=== PATIENT | female | born 1935 | race Caucasian/White ===

== ENCOUNTER → 2016-10-25 | Outpatient (CLI) | payer MEDICARE, BC ==
[2016-03-01 17:15] VITALS: BP 135/60
[~2016-10-25] MED LIST: AMLO1TAB76 PO; CHOL100013 PO; HYDR-971 PO; PANT20TA2 PO
--- NOTE | 2016-10-25 13:20 | CARD ---
APPROVED REPORT EXAM: Two-dimensional and M-mode echocardiogram with Doppler and color Doppler. Other Information Quality : Good INDICATION Ischemic Cardiomyopathy 2D DIMENSIONS RVDd2.4 (2.9-3.5cm)Left Atrium(2D)3.3 (1.6-4.0cm) IVSd1.1 (0.7-1.1cm)Aortic Root(2D)2.9 (2.0-3.7cm) LVDd4.5 (3.9-5.9cm)PWd1.0 (0.7-1.1cm) LVDs4.0 (2.5-4.0cm)FS (%) 15.0 % SV25.7 mlLVEF(%)30.0 (>50%) Aortic Valve AoV Peak Gabriel.115.8cm/sAoV VTI23.0cm AO Peak GR.5.4mmHgAO Mean GR.3mmHg ANIVAL (VTI)2.11cm2 Mitral Valve MV E Uqsxscak96.5cm/sMV DECEL [id number] MV A Amtheiza05.0cm/sE/A Ratio0.6 Tricuspid Valve TR P. Iuclpxqk867rf/sRAP IPZRWHVU6osBa TR Peak Gr.00pyBsDPZX55jdZc LEFT VENTRICLE The left ventricle is normal size. There is normal left ventricular wall thickness. There is mild to moderate LV dysfunction. EF 35-40%. The septum, anterior wall and apex are moderately hypokinetic. Tr ansmitral Doppler flow pattern is Grade I-abnormal relaxation pattern. RIGHT VENTRICLE The right ventricle is normal size. The right ventricular systolic function is normal. There is a pac emaker lead in the right ventricle. ATRIA The left atrium size is normal. The right atrium size is normal. A pacemaker is seen in the right atr ium consistent with history. The interatrial septum is intact with no evidence for an atrial septal d efect or patent foramen ovale as noted on 2-D or Doppler imaging. AORTIC VALVE The aortic valve is calcified but opens well. Doppler and Color Flow revealed no significant aortic r egurgitation. There is no significant aortic valvular stenosis. MITRAL VALVE The mitral valve is normal in structure and function. There is no evidence of mitral valve prolapse. There is no mitral valve stenosis. Doppler and Color-flow revealed mild mitral regurgitation. TRICUSPID VALVE The tricuspid valve is normal in structure and function. Doppler and Color Flow revealed mild tricusp id regurgitation. There is mild pulmonary hypertension. The PA pressure was estimated at 34 mmHg. The re is no tricuspid valve stenosis. PULMONIC VALVE Doppler and Color Flow revealed trace to mild pulmonic valvular regurgitation. There is no pulmonic v alvular stenosis. GREAT VESSELS The aortic root is normal in size. The ascending aorta is normal in size. The IVC is normal in size a nd collapses >50% with inspiration. PERICARDIAL EFFUSION There is no evidence of significant pericardial effusion. Critical Notification Critical Value: No <Conclusion> There is mild to moderate LV dysfunction. EF 35-40%. (mildly improved compared to prior) The septum, anterior wall and apex are moderately hypokinetic. There is a pacemaker lead in the right ventricle.
== END | disposition home or self-care (01) ==
LOC: ECHO 07:51
PROVIDERS: ATTEND Internal Medicine Cardiovascular Disease
DX: I25.5 Ischemic cardiomyopathy (principal); I08.1 Rheumatic disorders of both mitral and tricuspid valves; I27.2 Other secondary pulmonary hypertension; I31.3 Pericardial effusion (noninflammatory); Z95.0 Presence of cardiac pacemaker
CPT/HCPCS: 93306

== ENCOUNTER → 2016-12-14 | Outpatient (CLI) | payer MEDICARE, BC ==
[2016-03-01 17:15] VITALS: BP 135/60
[~2016-12-14] MED LIST changes: -AMLO1TAB76 PO; +AMLO1TAB91 PO; -PANT20TA2 PO; +PANT20TA58 PO
--- NOTE | 2016-12-14 09:49 | RAD ---
Abdominal ultrasound, 12/14/2016: History: Right upper quadrant pain The gallbladder is surgically absent. Mild prominence of the central intrahepatic bile ducts and mild enlargement of the common hepatic duct is probably secondary to the postcholecystectomy state. The common hepatic duct measures 9 mm. In the head of the pancreas the common bile duct measures 9 to 10 mm. No common duct calculus was identified. The visualized portions of the pancreas and spleen are unremarkable. Several simple cysts are present in both kidneys as also noted on the recent CT study. The kidneys show no evidence of obstruction. There is moderate aortic atherosclerosis without evidence of aneurysm. The visualized portions of the inferior vena cava are unremarkable. No free fluid is evident in the abdomen. IMPRESSION: 1. Mild biliary ductal prominence is probably secondary to the postcholecystectomy state. 2. Bilateral renal cysts. 3. Aortic atherosclerosis. 4. No acute abdominal abnormality is detected.
== END | disposition home or self-care (01) ==
LOC: US 07:43
PROVIDERS: ATTEND Family Medicine
DX: N28.1 Cyst of kidney, acquired (principal); I70.0 Atherosclerosis of aorta
CPT/HCPCS: 76700

== ENCOUNTER → 2017-03-07 | Outpatient (CLI) | payer MEDICARE, BC ==
[2016-03-01 17:15] VITALS: BP 135/60
--- NOTE | 2017-03-07 09:55 | CARD ---
APPROVED REPORT EXAM: Two-dimensional and M-mode echocardiogram with Doppler and color Doppler. Other Information Quality : Average Rhythm : Pacemaker INDICATION Cardiomyopathy 2D DIMENSIONS Left Atrium(2D)3.2 (1.6-4.0cm)IVSd1.1 (0.7-1.1cm) Aortic Root(2D)2.6 (2.0-3.7cm)LVDd5.6 (3.9-5.9cm) LVOT Diameter2.1 (1.8-2.4cm)PWd1.1 (0.7-1.1cm) LVDs4.8 (2.5-4.0cm)FS (%) 19.3 % SV49.3 mlLVEF(%)34.9 (>50%) Aortic Valve AoV Peak Gabriel.127.0cm/sAoV VTI24.4cm AO Peak GR.6.4mmHgLVOT Peak Gabriel.83.0cm/s LVOT VTI 20.18cmAO Mean GR.4mmHg ANIVAL (VMAX)2.87ex4RED (VTI)2.88cm2 Mitral Valve MV E Gevycoew60.1cm/sMV DECEL AZKU750zx MV A Kpjwtjgb87.7cm/sMV WHQ24mw E/A Ratio0.6MV A Ewzppnrs200ax MVA (PHT)3.36cm2 Tricuspid Valve TR P. Xqtnlssq826zb/sRAP IYRXUYPD9zyRs TR Peak Gr.53rbNyFMLV20pkSi Pulmonary Vein S1 Huqmlgox19.6cm/sD2 Yddsqufa55.5cm/s LEFT VENTRICLE The left ventricle is normal size. There is normal left ventricular wall thickness. Left ventricle sy stolic function is mildly to moderately impaired. The Ejection Fraction is 40-45%. Mild to moderate g lobal hypokinesis. Tissue Doppler imaging reveals mild left ventricular diastolic dysfunction. RIGHT VENTRICLE The right ventricle is normal size. The right ventricular systolic function is normal. There is a pac emaker lead seen in the RV/RA. ATRIA The left atrium size is normal. The right atrium size is normal. The interatrial septum is intact wit h no evidence for an atrial septal defect or patent foramen ovale as noted on 2-D or Doppler imaging. AORTIC VALVE The aortic valve is normal in structure and function. The aortic valve is trileaflet. Doppler and Col or Flow revealed no significant aortic regurgitation. There is no significant aortic valvular stenosi s. MITRAL VALVE The mitral valve is normal in structure and function. There is no mitral valve stenosis. Doppler and Color Flow revealed mild mitral regurgitation. TRICUSPID VALVE The tricuspid valve is normal in structure and function. Doppler and Color Flow revealed mild tricusp id regurgitation. The PA pressure was estimated at 32 mmHg. There is no tricuspid valve stenosis. PULMONIC VALVE The pulmonic valve is not well visualized. Doppler and Color Flow revealed no pulmonic valvular regur gitation. There is no pulmonic valvular stenosis. GREAT VESSELS The aortic root is normal in size. Pulmonary venous flow (Doppler) suggestive of mild diastolic dysfu nction. The IVC is normal in size and collapses >50% with inspiration. PERICARDIAL EFFUSION There is no evidence of significant pericardial effusion. Critical Notification Critical Value: No <Conclusion> Left ventricle systolic function is mildly to moderately impaired. The Ejection Fraction is 40-45%. There is a pacemaker lead seen in the RV/RA.
== END | disposition home or self-care (01) ==
LOC: ECHO 08:53
PROVIDERS: ATTEND Internal Medicine Cardiovascular Disease
DX: I25.5 Ischemic cardiomyopathy (principal)
CPT/HCPCS: 93306

== ENCOUNTER → 2017-04-20 | Outpatient (CLI) | payer MEDICARE, BC ==
[2016-03-01 17:15] VITALS: BP 135/60
--- NOTE | 2017-04-20 11:36 | RAD ---
DATE: 04/20/2017 EXAM: DIGITAL SCREEN BILAT W/CAD HISTORY: Routine screening COMPARISON: 11/13/2013 This study was interpreted with the benefit of Computerized Aided Detection (CAD). FINDINGS: Breast Density: HETERO The breast parenchyma Is heterogeneiously dense, which could reduce sensitivity of mammography. Breast parenchyma level C. There are no dominant suspicious masses, suspicious microcalcifications or evidence of architectural distortion. Benign-appearing calcification is identified in the bilateral breasts. IMPRESSION: Benign findings BI-RADS CATEGORY: 2 BENIGN FINDING RECOMMENDED FOLLOW-UP: 12M 12 MONTH FOLLOW-UP PQRS compliance statement: Patient information was entered into a reminder system with a target due date 04/20/2018 for the next mammogram. Mammography is a sensitive method for finding small breast cancers, but it does not detect them all and is not a substitute for careful clinical examination. A negative mammogram does not negate a clinically suspicious finding and should not result in delay in biopsying a clinically suspicious abnormality. "Our facility is accredited by the [employer] Mammography Program."
== END | disposition home or self-care (01) ==
LOC: MAMMO 09:59
PROVIDERS: ATTEND Nurse Practitioner Family
DX: Z12.31 Encounter for screening mammogram for malignant neoplasm of breast (principal)
CPT/HCPCS: G0202; 77067

== ENCOUNTER 2017-04-25 07:43 | Emergency (ER) | payer MEDICARE, BC ==
[~2017-04-25] VITALS: Ht 157.5 cm; Wt 61.2 kg
--- NOTE | 2017-04-25 08:20 | PHYS DOC ---
Past History Past Medical History: GERD, Hypertension Past Surgical History: No Surgical History Smoking: Non-smoker Alcohol Use: None Drug Use: None Adult General Chief Complaint Chief Complaint: ABDOMINAL PAIN HPI HPI 81-year-old female presenting to the emergency department today with general pain "everywhere". She primarily states her pain is in her epigastric region but is unable to localize her pain specifically and states it is all over. The pain is moderate intermittent nonradiating. She describes it as worse when she eats. It is been present for greater than 4 days. She reports chronically seeing her primary care physician for this over the past week. She has been prescribed medication that she does not remember the name of. She reports it mildly helps. Review of systems is negative for shortness of breath fevers. She does report sweats. She describes having intermittent nausea with a few episodes of nonbilious nonbloody vomiting. All other review of systems is negative unless otherwise noted in history of present illness. ED course: 81-year-old female presenting to the emergency department with pain all over. The patient is generally poor historian however after much clarification it appears the patient's pain is primarily in the epigastric region. Pertinent physical examination findings show a soft nontender abdomen without rebound tenderness or guarding. Negative McBurney's point. Negative Sewell sign. Chest x-ray obtained along with EKG urinalysis and blood work. EKG reviewed by myself shows a paced rhythm with mild tachycardia. Scarbossa Negative. Chest x-ray reviewed by myself shows mild increased patchy finding in the RLL. In the context of the patient's clinical presentation, the patient is not febrile is not have a cough. Well initiate abx dosing here to monitor clinical presentation in the hospital. Blood work shows elevated troponin and elevated proBNP. I discussed the case with [Colton] at [0900] who recommended [heparin, asa]. The patient was given an aspirin heparin and then subsequently admitted to [facility] per cardiology recs for further evaluation workup and care. Review of Systems Review of Systems SEE ABOVE Current Medications Current Medications Current Medications Medications (Trade) Dose Ordered Sig/Alexus Start Time Stop Time Status Last Admin Dose Admin Acetaminophen/ Hydrocodone Bitart (Lortab 5/325) 1 tab 1X ONCE 04/25/17 08:30 04/25/17 08:31 Famotidine (Pepcid) 20 mg 1X ONCE 04/25/17 08:30 04/25/17 08:31 Multi-Ingredient Mouthwash/Gargle (Gi Cocktail) 20 ml 1X ONCE 04/25/17 08:30 04/25/17 08:31 Allergies Allergies Allergies Coded Allergies Type Severity Reaction Last Updated Verified codeine Allergy Unknown 03/01/16 Yes Physical Exam Physical Exam see above. Constitutional: Well developed, well nourished, no acute distress, non-toxic appearance. [] HENT: Normocephalic, atraumatic, bilateral external ears normal, oropharynx moist, no oral exudates, nose normal. [] Eyes: PERRLA, EOMI, conjunctiva normal, no discharge. [] Neck: Normal range of motion, no tenderness, supple, no stridor. [] Cardiovascular:Heart rate regular rhythm, no murmur [] Lungs & Thorax: mild crackles in the right lower lung field. otherwise without wheezing. Left side clear. Abdomen: Bowel sounds normal, soft, no tenderness, no masses, no pulsatile masses. [] Skin: Warm, dry, no erythema, no rash. [] Back: No tenderness, no CVA tenderness. [] Extremities: No tenderness, no cyanosis, no clubbing, ROM intact, no edema. [] Neurologic: Alert and oriented X 3, normal motor function, normal sensory function, no focal deficits noted. [] Psychologic: Affect normal, judgement normal, mood normal. [] Current Patient Data Vital Signs Vital Signs Date Time Temp Pulse Resp B/P (MAP) Pulse Ox O2 Delivery O2 Flow Rate FiO2 04/25/17 07:50 98.8 100 22 95 Room Air EKG EKG [] Radiology/Procedures Radiology/Procedures [] Course & Med Decision Making Course & Med Decision Making Pertinent Labs and Imaging studies reviewed. (See chart for details) [] Dragon Disclaimer Dragon Disclaimer This chart was dictated in whole or in part using Voice Recognition software in a busy, high-work load, and often noisy Emergency Department environment. It may contain unintended and wholly unrecognized errors or omissions. Departure Departure: Impression: Primary Impression: Abdominal pain Additional Impressions: Elevated troponin CHF exacerbation NSTEMI (non-ST elevated myocardial infarction) PNA (pneumonia) Disposition: 02 XFER [facility] ([place] accepting) Condition: IMPROVED Referrals: MEJIA GONSALES MD (PCP) Problem Qualifiers ANDREW CAREY MD Apr 25, 2017 08:20
[2017-04-25] MEDS ORDERED: HYDROcodone/APAP 5/325MG 1 TAB TABLET PO ONE (08:30)
[2017-04-25] MEDS ORDERED: FAMOTIDINE 20 MG/2 ML VIAL IVP ONE (08:30)
[2017-04-25] MEDS ORDERED: LIDO:MAALOX 1:1 20 ML SINGLE DOSE PO ONE (08:30)
[2017-04-25 08:34] LABS: BASO % 1 % (0-3); EOS % 0 % (0-3); LYMPH % 11 % (24-48); MEAN CORPUSCULAR HEMOGLOBIN 32 pg (25-35); MEAN CORPUSCULAR HGB CONC 34 g/dL (31-37); MEAN CORPUSCULAR VOLUME 94 fL (79-100); MONO # 1.3 x10^3/uL (0.0-1.1); MONO % 14 % (0-9); NEUT % 75 % (31-73); PLATELET COUNT 132 x10^3/uL (140-400); RED BLOOD COUNT 4.39 x10^6/uL (3.50-5.40); RED CELL DISTRIBUTION WIDTH 15.2 % (11.5-14.5); WHITE BLOOD COUNT 9.3 x10^3/uL (4.0-11.0)
--- NOTE | 2017-04-25 08:41 | RAD ---
Chest x-ray Indication: Abdominal pain. Discomfort external. Technique: Portable AP upright chest x-ray Comparison: Previous chest x-ray from 05/06/2011 Findings: Left chest wall cardiac device is seen with its leads projecting over the heart. Heart is mildly enlarged in size with aortic knob calcifications. Diffuse bilateral interstitial opacities noted with Pedro B lines prominently on the right side. Patchy opacities is also seen in the medial aspect of the right lung base. No pneumothorax or pleural effusion. Visualized bony thorax is within normal limits. Impression: Mild cardiomegaly with findings of pulmonary interstitial edema. Patchy opacity in the medial aspect of the right lung base may represent superimposed pneumonia, aspiration or atelectasis.
[2017-04-25 08:53] LABS: ALBUMIN 3.6 g/dL (3.4-5.0); CALCIUM 9.7 mg/dL (8.5-10.1); CREATININE 1.1 mg/dL (0.6-1.0); DIRECT BILIRUBIN 0.2 mg/dL (0.0-0.2); GFR 47.4; POTASSIUM 4.6 mmol/L (3.5-5.1); TOTAL PROTEIN 7.4 g/dL (6.4-8.2)
[2017-04-25] MEDS ORDERED: ASPIRIN 81 MG TAB.CHEW ONE (09:15)
[2017-04-25 09:26] LABS: BACTERIA,URINE FEW /HPF (0-FEW); BILIRUBIN,URINE NEG (NEG); CLARITY,URINE HAZY; COLOR,URINE AMBER; GLUCOSE,URINE NEG (NEG); NITRITE,URINE NEG (NEG); RBC,URINE 20-40 /HPF (0-2); SQUAMOUS EPITHELIAL CELL,UR OCC /LPF; UROBILINOGEN,URINE 0.2 mg/dL (0.2 mg/dL); WBC,URINE RARE /HPF (0-4)
[2017-04-25] MEDS ORDERED: HEPARIN for IV BOLUS 10,000 UNIT/10 ML VIAL. IV PRN ×2 (09:30)
[2017-04-25] MEDS ORDERED: ASPIRIN 81 MG TAB.CHEW PO ONE (09:40)
[2017-04-25 09:41] VITALS: BP 130/79
[2017-04-25] MEDS ORDERED: HEPARIN for IV BOLUS 10,000 UNIT/10 ML VIAL. IV ONE (09:50)
[2017-04-25] MEDS ORDERED: HEPARIN 25,000UTS/500ML PREMIX 500 ML IV PRN (09:50)
[2017-04-25] MEDS ORDERED: NITROGLYCERIN SUBLINGUAL 0.4 MG BOTTLE OF 25. SL ONE (09:50)
[2017-04-25] MEDS ORDERED: IV NORMAL SALINE 250ML 250 ML ONE (10:15)
[2017-04-25] MEDS ORDERED: AZITHROMYCIN 500 MG VIAL. IV ONE (10:15)
[2017-04-25] MEDS ORDERED: AZITHROMYCIN 500 MG in IV NORMAL SALINE 250ML 250 ML IV ONE (10:30)
[2017-04-25] MEDS ORDERED: IV NORMAL SALINE 50ML 50 ML ONE (11:35)
[2017-04-25] MEDS ORDERED: cefTRIAXone SODIUM 1 GM VIAL IV ONE (11:35)
--- NOTE | 2017-04-25 19:14 | EKG ---
[address] [address] Test Date: 2017-04-25 Test Time: 08:07:43 Pat Name: ROHITH PINO Department: Room: Gender: F Network Control Supervisor: SHAYLEE : 1935 Requested By: ANDREW CAREY Order Number: [id number] Reading MD: Measurements Intervals [place] Rate: 98 P: -57 NH: 192 QRS: -55 QRSD: 184 T: 118 QT: 402 QTc: 515 Interpretive Statements SUPRAVENTRICULAR RHYTHM ABNORMAL LEFT AXIS DEVIATION NON SPECIFIC INTRAVENTRICULAR BLOCK QRS(T) CONTOUR ABNORMALITY CONSIDER ANTEROSEPTAL MYOCARDIAL DAMAGE ABNORMAL ECG RI6.01 No previous ECG available for comparison
--- NOTE | 2017-04-25 19:15 | EKG ---
[address] [address] Test Date: 2017-04-25 Test Time: 11:53:08 Pat Name: ROHITH PINO Department: Room: Gender: F Dispensing Audiologist: : 1935 Requested By: ANDREW CAREY Order Number: [id number] Reading MD: Measurements Intervals [place] Rate: 90 P: 3 AK: 208 QRS: -58 QRSD: 182 T: 128 QT: 422 QTc: 521 Interpretive Statements SINUS RHYTHM ABNORMAL LEFT AXIS DEVIATION NON SPECIFIC INTRAVENTRICULAR BLOCK ABNORMAL ECG RI6.01 No previous ECG available for comparison
--- NOTE | 2017-04-25 19:16 | EKG ---
[address] [address] Test Date: 2017-04-25 Test Time: 11:54:34 Pat Name: ROHITH PINO Department: Room: Gender: F Forensic Pathologist: : 1935 Requested By: ANDREW CAREY Order Number: [id number] Reading MD: Measurements Intervals [place] Rate: 87 P: 76 [place]: 208 QRS: -55 QRSD: 182 T: 124 QT: 432 QTc: 520 Interpretive Statements SINUS RHYTHM ABNORMAL LEFT AXIS DEVIATION NON SPECIFIC INTRAVENTRICULAR BLOCK QRS(T) CONTOUR ABNORMALITY CONSIDER ANTEROSEPTAL MYOCARDIAL DAMAGE ABNORMAL ECG RI6.01 No previous ECG available for comparison
== END 2017-04-26 12:52 | disposition short-term general hospital (02) ==
LOC: ER 07:43
DX: R10.13 Epigastric pain (principal); I50.9 Heart failure, unspecified; J18.9 Pneumonia, unspecified organism; I11.0 Hypertensive heart disease with heart failure; K21.9 Gastro-esophageal reflux disease without esophagitis; I21.4 Non-ST elevation (NSTEMI) myocardial infarction; R79.89 Other specified abnormal findings of blood chemistry; Z88.5 Allergy status to narcotic agent
CPT/HCPCS: 36415; 71010; 80048; 80076; 81001; 83690; 83880; 84484; 85025; 85610; 85730; 93005; 96365; 96366; 96368; 96375; 99285; J0456; J0696; J1644; J7050; S0028

== ENCOUNTER 2017-05-23 18:25 | Emergency (ER) | payer MEDICARE, BC ==
[~2017-05-23] VITALS: Ht 157.5 cm; Wt 61.2 kg
[2017-05-23] MEDS ORDERED: ONDANSETRON PF 4 MG/2 ML VIAL. IV ONE (19:00)
[2017-05-23] MEDS ORDERED: ONDANSETRON PF 4 MG/2 ML VIAL. ONE (19:06)
--- NOTE | 2017-05-23 19:23 | ED.ADGEN ---
Past History Past Medical History: GERD, Heart Disease, Hypertension Past Surgical History: No Surgical History, Other Smoking: Non-smoker Alcohol Use: None Drug Use: None Adult General HPI HPI Patient is an 81-year-old woman, history of heart disease, hypertension, status post stent placement about a month ago, on anticoagulation, who presents to the emergency department with a complaint of right-sided hip pain. Patient states that she lost her balance and fell in her basement around 3:00 in the afternoon. She has been able to weight-bear since that time, states that she did not lose consciousness, did land in her entire side, does not believe she struck her head is complaining of chronic neck pain, right pain, sitting down to the knee and into the groin. Denies similar symptoms previously. She denies a preceding symptoms, no chest pain, shortness breath, nausea, vomiting, weakness, numbness, tingling or other complaints. She did take Tylenol at home, without relief. Review of Systems Review of Systems Constitutional: Denies fever or chills [] Eyes: Denies change in visual acuity, redness, or eye pain [] HENT: Denies nasal congestion or sore throat [] Respiratory: Denies cough or shortness of breath [] Cardiovascular: No additional information not addressed in HPI [] GI: Denies abdominal pain, nausea, vomiting, bloody stools or diarrhea [] : Denies dysuria or hematuria [] Musculoskeletal: Denies back pain, complaining of pain in the right hip. Unable to weight-bear. Integument: Denies rash or skin lesions [] Neurologic: Denies headache, focal weakness or sensory changes [] Endocrine: Denies polyuria or polydipsia [] Current Medications Current Medications Current Medications Medications (Trade) Dose Ordered Sig/[facility] Start Time Stop Time Status Last Admin Dose Admin Fentanyl Citrate (Fentanyl 2ml Vial) 100 mcg STK-MED ONCE 05/23/17 19:06 05/23/17 19:07 DC Ondansetron HCl (Zofran) 4 mg STK-MED ONCE 05/23/17 19:06 05/23/17 19:07 DC Allergies Allergies Allergies Coded Allergies Type Severity Reaction Last Updated Verified codeine Allergy Unknown 03/01/16 Yes Physical Exam Physical Exam Constitutional: Well developed, well nourished, no acute distress, non-toxic appearance. [] HENT: Normocephalic, atraumatic, bilateral external ears normal, oropharynx moist, no oral exudates, nose normal. [] Eyes: PERRLA, EOMI, conjunctiva normal, no discharge. [] Neck: Normal range of motion, no tenderness, supple, no stridor. [] Cardiovascular:Heart rate regular rhythm, no murmur, S1, S2, rubs or gallops. [] Lungs & Thorax: Bilateral breath sounds clear to auscultation, no wheezing, rhonchi, rales. No chest wall crepitus or tenderness. [] Abdomen: Bowel sounds normal, soft, no tenderness, no rebound, rigidity, no guarding, no masses, no pulsatile masses. [] Skin: Warm, dry, no erythema, no rash. [] Back: No tenderness, no CVA tenderness. [] Extremities: Tenderness palpation over the right hip, groin region, patient is slightly rotated, patient noted an abrasion over the lateral aspect of the right knee, with mild soft tissue swelling noted, no bony point tenderness or deformity, pulses are equal and intact bilaterally, no cyanosis, no clubbing, ROM intact, no edema. [] Neurologic: Alert and oriented X 3, normal motor function, normal sensory function, no focal deficits noted. [] Psychologic: Affect normal, judgement normal, mood normal. [] Current Patient Data Vital Signs Vital Signs Date Time Temp Pulse Resp B/P (MAP) Pulse Ox O2 Delivery O2 Flow Rate FiO2 05/23/17 18:40 97.0 122 12 99 Room Air Lab Results Laboratory Tests Test 05/23/17 19:20 White Blood Count 9.0 x10^3/uL (4.0-11.0) Red Blood Count 4.04 x10^6/uL (3.50-5.40) Hemoglobin 12.7 g/dL (12.0-15.5) Hematocrit 37.4 % (36.0-47.0) Mean Corpuscular Volume 93 fL (79-100) Mean Corpuscular Hemoglobin 32 pg (25-35) Mean Corpuscular Hemoglobin Concent 34 g/dL (31-37) Red Cell Distribution Width 15.2 % (11.5-14.5) H Platelet Count 151 x10^3/uL (140-400) Neutrophils (%) (Auto) 62 % (31-73) Lymphocytes (%) (Auto) 15 % (24-48) L Monocytes (%) (Auto) 22 % (0-9) H Eosinophils (%) (Auto) 1 % (0-3) Basophils (%) (Auto) 0 % (0-3) Neutrophils # (Auto) 5.6 x10^3uL (1.8-7.7) Lymphocytes # (Auto) 1.3 x10^3/uL (1.0-4.8) Monocytes # (Auto) 2.0 x10^3/uL (0.0-1.1) H Eosinophils # (Auto) 0.1 x10^3/uL (0.0-0.7) Basophils # (Auto) 0.0 x10^3/uL (0.0-0.2) Prothrombin Time 11.5 SEC (9.4-11.4) H Prothrombin Time INR 1.1 (0.9-1.1) PTT 25 SEC (23-33) Sodium Level 137 mmol/L (136-145) Potassium Level 3.5 mmol/L (3.5-5.1) Chloride Level 102 mmol/L (98-107) Carbon Dioxide Level 26 mmol/L (21-32) Anion Gap 9 (6-14) Blood Urea Nitrogen 19 mg/dL (7-20) Creatinine 1.2 mg/dL (0.6-1.0) H Estimated GFR (Cockcroft-Gault) 42.9 BUN/Creatinine Ratio 16 (6-20) Glucose Level 100 mg/dL (70-99) H Calcium Level 9.1 mg/dL (8.5-10.1) Total Bilirubin 0.7 mg/dL (0.2-1.0) Aspartate Amino Transferase (AST) 21 U/L (15-37) Alanine Aminotransferase (ALT) 22 U/L (14-59) Alkaline Phosphatase 112 U/L (46-116) Total Protein 7.3 g/dL (6.4-8.2) Albumin 3.6 g/dL (3.4-5.0) Albumin/Globulin Ratio 1.0 (1.0-1.7) EKG EKG ECG: , Limiting interpretation, heart rate 86 beats/minute, QTC of 516, QRS of 22, no ST elevations or depressions. As interpreted by me. Radiology/Procedures Radiology/Procedures [][address] [address] IMAGING REPORT Signed PATIENT: ROHITH PINO ACCOUNT: [id number] : 1935 LOCATION: ER AGE: 81 SEX: F EXAM STATUS: PRE ER ORD. PHYSICIAN: MARCIA CORREA DO REASON: fall/neck/hip pain PROCEDURE: CT HEAD AND CERVICAL SPINE WO CT HEAD AND CERVICAL SPINE without contrast Clinical indications: FALL, HEAD AND NECK PAIN COMPARISON: None available. NONCONTRAST HEAD CT Technique: Noncontrast axial cross sectional scanning of the head was performed. PQRS compliance Statement One or more of the following individualized dose reduction techniques were utilized for these studies: 1. Automated exposure control 2. Adjustment of the mA and/or kV according to patient size 3. Use of iterative reconstruction technique Findings: No acute intracranial hemorrhage or midline shift or mass-effect or hydrocephalus or extra-axial fluid collection is seen. Mild bilateral periventricular white matter hypodensity is seen consistent with chronic small vessel ischemic disease in this age group. No skull fracture or pneumocephalus is seen. No opacification of the mastoid sinuses or the paranasal sinuses is seen. The maxillary sinuses are not completely seen in this study. Impression: No acute intracranial hemorrhage is seen. Mild chronic small vessel ischemic disease of the white matter. NONCONTRAST CERVICAL SPINE CT TECHNIQUE: Noncontrast helical CT scanning of the cervical spine was performed. Multiplanar 2-D reconstructions were generated. FINDINGS: No acute fracture or discitis or osteolytic process is seen. Degenerative endplate spurring and disc space narrowing is seen at C4-5 and C5-6 and C6-7 and C7-T1. Degenerative facet arthropathy is seen. No perching of the facet joints is seen. IMPRESSION: No acute fracture. Degenerative cervical spondylosis. There is a 22 mm nodule of the right lobe of the thyroid gland. Recommend outpatient thyroid sonography for further evaluation. Electronically signed by: Iliana Rowan MD (05/23/2017 8:09 PM) [facility] DICTATED AND SIGNED BY: ILIANA ROWAN MD DATE: 05/23/171999 CC: MEJIA GONSALES MD; MARCIA CORREA DO ~ Pelvis and right hip 2 view: Patient with impacted right femoral neck fracture , no other pelvic abnormalities identified. No soft tissue abnormalities identified. As interpreted by me. Knee three-view: Right: No fracture subluxation, no soft tissue or bony abnormalities identified. As interpreted by me. Tib-fib: 2 view: Right: No fracture subluxation, no soft tissue or bony abnormalities identified. As interpreted by me. Chest x-ray: One view: Patient with moderate cardiomegaly, AICD dual-chamber pacemaker in place, suboptimal inspiratory effort, but no pneumothorax, effusions, infiltrates, soft tissue or bony abnormalities identified. No significant changes noted from previous chest x-ray 04/25/2017. As interpreted by me. Course & Med Decision Making Course & Med Decision Making Pertinent Labs and Imaging studies reviewed. (See chart for details) Examination is concerning for possible fracture, as hip is rotated internally and shortened. Superficial abrasions noted on the patient's knee, tetanus is up- to-date. Due to patient's age, mechanism of action, usage of anticoagulants, distracting injury, c-collar was placed per Nexus criteria, patient is agreeable to receiving imaging of the head and neck, along with x-rays of her pelvis and lower extremity. Patient log rolled, no other injuries or concerning findings identified. CT of head and neck obtained without issue. CT of head and neck did not reveal evidence of acute injury, noted to have an isolated thyroid nodule which will require outpatient evaluation. Patient's pelvis x-ray revealed an impacted right femoral neck fracture, no other fractures identified. C-collar was cleared without issue. Findings as above discussed with patient and family at bedside, patient is agreeable for transfer to [facility] for orthopedic evaluation and surgical intervention of right hip fracture. Symptoms controlled with fentanyl IV. Koenig catheter placed. Creatinine 1.2, electrolytes and other laboratory studies not reveal any acutely concerning findings. Findings as above discussed with Dr. Gusman of internal medicine, patient accepted to her service as a full admission to the medical telemetry floor. I did speak with Dr. Romero of orthopedics, who did review patient's images, and will see the patient in consultation at [facility]. Consent paperwork completed with patient, patient resting comfortably, vital signs remained stable, awaiting transfer to [facility]. Final Impression Final Impression [] Problems: Dragon Disclaimer Dragon Disclaimer This electronic medical record was generated, in whole or in part, using a voice recognition dictation system. Departure: Impression: Primary Impression: Fracture of femoral neck, right Disposition: 05 XFER OTHER Condition: IMPROVED MARCIA CORREA DO May 23, 2017 19:23
--- NOTE | 2017-05-23 19:39 | EKG ---
[address] [address] Test Date: 2017-05-23 Test Time: 18:59:59 Pat Name: ROHITH PINO Department: Room: Gender: F Head Bucker: MOR : 1935 Requested By: MARCIA CORREA Order Number: [id number] Reading MD: Grover Hutchison MD Measurements Intervals [place] Rate: 86 P: [place]: QRS: -58 QRSD: 182 T: 118 QT: 428 QTc: 516 Interpretive Statements SR 1ST DEG AVB V-PACED Electronically Signed On 05-27-2017 13:32:23 CDT by Grover Hutchison MD
[2017-05-23 20:06] LABS: BASO % 0 % (0-3); EOS # 0.1 x10^3/uL (0.0-0.7); EOS % 1 % (0-3); HEMATOCRIT 37.4 % (36.0-47.0); HEMOGLOBIN 12.7 g/dL (12.0-15.5); LYMPH # 1.3 x10^3/uL (1.0-4.8); LYMPH % 15 % (24-48); MEAN CORPUSCULAR HEMOGLOBIN 32 pg (25-35); MEAN CORPUSCULAR HGB CONC 34 g/dL (31-37); MEAN CORPUSCULAR VOLUME 93 fL (79-100); MONO % 22 % (0-9); NEUT # 5.6 x10^3uL (1.8-7.7); NEUT % 62 % (31-73); PLATELET COUNT 151 x10^3/uL (140-400); RED BLOOD COUNT 4.04 x10^6/uL (3.50-5.40); RED CELL DISTRIBUTION WIDTH 15.2 % (11.5-14.5)
--- NOTE | 2017-05-23 20:13 | RAD ---
CT HEAD AND CERVICAL SPINE without contrast Clinical indications: FALL, HEAD AND NECK PAIN COMPARISON: None available. NONCONTRAST HEAD CT Technique: Noncontrast axial cross sectional scanning of the head was performed. PQRS compliance Statement One or more of the following individualized dose reduction techniques were utilized for these studies: 1. Automated exposure control 2. Adjustment of the mA and/or kV according to patient size 3. Use of iterative reconstruction technique Findings: No acute intracranial hemorrhage or midline shift or mass-effect or hydrocephalus or extra-axial fluid collection is seen. Mild bilateral periventricular white matter hypodensity is seen consistent with chronic small vessel ischemic disease in this age group. No skull fracture or pneumocephalus is seen. No opacification of the mastoid sinuses or the paranasal sinuses is seen. The maxillary sinuses are not completely seen in this study. Impression: No acute intracranial hemorrhage is seen. Mild chronic small vessel ischemic disease of the white matter. NONCONTRAST CERVICAL SPINE CT TECHNIQUE: Noncontrast helical CT scanning of the cervical spine was performed. Multiplanar 2-D reconstructions were generated. FINDINGS: No acute fracture or discitis or osteolytic process is seen. Degenerative endplate spurring and disc space narrowing is seen at C4-5 and C5-6 and C6-7 and C7-T1. Degenerative facet arthropathy is seen. No perching of the facet joints is seen. IMPRESSION: No acute fracture. Degenerative cervical spondylosis. There is a 22 mm nodule of the right lobe of the thyroid gland. Recommend outpatient thyroid sonography for further evaluation. Electronically signed by: Sourav Rowan MD (05/23/2017 8:09 PM) [facility]
[2017-05-23 20:24] LABS: ALBUMIN 3.6 g/dL (3.4-5.0); CALCIUM 9.1 mg/dL (8.5-10.1); CREATININE 1.2 mg/dL (0.6-1.0); GFR 42.9; POTASSIUM 3.5 mmol/L (3.5-5.1); TOTAL BILIRUBIN 0.7 mg/dL (0.2-1.0); TOTAL PROTEIN 7.3 g/dL (6.4-8.2)
[2017-05-23] MEDS ORDERED: TICA90TA PO (22:52)
[2017-05-23 23:16] VITALS: BP 139/87
[2017-05-23 23:17] LABS: BILIRUBIN,URINE NEG (NEG); CLARITY,URINE CLEAR; COLOR,URINE YELLOW; GLUCOSE,URINE NEG (NEG)
[2017-05-23 23:18] LABS: BACTERIA,URINE 0 /HPF (0-FEW); NITRITE,URINE NEG (NEG); SQUAMOUS EPITHELIAL CELL,UR OCC /LPF; UROBILINOGEN,URINE 1 mg/dL (0.2 mg/dL); WBC,URINE OCC /HPF (0-4)
--- NOTE | 2017-05-24 08:34 | RAD ---
Pelvis with right hip, 3 views, 05/23/2017: History: Fall, pain There is a discontinuity along the lateral margin of the right femoral neck in a subcapital location. There is underlying trabecular discontinuity compatible with an impacted subcapital fracture. No other fracture or dislocation is identified. The hip joint spaces are well preserved with mild marginal spurring. There are moderate degenerative changes in the lower lumbar spine. Scattered vascular calcifications are present. IMPRESSION: Impacted subcapital fracture of the right femoral neck.
--- NOTE | 2017-05-24 08:36 | RAD ---
Right knee, 2 views, 05/23/2017: History: Fall, pain No fracture or dislocation is identified. There is minimal marginal spurring. IMPRESSION: No acute right knee abnormality is detected. Right tibia and fibula, 2 views, 05/23/2017: No acute fracture is identified. Minimal arterial calcifications are present. IMPRESSION: No acute bony abnormality is detected.
--- NOTE | 2017-05-24 08:37 | RAD ---
Portable chest, 05/23/2017: History: Fall, hip fracture Comparison is made to a study from 04/25/2017. A left-sided transvenous pacemaker remains in place with 2 leads extending into the right heart. The heart is mildly enlarged. There is calcific plaquing of aorta. The pulmonary vascularity is normal. Mild interstitial edema evident on the previous study has resolved. No acute infiltrates are seen. There is no evidence of pleural fluid or pneumothorax. IMPRESSION: 1. Mild cardiomegaly and aortic atherosclerosis. 2. No acute abnormality is detected.
== END 2017-05-23 23:45 | disposition short-term general hospital (02) ==
LOC: ER 18:25
DX: S72.001A Fracture of unspecified part of neck of right femur, initial encounter for closed fracture (principal); S80.211A Abrasion, right knee, initial encounter; M54.2 Cervicalgia; I11.9 Hypertensive heart disease without heart failure; K21.9 Gastro-esophageal reflux disease without esophagitis; Z95.0 Presence of cardiac pacemaker; Z88.5 Allergy status to narcotic agent; W01.0XXA Fall on same level from slipping, tripping and stumbling without subsequent striking against object, initial encounter; Y93.89 Activity, other specified; Y99.8 Other external cause status; Y92.89 Other specified places as the place of occurrence of the external cause
CPT/HCPCS: 36415; 51702; 70450; 71010; 72125; 73502; 73562; 73590; 80053; 81001; 85025; 85610; 85730; 93005; 96374; 96375; 96376; 99285; J2405; J3010

== ENCOUNTER → 2017-08-07 | Outpatient (CLI) | payer MEDICARE, BC ==
[~2017-08-07] MED LIST changes: +TICA90TA PO
--- NOTE | 2017-08-07 16:00 | CARD ---
MR#: [id number] Date of Study: 08/07/2017 Ordering Physician: GROVER HUTCHISON, Referring Physician: GROVER HUTCHISON, Tech: Herb Morillo APPROVED REPORT EXAM: Two-dimensional and M-mode echocardiogram with Doppler and color Doppler. Other Information Quality : GoodHR: 72bpm INDICATION Cardiomyopathy 2D DIMENSIONS Left Atrium(2D)3.3 (1.6-4.0cm)IVSd1.1 (0.7-1.1cm) Aortic Root(2D)2.9 (2.0-3.7cm)LVDd5.1 (3.9-5.9cm) LVOT Diameter2.4 (1.8-2.4cm)PWd1.0 (0.7-1.1cm) LVDs4.2 (2.5-4.0cm)FS (%) 19.0 % SV49.2 mlLVEF(%)39.0 (>50%) Aortic Valve AoV Peak Gabriel.116.4cm/sAoV VTI25.8cm AO Peak GR.5.4mmHgLVOT Peak Gabriel.73.2cm/s AO Mean GR.3mmHgAVA (VMAX)2.88cm2 Mitral Valve MV E Kgttrbbk01.1cm/sMV E Peak Gr.73mmHg MV DECEL [id number] A Djedyson15.1cm/s E/A Ratio0.7 Pulmonary Valve PV Peak Ruhxdfix29.5cm/sPV Peak Grad.3mmHg Tricuspid Valve TR P. [id number]/sRAP ACPHZJGK0foKd TR Peak Gr.75kkBcSCRY05mwAy Pulmonary Vein S1 Jhtgvqpe95.9cm/sD2 Laytstqk45.0cm/s LEFT VENTRICLE The left ventricle is normal size. There is borderline concentric left ventricular hypertrophy. The s ystolic function is moderately impaired. The Ejection Fraction is 35-40%. Apical motion consistent wi th pacemaker activation. Mild to moderate global hypokinesis. Transmitral Doppler flow pattern is Gra de I-abnormal relaxation pattern. No left ventricle thrombus noted on this study. RIGHT VENTRICLE The right ventricle is normal size. The right ventricular systolic function is normal. There is a pac emaker lead noted in RA/RV ATRIA The left atrium size is normal. The right atrium size is normal. The interatrial septum is intact wit h no evidence for an atrial septal defect or patent foramen ovale as noted on 2-D or Doppler imaging. AORTIC VALVE The aortic valve is thickened but opens well. Doppler and Color Flow revealed trace aortic regurgitat ion. There is no significant aortic valvular stenosis. There is no aortic valvular vegetation. MITRAL VALVE The mitral valve is normal in structure and function. There is no evidence of mitral valve prolapse. There is no mitral valve stenosis. Doppler and Color-flow revealed mild mitral regurgitation. TRICUSPID VALVE The tricuspid valve is normal in structure and function. Doppler and Color Flow revealed mild tricusp id regurgitation. RVSP 28 mm Hg. There is no tricuspid valve prolapse or vegetation. There is no tric uspid valve stenosis. PULMONIC VALVE Doppler and Color Flow suggested possible trace to mild pulmonic valvular regurgitation. There is no pulmonic valvular stenosis. GREAT VESSELS The aortic root is normal in size. The IVC is normal in size and collapses >50% with inspiration. PERICARDIAL EFFUSION There is no pleural effusion. There is no evidence of significant pericardial effusion. Critical Notification Critical Value: No <Conclusion> The systolic function is moderately impaired. The Ejection Fraction is 35%. Apical motion consistent with pacemaker activation. Mild to moderate global hypokinesis. Doppler and Color-flow revealed mild mitral regurgitation. Doppler and Color Flow revealed mild tricuspid regurgitation. RVSP 28 mm Hg. Signed by : Grover Hutchison, Electronically Approved : 08/07/2017 15:59:59
== END | disposition home or self-care (01) ==
LOC: ECHO 13:50
PROVIDERS: ATTEND Internal Medicine Cardiovascular Disease
DX: I25.5 Ischemic cardiomyopathy (principal); I08.2 Rheumatic disorders of both aortic and tricuspid valves; I11.9 Hypertensive heart disease without heart failure; I50.9 Heart failure, unspecified; Z95.0 Presence of cardiac pacemaker
CPT/HCPCS: 93306

== ENCOUNTER 2017-08-25 13:49 | Inpatient (IN) | payer MEDICARE, BC ==
[~2017-08-25] VITALS: Ht 157.5 cm; Wt 0.2 kg
[2017-08-25] MEDS ORDERED: DICY10CA53 PO (16:09)
[2017-08-25] MEDS ORDERED: METO-239 PO (16:09)
[2017-08-25] MEDS ORDERED: ASPI-630 PO (16:09)
[2017-08-25] MEDS ORDERED: ATOR40TA PO (16:09)
[2017-08-25] MEDS ORDERED: POTA20TA4 PO (16:09)
[2017-08-25] MEDS ORDERED: CITA20TA9 PO (16:09)
[2017-08-25] MEDS ORDERED: HYDR-2758 PO (16:09)
[2017-08-25] MEDS ORDERED: CHOL10003 PO (16:09)
[2017-08-25] MEDS ORDERED: TICA90TA PO (16:09)
[2017-08-25] MEDS ORDERED: POTA10CA PO (16:09)
[2017-08-25] MEDS ORDERED: PANT40TA3 PO (16:09)
[2017-08-25 16:24] VITALS: BP 118/57
[2017-08-25] MEDS: HYDROcodone/APAP 5/325MG 1 TAB TABLET PO PRN ×2 (17:11→21:06)
[2017-08-25 19:27] VITALS: BP 111/55
[2017-08-25] MEDS: ATORVASTATIN CALCIUM 20 MG TABLET PO SCH (20:15)
[2017-08-25] MEDS: TICAGRELOR 90 MG TABLET. PO SCH (20:16)
[2017-08-25] MEDS: DICYCLOMINE HCL 10 MG CAPSULE PO SCH (20:16)
[2017-08-26] MEDS: MELATONIN 3 MG TABLET PO PRN (00:15)
[2017-08-26] MEDS: HYDROcodone/APAP 5/325MG 1 TAB TABLET PO PRN ×3 (03:27→14:51)
[2017-08-26 06:47] LABS: BASO % 0 % (0-3); EOS # 0.1 x10^3/uL (0.0-0.7); EOS % 2 % (0-3); HEMOGLOBIN 7.6 g/dL (12.0-15.5); LYMPH # 0.9 x10^3/uL (1.0-4.8); LYMPH % 19 % (24-48); MEAN CORPUSCULAR HEMOGLOBIN 31 pg (25-35); MEAN CORPUSCULAR HGB CONC 35 g/dL (31-37); MEAN CORPUSCULAR VOLUME 90 fL (79-100); MONO % 20 % (0-9); NEUT # 2.9 x10^3uL (1.8-7.7); NEUT % 58 % (31-73); PLATELET COUNT 86 x10^3/uL (140-400); RED BLOOD COUNT 2.45 x10^6/uL (3.50-5.40); RED CELL DISTRIBUTION WIDTH 15.4 % (11.5-14.5); WHITE BLOOD COUNT 4.9 x10^3/uL (4.0-11.0)
[2017-08-26 06:55] VITALS: BP 148/56
[2017-08-26 07:00] LABS: ALBUMIN 2.3 g/dL (3.4-5.0); ALBUMIN/GLOBULIN RATIO 0.8 (1.0-1.7); CALCIUM 8.6 mg/dL (8.5-10.1); CREATININE 0.9 mg/dL (0.6-1.0); GFR 59.8; POTASSIUM 4.7 mmol/L (3.5-5.1); TOTAL BILIRUBIN 1.2 mg/dL (0.2-1.0); TOTAL PROTEIN 5.2 g/dL (6.4-8.2)
[2017-08-26 08:36] LABS: PLT ESTIMATE DECREASED (ADEQUATE)
[2017-08-26 08:37] LABS: OVALOCYTES OCC; POLYCHROMASIA SLIGHT
[2017-08-26 08:38] LABS: ANISOCYTOSIS SLIGHT
[2017-08-26 08:39] LABS: TEAR DROP CELLS OCC
[2017-08-26] MEDS: CITALOPRAM 20 MG TABLET. PO SCH (09:06)
[2017-08-26] MEDS: METOPROLOL SUCC 24HR ER 25 MG TAB.ER.24H. PO SCH (09:06)
[2017-08-26] MEDS: DICYCLOMINE HCL 10 MG CAPSULE PO SCH ×2 (09:06→21:11)
[2017-08-26] MEDS: CHOLECALCIFEROL (VITAMIN D3) 1,000 UNIT TABLET PO SCH (09:06)
[2017-08-26] MEDS: POTASSIUM CHLORIDE 20 MEQ TABLET.ER. PO SCH (09:06)
[2017-08-26] MEDS: PANTOPRAZOLE 40 MG TABLET. PO SCH (09:06)
[2017-08-26] MEDS: ASPIRIN 81 MG TAB.CHEW PO SCH (09:07)
[2017-08-26] MEDS: TICAGRELOR 90 MG TABLET. PO SCH ×2 (09:07→21:11)
[2017-08-26 19:33] VITALS: BP 128/65
[2017-08-26] MEDS: ATORVASTATIN CALCIUM 20 MG TABLET PO SCH (21:11)
[2017-08-27] MEDS: HYDROcodone/APAP 5/325MG 1 TAB TABLET PO PRN ×3 (03:25→20:44)
[2017-08-27 07:42] VITALS: BP 137/66
[2017-08-27 07:56] LABS: HEMATOCRIT 23.5 % (36.0-47.0); HEMOGLOBIN 8.1 g/dL (12.0-15.5); RED BLOOD COUNT 2.6 x10^6/uL (3.50-5.40); RED CELL DISTRIBUTION WIDTH 15.5 % (11.5-14.5); WHITE BLOOD COUNT 6.4 x10^3/uL (4.0-11.0)
[2017-08-27] MEDS: DICYCLOMINE HCL 10 MG CAPSULE PO SCH ×2 (08:47→20:38)
[2017-08-27] MEDS: CITALOPRAM 20 MG TABLET. PO SCH (08:47)
[2017-08-27] MEDS: CHOLECALCIFEROL (VITAMIN D3) 1,000 UNIT TABLET PO SCH (08:47)
[2017-08-27] MEDS: POTASSIUM CHLORIDE 20 MEQ TABLET.ER. PO SCH (08:47)
[2017-08-27] MEDS: ASPIRIN 81 MG TAB.CHEW PO SCH (08:48)
[2017-08-27] MEDS: TICAGRELOR 90 MG TABLET. PO SCH ×2 (08:48→20:38)
[2017-08-27] MEDS: METOPROLOL SUCC 24HR ER 25 MG TAB.ER.24H. PO SCH (08:48)
[2017-08-27] MEDS: PANTOPRAZOLE 40 MG TABLET. PO SCH (08:48)
--- NOTE | 2017-08-27 09:16 | HP ---
ADMIT DATE: 08/25/2017 HISTORY OF PRESENT ILLNESS: The patient is an 81-year-old female patient who was admitted to swing bed as a transfer from [facility]. She apparently was admitted there on 08/22/2017 and underwent right hip hemiarthroplasty. She apparently underwent closed reduction and percutaneous pinning of an impacted femoral neck fracture 05/2017. She apparently did very well initially and had relief and was able to ambulate full weightbearing, but seemed to progressively develop increased pain in her groin and lateral aspect of her hip. X-ray showed cannulating screw fixation to settle somewhat resulting in a shorter femoral neck, but did not show cut out of the screws, rare collapse. Nevertheless she continued to have significant pain, weakness, really was not progressing well with physical therapy and seems to have more back pain, radicular right leg pain as a result of decompensation for her gait. Both patient and her family were very concerned with the fact that she does not seem to be coming around very well in her recovery and given the significant settling of the screws. A decision was made regarding either additional nonoperative management and possibly hemiarthroplasty and apparently the patient agreed to this and underwent a right hip hemiarthroplasty successfully on 08/22/2017. Postoperatively, she developed acute blood loss anemia for which she received 1 unit of packed RBCs and was transferred to this facility to continue with pain management, DVT prophylaxis as well as rehabilitation. When I saw her today, she was resting slightly propped up in bed, no apparent distress. On questioning her, she denied any pain while at rest, but did complain of some discomfort while walking. PAST MEDICAL HISTORY: Significant for hypertension, congestive heart failure, diverticulosis, inflammatory bowel syndrome. She also has sick sinus syndrome for which she has had permanent pacemaker. She is known to have atrial fibrillation, hypertension, hyperlipidemia, gastroesophageal reflux disease, irritable bowel syndrome, osteoarthritis. PAST SURGICAL HISTORY: Significant for bilateral cataract extraction, x 2, cholecystectomy, right hip pinning and right hip hemiarthroplasty recently. She also has a history of coronary artery disease status post PCI with a drug-eluting stent to the left anterior descending artery. She is apparently known to have ischemic cardiomyopathy with an ejection fraction of only 35%, up from 25%. She has also chronic systolic congestive heart failure. FAMILY HISTORY: Positive for coronary artery disease and diabetes. SOCIAL HISTORY: She lives with her . She apparently has 9 children. She does not smoke, drink alcohol or use recreational drugs. She has been fairly independent before her hip fracture. ALLERGIES: She is allergic to IRON as well as to CODEINE. MEDICATIONS: She is currently on following medications: She is on aspirin 81 mg once a day, atorvastatin calcium 40 mg at bedtime, cholecalciferol 1000 international units once a day, citalopram hydrobromide 20 mg once a day, dicyclomine 10 mg twice a day, hydrocodone/APAP 5/325 one tablet every 4 hours as needed, metoprolol succinate 25 mg once a day, Protonix 40 mg once a day, potassium chloride 20 mEq once a day and Brilinta 90 mg p.o. b.i.d. REVIEW OF SYSTEMS: As per history of present illness. PHYSICAL EXAMINATION: GENERAL: When I examined her this afternoon, she was resting slightly propped up in bed, in no apparent distress. She was pale, no jaundice, cyanosis, lymphadenopathy, no thyromegaly. No jugular venous distention. No limb edema. VITAL SIGNS: Her heart rate was 85, blood pressure 148/56, temperature was 97.6, respiratory rate was 18 and oxygen saturation was 96% on room air. HEENT: Showed normocephalic, atraumatic. NECK: Supple. HEART: Showed normal first and second sounds. No gallop, rub or murmur. CHEST: Clear to auscultation. No crepitation or rhonchi. ABDOMEN: Slightly distended, soft, nontender. No guarding or rigidity. No organomegaly. Hernial orifice intact. Bowel sounds normal. NEUROLOGIC: She is awake, alert, responding appropriately. Cranial nerves intact. EXTREMITIES: She moves extremities without difficulty. She ambulates with a walker. She does seem to have some mild cognitive impairment. LABORATORY DATA: Her lab work this morning showed a white cell count 4900, hemoglobin 7.6, hematocrit 22, MCV 90 and platelet count of 86,000. Her serum sodium was 135, potassium 4.7, chloride 105, bicarbonate 26, anion gap of 4, BUN 21, creatinine was 0.9, estimated GFR was 59 mL per minute. Her glucose was 86, calcium was 8.6. Total bilirubin was 1.2. AST, ALT, alkaline phosphatase were normal. Total protein was 5.2, albumin 2.3. ASSESSMENT AND PLAN: In summary, this is an 81-year-old female patient who apparently had sustained right femoral neck fracture in 05/2017 for which she underwent closed reduction and percutaneous pinning. Unfortunately, she continued to have pain and was not doing well and eventually she was admitted to [facility] on 08/22/2017, underwent right hip hemiarthroplasty successfully. Postoperatively, she developed acute blood loss anemia for which she received 1 unit of packed RBCs. Her hemoglobin was 8.7 on 08/24/2017 and today her hemoglobin dropped down to 7.6 and hematocrit was 22. The patient is unfortunately intolerant to IRON and she is on aspirin and Brilinta, which might cause GI bleed. She has a multitude of medical problems including chronic systolic heart failure due to ischemic cardiomyopathy with an ejection fraction of 35%. She has also coronary artery disease status post PCI with drug-eluting stent deployment to left anterior descending. She has sick sinus syndrome, status post permanent pacemaker. Other medical problems including hypertension, hyperlipidemia, gastroesophageal reflux disease, irritable bowel syndrome, osteoarthritis. My plan is to repeat her labs tomorrow. I would check also stool for occult blood and serum iron, TIBC, and serum ferritin together with vitamin B12 and folic acid and decide on further management accordingly. KOREY RAY MD DR: ED/shannen JOB#: [id number] / [id number]
[2017-08-27 18:59] VITALS: BP 119/73
[2017-08-27] MEDS: ATORVASTATIN CALCIUM 20 MG TABLET PO SCH (20:38)
[2017-08-28 08:00] VITALS: BP 118/79
[2017-08-28] MEDS: POTASSIUM CHLORIDE 20 MEQ TABLET.ER. PO SCH (08:52)
[2017-08-28] MEDS: DICYCLOMINE HCL 10 MG CAPSULE PO SCH ×2 (08:57→20:42)
[2017-08-28] MEDS: CITALOPRAM 20 MG TABLET. PO SCH (08:57)
[2017-08-28] MEDS: ASPIRIN 81 MG TAB.CHEW PO SCH (08:57)
[2017-08-28] MEDS: TICAGRELOR 90 MG TABLET. PO SCH ×2 (08:57→21:00)
[2017-08-28] MEDS: PANTOPRAZOLE 40 MG TABLET. PO SCH (08:57)
[2017-08-28] MEDS: METOPROLOL SUCC 24HR ER 25 MG TAB.ER.24H. PO SCH (08:57)
[2017-08-28] MEDS: CHOLECALCIFEROL (VITAMIN D3) 1,000 UNIT TABLET PO SCH (08:57)
--- NOTE | 2017-08-28 10:54 | PN ---
DATE: 08/27/2017 SUBJECTIVE: The patient was seen yesterday as her hemoglobin was noted to be low after she received 1 unit of packed RBCs, so I repeated her lab work including CBC together with serum iron, TIBC, and serum ferritin as well as vitamin B12 and folic acid. When I saw her today, she was resting, slightly propped up, eating her dinner comfortably, in no apparent distress; denied any complaint. The nursing staff did not voice any concern and seemed that she is doing much better today. Her daughter wanted her pain medication to be given as needed, not scheduled as she became very lethargic and sleepy. PHYSICAL EXAMINATION: GENERAL: When I examined her, she was pale. No jaundice, cyanosis, or thyromegaly. No jugular venous distension. No limb edema. VITAL SIGNS: Her heart rate was 77, blood pressure 137/66, temperature was 98, respiratory rate was 18, and oxygen saturation was 95%. The rest of clinical examination is unremarkable and stable. LABORATORY DATA: Her lab work this morning showed a white cell count of 6400, hemoglobin was 8.1, hematocrit 23.5, MCV 91, and platelet count of 141,000. Her chemistry showed a serum sodium of 135, potassium 4.7, chloride 104.5, bicarbonate 26, anion gap of 4, BUN 21, creatinine 0.9, estimated GFR was 60 mL per minute. Her glucose was 86, calcium was 8.5. Serum iron was 25, TIBC was 170, percent saturation was 15 and serum ferritin was 135. PLAN: My plan is to hold off on iron supplementation given the history of an allergy to iron, given that she has what seemed to have anemia of chronic disease, I would wait for the result of the vitamin B12 and folic acid and decide on further management accordingly. KOREY RAY MD DR: ED/shannen JOB#: [id number] / [id number]
[2017-08-28] MEDS: ACETAMINOPHEN 325 MG TABLET PO PRN ×2 (15:31→20:48)
[2017-08-28] MEDS: MAGNESIUM HYDROXIDE 2,400 MG/30 ML ORAL.SUSP. PO PRN (15:36)
[2017-08-28] MEDS: PRENATAL MULTIVITAMIN TABLET. PO SCH (17:30)
[2017-08-28] MEDS: HYDROcodone/APAP 5/325MG 1 TAB TABLET PO PRN (18:35)
[2017-08-28 20:23] VITALS: BP 135/66
[2017-08-28] MEDS: MELATONIN 3 MG TABLET PO PRN (20:43)
[2017-08-28] MEDS: ATORVASTATIN CALCIUM 20 MG TABLET PO SCH (20:43)
[2017-08-29 08:00] VITALS: BP 92/54
[2017-08-29 08:53] LABS: FECAL OB PT NEGATIVE (NEG)
[2017-08-29] MEDS: METOPROLOL SUCC 24HR ER 25 MG TAB.ER.24H. PO SCH ×2 (09:00→09:31)
[2017-08-29] MEDS: CITALOPRAM 20 MG TABLET. PO SCH (09:26)
[2017-08-29] MEDS: DICYCLOMINE HCL 10 MG CAPSULE PO SCH ×2 (09:26→19:55)
[2017-08-29] MEDS: ASPIRIN 81 MG TAB.CHEW PO SCH (09:26)
[2017-08-29] MEDS: CHOLECALCIFEROL (VITAMIN D3) 1,000 UNIT TABLET PO SCH (09:26)
[2017-08-29] MEDS: PANTOPRAZOLE 40 MG TABLET. PO SCH (09:26)
[2017-08-29] MEDS: TICAGRELOR 90 MG TABLET. PO SCH ×2 (09:36→19:55)
[2017-08-29] MEDS ORDERED: METOPROLOL SUCC 24HR ER 25 MG TAB.ER.24H. PO ONE (12:00)
[2017-08-29] MEDS: ACETAMINOPHEN 325 MG TABLET PO PRN (14:15)
[2017-08-29] MEDS: PRENATAL MULTIVITAMIN TABLET. PO SCH (16:58)
[2017-08-29] MEDS: ATORVASTATIN CALCIUM 20 MG TABLET PO SCH (19:55)
[2017-08-29] MEDS: MELATONIN 3 MG TABLET PO PRN (19:55)
[2017-08-29] MEDS: HYDROcodone/APAP 5/325MG 1 TAB TABLET PO PRN (19:56)
[2017-08-29 20:00] VITALS: BP 120/70
[2017-08-30 06:52] VITALS: BP 147/64
[2017-08-30] MEDS: TICAGRELOR 90 MG TABLET. PO SCH ×2 (08:56→20:47)
[2017-08-30] MEDS: ASPIRIN 81 MG TAB.CHEW PO SCH (08:57)
[2017-08-30] MEDS: PANTOPRAZOLE 40 MG TABLET. PO SCH (08:57)
[2017-08-30] MEDS: CITALOPRAM 20 MG TABLET. PO SCH (08:57)
[2017-08-30] MEDS: DICYCLOMINE HCL 10 MG CAPSULE PO SCH ×2 (08:57→20:47)
[2017-08-30] MEDS: METOPROLOL SUCC 24HR ER 25 MG TAB.ER.24H. PO SCH (08:57)
[2017-08-30] MEDS: CHOLECALCIFEROL (VITAMIN D3) 1,000 UNIT TABLET PO SCH (08:57)
[2017-08-30 14:00] LABS: FECAL OB PT NEGATIVE (NEG)
[2017-08-30] MEDS: PRENATAL MULTIVITAMIN TABLET. PO SCH (17:14)
[2017-08-30] MEDS: ACETAMINOPHEN 325 MG TABLET PO PRN (18:04)
[2017-08-30] MEDS: HYDROcodone/APAP 5/325MG 1 TAB TABLET PO PRN (18:05)
[2017-08-30 18:40] VITALS: BP 107/53
[2017-08-30] MEDS: ATORVASTATIN CALCIUM 20 MG TABLET PO SCH (20:47)
[2017-08-30] MEDS: MELATONIN 3 MG TABLET PO PRN (20:48)
--- NOTE | 2017-08-30 23:31 | PN ---
DATE: 08/29/2017 SUBJECTIVE: This is a very pleasant 81-year-old female who was admitted to the swing bed status on 08/25/2017 after hospitalization at [facility]. She was admitted for further rehabilitation and strengthening, PT and OT. CURRENT WORKING MEDICAL PROBLEMS: 1. Right hip surgery. 2. Coronary artery disease. 3. Cardiomyopathy. 4. Hypertension. 5. History of acute kidney injury. 6. Postoperative anemia. 7. Hyperlipidemia. 8. Sick sinus syndrome with pacemaker. 9. Paroxysmal atrial fibrillation. 10. Gastroesophageal reflux disease. 11. Irritable bowel disease. 12. Osteoarthritis. FAMILY HISTORY: Coronary artery disease and diabetes. SOCIAL HISTORY: Nonsmoker, nonalcohol, drugs: None. MEDICATIONS: Reviewed and are available on the MAR. ALLERGIES: IRON, CODEINE MAKES HER WILD. REVIEW OF SYSTEMS: The patient feels reasonably well, a little bit tired, but is enjoying her and is doing fine with her rehabilitation getting adequate rest. OBJECTIVE: VITAL SIGNS: Blood pressure 147/64, pulse 92, respirations 18, pulse ox 95% on room air. Pleasant elderly female in no acute distress. Hearing is normal. HEENT: Clear. Nose patent. Throat clear. NECK: Supple. LUNGS: Clear to auscultation. CARDIOVASCULAR: Regular rhythm and rate with a 2/6 systolic murmur. ABDOMEN: Soft, nontender. EXTREMITIES: Really without edema. She has a wound in place in the right hip wound, covering in place on the right hip. LABORATORY DATA: Hemoglobin is 8.1, hematocrit 23.5. This is increased from 7.6. Iron is low and albumin is 2.3. ASSESSMENT: Additional problems: 1. Severe protein calorie malnutrition. 2. Iron deficiency. PLAN: vitamin and nutritional supplements. CHERIE ROBERTS MD DR: HANNAH/shannen JOB#: [id number] / [id number]
[2017-08-31] MEDS: ACETAMINOPHEN 325 MG TABLET PO PRN ×2 (04:41→20:12)
[2017-08-31] MEDS: HYDROcodone/APAP 5/325MG 1 TAB TABLET PO PRN ×2 (04:41→20:13)
[2017-08-31 06:06] VITALS: BP 118/72
[2017-08-31] MEDS: DICYCLOMINE HCL 10 MG CAPSULE PO SCH ×2 (08:45→20:12)
[2017-08-31] MEDS: CHOLECALCIFEROL (VITAMIN D3) 1,000 UNIT TABLET PO SCH (08:45)
[2017-08-31] MEDS: PANTOPRAZOLE 40 MG TABLET. PO SCH (08:46)
[2017-08-31] MEDS: CITALOPRAM 20 MG TABLET. PO SCH (08:46)
[2017-08-31] MEDS: METOPROLOL SUCC 24HR ER 25 MG TAB.ER.24H. PO SCH (08:46)
[2017-08-31] MEDS: ASPIRIN 81 MG TAB.CHEW PO SCH (08:47)
[2017-08-31] MEDS: TICAGRELOR 90 MG TABLET. PO SCH ×2 (08:47→20:12)
[2017-08-31 12:40] VITALS: BP 101/48
[2017-08-31 16:25] VITALS: BP 102/56
[2017-08-31 16:27] VITALS: BP 96/52
[2017-08-31] MEDS: PRENATAL MULTIVITAMIN TABLET. PO SCH (17:24)
[2017-08-31] MEDS: ATORVASTATIN CALCIUM 20 MG TABLET PO SCH (20:11)
[2017-08-31] MEDS: MELATONIN 3 MG TABLET PO PRN (20:12)
[2017-08-31] MEDS: MAGNESIUM HYDROXIDE 2,400 MG/30 ML ORAL.SUSP. PO PRN (22:28)
[2017-09-01 03:52] LABS: FECAL OB PT NEGATIVE (NEG)
[2017-09-01 05:48] VITALS: BP 133/85
[2017-09-01] MEDS: CHOLECALCIFEROL (VITAMIN D3) 1,000 UNIT TABLET PO SCH (09:46)
[2017-09-01] MEDS: PANTOPRAZOLE 40 MG TABLET. PO SCH (09:46)
[2017-09-01] MEDS: DICYCLOMINE HCL 10 MG CAPSULE PO SCH ×2 (09:46→20:09)
[2017-09-01] MEDS: TICAGRELOR 90 MG TABLET. PO SCH ×2 (09:47→20:09)
[2017-09-01] MEDS: CITALOPRAM 20 MG TABLET. PO SCH (09:47)
[2017-09-01] MEDS: ASPIRIN 81 MG TAB.CHEW PO SCH (09:47)
[2017-09-01] MEDS: METOPROLOL SUCC 24HR ER 25 MG TAB.ER.24H. PO SCH (09:47)
[2017-09-01] MEDS: ACETAMINOPHEN 325 MG TABLET PO PRN ×2 (11:06→20:09)
[2017-09-01] MEDS: PRENATAL MULTIVITAMIN TABLET. PO SCH (16:43)
[2017-09-01 18:13] VITALS: BP 114/53
[2017-09-01] MEDS: ATORVASTATIN CALCIUM 20 MG TABLET PO SCH (20:09)
[2017-09-01] MEDS: MELATONIN 3 MG TABLET PO PRN (20:09)
[2017-09-01] MEDS: HYDROcodone/APAP 5/325MG 1 TAB TABLET PO PRN (20:10)
[2017-09-01] MEDS: MAGNESIUM HYDROXIDE 2,400 MG/30 ML ORAL.SUSP. PO PRN (20:12)
[2017-09-02 05:07] VITALS: BP 137/61
[2017-09-02] MEDS: CHOLECALCIFEROL (VITAMIN D3) 1,000 UNIT TABLET PO SCH (08:56)
[2017-09-02] MEDS: METOPROLOL SUCC 24HR ER 25 MG TAB.ER.24H. PO SCH (08:56)
[2017-09-02] MEDS: TICAGRELOR 90 MG TABLET. PO SCH ×2 (08:57→19:16)
[2017-09-02] MEDS: CITALOPRAM 20 MG TABLET. PO SCH (08:57)
[2017-09-02] MEDS: ASPIRIN 81 MG TAB.CHEW PO SCH (08:57)
[2017-09-02] MEDS: PANTOPRAZOLE 40 MG TABLET. PO SCH (08:57)
[2017-09-02] MEDS: DICYCLOMINE HCL 10 MG CAPSULE PO SCH ×2 (08:57→19:16)
[2017-09-02] MEDS: PRENATAL MULTIVITAMIN TABLET. PO SCH (19:15)
[2017-09-02] MEDS: ACETAMINOPHEN 325 MG TABLET PO PRN (19:16)
[2017-09-02] MEDS: ATORVASTATIN CALCIUM 20 MG TABLET PO SCH (19:16)
[2017-09-02] MEDS: MELATONIN 3 MG TABLET PO PRN (19:16)
[2017-09-02] MEDS: HYDROcodone/APAP 5/325MG 1 TAB TABLET PO PRN (19:16)
[2017-09-03] MEDS: PANTOPRAZOLE 40 MG TABLET. PO SCH (06:05)
[2017-09-03] MEDS: ACETAMINOPHEN 325 MG TABLET PO PRN (06:05)
[2017-09-03 06:18] VITALS: BP 132/69
[2017-09-03] MEDS: METOPROLOL SUCC 24HR ER 25 MG TAB.ER.24H. PO SCH (09:11)
[2017-09-03] MEDS: CHOLECALCIFEROL (VITAMIN D3) 1,000 UNIT TABLET PO SCH (09:11)
[2017-09-03] MEDS: CITALOPRAM 20 MG TABLET. PO SCH (09:11)
[2017-09-03] MEDS: DICYCLOMINE HCL 10 MG CAPSULE PO SCH ×3 (09:11→20:58)
[2017-09-03] MEDS: ASPIRIN 81 MG TAB.CHEW PO SCH (09:11)
[2017-09-03 10:28] LABS: BASO % 0 % (0-3); EOS # 0.3 x10^3/uL (0.0-0.7); EOS % 5 % (0-3); HEMATOCRIT 25.2 % (36.0-47.0); HEMOGLOBIN 8.4 g/dL (12.0-15.5); LYMPH % 17 % (24-48); MEAN CORPUSCULAR HEMOGLOBIN 31 pg (25-35); MEAN CORPUSCULAR HGB CONC 34 g/dL (31-37); MEAN CORPUSCULAR VOLUME 93 fL (79-100); MONO # 0.9 x10^3/uL (0.0-1.1); MONO % 16 % (0-9); NEUT # 3.6 x10^3uL (1.8-7.7); NEUT % 62 % (31-73); PLATELET COUNT 251 x10^3/uL (140-400); RED BLOOD COUNT 2.71 x10^6/uL (3.50-5.40); RED CELL DISTRIBUTION WIDTH 16.2 % (11.5-14.5); WHITE BLOOD COUNT 5.8 x10^3/uL (4.0-11.0)
[2017-09-03 10:33] LABS: ALBUMIN 2.6 g/dL (3.4-5.0); ALBUMIN/GLOBULIN RATIO 0.7 (1.0-1.7); CALCIUM 8.8 mg/dL (8.5-10.1); MAGNESIUM 2.1 mg/dL (1.8-2.4); POTASSIUM 3.6 mmol/L (3.5-5.1); TOTAL BILIRUBIN 0.6 mg/dL (0.2-1.0); TOTAL PROTEIN 6.3 g/dL (6.4-8.2)
[2017-09-03 13:09] LABS: % EOS 6 % (0-5); % LYMPHS 17 % (24-48); % MONOS 11 % (0-10); % SEGS 66 % (35-66); PLATELET CLUMP PRESENT; PLT ESTIMATE ADEQUATE (ADEQUATE)
[2017-09-03 13:10] LABS: ANISOCYTOSIS SLIGHT; MICROCYTOSIS SLIGHT
[2017-09-03] MEDS: TICAGRELOR 90 MG TABLET. PO SCH ×2 (13:40→19:57)
[2017-09-03 18:26] VITALS: BP 120/56
[2017-09-03 19:39] VITALS: BP 110/56
[2017-09-03] MEDS: PRENATAL MULTIVITAMIN TABLET. PO SCH (19:55)
[2017-09-03] MEDS: HYDROcodone/APAP 5/325MG 1 TAB TABLET PO PRN (19:56)
[2017-09-03] MEDS: ATORVASTATIN CALCIUM 20 MG TABLET PO SCH (19:56)
[2017-09-04] MEDS: ACETAMINOPHEN 325 MG TABLET PO PRN (03:02)
[2017-09-04 05:55] VITALS: BP 146/70
[2017-09-04] MEDS: PANTOPRAZOLE 40 MG TABLET. PO SCH (05:57)
[2017-09-04 08:00] VITALS: BP 134/79
[2017-09-04] MEDS: CITALOPRAM 20 MG TABLET. PO SCH (08:58)
[2017-09-04] MEDS: ASPIRIN 81 MG TAB.CHEW PO SCH (08:58)
[2017-09-04] MEDS: TICAGRELOR 90 MG TABLET. PO SCH ×2 (08:58→20:34)
[2017-09-04] MEDS: METOPROLOL SUCC 24HR ER 25 MG TAB.ER.24H. PO SCH (08:59)
[2017-09-04] MEDS: CHOLECALCIFEROL (VITAMIN D3) 1,000 UNIT TABLET PO SCH (08:59)
[2017-09-04] MEDS: DICYCLOMINE HCL 10 MG CAPSULE PO SCH ×2 (09:00→20:59)
[2017-09-04] MEDS: PRENATAL MULTIVITAMIN TABLET. PO SCH (17:16)
[2017-09-04] MEDS: ATORVASTATIN CALCIUM 20 MG TABLET PO SCH (20:34)
[2017-09-04] MEDS: HYDROcodone/APAP 5/325MG 1 TAB TABLET PO PRN (20:35)
[2017-09-04 22:32] VITALS: BP 132/85
[2017-09-05] MEDS: PANTOPRAZOLE 40 MG TABLET. PO SCH ×2 (07:00→07:20)
[2017-09-05 08:00] VITALS: BP 130/79
[2017-09-05] MEDS: TICAGRELOR 90 MG TABLET. PO SCH ×2 (09:01→19:37)
[2017-09-05] MEDS: DICYCLOMINE HCL 10 MG CAPSULE PO SCH ×2 (09:01→19:37)
[2017-09-05] MEDS: CITALOPRAM 20 MG TABLET. PO SCH (09:01)
[2017-09-05] MEDS: METOPROLOL SUCC 24HR ER 25 MG TAB.ER.24H. PO SCH (09:02)
[2017-09-05] MEDS: ASPIRIN 81 MG TAB.CHEW PO SCH (09:02)
[2017-09-05] MEDS: CHOLECALCIFEROL (VITAMIN D3) 1,000 UNIT TABLET PO SCH (09:02)
[2017-09-05] MEDS: PRENATAL MULTIVITAMIN TABLET. PO SCH (16:53)
[2017-09-05 18:48] VITALS: BP 113/66
[2017-09-05] MEDS: ACETAMINOPHEN 325 MG TABLET PO PRN (19:36)
[2017-09-05] MEDS: ATORVASTATIN CALCIUM 20 MG TABLET PO SCH (19:37)
[2017-09-05] MEDS ORDERED: CALCIUM CARBONATE 500 MG TAB.CHEW PO PRN (19:45)
[2017-09-06] MEDS: HYDROcodone/APAP 5/325MG 1 TAB TABLET PO PRN ×2 (02:28→11:27)
[2017-09-06] MEDS: PANTOPRAZOLE 40 MG TABLET. PO SCH (05:58)
[2017-09-06 06:37] VITALS: BP 132/55
[2017-09-06] MEDS: ASPIRIN 81 MG TAB.CHEW PO SCH (11:26)
[2017-09-06] MEDS: CITALOPRAM 20 MG TABLET. PO SCH (11:26)
[2017-09-06] MEDS: DICYCLOMINE HCL 10 MG CAPSULE PO SCH (11:26)
[2017-09-06] MEDS: CHOLECALCIFEROL (VITAMIN D3) 1,000 UNIT TABLET PO SCH (11:26)
[2017-09-06] MEDS: TICAGRELOR 90 MG TABLET. PO SCH (11:26)
[2017-09-06 11:27] VITALS: BP 132/55
[2017-09-06] MEDS: METOPROLOL SUCC 24HR ER 25 MG TAB.ER.24H. PO SCH (11:27)
[2017-09-06] MEDS: PRENATAL MULTIVITAMIN TABLET. PO SCH (17:15)
--- NOTE | 2017-09-07 09:06 | DS ---
DATE OF DISCHARGE: 09/06/2017 HOSPITAL COURSE: The patient is an 81-year-old female patient, who was transferred from [facility] to be admitted to [facility] bed on 08/25/2017. She was admitted on 07/26/2017, underwent right hip hemiarthroplasty successfully. She apparently underwent closed reduction and percutaneous pinning of an impacted femoral neck fracture on 05/25/2017. She apparently did very well initially, had relief, and was able to ambulate, full weightbearing, but seemed to progressively develop increased pain in her groin and lateral aspect of her hip. X-ray showed cannulating screw fixation to settle somewhat resulting in this shorter femoral neck and a decision was made to regarding either additional nonoperative management or possibly hemiarthroplasty and apparently the patient agreed to that and underwent right hemiarthroplasty successfully on 07/26/2017. Postoperatively, she developed acute blood loss anemia for which she received 1 unit of packed RBC and was transferred to our facility to continue with pain management, DVT prophylaxis as well as rehabilitation and she did actually very well. She is ambulating without assistance or assistive devices and basically a decision was made to discharge her home with home health. PHYSICAL EXAMINATION: GENERAL: When I saw her today, she was resting slightly propped up in bed, in no apparent respiratory distress, pale. No jaundice, cyanosis, or thyromegaly. No jugular venous distention. No limb edema. VITAL SIGNS: Her heart rate was 94, blood pressure was 152/55, temperature was 98.1, respiratory rate 16, and oxygen saturation was 98%. HEAD, EYES, EARS, NOSE AND THROAT: Normocephalic, atraumatic. NECK: Supple. HEART: Showed normal first and second heart sounds with no gallop, rub, or murmur. CHEST: Clear to auscultation. No crepitation or rhonchi. ABDOMEN: Distended, soft, nontender. NEUROLOGIC: She was awake, alert, responding appropriately. All cranial nerves are intact. EXTREMITIES: She moves extremities without difficulty. She ambulates with a walker. LABORATORY DATA: Her white cell count was 5800, hemoglobin 8.4, hematocrit 25, MCV 93, and platelet count of 251,000. Her chemistry showed serum sodium 135, potassium 3.6, chloride 102, bicarbonate 28. She has a script. Her BUN 15, creatinine 1, estimated GFR was 53 mL per minute. Her glucose 139, calcium was 8.8 with magnesium 2.1. Total bilirubin, AST, ALT, alkaline phosphatase were normal. Total protein was 6.3, albumin 2.6. Her vitamin B12 was 802 picogram/mL, and serum folate was 8.3, and her serum iron 25, TIBC was 170, percent saturation was 15, and serum ferritin was 135. DISCHARGE MEDICATIONS: She was discharged home to continue on calcium carbonate for 500 mg 3 times a day with meals, Protonix 40 mg daily, multivitamin 1 tablet once a day, magnesium hydroxide for Milk of Magnesia 30 mL p.o. daily p.r.n. for constipation, Tylenol 650 mg every 6 hours, metoprolol succinate 25 mg once a day, Celexa 20 mg once a day, vitamin D 1000 international units once a day, aspirin 81 mg once a day, melatonin 3 mg at bedtime, atorvastatin 40 mg at bedtime, Brilinta 90 mg twice a day, dicyclomine 10 mg twice a day, hydrocodone/APAP 5/325 one tablet every 4 hours. FINAL DISCHARGE DIAGNOSES: 1. Right femoral neck fractures on 05/25/2017, initially treated with underwent closed reduction and percutaneous pinning. 2. She continued to have pain and was not doing well and eventually she was admitted to [facility] on 07/26/2017, underwent right hip hemiarthroplasty successfully. 3. She developed acute blood loss anemia for which she received at least 2 units of packed RBCs. 4. Other medical problems include hypertension, hyperlipidemia, gastroesophageal reflux disease, irritable bowel syndrome, and osteoarthritis. KOREY RAY MD DR: ED/shannen JOB#: [id number] / [id number]
--- NOTE | 2017-09-07 09:08 | PN ---
DATE: 08/29/2017 SUBJECTIVE: This is a very pleasant 81-year-old female who was admitted to the swing bed status on 08/25/2017 after hospitalization at [facility]. She was admitted for further rehabilitation and strengthening, PT and OT. CURRENT WORKING MEDICAL PROBLEMS: 1. Right hip surgery. 2. Coronary artery disease. 3. Cardiomyopathy. 4. Hypertension. 5. History of acute kidney injury. 6. Postoperative anemia. 7. Hyperlipidemia. 8. Sick sinus syndrome with pacemaker. 9. Paroxysmal atrial fibrillation. 10. Gastroesophageal reflux disease. 11. Irritable bowel disease. 12. Osteoarthritis. FAMILY HISTORY: Coronary artery disease and diabetes. SOCIAL HISTORY: Nonsmoker, nonalcohol, drugs: None. MEDICATIONS: Reviewed and are available on the MAR. ALLERGIES: IRON, CODEINE MAKES HER WILD. REVIEW OF SYSTEMS: The patient feels reasonably well, a little bit tired, but is enjoying her and is doing fine with her rehabilitation getting adequate rest. OBJECTIVE: VITAL SIGNS: Blood pressure 147/64, pulse 92, respirations 18, pulse ox 95% on room air. Pleasant elderly female in no acute distress. Hearing is normal. HEENT: Clear. Nose patent. Throat clear. NECK: Supple. LUNGS: Clear to auscultation. CARDIOVASCULAR: Regular rhythm and rate with a 2/6 systolic murmur. ABDOMEN: Soft, nontender. EXTREMITIES: Really without edema. She has a wound in place in the right hip wound, covering in place on the right hip. LABORATORY DATA: Hemoglobin is 8.1, hematocrit 23.5. This is increased from 7.6. Iron is low and albumin is 2.3. ASSESSMENT: Additional problems: 1. Severe protein calorie malnutrition. 2. Iron deficiency. PLAN: vitamin and nutritional supplements. ADOLPH SALEEM DO DR: RICHARD/shannen JOB#: [id number] / [id number]
== END 2017-09-06 17:26 | disposition home health service (06) | DRG 555 ==
LOC: LND 15:02
PROVIDERS: ADMIT Internal Medicine; ATTEND Internal Medicine
DX: M25.551 Pain in right hip (principal); E43 Unspecified severe protein-calorie malnutrition; I11.0 Hypertensive heart disease with heart failure; I48.0 Paroxysmal atrial fibrillation; I50.22 Chronic systolic (congestive) heart failure; D63.8 Anemia in other chronic diseases classified elsewhere; E61.1 Iron deficiency; E78.5 Hyperlipidemia, unspecified; I25.10 Atherosclerotic heart disease of native coronary artery without angina pectoris; I25.5 Ischemic cardiomyopathy; K21.9 Gastro-esophageal reflux disease without esophagitis; K58.9 Irritable bowel syndrome, unspecified; K57.90 Diverticulosis of intestine, part unspecified, without perforation or abscess without bleeding; Z96.641 Presence of right artificial hip joint; K59.00 Constipation, unspecified; M54.9 Dorsalgia, unspecified; M19.90 Unspecified osteoarthritis, unspecified site; Z88.8 Allergy status to other drugs, medicaments and biological substances; Z79.82 Long term (current) use of aspirin; Z82.49 Family history of ischemic heart disease and other diseases of the circulatory system; Z87.81 Personal history of (healed) traumatic fracture; Z83.3 Family history of diabetes mellitus; Z95.0 Presence of cardiac pacemaker; Z95.5 Presence of coronary angioplasty implant and graft; Z98.41 Cataract extraction status, right eye; Z98.42 Cataract extraction status, left eye; Z90.49 Acquired absence of other specified parts of digestive tract
CPT/HCPCS: 36415; 80053; 82274; 82607; 82728; 82746; 83540; 83550; 83735; 85007; 85025; 85027; 97110; 97112; 97116; 97530; 97535

== ENCOUNTER 2017-12-27 13:46 | Inpatient (IN) | payer MEDICARE, BC ==
[~2017-12-27] VITALS: Ht 152.4 cm; Wt 55.9 kg
[~2017-12-27 13:46] MED LIST changes: +ASPI-630 PO; +ATOR40TA PO; +CHOL10003 PO; +CITA20TA9 PO; +DICY10CA53 PO; +HYDR-2758 PO; +METO-239 PO; +PANT40TA3 PO; +POTA10CA PO; +POTA20TA4 PO
[2017-12-27 15:12] VITALS: BP 109/67
[2017-12-27 15:13] VITALS: BP 109/67
[2017-12-27] MEDS ORDERED: CLOP75TA PO (16:13)
[2017-12-27] MEDS ORDERED: CYCL5TAB PO (16:13)
[2017-12-27] MEDS ORDERED: FURO20TA3 PO (16:13)
[2017-12-27] MEDS ORDERED: LIDO700A39 TP (16:13)
[2017-12-27] MEDS ORDERED: LISI-338 PO (16:13)
--- NOTE | 2017-12-27 16:25 | HP ---
ADMIT DATE: 12/27/2017 HISTORY OF PRESENT ILLNESS: The patient is an 82-year-old female patient, who was admitted to [facility] with a complaint of generalized aches and pains involves her shoulder, neck and her back and also lower back that started about a week ago. The patient was concerned about the possibility that this could be cardiac. She was seen in consultation by the Cardiology team and has had extensive investigation there including lab work and imaging studies including CT scan of the cervical spine, thoracic and lumbar spine, has also abdominal ultrasound. Although, the patient has extensive degenerative disk disease she continued to have pain. She did respond to Lidoderm patch and some pain medication and she was brought to [facility] swing bed to continue the process of rehabilitation. PAST MEDICAL HISTORY: Significant for hypertension, congestive heart failure, diverticulosis, inflammatory bowel syndrome. She also has sick sinus syndrome for which she has had permanent pacemaker. She is known to have atrial fibrillation, hyperlipidemia, gastroesophageal reflux disease and irritable bowel syndrome and generalized osteoarthritis. PAST SURGICAL HISTORY: Significant for bilateral cataract extraction, x 2, cholecystectomy, right hip pinning and right hip hemiarthroplasty. She has history of coronary artery disease, status post PCI with drug-eluting stent to the left anterior descending artery. She is apparently known to have ischemic cardiomyopathy with an ejection fraction of only 35%, up from 25%. She has also chronic systolic congestive heart failure. FAMILY HISTORY: Positive for coronary artery disease and diabetes. SOCIAL HISTORY: She lives at home with her son. She apparently has 9 children. She does not smoke, drink alcohol or recreational drugs. She has been fairly independent before she came this time. ALLERGIES: She is allergic to IRON as well as CODEINE. MEDICATIONS: She was transferred from [facility] on following medications: Enteric coated aspirin 81 mg once a day, cholecalciferol for vitamin D3 1000 international unit once a day, citalopram 20 mg daily, Plavix 75 mg once a day, cyclobenzaprine, Flexeril 5 mg q.6 hourly, dicyclomine 10 mg twice a day, furosemide 20 mg Monday, Monday and Monday. She was on Lidoderm patch 1 patch topically on for 12 hours and off for 12 hours, lisinopril 5 mg at bedtime, metoprolol 25 mg for Toprol-XL from 25 mg once a day, nitroglycerin sublingually as needed. REVIEW OF SYSTEMS: The patient has denied any blurring of vision. She has bilateral cataract extraction, but denied any glaucoma or macular degeneration. Denied any earache, tinnitus or sensorineural deafness. Denied any nosebleeds, stuffy nose or postnasal drip. Denied any sore throat, sore tongue, toothache, hoarseness of voice or difficulty swallowing. Denied any nausea, vomiting, diarrhea or constipation. Denied any hematemesis, melena or hematochezia. Denied any dysuria, frequency or hematuria. She did complain of aches and pains all over her neck, both shoulders, her back. 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 When I examined her today on arrival to the [facility] she looked well and was clearly in no apparent respiratory distress, somewhat pale, but no jaundice, cyanosis, or thyromegaly. No jugular venous distension. No limb edema. PHYSICAL EXAMINATION: HEAD, EYES, EARS, NOSE AND THROAT: Normocephalic, atraumatic. NECK: Supple. HEART: Showed normal first and second heart sounds with no gallop, rub or murmur. CHEST: Clear to auscultation. No crepitation or rhonchi. ABDOMEN: Distended, soft, nontender. NEUROLOGIC: She is awake, alert, responding appropriately. All cranial nerves intact. She moves extremities without difficulty. She said she normally ambulates without assistance or assisting devices, although she has a walker and a cane at home. LABORATORY DATA: While at [facility] she apparently has had extensive lab work. Her white cell count was 6500, hemoglobin 14, hematocrit 42, MCV 90 and platelet count of 159,000 with normal manual differential. Her chemistry showed a serum sodium 137, potassium 3.9, chloride 101, bicarbonate 29, anion gap of 7, BUN 19, creatinine 1, estimated GFR was mL per minute. Her glucose was 110, calcium was 8.9, magnesium was 1.9. Total bilirubin, AST, ALT, alkaline phosphatase were normal. She had 3 sets of cardiac enzymes, which were negative. Her beta natriuretic peptide was 12,918. Total protein was 7.6, albumin was 3.5 and lipase was 145. Her prothrombin time was 14.1, INR of 1.1. She has CT scan of the cervical spine without contrast, which showed that she has moderate multilevel degenerative changes with moderate central spinal stenosis and foraminal narrowing at several levels as described with no acute bony abnormality detected. CT scan of the lumbar spine without contrast showed that she has extensive multilevel degenerative change of spinal stenosis and foraminal narrowing at multiple levels as described most severe at L4-L5, L3-L4. The CT scan of the thoracic spine without contrast showed moderate multilevel degenerative changes as described above with no acute bony abnormality. 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 She has small bilateral renal cysts and moderate aortic atherosclerosis. She has bilateral rib views showed no evidence of any rib fracture and her chest x-ray showed cardiomegaly with no acute lung infiltrate. PLAN: My plan is to repeat her lab work, particularly checking his sed rate and C-reactive protein as she might be presenting with polymyalgia rheumatica, given that most of her complaint is around the shoulder variable and neck and back. We will continue obviously with pain management and physical and occupational therapy if her sedimentation rate and C-reactive protein are extremely high. We will give her trial of steroids and the responses dramatic when she probably has polymyalgia rheumatica. KOREY RAY MD DR: ED/shannen JOB#: [id number] / [id number]
[2017-12-27] MEDS: FUROSEMIDE 20 MG TABLET PO SCH (16:41)
[2017-12-27 17:32] LABS: ALBUMIN 2.7 g/dL (3.4-5.0); ALBUMIN/GLOBULIN RATIO 0.7 (1.0-1.7); CALCIUM 8.8 mg/dL (8.5-10.1); CREATININE 0.9 mg/dL (0.6-1.0); GFR 59.7; POTASSIUM 4.3 mmol/L (3.5-5.1); TOTAL BILIRUBIN 0.6 mg/dL (0.2-1.0); TOTAL PROTEIN 6.6 g/dL (6.4-8.2)
--- NOTE | 2017-12-27 19:18 | NUR ---
Swing Bed Admission Patient Handbook for [facility] given to patient. Nursing Problem: Pt admitted to [facility] for generalized weakness following admission to [facility] r/t chest pain. Pt will be working with PT/OT in preparation to go home with son. Cognitive/Behavioral: Pt is alert and oriented x4. Pt is pleasant and cooperative with cares. Pain: Pt reports generalized pain to her back. Pt received PRN Hydrocodone-APAP at 1400 per [facility] RN. Respiratory Status: Pt is breathing easily on room air. Lungs CTA. Skin: Skin is clean, dry, and intact. Bowel/Bladder Continence: Pt is continent of bowel and bladder and uses toilet to void. LBM: 6/3 ADL Functional Status: Pt is independent with bed mobility and x1 assist with transfers. Pt uses walker to ambulate and is unsteady. Pt eats independently. Fall(s) prior to admission? None reported. Admitted from? [facility]
[2017-12-27] MEDS: DICYCLOMINE HCL 10 MG CAPSULE PO SCH (21:17)
[2017-12-27] MEDS: LISINOPRIL 5 MG TABLET. PO SCH (21:17)
[2017-12-27] MEDS: HYDROcodone/APAP 5/325MG 1 TAB TABLET PO PRN (21:18)
--- NOTE | 2017-12-28 03:31 | NUR ---
Swing Bed Nursing Note Nursing Problem: PT/OT for strengthening. Pt was recently in [facility] for chest, neck, shoulder pain. Cognitive/Behavioral: Alert and oriented to person, place and situation with some confusion noted during this shift. Pain: Patient complains of occasional pain in neck, shoulder and upper chest area. Pain is releived with ordered PRNs. Respiratory Status: Patient is on room air, lungs CTA. Skin: Patients skin is wnl (dry and intact) Bowel/Bladder Continence: Patient continent of bladder and bowel. Pt has walker, requires minimal assistance to bathroom. ADL Functional Status: Requires 1 person minimal assistance using walker to ambulate Pt is 1 person standby assist with dressing. Pt is independent.
[2017-12-28 06:00] VITALS: BP 144/78
[2017-12-28 06:47] LABS: BASO % 0 % (0-3); EOS # 0.1 x10^3/uL (0.0-0.7); EOS % 1 % (0-3); HEMATOCRIT 37.8 % (36.0-47.0); HEMOGLOBIN 12.7 g/dL (12.0-15.5); LYMPH # 1.4 x10^3/uL (1.0-4.8); LYMPH % 27 % (24-48); MEAN CORPUSCULAR HEMOGLOBIN 30 pg (25-35); MEAN CORPUSCULAR HGB CONC 34 g/dL (31-37); MEAN CORPUSCULAR VOLUME 88 fL (79-100); MONO # 1.4 x10^3/uL (0.0-1.1); MONO % 27 % (0-9); NEUT # 2.3 x10^3uL (1.8-7.7); NEUT % 45 % (31-73); PLATELET COUNT 162 x10^3/uL (140-400); RED CELL DISTRIBUTION WIDTH 15.3 % (11.5-14.5); WHITE BLOOD COUNT 5.3 x10^3/uL (4.0-11.0)
[2017-12-28] MEDS: PANTOPRAZOLE 40 MG TABLET. PO SCH (07:56)
[2017-12-28] MEDS: CLOPIDOGREL BISULFATE 75 MG TABLET PO SCH (07:56)
[2017-12-28] MEDS: CITALOPRAM 20 MG TABLET. PO SCH (07:56)
[2017-12-28] MEDS: DICYCLOMINE HCL 10 MG CAPSULE PO SCH ×2 (07:56→20:57)
[2017-12-28] MEDS: ASPIRIN ENTERIC COATED 81 MG TABLET.DR. PO SCH (07:56)
[2017-12-28] MEDS: POTASSIUM CHLORIDE 20 MEQ TABLET.ER. PO SCH (07:56)
[2017-12-28 07:57] LABS: SEDIMENTATION RATE 20 (0-25)
[2017-12-28] MEDS: METOPROLOL SUCC 24HR ER 25 MG TAB.ER.24H. PO SCH (07:57)
[2017-12-28] MEDS: CHOLECALCIFEROL (VITAMIN D3) 1,000 UNIT TABLET PO SCH (07:57)
[2017-12-28] MEDS: HYDROcodone/APAP 5/325MG 1 TAB TABLET PO PRN (07:57)
[2017-12-28] MEDS: LIDOCAINE (700MG/PATCH) PATCH. TD SCH (07:59)
[2017-12-28] MEDS: MAGNESIUM HYDROXIDE 2,400 MG/30 ML ORAL.SUSP. PO PRN (09:12)
[2017-12-28 13:45] VITALS: BP 91/48
[2017-12-28 13:46] VITALS: BP 94/50
[2017-12-28 13:48] VITALS: BP 95/51
--- NOTE | 2017-12-28 17:20 | NUR ---
Swing Bed Nursing Note Patient Handbook for [facility] given to patient. Nursing Problem:Patient admitted to [facility] for PT/OT for generalized strengthening following a stay in [facility] r/t chest pain. Cognitive/Behavioral:Patient A/O x 4, but can get confused and forgetful especially at night. Pain:Patient has denied having pain this shift. Respiratory Status: Patient is on room air with no sign of distress. Skin: Patient's skin and coccyx are intact. Bowel/Bladder Continence:Patient is continent of bowel and bladder with occasional stress incontinence. ADL Functional Status: Patient requires minimal supervision and assistance with ADLs.
[2017-12-28 18:35] VITALS: BP 125/69
[2017-12-28] MEDS: LISINOPRIL 5 MG TABLET. PO SCH (20:58)
[2017-12-28] MEDS: CYCLOBENZAPRINE 10 MG TABLET. PO PRN (20:58)
[2017-12-29 06:00] VITALS: BP 138/72
[2017-12-29] MEDS: MAGNESIUM HYDROXIDE 2,400 MG/30 ML ORAL.SUSP. PO PRN (09:21)
[2017-12-29] MEDS: PANTOPRAZOLE 40 MG TABLET. PO SCH (09:24)
[2017-12-29] MEDS: ASPIRIN ENTERIC COATED 81 MG TABLET.DR. PO SCH (09:25)
[2017-12-29] MEDS: DICYCLOMINE HCL 10 MG CAPSULE PO SCH ×2 (09:25→20:14)
[2017-12-29] MEDS: CITALOPRAM 20 MG TABLET. PO SCH (09:26)
[2017-12-29] MEDS: CLOPIDOGREL BISULFATE 75 MG TABLET PO SCH (09:27)
[2017-12-29] MEDS: POTASSIUM CHLORIDE 20 MEQ TABLET.ER. PO SCH (09:27)
[2017-12-29] MEDS: CHOLECALCIFEROL (VITAMIN D3) 1,000 UNIT TABLET PO SCH (09:28)
[2017-12-29] MEDS: METOPROLOL SUCC 24HR ER 25 MG TAB.ER.24H. PO SCH (09:28)
[2017-12-29] MEDS: CYCLOBENZAPRINE 10 MG TABLET. PO PRN (09:29)
[2017-12-29] MEDS: LIDOCAINE (700MG/PATCH) PATCH. TD SCH (09:31)
[2017-12-29] MEDS: FUROSEMIDE 20 MG TABLET PO SCH (16:52)
[2017-12-29 18:55] VITALS: BP 129/75
[2017-12-29] MEDS: HYDROcodone/APAP 5/325MG 1 TAB TABLET PO PRN (20:14)
[2017-12-29] MEDS: LISINOPRIL 5 MG TABLET. PO SCH (20:15)
[2017-12-29] MEDS: PATCH REMOVAL. MC SCH (20:15)
--- NOTE | 2017-12-29 23:50 | NUR ---
Swing Bed Nursing Note Patient Handbook for [facility] given to patient. Nursing Problem: Pt admitted to [facility] for generalized weakness following admission to [facility] r/t chest pain. Pt will be working with PT/OT in preparation to go back home with son. Cognitive/Behavioral: Pt is A&Ox2, with some confusion noted. Staff talked with family, which stated "that she gets confused with pain medications, she normally is A&Ox4." Pt is pleasantly confused and cooperative with assessment & cares. Pt thought that I was her daughter. Pain: Pt reports generalized pain to her neck and back. Pt received PRN Hydrocodone and Lidoderm patch removed from back of neck. . Respiratory Status: Pt denies SOA and is on room air. Lungs CTA. Denies cough. Skin: Skin is clean, dry, and intact. Bowel/Bladder Continence: Pt is continent of bowel and bladder and uses toilet to void. LBM: 6/8 ADL Functional Status: Pt is independent with bed mobility and x1 assist with transfers. Pt uses walker to ambulate and is unsteady. Pt eats independently. Pt takes medications whole. Pt placed on bed alarm r/t increased confusion.
[2017-12-30 06:07] VITALS: BP 146/80
[2017-12-30] MEDS: PANTOPRAZOLE 40 MG TABLET. PO SCH (08:45)
[2017-12-30] MEDS: ASPIRIN ENTERIC COATED 81 MG TABLET.DR. PO SCH (08:45)
[2017-12-30] MEDS: DICYCLOMINE HCL 10 MG CAPSULE PO SCH ×2 (08:46→20:54)
[2017-12-30] MEDS: CLOPIDOGREL BISULFATE 75 MG TABLET PO SCH (08:46)
[2017-12-30] MEDS: CITALOPRAM 20 MG TABLET. PO SCH (08:46)
[2017-12-30] MEDS: POTASSIUM CHLORIDE 20 MEQ TABLET.ER. PO SCH (08:46)
[2017-12-30] MEDS: METOPROLOL SUCC 24HR ER 25 MG TAB.ER.24H. PO SCH (08:47)
[2017-12-30] MEDS: CHOLECALCIFEROL (VITAMIN D3) 1,000 UNIT TABLET PO SCH (08:48)
[2017-12-30] MEDS ORDERED: LIDOCAINE (700MG/PATCH) PATCH. TD SCH (09:00)
[2017-12-30] MEDS: LIDOCAINE (700MG/PATCH) PATCH. TD SCH (09:00)
--- NOTE | 2017-12-30 18:56 | NUR ---
Swing Bed Nursing Note Patient Handbook for [facility] given to patient. Nursing Problem: Patient admitted to [facility] for PT/OT for generalized strengthening. Cognitive/Behavioral:Patient is A/O, but can get a little confused at night. Patient is pleasant and cooperative with all cares. Pain: Patient has denied having any pain this shift. Respiratory Status:Patient is on room air with no sign of distress. Skin:Patient's coccyx and all skin is intact. Bowel/Bladder Continence:Patient is continent of bowel and bladder. ADL Functional Status:Patient requires supervision when ambulating and showering. For all other ADLs, patient is independent.
[2017-12-30 19:19] VITALS: BP 123/78
[2017-12-30] MEDS: PATCH REMOVAL. MC SCH (20:41)
[2017-12-30] MEDS: LISINOPRIL 5 MG TABLET. PO SCH (20:55)
--- NOTE | 2017-12-30 23:30 | NUR ---
Swing Bed Nursing Note Patient Handbook for [facility] given to patient. Nursing Problem: Pt admitted to [facility] for generalized weakness following admission to [facility] r/t chest pain. Pt will be working with PT/OT in preparation to go back home with son. Cognitive/Behavioral: Pt is A&Ox4. Pt is pleasant and cooperative with assessment & cares. Pt stated that she enjoyed visiting with all her family today. Pain: Pt reports generalized pain to her lower back hip area. Pt received PRN Tylenol. No Lidoderm patches were placed today per family request. Respiratory Status: Pt denies SOA and is on room air. Lungs CTA. Denies cough. Skin: Skin is clean, dry, and intact. Bowel/Bladder Continence: Pt is continent of bowel and bladder and uses toilet to void. LBM: 6/9 ADL Functional Status: Pt is independent with bed mobility and x1 assist with transfers. Pt uses walker to ambulate and is unsteady. Pt ate snack independently. Pt takes medications whole. Pt placed on bed at .
[2017-12-31 05:57] VITALS: BP 151/81
[2017-12-31] MEDS: PANTOPRAZOLE 40 MG TABLET. PO SCH (08:51)
[2017-12-31] MEDS: DICYCLOMINE HCL 10 MG CAPSULE PO SCH ×2 (08:51→19:56)
[2017-12-31] MEDS: ASPIRIN ENTERIC COATED 81 MG TABLET.DR. PO SCH (08:51)
[2017-12-31] MEDS: CITALOPRAM 20 MG TABLET. PO SCH (08:51)
[2017-12-31] MEDS: POTASSIUM CHLORIDE 20 MEQ TABLET.ER. PO SCH (08:51)
[2017-12-31] MEDS: METOPROLOL SUCC 24HR ER 25 MG TAB.ER.24H. PO SCH (08:52)
[2017-12-31] MEDS: CLOPIDOGREL BISULFATE 75 MG TABLET PO SCH (08:52)
[2017-12-31] MEDS: CHOLECALCIFEROL (VITAMIN D3) 1,000 UNIT TABLET PO SCH (08:52)
[2017-12-31] MEDS: LIDOCAINE (700MG/PATCH) PATCH. TD SCH (09:00)
[2017-12-31 18:33] VITALS: BP 122/70
[2017-12-31] MEDS: PATCH REMOVAL. MC SCH (19:46)
[2017-12-31] MEDS: LISINOPRIL 5 MG TABLET. PO SCH (19:57)
--- NOTE | 2018-01-01 05:00 | NUR ---
Swing Bed Nursing Note Patient Handbook for [facility] given to patient. Nursing Problem: Pt admitted to [facility] for generalized weakness following admission to [facility] r/t chest pain. Pt will be working with PT/OT in preparation to go back home with son. Cognitive/Behavioral: Pt is A&Ox4. Pt is pleasant and cooperative with assessment & cares. Pt stated that she enjoyed visiting with all her family today. Pain: No c/o pain this am. No Lidoderm patches were placed today per family request. Respiratory Status: Pt denies SOA and is on room air. Lungs CTA. Denies cough. Skin: Skin is clean, dry, and intact. Bowel/Bladder Continence: Pt is continent of bowel and bladder and uses toilet to void. LBM: 6 ADL Functional Status: Pt is independent with bed mobility and x1 assist with transfers. Pt uses walker to ambulate and is unsteady. Pt eats all meals independently. Pt takes medications whole. Pt up in chair visiting with family most of day.
[2018-01-01 05:40] VITALS: BP 131/86
[2018-01-01] MEDS: CITALOPRAM 20 MG TABLET. PO SCH (08:37)
[2018-01-01] MEDS: PANTOPRAZOLE 40 MG TABLET. PO SCH (08:37)
[2018-01-01] MEDS: DICYCLOMINE HCL 10 MG CAPSULE PO SCH ×2 (08:37→19:42)
[2018-01-01] MEDS: POTASSIUM CHLORIDE 20 MEQ TABLET.ER. PO SCH (08:37)
[2018-01-01] MEDS: ASPIRIN ENTERIC COATED 81 MG TABLET.DR. PO SCH (08:37)
[2018-01-01] MEDS: CLOPIDOGREL BISULFATE 75 MG TABLET PO SCH (08:37)
[2018-01-01] MEDS: FUROSEMIDE 20 MG TABLET PO SCH (08:38)
[2018-01-01] MEDS: LIDOCAINE (700MG/PATCH) PATCH. TD SCH (08:38)
[2018-01-01] MEDS: CHOLECALCIFEROL (VITAMIN D3) 1,000 UNIT TABLET PO SCH (08:38)
[2018-01-01] MEDS: METOPROLOL SUCC 24HR ER 25 MG TAB.ER.24H. PO SCH (08:38)
--- NOTE | 2018-01-01 15:09 | NUR ---
Swing Bed Nursing Note Patient Handbook for [facility] given to patient. Nursing Problem:Patient admitted to [facility] for PT/OT for generalized strengthening in preparation to return home with her son following a stay at [facility]. Cognitive/Behavioral:Patient is A/O x4. Patient is pleasant and cooperative with all cares. Pain:Patient has denied having pain this shift. Respiratory Status:Patient is on room air with no sign of distress. Skin:Patient's coccyx and skin are intact. Bowel/Bladder Continence:Patient is continent of bowel and bladder. ADL Functional Status:Patient is independent with all ADLs.
[2018-01-01 18:30] VITALS: BP 115/69
[2018-01-01] MEDS: LISINOPRIL 5 MG TABLET. PO SCH (19:42)
[2018-01-01] MEDS: PATCH REMOVAL. MC SCH (19:42)
--- NOTE | 2018-01-01 21:00 | NUR ---
Swing Bed Nursing Note Patient Handbook for [facility] given to patient. Nursing Problem: Pt admitted to [facility] for generalized weakness following admission to [facility] r/t chest pain. Pt will be working with PT/OT in preparation to go back home with son. Cognitive/Behavioral: Pt is A&Ox4. Pt is pleasant and cooperative with assessment & cares. Pt stated that she enjoyed visiting with all her family today. Pain: Pt reports generalized pain to her lower back hip area. Refused pain medication. Respiratory Status: Pt denies SOA and is on room air. Lungs CTA. Denies cough. Skin: Skin is clean, dry, and intact. Bowel/Bladder Continence: Pt is continent of bowel and bladder and uses toilet to void. LBM: 01/01 X2 ADL Functional Status: Pt is independent with bed mobility and x1 assist with transfers. Pt uses walker to ambulate and is unsteady. Pt ate HS snack independently. Pt takes medications whole.
[2018-01-02 05:02] VITALS: BP 131/68
[2018-01-02] MEDS: DICYCLOMINE HCL 10 MG CAPSULE PO SCH (08:51)
[2018-01-02] MEDS: CITALOPRAM 20 MG TABLET. PO SCH (08:51)
[2018-01-02] MEDS: ASPIRIN ENTERIC COATED 81 MG TABLET.DR. PO SCH (08:51)
[2018-01-02] MEDS: PANTOPRAZOLE 40 MG TABLET. PO SCH (08:51)
[2018-01-02 08:52] VITALS: BP 131/68
[2018-01-02] MEDS: CLOPIDOGREL BISULFATE 75 MG TABLET PO SCH (08:52)
[2018-01-02] MEDS: CHOLECALCIFEROL (VITAMIN D3) 1,000 UNIT TABLET PO SCH (08:52)
[2018-01-02] MEDS: METOPROLOL SUCC 24HR ER 25 MG TAB.ER.24H. PO SCH (08:52)
[2018-01-02] MEDS: LIDOCAINE (700MG/PATCH) PATCH. TD SCH (08:52)
[2018-01-02] MEDS: POTASSIUM CHLORIDE 20 MEQ TABLET.ER. PO SCH (08:53)
--- NOTE | 2018-01-02 16:28 | NUR ---
NURSING DISCHARGE NOTE: Patient discharged to home via wheelchair and accompanied by family. Verbal and written medication instructions were given.
--- NOTE | 2018-01-02 21:11 | DS ---
DATE OF DISCHARGE: 01/02/2018 HOSPITAL COURSE: The patient is an 82-year-old female patient who was admitted to swing bed as a transfer from [facility] on 12/27/2017. She has been complaining of generalized aches and pains involving her shoulders, neck, and back, and she has also lower back started about a week ago. She was concerned that this could be cardiac. She was investigated by the Cardiology team and had an extensive investigation including lab work, imaging studies including CT scan of the cervical spine and thoracic spine, lumbar spine, and abdominal ultrasound. She did respond to Lidoderm patch and some pain medication and she was with [facility] to continue the process of rehabilitation. Her pain has been reasonably controlled. She has been up and about, fairly independent and a decision was made to discharge her home with home health. PHYSICAL EXAMINATION: GENERAL: When I saw her today, she looked well and was clearly in no apparent respiratory distress, pale, but no jaundice, cyanosis, or thyromegaly. No jugular venous distention. No limb edema. VITAL SIGNS: Her heart rate was 73, blood pressure 131/68, temperature was 98.1, respiratory rate was 18 and oxygen saturation was 97%. HEAD, EYES, EARS, NOSE AND THROAT: Showed normocephalic, atraumatic. NECK: Supple. HEART: Showed normal first and second sounds. No gallop, rub or murmur. CHEST: Clear to auscultation. No crepitation or rhonchi. ABDOMEN: Distended, soft, nontender. No guarding or rigidity. No organomegaly. Hernial orifice intact. Bowel sounds normal. NEUROLOGIC: She was awake, alert, responding appropriately. Cranial nerves intact. EXTREMITIES: She moves extremities without difficulty. She ambulates without assistance or assistive devices. LABORATORY DATA: Showed a white cell count 5300, hemoglobin 12.7, hematocrit 37, MCV 88 and platelet count of 162,000 with normal manual differential. Her sed rate was 20 mL per hour. Her chemistry showed a serum sodium 131, potassium 4.3, chloride 99, bicarbonate 27, anion gap of 5, BUN 21, creatinine 0.9, estimated GFR was 59 mL per minute. Her glucose was 103, calcium was 8.8. Total bilirubin, AST, ALT, alkaline phosphatase were normal. Total protein 6.6, albumin 2.7. Her C-reactive protein was high at 129.9 mg/dL. DISCHARGE MEDICATIONS: She was discharged home to continue on Lidoderm patch topically on for 12 hours and off for 12 hours, potassium chloride 20 mEq once a day, metoprolol succinate 25 mg once a day, Plavix 75 mg once a day, citalopram hydrobromide 20 mg once a day, vitamin D 1000 international units once a day, magnesium hydroxide for milk of magnesia 30 mL p.o. daily p.r.n. for constipation, aspirin 81 mg once a day, Protonix 40 mg once a day, lisinopril 5 mg at bedtime, dicyclomine 10 mg twice a day, hydrocodone/APAP 5/325 mg one tablet every 4 hours, Flexeril 5 mg every 6 hours and furosemide 20 mg on Monday, Monday, and Monday. FINAL DISCHARGE DIAGNOSES: 1. Generalized aches and pains that have resolved. 2. Hypertension. 3. Congestive heart failure. 4. Inflammatory bowel disease. 5. Diverticulosis. 6. Sick sinus syndrome. 7. Status post permanent pacemaker. 8. Atrial fibrillation, rate controlled. 9. Hyperlipidemia. 10. Gastroesophageal reflux disease. KOREY RAY MD DR: ED/shannen JOB#: [id number] / [id number]
== END 2018-01-02 16:25 | disposition home health service (06) | DRG 948 ==
LOC: LND 14:29
PROVIDERS: ADMIT Internal Medicine; ATTEND Internal Medicine
DX: R52 Pain, unspecified (principal); I50.22 Chronic systolic (congestive) heart failure; E78.5 Hyperlipidemia, unspecified; I11.0 Hypertensive heart disease with heart failure; I25.10 Atherosclerotic heart disease of native coronary artery without angina pectoris; I25.5 Ischemic cardiomyopathy; I48.91 Unspecified atrial fibrillation; K21.9 Gastro-esophageal reflux disease without esophagitis; K57.90 Diverticulosis of intestine, part unspecified, without perforation or abscess without bleeding; K58.9 Irritable bowel syndrome, unspecified; M15.9 Polyosteoarthritis, unspecified; Z82.49 Family history of ischemic heart disease and other diseases of the circulatory system; Z83.3 Family history of diabetes mellitus; Z95.0 Presence of cardiac pacemaker; Z95.5 Presence of coronary angioplasty implant and graft; Z98.41 Cataract extraction status, right eye; Z98.42 Cataract extraction status, left eye; Z90.49 Acquired absence of other specified parts of digestive tract; Z88.8 Allergy status to other drugs, medicaments and biological substances
CPT/HCPCS: 36415; 80053; 85025; 85651; 86140; 97110; 97112; 97116; 97140; 97530; 97535

== ENCOUNTER → 2018-06-21 | Outpatient (CLI) | payer MEDICARE, BC ==
[~2018-06-21] MED LIST changes: +CLOP75TA PO; +CYCL5TAB PO; +FURO20TA3 PO; +HYDR-2155 PO; -HYDR-2758 PO; +HYDR-3165 PO; -HYDR-971 PO; +LIDO700A39 TP; +LISI-338 PO
--- NOTE | 2018-06-21 13:48 | RAD ---
Complete abdominal ultrasound History: Left-sided pain. Comparison: Ultrasound abdomen December 25, 2017. Procedure: Transabdominal ultrasound images are obtained. Findings: Visualized pancreas is unremarkable. Liver is normal in echogenicity. No focal hepatic masses are identified. Right lobe of the liver measures 11.8 cm. Gallbladder is absent. Common bile duct is not well visualized; no overt intrahepatic biliary dilatation is identified, however. Spleen is homogeneous and measures 8.3 cm in length. Right kidney is normal in size and configuration without hydronephrosis. Right kidney demonstrates small cyst measuring 1.0 cm. Left kidney is normal in size and configuration without hydronephrosis. Inferior pole of left kidney demonstrates simple cyst measuring 2.7 cm. Additional smaller cysts measure 0.8 and 0.6 cm. Visualized portions of the aorta and IVC have normal caliber. Aortic atherosclerosis is seen. Impression: 1. Bilateral renal cysts. 2. Status post cholecystectomy. 3. No acute abnormality identified. Electronically signed by: Daron Zambrano MD (06/21/2018 1:44 PM) [facility]
== END | disposition home or self-care (01) ==
LOC: US 10:11
PROVIDERS: ATTEND Internal Medicine Hematology & Oncology
DX: E61.1 Iron deficiency (principal); R53.83 Other fatigue; N28.1 Cyst of kidney, acquired; Z90.49 Acquired absence of other specified parts of digestive tract; I70.0 Atherosclerosis of aorta
CPT/HCPCS: 76700

== ENCOUNTER → 2018-10-30 | Outpatient (CLI) | payer MEDICARE, BC ==
[~2018-10-30] MED LIST changes: +REGADENOSON 0.4 MG/5 ML DISP.SYRIN. IV ONE
--- NOTE | 2018-10-30 10:22 | CARD ---
MR#: [id number] Date of Study: 10/30/2018 Ordering Physician: RAZA JO, Referring Physician: RAZA JO, Tech: Yuliya Bailey TACO APPROVED REPORT EXAM: Two-dimensional and M-mode echocardiogram with Doppler and color Doppler. Other Information Quality : GoodHR: 110bpm Rhythm : Tachycardia INDICATION Cardiomyopathy 2D DIMENSIONS RVDd2.9 (2.9-3.5cm)Left Atrium(2D)4.5 (1.6-4.0cm) IVSd0.9 (0.7-1.1cm)Aortic Root(2D)2.8 (2.0-3.7cm) LVDd5.7 (3.9-5.9cm)LVOT Diameter2.0 (1.8-2.4cm) PWd0.8 (0.7-1.1cm)LVDs5.4 (2.5-4.0cm) FS (%) 4.7 %SV16.4 ml LVEF(%)10.4 (>50%) M-Mode DIMENSIONS Left Atrium(MM)4.60 (2.5-4.0cm)Aortic Root3.34 (2.2-3.7cm) Aortic Valve AoV Peak Gabriel.123.2cm/sAoV VTI19.7cm AO Peak GR.6.1mmHgLVOT Peak Gabriel.60.1cm/s LVOT VTI 9.34cmAO Mean GR.3mmHg ANIVAL (VMAX)1.36cf3DFG (VTI)1.52cm2 Mitral Valve MV E Peak Gr.6mmHgMV E Mean Gr.3mmHg Pulmonary Valve PV Peak Wpibiaim50.0cm/sPV Peak Grad.1mmHg Tricuspid Valve TR P. Yhzybkml768dz/sRAP NGTLBPQF0ljLb TR Peak Gr.81esDbNQJQ79umPv Pulmonary Vein S1 Ghivvrro73.5cm/sD2 Kcvykooo13.8cm/s LEFT VENTRICLE The Left Ventricle is borderline dilated. There is normal left ventricular wall thickness. The ejecti on fraction is severely impaired. The Ejection Fraction is 15%. There is severe global hypokinesis of the left ventricle. Septal motion suggestive of pacing Transmitral Doppler flow pattern is abnormal. RIGHT VENTRICLE The right ventricle is normal size. There is normal right ventricular wall thickness. The right ventr icular systolic function is normal. There is a pacemaker in the RV/RA ATRIA The left atrium is mildly dilated. The right atrium size is normal. The interatrial septum is intact with no evidence for an atrial septal defect or patent foramen ovale as noted on 2-D or Doppler imagi ng. AORTIC VALVE The aortic valve is thickened but opens well. The aortic valve is trileaflet. Doppler and Color Flow revealed trace aortic regurgitation. There is no significant aortic valvular stenosis. There is no ao rtic valvular vegetation. MITRAL VALVE The mitral valve is normal in structure and function. There is no evidence of mitral valve prolapse. There is no mitral valve stenosis. Doppler and Color-flow revealed mild to moderate mitral regurgitat ion. TRICUSPID VALVE The tricuspid valve is normal in structure and function. Doppler and Color Flow revealed mild to mode rate tricuspid regurgitation. There is moderate pulmonary hypertension. The PA pressure was estimated at 54 mmHg. There is no tricuspid valve prolapse or vegetation. There is no tricuspid valve stenosis . PULMONIC VALVE Doppler and Color Flow revealed no pulmonic valvular regurgitation. There is no pulmonic valvular betsy nosis. GREAT VESSELS The aortic root is normal in size. The ascending aorta is normal in size. The IVC is dilated. PERICARDIAL EFFUSION There is no evidence of significant pericardial effusion. Critical Notification Critical Value: No <Conclusion> The ejection fraction is severely impaired. The Ejection Fraction is 15%. There is severe global hypokinesis of the left ventricle. Septal motion suggestive of pacing There is a pacemaker in the RV/RA Doppler and Color-flow revealed mild to moderate mitral regurgitation. Doppler and Color Flow revealed mild to moderate tricuspid regurgitation. There is moderate pulmonary hypertension. The PA pressure was estimated at 54 mmHg. Signed by : Raza Jo, Electronically Approved : 10/30/2018 10:22:02
--- NOTE | 2018-10-30 14:05 | RAD ---
MR#: [id number] Date of Study: 10/30/2018 Ordering Physician: RAZA JO, Referring Physician: PANKAJ KWON Tech: RT Jose (R) (N) APPROVED REPORT Test Type: Pharmacological Stress Nurse/Tech: Patrick Test Indications: Dyspnea, fatigue, Ischemic cardiomyopathy Cardiac History: ID, Stents Resting Heart Rate: 106 bpm Resting Blood Pressure: 152/82mmHg Pretest Chest Pain: None Pharm. Details Pharmacologic stress testing was performed using 0.4mg per 5ml of regadenoson given intravenously ove r 7-10 seconds. POST EXERCISE Reason for Termination: Infusion complete Blood Pressure response to exercise: Normal blood pressure response during stress. Heart Rate response to exercise: Increased Chest Pain: No. Arrhythmia: No. ST Change: No. INTERPRETATION Stress EKG Conclusion: V-paced non-diagnostic Imaging Protocol IMAGE PROTOCOL: Rest Tc-99m/stress Tc-99m 1 day Rest: Stress: Viability: Radiopharm.Tc99m AmziexngqJm02t Sestamibi Zsqz61qPb 33mCi Duration 15min. 20min. Img Date 10/30/2018 10/30/2018 Inj-Img Dwks70yuv. 60min. Rest Admin Site:IV - Right AntecubitalAdministrator: RT Jose (R)(N) Stress Admin Site: IV - Right AntecubitalAdministrator: RT Jose (R)(N) STRESS DATA End Diast. Vol.236.0mlAv. Heart Rate97.0bpm LVEDV index BSA5.0mlCardiac Output0.1L/min End Syst. Vol.172.0mlCO Index BSA6.2L/min LVESV index BSA4.0mlMyocardial Iyzm427.0g Eject. Jwibiazm49.0% Stress Rates Pk. Fill Rate1.78EDV/secLVtime Pk. Fill 94.99msec Pk. Empty Rate1.67ESV/secLVtime Pk. Gdfgx621.42msec 07/26 Pk. Fill0.99EDV/sec Stress Scores Regional WT3.00Summed WT40.00 Regional WM2.00Summed WM52.00 LV Perfusion There is a moderate sized, distal septal and apical infarct without significant ischemia. Probable basal to mid inferolateral fixed defect suggestive of prior infarct. No ischemia noted. Wall Motion Severe LV dysfunction. EF 27% LV Perf. Quant 17 Seg. SSS13.00 17 Seg. SRS31.00 17 Seg. SDS0.00 Stress Defect Extent (% LAD)25.60Rest Defect Extent (% LAD)66.90Rev. Defect Extent (% LAD)4.40 Stress Defect Extent (% LCX) 30.00Rest Defect Extent (% LCX)85.00Rev. Defect Extent (% LCX)7.50 Stress Defect Extent (% RCA)22.20Rest Defect Extent (% RCA)84.40Rev. Defect Extent (% RCA)11.10 Stress Defect Extent (% KAUSHIK)22.60Rest Defect Extent (% KAUSHIK)67.20Rev. Defect Extent (% KAUSHIK)7.60 Other Information Quality:Fair Risk Assessment: Moderate-High Risk Conclusion 1. Non-diagnostic EKG due to pacing. 2. No significant ischemia. 3. Severe LV dysfunction. EF 27% 4. Moderate to high risk for future CV events. Signed by : Raza Jo, Electronically Approved : 10/30/2018 14:05:37
== END | disposition home or self-care (01) ==
LOC: ECHO 08:44
PROVIDERS: ATTEND Internal Medicine Cardiovascular Disease
DX: I08.1 Rheumatic disorders of both mitral and tricuspid valves (principal); I27.20 Pulmonary hypertension, unspecified; I25.5 Ischemic cardiomyopathy
CPT/HCPCS: 78452; 93017; 93306; 96374; 96375; 96376; A9500; J2785

== ENCOUNTER → 2019-03-04 | Outpatient (CLI) | payer MEDICARE, BC ==
[~2019-03-04] MED LIST changes: +LIDO700A21 TP; -LIDO700A39 TP; -REGADENOSON 0.4 MG/5 ML DISP.SYRIN. IV ONE
--- NOTE | 2019-03-04 14:09 | RAD ---
EXAM: CT Head without IV contrast CLINICAL HISTORY: DIZZY, FALL. RT HIP PAIN COMPARISON: None. TECHNIQUE: Routine CT of the head without contrast. Soft tissues and bone windows were reviewed. PQRS compliance statement - One or more of the following individualized dose reduction techniques were utilized for this study: 1. Automated exposure control 2. Adjustment of the mA and/or kV according to patient size 3. Use of iterative reconstruction technique FINDINGS: There is no evidence of hemorrhage, mass or extra-axial fluid collection. Krause-white differentiation is maintained with no evidence of edema. Subcortical, periventricular deep white matter hypoattenuation likely changes of chronic small vessel disease. There is no mass effect or shift of the intracranial structures. There is prominence of the ventricles and sulci bilaterally consistent with generalized atrophy. The cerebellum and brainstem are unremarkable. The calvarium demonstrates no evidence of fracture or focal lesion. There is normal aeration of the visualized paranasal sinuses and mastoid air cells. The visualized portions of the orbits are normal. Soft tissue calcifications within the subcutaneous tissues of the left high parietal region, possibly posttraumatic or calcified cysts or soft tissue lesion. IMPRESSION: 1. No evidence for acute intracranial abnormality. 2. White matter changes may be seen with chronic small vessel disease. EXAM: CT facial bones without contrast CLINICAL HISTORY: Dizziness, fall, head injurys COMPARISON: None available. TECHNIQUE: Helical CT of the face/paranasal sinuses was acquired and axial, coronal and sagittal reformatted images were generated. ---PQRS compliance statement - One or more of the following individualized dose reduction techniques were utilized for this study: 1. Automated exposure control 2. Adjustment of the mA and/or kV according to patient size 3. Use of iterative reconstruction technique--- FINDINGS: No definite fracture is noted of the facial bones. The visualized paranasal sinuses are well-aerated. No evidence of air-fluid levels. Bilateral franny bullosa are seen. The mastoids are unremarkable. The globes, extraocular muscles, optic nerves and retrobulbar fat are normal. Visualized upper aerodigestive tract is normal. Mandible and bilateral temporomandibular joints are normal. IMPRESSION: 1. No evidence for acute fracture or dislocation of the facial bones. 2. The bilateral paranasal sinuses are clear. Electronically signed by: Ron Millard MD (03/04/2019 2:06 PM) [facility]
--- NOTE | 2019-03-04 15:55 | RAD ---
EXAM: AP pelvis, AP and lateral views right hip DATE: 03/04/2019 12:00 AM INDICATION: Right hip pain, fall, dizziness COMPARISON: No Prior FINDINGS: Changes of right hip arthroplasty Good alignment without definite hardware complication or fracture. Components are well seated without significant periprosthetic lucency. Left hip joint space is grossly preserved. No significant proliferative changes are noted. Lower lumbar spine degenerative changes are seen. SI joints degenerative changes are also seen. IMPRESSION: Right hip arthroplasty in good alignment without evidence for acute fracture or hardware complication. Electronically signed by: Ron Millard MD (03/04/2019 3:52 PM) [facility]
== END | disposition home or self-care (01) ==
LOC: RAD 12:49
PROVIDERS: ATTEND Family Medicine
DX: M47.817 Spondylosis without myelopathy or radiculopathy, lumbosacral region (principal); G93.89 Other specified disorders of brain; J32.8 Other chronic sinusitis; Z96.641 Presence of right artificial hip joint
CPT/HCPCS: 70450; 70486; 73502

== ENCOUNTER 2019-03-12 02:08 | Emergency (ER) | payer MEDICARE, BC ==
[~2019-03-12] VITALS: Ht 154.9 cm; Wt 60.3 kg
[2019-03-12] MEDS ORDERED: IV NORMAL SALINE 1,000ML 1,000 ML IV ONE (02:30)
[2019-03-12] MEDS ORDERED: ASPIRIN 325 MG TABLET PO ONE (02:30)
--- NOTE | 2019-03-12 02:31 | EKG ---
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
[2019-03-12 02:44] LABS: BASO % 1 % (0-3); EOS # 0.1 x10^3/uL (0.0-0.7); EOS % 1 % (0-3); HEMATOCRIT 44.9 % (36.0-47.0); HEMOGLOBIN 14.8 g/dL (12.0-15.5); LYMPH # 2.5 x10^3/uL (1.0-4.8); LYMPH % 42 % (24-48); MEAN CORPUSCULAR HEMOGLOBIN 31 pg (25-35); MEAN CORPUSCULAR HGB CONC 33 g/dL (31-37); MEAN CORPUSCULAR VOLUME 93 fL (79-100); MONO # 1.2 x10^3/uL (0.0-1.1); MONO % 20 % (0-9); NEUT # 2.2 x10^3uL (1.8-7.7); NEUT % 37 % (31-73); PLATELET COUNT 176 x10^3/uL (140-400); RED CELL DISTRIBUTION WIDTH 15.7 % (11.5-14.5)
[2019-03-12] MEDS ORDERED: CONTRAST GIVEN MC PRN (02:45)
--- NOTE | 2019-03-12 02:54 | PHYS DOC ---
Past History Past Medical History: GERD, Heart Disease, Hypertension Past Surgical History: Hip Replacement (right), Pacemaker, Other Smoking: Non-smoker Alcohol Use: None Drug Use: None Adult General Chief Complaint Chief Complaint: ABDOMINAL PAIN HPI HPI Mrs. Mueller is an 83yo F w/ PMH significant for pacemaker, HTN, heart disease, and GERD who presents w/ palpitations with associated left pulsatile abdominal wall w/o pain or tenderness. She was awaken from sleep due to abdominal wall pulsatile rhythmic movements that elicit no pain. Patient reports she awoke around 2 AM. Reports history of an implantable pacemaker which was replaced 3 months ago at . Denies chest pain, shortness of breath, or recent trauma. She took 81 MG aspirin prior to arrival and was brought by personal vehicle. Denies diaphoresis, nausea/vomiting, or fever/chills. Patient also reports pain to right hip s/p fall recently. Patient is to follow with Dr. Romero (orthopedics) in the next few days regarding her hip pain. Review of Systems Review of Systems Constitutional: Denies fever or chills Eyes: Denies redness or eye pain HENT: Reports mild sore throat. Denies nasal congestion. Respiratory: Denies cough or shortness of breath Cardiovascular: Denies chest pain; reports palpitations GI: Denies abdominal pain, nausea, or vomiting; reports abdominal wall pulsation : Denies dysuria or hematuria Musculoskeletal: Denies back pain; reports right hip pain with history of recent fall Integument: Denies rash or skin lesions Neurologic: Denies headache, focal weakness or sensory changes Complete systems were reviewed and found to be within normal limits, except as documented in this note. Current Medications Current Medications Current Medications Medications (Trade) Dose Ordered Sig/Alexus Start Time Stop Time Status Last Admin Dose Admin Aspirin (Santos Aspirin) 325 mg 1X ONCE 03/12/19 02:30 03/12/19 02:31 DC 03/12/19 02:33 325 MG Info (Do NOT chart on this entry -- for MONITORING) 1 each PRN DAILY PRN 03/12/19 02:45 03/14/19 02:44 Iohexol (Omnipaque 300 Mg/ml) 75 ml 1X ONCE 03/12/19 03:00 03/12/19 03:01 Lorazepam (Ativan Inj) 0.5 mg 1X ONCE 03/12/19 02:30 03/12/19 02:31 DC 03/12/19 02:33 0.5 MG Sodium Chloride 1,000 ml @ 1,000 mls/hr 1X ONCE 03/12/19 02:30 03/12/19 03:29 03/12/19 02:33 1,000 MLS/HR Allergies Allergies Allergies Coded Allergies Type Severity Reaction Last Updated Verified codeine Allergy Intermediate 05/23/17 Yes iron Allergy Intermediate 05/23/17 Yes Physical Exam Physical Exam Constitutional: Well developed, well nourished, mild acute distress, non-toxic appearance HENT: Normocephalic, atraumatic, 1cm chronic swelling mass on left crown of head (10 year), oropharynx moist Eyes: PERRL, EOMI, conjunctiva normal, no discharge Neck: Normal range of motion, no tenderness, supple, no cervical or supraclavicular LAD Cardiovascular: Heart rate normal, regular rhythm w/o rubs or murmurs. UE radial pulse and LE posterior tibial pulses intact 2/4 b/l. Lungs & Thorax: Bilateral breath sounds clear to auscultation throughout, no w heezing Abdomen: Soft, no tenderness, rhythmic pulsatile wall motion to LUQ, non- distended, Pelvis stable and nontender Skin: Warm, dry, no erythema, no rash Back: No tenderness, no CVA tenderness Extremities: Right hip pain on ROM, no shortening, No deformity appreciated. Neurologic: Alert and oriented X 3, normal motor function, normal sensory function, no focal deficits noted Psychologic: Affect normal, judgement normal EKG EKG EKG obtained @ 0217 and read @ 0218. Paced at 91 BPM Radiology/Procedures Radiology/Procedures PROCEDURE: CT ANGIO CHEST ABD PELVIS EXAM: CT ANGIOGRAPHY OF THE CHEST, ABDOMEN AND PELVIS WITH AND WITHOUT CONTRAST. HISTORY: Pulsatile abdominal mass and pain. TECHNIQUE: Computed tomographic angiography of the chest, abdomen and pelvis was performed before and after the intravenous administration of iodinated contrast. 3-D maximum intensity projections were also performed. COMPARISON: 10/08/2015. FINDINGS: Images of the upper abdomen reveal no acute abnormality. Bone windows reveal no suspicious lesions. A right hemiarthroplasty is noted. There is grade 1 anterolisthesis and a rightward lateral listhesis at L4-5. Central canal stenosis appears moderate to severe at this level. A low-density right thyroid nodule measures 3.1 x 2.8 cm transaxially and extends in to the superior mediastinum. A small left thyroid nodule is also noted. This examination is not tailored to assess for pulmonary emboli and sensitivity is limited. There are no pulmonary emboli are seen. There is no aortic dissection or aneurysm. There are moderate atherosclerotic calcifications throughout the descending abdominal aorta without stenosis. There is no clear stenosis throughout the iliac systems. There is at least moderate stenosis of the origin of the celiac axis. The superior mesenteric artery and inferior mesenteric artery are at least mildly stenotic. The renal arteries are moderately stenotic at their origins. There are no pathologically enlarged mediastinal or axillary lymph nodes. There is no pleural or pericardial effusion. The heart is moderately enlarged. There are atherosclerotic calcifications of the coronary arteries. A left-sided pacemaker has its leads in the right atrium, right ventricle and a left cardiac vein. Interstitial line thickening and groundglass opacity indicate mild pulmonary edema. There is a calcified granuloma in the right lower lobe. The gallbladder is surgically absent. The common duct measures up to 16 mm but tapers distally without a clear obstructing lesion. 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 The main pancreatic duct is at the upper limits of normal caliber. No suspicious pancreatic lesions are identified There are calcified granulomas in the spleen. A cyst at the left renal lower pole measures 3.0 cm. The right kidney, adrenal glands and liver are unremarkable. There are no pathologically enlarged lymph nodes. Sigmoid and left colonic diverticulosis are moderate to severe. Stool throughout the colon is consistent with constipation. There is no evidence of appendicitis. There is no small bowel obstruction. The stomach is decompressed but there is suggestion of wall thickening. IMPRESSION: 1. No aortic aneurysm or mass is identified. 2. Gastric wall thickening may be from luminal decompression or esophagitis. Endoscopy could further evaluate if there is persistent concern. 3. Moderate extrahepatic biliary dilatation status post cholecystectomy. Correlate for cholestasis to assess significance. 4. Moderate cardiomegaly. Mild pulmonary edema. 5. At least moderate stenosis at the origin of the celiac axis. There is mild stenosis of the superior and inferior mesenteric arteries. 6. At least moderate stenosis at the origins of both renal arteries. 7. A 3 cm right thyroid nodule could be further assessed sonographically if there is persistent concern. 1. Moderate to severe central canal stenosis at L4-5 as above. *One or more of the following individualized dose reduction techniques were utilized for this examination: 1. Automated exposure control. 2. Adjustment of the mA and/or kV according to patient size. 3. Use of iterative reconstruction technique. Electronically signed by: Darren Armstrong MD (03/12/2019 4:09 AM) [facility] Course & Med Decision Making Course & Med Decision Making Pertinent Labs and Imaging studies reviewed. (See chart for details) Patient presented w/ reports of palpitations with physical exam findings of pulsatile LUQ abdomen. EKG revealed paced rhythm at 91 BPM. CTA chest/abd/pelvis without acute aneurysm/dissection. Noted some constipation. Pacer wires appear in good position. NO hip fracture noted. Patient subsequently noted to have bigeminal rhythm periodically. Ativan/Valium provided with some improvement of patient's symptoms. Pacemaker attempted to be interrogated. Given age and risk factors without definitive diagnosis, patient requiring admission for further evaluation and treatment. Family and patient requesting to be admitted at [facility]. Discussed with Dr. Ron (hospitalist) who is in agreement with transfer for admission to [place] with plan for cardiology consultation. Patient also follows with Dr. Romero (orthopedics) and is supposed to see him regarding hip pain. Discussed findings and plan with patient and family, who acknowledge understanding and agreement. Dragon Disclaimer Dragon Disclaimer This electronic medical record was generated, in whole or in part, using a voice recognition dictation system. Departure Departure: Impression: Primary Impression: Palpitations Additional Impressions: Arrhythmia Acute renal insufficiency Hip pain Disposition: 05 TRANSFER OTHER ([facility]) Admitting Physician: Tiffanie Ron Condition: STABLE Referrals: MEJIA GONSALES MD (PCP) Problem Qualifiers Additional Impressions: Arrhythmia Arrhythmia type: unspecified cardiac arrhythmia Qualified Codes: I49.9 - Cardiac arrhythmia, unspecified Hip pain Laterality: right Qualified Codes: M25.551 - Pain in right hip BERNARDO CATSILLO DO Mar 12, 2019 02:54
[2019-03-12] MEDS ORDERED: ASPIRIN 81 MG TAB.CHEW PO ONE (03:00)
[2019-03-12] MEDS ORDERED: IOHEXOL 350 MG/ML 100 ML VIAL. IV ONE (03:00)
[2019-03-12] MEDS ORDERED: IOHEXOL 300 MG/ML 75 ML VIAL. IV ONE (03:00)
[2019-03-12 03:08] LABS: ALBUMIN 3.8 g/dL (3.4-5.0); CALCIUM 9.8 mg/dL (8.5-10.1); CREATININE 1.5 mg/dL (0.6-1.0); MAGNESIUM 2.2 mg/dL (1.8-2.4); POTASSIUM 4.4 mmol/L (3.5-5.1); TOTAL BILIRUBIN 0.4 mg/dL (0.2-1.0); TOTAL PROTEIN 7.7 g/dL (6.4-8.2)
--- NOTE | 2019-03-12 04:13 | RAD ---
EXAM: CT ANGIOGRAPHY OF THE CHEST, ABDOMEN AND PELVIS WITH AND WITHOUT CONTRAST. HISTORY: Pulsatile abdominal mass and pain. TECHNIQUE: Computed tomographic angiography of the chest, abdomen and pelvis was performed before and after the intravenous administration of iodinated contrast. 3-D maximum intensity projections were also performed. COMPARISON: 10/08/2015. FINDINGS: Images of the upper abdomen reveal no acute abnormality. Bone windows reveal no suspicious lesions. A right hemiarthroplasty is noted. There is grade 1 anterolisthesis and a rightward lateral listhesis at L4-5. Central canal stenosis appears moderate to severe at this level. A low-density right thyroid nodule measures 3.1 x 2.8 cm transaxially and extends in to the superior mediastinum. A small left thyroid nodule is also noted. This examination is not tailored to assess for pulmonary emboli and sensitivity is limited. There are no pulmonary emboli are seen. There is no aortic dissection or aneurysm. There are moderate atherosclerotic calcifications throughout the descending abdominal aorta without stenosis. There is no clear stenosis throughout the iliac systems. There is at least moderate stenosis of the origin of the celiac axis. The superior mesenteric artery and inferior mesenteric artery are at least mildly stenotic. The renal arteries are moderately stenotic at their origins. There are no pathologically enlarged mediastinal or axillary lymph nodes. There is no pleural or pericardial effusion. The heart is moderately enlarged. There are atherosclerotic calcifications of the coronary arteries. A left-sided pacemaker has its leads in the right atrium, right ventricle and a left cardiac vein. Interstitial line thickening and groundglass opacity indicate mild pulmonary edema. There is a calcified granuloma in the right lower lobe. The gallbladder is surgically absent. The common duct measures up to 16 mm but tapers distally without a clear obstructing lesion. 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 The main pancreatic duct is at the upper limits of normal caliber. No suspicious pancreatic lesions are identified There are calcified granulomas in the spleen. A cyst at the left renal lower pole measures 3.0 cm. The right kidney, adrenal glands and liver are unremarkable. There are no pathologically enlarged lymph nodes. Sigmoid and left colonic diverticulosis are moderate to severe. Stool throughout the colon is consistent with constipation. There is no evidence of appendicitis. There is no small bowel obstruction. The stomach is decompressed but there is suggestion of wall thickening. IMPRESSION: 1. No aortic aneurysm or mass is identified. 2. Gastric wall thickening may be from luminal decompression or esophagitis. Endoscopy could further evaluate if there is persistent concern. 3. Moderate extrahepatic biliary dilatation status post cholecystectomy. Correlate for cholestasis to assess significance. 4. Moderate cardiomegaly. Mild pulmonary edema. 5. At least moderate stenosis at the origin of the celiac axis. There is mild stenosis of the superior and inferior mesenteric arteries. 6. At least moderate stenosis at the origins of both renal arteries. 7. A 3 cm right thyroid nodule could be further assessed sonographically if there is persistent concern. 1. Moderate to severe central canal stenosis at L4-5 as above. *One or more of the following individualized dose reduction techniques were utilized for this examination: 1. Automated exposure control. 2. Adjustment of the mA and/or kV according to patient size. 3. Use of iterative reconstruction technique. Electronically signed by: Darren Armstrong MD (03/12/2019 4:09 AM) [facility]
[2019-03-12 04:48] VITALS: BP 152/96
[2019-03-12] MEDS ORDERED: diazePAM 2 MG TABLET PO ONE (05:30)
== END 2019-03-12 05:52 | disposition short-term general hospital (02) ==
LOC: ER 02:08
DX: I49.9 Cardiac arrhythmia, unspecified (principal); N28.9 Disorder of kidney and ureter, unspecified; M25.551 Pain in right hip; K59.00 Constipation, unspecified; R09.89 Other specified symptoms and signs involving the circulatory and respiratory systems; E04.1 Nontoxic single thyroid nodule; J81.1 Chronic pulmonary edema; I11.9 Hypertensive heart disease without heart failure; K21.9 Gastro-esophageal reflux disease without esophagitis; Z90.49 Acquired absence of other specified parts of digestive tract; Z96.641 Presence of right artificial hip joint; Z95.0 Presence of cardiac pacemaker; Z88.5 Allergy status to narcotic agent; Z88.8 Allergy status to other drugs, medicaments and biological substances
CPT/HCPCS: 99285; J2060; 36415; 71275; 74174; 80053; 82553; 83690; 83735; 83880; 84484; 85025; 85610; 85730; 93005; Q9967; J7030

== ENCOUNTER 2019-03-15 06:05 | Observation (INO) | payer MEDICARE, BC ==
[~2019-03-15] VITALS: Ht 154.9 cm; Wt 60.3 kg
--- NOTE | 2019-03-15 06:30 | PHYS DOC ---
Past History Past Medical History: GERD, Heart Disease, Hypertension, IBS Past Surgical History: Hip Replacement, Pacemaker, Other Smoking: Non-smoker Alcohol Use: None Drug Use: None Adult General Chief Complaint Chief Complaint: Palpitations HPI HPI Patient is a 3-year-old female who presents with abdominal pulsing. This started approximately an hour to an hour and a half prior to arrival. No significant pain. She has a pacemaker which was replaced approximately 3 months ago at . She was seen 3 days ago for similar symptoms and had arranged to be transferred to [place] however her symptoms improved with medication in the emergency department. She was directed to return to the emergency department if symptoms reoccurred. Patient denies any chest pain, difficulty breathing, nausea or vomiting.[] Review of Systems Review of Systems Constitutional: Denies fever or chills [] Eyes: Denies change in visual acuity, redness, or eye pain [] HENT: Denies nasal congestion or sore throat [] Respiratory: Denies cough or shortness of breath [] Cardiovascular: No chest pain, some palpitations[] GI: Denies abdominal pain, nausea, vomiting, bloody stools or diarrhea, see history of present illness [] : Denies dysuria or hematuria [] Musculoskeletal: Denies back pain, some right hip pain with fall several days prior. She is already scheduled to follow-up with orthopedic surgery regarding this.[] Integument: Denies rash or skin lesions [] Neurologic: Denies headache, focal weakness or sensory changes [] Endocrine: Denies polyuria or polydipsia [] All other systems were reviewed and found to be within normal limits, except as documented in this note. Allergies Allergies Allergies Coded Allergies Type Severity Reaction Last Updated Verified codeine Allergy Intermediate 05/23/17 Yes iron Allergy Intermediate 05/23/17 Yes Physical Exam Physical Exam Constitutional: Well developed, well nourished, no acute distress, non-toxic appearance. [] HENT: Normocephalic, atraumatic, bilateral external ears normal, oropharynx moist, no oral exudates, nose normal. [] Eyes: PERRLA, EOMI, conjunctiva normal, no discharge. [] Neck: Normal range of motion, no tenderness, supple, no stridor. [] Cardiovascular:Heart rate regular rhythm, no murmur [] Lungs & Thorax: Bilateral breath sounds clear to auscultation [] Abdomen: Bowel sounds normal, soft, no tenderness, no masses, pulsing of the abdominal wall without any pulsatile mass appreciated. No rebound, no guarding, no rigidity. [] Skin: Warm, dry, no erythema, no rash. [] Back: No tenderness, no CVA tenderness. [] Extremities: No tenderness, no cyanosis, no clubbing, ROM intact, no edema. [] Neurologic: Alert and oriented X 3, normal motor function, normal sensory function, no focal deficits noted. [] Psychologic: Affect normal, judgement normal, mood normal. [] EKG EKG EKG shows a paced rhythm at 76 bpm, interpreted by me at 0627. No ST elevations.[] Radiology/Procedures Radiology/Procedures PROCEDURE: PORTABLE CHEST 1V EXAM: CHEST ONE VIEW. HISTORY: Chest pain, pacemaker placement. COMPARISON: 05/23/2017. FINDINGS: A frontal view of the chest is obtained. A left-sided pacemaker has its leads in the right atrium, right ventricle and a left cardiac vein. There are no confluent infiltrates. There is no pneumothorax or pleural effusion. The heart is moderately enlarged. There are atherosclerotic calcifications of the aorta. IMPRESSION: 1. Moderate cardiomegaly.[] Course & Med Decision Making Course & Med Decision Making Pertinent Labs and Imaging studies reviewed. (See chart for details) ED course: Patient arrived, was placed in bed, and tolerated exam well. She had some improvement of her symptoms with Ativan administration. Consultation was made with cardiology's service neonatal specialist, Dr. Babin, who recommends patient be admitted to [place] if there are issues with her pacemaker. Discussion with patient and family, her primary telegraph repeater mechanic is Dr. Tuttle who by their report once the patient kept here at [facility] and the pacemaker credit resolution representative can turn off the LV lead. Consultation was made with the hospitalist service for admission and he graciously accepted. Further consultation was made with Dr. Tuttle who concurred with the above plan. Patient was admitted in improved condition with all questions answered. Medical decision making: This appears to be an issue with one of her pacemaker leads. Patient is being admitted for further evaluation and treatment.[] Dragon Disclaimer Dragon Disclaimer This electronic medical record was generated, in whole or in part, using a voice recognition dictation system. Departure Departure: Impression: Primary Impression: Pacemaker complications Additional Impressions: Coronary artery disease CHF (congestive heart failure) Disposition: 09 ADMITTED INPATIENT Admitting Physician: Tiffanie Ron Condition: IMPROVED Referrals: MEJIA GONSALES MD (PCP) Problem Qualifiers Primary Impression: Pacemaker complications Encounter type: subsequent encounter Qualified Codes: T82.9XXD - Unspecified complication of cardiac and vascular prosthetic device, implant and graft, subsequent encounter Additional Impressions: Coronary artery disease Coronary Disease-Associated Artery/Lesion type: unspecified vessel or lesion type [place] vs. transplanted heart: [place] heart Associated angina: without angina Qualified Codes: I25.10 - Atherosclerotic heart disease of [place] coronary artery without angina pectoris CHF (congestive heart failure) Heart failure type: unspecified Heart failure chronicity: unspecified Qualified Codes: I50.9 - Heart failure, unspecified LOC MUNIZ DO Mar 15, 2019 06:30
[2019-03-15 06:36] LABS: BASO # 0.1 x10^3/uL (0.0-0.2); BASO % 1 % (0-3); EOS # 0.1 x10^3/uL (0.0-0.7); EOS % 1 % (0-3); HEMATOCRIT 42.7 % (36.0-47.0); HEMOGLOBIN 14.4 g/dL (12.0-15.5); LYMPH # 1.7 x10^3/uL (1.0-4.8); LYMPH % 36 % (24-48); MEAN CORPUSCULAR HEMOGLOBIN 31 pg (25-35); MEAN CORPUSCULAR HGB CONC 34 g/dL (31-37); MEAN CORPUSCULAR VOLUME 92 fL (79-100); MONO # 1.2 x10^3/uL (0.0-1.1); MONO % 25 % (0-9); NEUT # 1.7 x10^3uL (1.8-7.7); NEUT % 36 % (31-73); PLATELET COUNT 160 x10^3/uL (140-400); RED BLOOD COUNT 4.65 x10^6/uL (3.50-5.40); RED CELL DISTRIBUTION WIDTH 15.6 % (11.5-14.5); WHITE BLOOD COUNT 4.8 x10^3/uL (4.0-11.0)
--- NOTE | 2019-03-15 06:42 | RAD ---
EXAM: CHEST ONE VIEW. HISTORY: Chest pain, pacemaker placement. COMPARISON: 05/23/2017. FINDINGS: A frontal view of the chest is obtained. A left-sided pacemaker has its leads in the right atrium, right ventricle and a left cardiac vein. There are no confluent infiltrates. There is no pneumothorax or pleural effusion. The heart is moderately enlarged. There are atherosclerotic calcifications of the aorta. IMPRESSION: 1. Moderate cardiomegaly. Electronically signed by: Darren Armstrong MD (03/15/2019 6:39 AM) [facility]
[2019-03-15 06:58] LABS: ALBUMIN 3.4 g/dL (3.4-5.0); ALBUMIN/GLOBULIN RATIO 0.9 (1.0-1.7); CALCIUM 9.3 mg/dL (8.5-10.1); CREATININE 1.3 mg/dL (0.6-1.0); GFR 38.9; POTASSIUM 4.3 mmol/L (3.5-5.1); TOTAL BILIRUBIN 0.4 mg/dL (0.2-1.0); TOTAL PROTEIN 7.2 g/dL (6.4-8.2)
[2019-03-15] MEDS ORDERED: ACETAMINOPHEN 325 MG TABLET PO PRN (07:00)
[2019-03-15] MEDS ORDERED: ONDANSETRON PF 4 MG/2 ML VIAL. IV PRN (07:00)
[2019-03-15 10:02] VITALS: BP 162/75
[2019-03-15 11:15] VITALS: BP 162/75
--- NOTE | 2019-03-15 11:24 | EKG ---
[address] [address] Test Date: 2019-03-15 Test Time: 06:28:03 Pat Name: ROHITH PINO Department: Room: [facility] Gender: F Layout Former: LJ : 1935 Requested By: LOC MUNIZ Order Number: [id number] Reading MD: Grover Hutchison MD Measurements Intervals [place] Rate: 76 P: 49 CO: 120 QRS: -117 QRSD: 134 T: 98 QT: 406 QTc: 461 Interpretive Statements A-V PACED Electronically Signed On 03-15-2019 16:06:53 CDT by Grover Hutchison MD
[2019-03-15] MEDS ORDERED: METOPROLOL SUCC 24HR ER 25 MG TAB.ER.24H. PO SCH (11:30)
[2019-03-15] MEDS ORDERED: DICYCLOMINE HCL 10 MG CAPSULE PO PRN (13:00)
[2019-03-15] MEDS ORDERED: PANTOPRAZOLE 40 MG TABLET. PO PRN (13:00)
[2019-03-15] MEDS ORDERED: FUROSEMIDE 20 MG TABLET PO PRN (13:00)
--- NOTE | 2019-03-15 15:20 | HP ---
ADMIT DATE: 03/15/2019 HISTORY OF PRESENT ILLNESS: The patient is an 83-year-old female patient who came again to the Emergency Room this morning as her pacemaker started again to stimulate her left diaphragm causing abdominal pulsating movement. She actually was awoken and she was in deep sleep and awoken by this normal contraction, had started about an hour an hour and half prior to arrival. She denied any pain. Denied any shortness of breath, orthopnea or paroxysmal nocturnal dyspnea. Her pacemaker was adjusted twice while at [facility] by the motor vehicle field representative and with no further recurrence, so we recommended that the patient should come to the swing bed. The patient adamantly refused that and she was discharged home only to be awakened again with this diaphragmatic stimulation by her pacemaker. PAST MEDICAL HISTORY: Significant for coronary artery disease, status post PCI with drug-eluting stent to proximal and distal left anterior descending artery. She is noted to have chronic systolic congestive heart failure with ischemic cardiomyopathy. Her left ventricular ejection fraction was 15%, status post biventricular [employer] clinically compensated. She is also known to have hypertension, very labile, chronic kidney disease, hyperlipidemia, sick sinus syndrome and paroxysmal atrial fibrillation. PAST SURGICAL HISTORY: Significant for bilateral cataract extraction; x 2; cholecystectomy; right hip pinning and right hip hemiarthroplasty; history of coronary artery disease, status post percutaneous coronary intervention with drug-eluting stent deployment to left anterior descending artery. She is apparently known to have ischemic cardiomyopathy. FAMILY HISTORY: Positive for coronary artery disease and diabetes. SOCIAL HISTORY: She lives at home with her son. She apparently has 9 children. She does not smoke, drink alcohol or use any recreational drugs. She has been fairly independent. ALLERGIES: She is allergic to IRON as well as to CODEINE. MEDICATIONS: She is currently on following medications. She is on dicyclomine for Bentyl 10 mg once a day, Plavix 75 mg once a day, metoprolol succinate was increased to 50 mg once a day, lisinopril 5 mg once a day, aspirin 81 mg once a day, furosemide 20 mg once a day, Protonix 40 mg once a day, cholecalciferol (vitamin D3) 10,000 International Units once a day. REVIEW OF SYSTEMS: As per history of present illness. PHYSICAL EXAMINATION: GENERAL: On arrival to the Emergency Room, the patient looked well and was clearly in no apparent respiratory distress, slightly pale, but no jaundice, cyanosis or thyromegaly. No jugular venous distention. No limb edema. VITAL SIGNS: Her heart rate was 81, blood pressure was 156/93, temperature was 98.2, respiratory rate was 20, and oxygen saturation was 99%. HEAD, EYES, EARS, NOSE AND THROAT: Showed normocephalic, atraumatic. NECK: Supple. HEART: Showed normal first and second heart sounds. No gallop, rub or murmur. CHEST: Clear to auscultation. No crepitation or rhonchi. ABDOMEN: Distended with pulsating movement in the left upper quadrant due to diaphragmatic stimulation by the pacemaker. NEUROLOGIC: She was awake, alert, responding appropriately. All cranial nerves intact. EXTREMITIES: She moves extremities without difficulty. She ambulates without assistance or assistive devices. LABORATORY DATA: Her lab work showed a white cell count of 4800, hemoglobin 14.4, hematocrit 42, MCV 92, and platelet count of 160,000. Her chemistry showed a serum sodium of 140, potassium was 4.3, chloride 106, bicarbonate 27, anion gap of 7, BUN 27, creatinine 1.3, estimated GFR was 38 mL per minute. Her glucose was 83, calcium was 9.3. Total bilirubin, AST, ALT, alkaline phosphatase were normal. Beta natriuretic peptide was 4100. Total protein was 7.2, albumin 3.4. Her prothrombin time, INR and aPTT were normal. Her chest x-ray showed left-sided pacemaker and right ventricle and left cardiac vein. There are no confluent infiltrate. There is no pneumothorax or pleural effusion. The heart is moderately enlarged, atherosclerotic ____ aorta. The patient was admitted with again diaphragmatic stimulation by her pacemaker, the [employer] motor vehicle field representative was called in to adjust the pacemaker and we continued all her other medication who consulted the Cardiology team. While ____, there are multiple ventricular premature beats and I will add magnesium to make sure it is within normal range and if it needs to be replenished, we will do that. KOREY RAY MD DR: ED/shannen JOB#: [id number] / [id number]
[2019-03-15] MEDS ORDERED: LISINOPRIL 5 MG TABLET. PO SCH (21:00)
--- NOTE | 2019-03-15 23:08 | DS ---
DATE OF DISCHARGE: 03/15/2019 HOSPITAL COURSE: The patient came to the Emergency Room again with stimulation of her left diaphragmatic pacemaker. The manufacturer's service representative from [employer] came and adjusted it and she has been stable hemodynamically. She does have some few premature ventricular ectopic beats, however, we checked her potassium and magnesium and they were normal. I spoke with Dr. Hutchison and he stated that the patient can be discharged home. PHYSICAL EXAMINATION: GENERAL: When I saw her this afternoon, she looked well and was clearly in no apparent respiratory distress. No pallor, jaundice, cyanosis or thyromegaly. No jugular venous distension. No lower limb edema. VITAL SIGNS: Her heart rate was 78, blood pressure 162/75, temperature 97.1, respiratory rate was 18 and oxygen saturation was 95%. The rest of clinical examination is stable. LABORATORY DATA: Well within acceptable range. In fact, her potassium was 4.3, magnesium 2. DISCHARGE MEDICATIONS: The patient was discharged home to continue on aspirin 81 mg once a day, cholecalciferol 1000 International Unit once a day, Plavix 75 mg once a day, dicyclomine 1 capsule daily p.r.n. for diarrhea, furosemide 20 mg once a day, lisinopril 5 mg once a day, metoprolol 50 mg once a day, Protonix 40 mg once a day. FINAL DISCHARGE DIAGNOSES: Stimulation of the diaphragmatic pacemaker resolved by the adjustment done by the [employer] manufacturer's service representative. The patient has multiple other medical problems including coronary artery disease, ischemic cardiomyopathy, chronic systolic congestive heart failure. KOREY RAY MD DR: ED/shannen JOB#: [id number] / [id number]
[2019-03-16] MEDS ORDERED: CLOPIDOGREL BISULFATE 75 MG TABLET PO SCH (09:00)
[2019-03-16] MEDS ORDERED: ASPIRIN 81 MG TAB.CHEW PO SCH (09:00)
[2019-03-16] MEDS ORDERED: CHOLECALCIFEROL (VITAMIN D3) 1,000 UNIT TABLET PO SCH (09:00)
== END 2019-03-15 15:45 | disposition home or self-care (01) ==
LOC: ER 06:05 → INTOOBSV 06:57 → OBSVTOIN 06:57 → ICU 06:57
PROVIDERS: ADMIT Internal Medicine; ATTEND Internal Medicine
DX: T82.119A Breakdown (mechanical) of unspecified cardiac electronic device, initial encounter (principal); I25.10 Atherosclerotic heart disease of native coronary artery without angina pectoris; I25.5 Ischemic cardiomyopathy; K58.9 Irritable bowel syndrome, unspecified; K21.9 Gastro-esophageal reflux disease without esophagitis; I48.0 Paroxysmal atrial fibrillation; E78.5 Hyperlipidemia, unspecified; I49.5 Sick sinus syndrome; I13.0 Hypertensive heart and chronic kidney disease with heart failure and stage 1 through stage 4 chronic kidney disease, or unspecified chronic kidney disease; N18.9 Chronic kidney disease, unspecified; I50.22 Chronic systolic (congestive) heart failure; I49.3 Ventricular premature depolarization; Z82.49 Family history of ischemic heart disease and other diseases of the circulatory system; Z83.3 Family history of diabetes mellitus; Z95.0 Presence of cardiac pacemaker; Z95.5 Presence of coronary angioplasty implant and graft; Z96.649 Presence of unspecified artificial hip joint; Z98.41 Cataract extraction status, right eye; Z98.42 Cataract extraction status, left eye
CPT/HCPCS: 36415; 71045; 71275; 74174; 80053; 82553; 83690; 83735; 83880; 84484; 85025; 85610; 85730; 87641; 93005; 96374; 99284; G0378; J2060; Q9967; G0379

== ENCOUNTER 2019-03-17 20:03 | Emergency (ER) | payer MEDICARE, BC ==
[~2019-03-17] VITALS: Ht 154.9 cm; Wt 60.3 kg
[2019-03-17 20:27] VITALS: BP 153/80
--- NOTE | 2019-03-17 20:29 | PHYS DOC ---
Past History Past Medical History: GERD, Heart Disease, Hypertension, IBS Past Surgical History: Hip Replacement, Pacemaker, Other Smoking: Non-smoker Alcohol Use: None Drug Use: None Adult General Chief Complaint Chief Complaint: Palpitations [facility] HPI 83-year-old female presents with palpitations. The patient has been having intermittent palpitations for the last 1 week. The patient had a biventricular pacemaker installed 4 weeks ago at . 2 weeks ago, the patient fell at home. Less than a week later, the patient started to have problems with her pacemaker. It seems to have episodes where will cause her abdomen or diaphragm to spasm when it in her just as her heart. She is having an episode like this tonight. Every so often, she gets a shock/spasm feeling in her upper abdomen and lower chest. She denies chest pain. It does take her breath away. They've been adjusting her pacemaker recently, but the patient's family is concerned somethin g may be dislodged. She has an appointment with her radiator tester at tomorrow, but the patient is not tolerating her symptoms at this time. Review of Systems Review of Systems Constitutional: Denies fever or chills [] Eyes: Denies change in visual acuity, redness, or eye pain [] HENT: Denies nasal congestion or sore throat [] Respiratory: Denies cough or shortness of breath [] Cardiovascular: No additional information not addressed in HPI [] GI: Denies abdominal pain, nausea, vomiting, bloody stools or diarrhea [] : Denies dysuria or hematuria [] Musculoskeletal: Denies back pain or joint pain [] Integument: Denies rash or skin lesions [] Neurologic: Denies headache, focal weakness or sensory changes [] Endocrine: Denies polyuria or polydipsia [] All other systems were reviewed and found to be within normal limits, except as documented in this note. Allergies Allergies Allergies Coded Allergies Type Severity Reaction Last Updated Verified codeine Allergy Intermediate 05/23/17 Yes iron Allergy Intermediate 05/23/17 Yes Physical Exam Physical Exam Constitutional: Well developed, well nourished, no acute distress, non-toxic appearance. [] HENT: Normocephalic, atraumatic, bilateral external ears normal, oropharynx moist, no oral exudates, nose normal. [] Eyes: PERRLA, EOMI, conjunctiva normal, no discharge. [] Neck: Normal range of motion, no tenderness, supple, no stridor. [] Cardiovascular:Heart rate regular rhythm, no murmur [] Lungs & Thorax: Bilateral breath sounds clear to auscultation [] Abdomen: Bowel sounds normal, soft, no tenderness, no masses, no pulsatile masses. [] Skin: Warm, dry, no erythema, no rash. [] Back: No tenderness, no CVA tenderness. [] Extremities: No tenderness, no cyanosis, no clubbing, ROM intact, no edema. [] Neurologic: Alert and oriented X 3, normal motor function, normal sensory function, no focal deficits noted. [] Psychologic: Affect normal, judgement normal, mood normal. [] EKG EKG Paced rhythm, rate 80 to, PVC, intraventricular block, no ST elevations or depressions.[] Radiology/Procedures Radiology/Procedures [] Impressions: EXAM: CHEST ONE VIEW. HISTORY: Palpitations. COMPARISON: 03/15/2019. FINDINGS: A frontal view of the chest is obtained. A left-sided pacemaker has its leads in the right atrium, right ventricle and a left cardiac vein. There are no confluent infiltrates. There is no pneumothorax or pleural effusion. The heart is moderately enlarged. The aorta is calcified and tortuous. IMPRESSION: 1. Moderate cardiomegaly. Electronically signed by: Darren Armstrong MD (03/17/2019 9:31 PM) [facility] DICTATED AND SIGNED BY: LIDIA ARMSTRONG MD DATE: 03/17/192130 CC: MEJIA GONSALES MD; HERO VANEGAS DO ~ Course & Med Decision Making Course & Med Decision Making Pertinent Labs and Imaging studies reviewed. (See chart for details) The patient's labs are unremarkable when compared to her previous labs. Her troponin is somewhat previous. We had her pacemaker interrogated. It turns out the tech is the same person who is assisting her physician with this pacemaker settings. He knows the patient well. He did find that she is getting diaphragmatic spasm from the left ventricular lead. He has turned that setting off at this time. The patient has an appointment tomorrow at her grout pump operator to discuss further management. The patient and her family are comfortable with discharge at this time and close follow-up tomorrow m orning. She is stable for discharge. [] Dragon Disclaimer Dragon Disclaimer This electronic medical record was generated, in whole or in part, using a voice recognition dictation system. Departure Departure: Impression: Primary Impression: Complications, mechanical, pacemaker, cardiac Disposition: 01 HOME, SELF-CARE Condition: IMPROVED Referrals: MEJIA GONSALES MD (PCP) Problem Qualifiers Primary Impression: Complications, mechanical, pacemaker, cardiac Encounter type: initial encounter Qualified Codes: T82.111A - Breakdown (mechanical) of cardiac pulse generator (battery), initial encounter HERO VANEGAS DO Mar 17, 2019 20:29
[2019-03-17 20:43] LABS: BASO % 1 % (0-3); EOS # 0.1 x10^3/uL (0.0-0.7); EOS % 1 % (0-3); HEMOGLOBIN 13.5 g/dL (12.0-15.5); LYMPH # 1.5 x10^3/uL (1.0-4.8); LYMPH % 34 % (24-48); MEAN CORPUSCULAR HEMOGLOBIN 31 pg (25-35); MEAN CORPUSCULAR HGB CONC 34 g/dL (31-37); MEAN CORPUSCULAR VOLUME 92 fL (79-100); MONO # 1.1 x10^3/uL (0.0-1.1); MONO % 24 % (0-9); NEUT # 1.9 x10^3uL (1.8-7.7); NEUT % 41 % (31-73); PLATELET COUNT 145 x10^3/uL (140-400); RED BLOOD COUNT 4.33 x10^6/uL (3.50-5.40); RED CELL DISTRIBUTION WIDTH 15.8 % (11.5-14.5); WHITE BLOOD COUNT 4.5 x10^3/uL (4.0-11.0)
[2019-03-17 20:58] LABS: ALBUMIN 3.3 g/dL (3.4-5.0); ALBUMIN/GLOBULIN RATIO 0.8 (1.0-1.7); CALCIUM 9.2 mg/dL (8.5-10.1); CREATININE 1.3 mg/dL (0.6-1.0); GFR 38.9; POTASSIUM 4.2 mmol/L (3.5-5.1); TOTAL BILIRUBIN 0.3 mg/dL (0.2-1.0); TOTAL PROTEIN 7.2 g/dL (6.4-8.2)
--- NOTE | 2019-03-17 21:34 | RAD ---
EXAM: CHEST ONE VIEW. HISTORY: Palpitations. COMPARISON: 03/15/2019. FINDINGS: A frontal view of the chest is obtained. A left-sided pacemaker has its leads in the right atrium, right ventricle and a left cardiac vein. There are no confluent infiltrates. There is no pneumothorax or pleural effusion. The heart is moderately enlarged. The aorta is calcified and tortuous. IMPRESSION: 1. Moderate cardiomegaly. Electronically signed by: Darren Armstrong MD (03/17/2019 9:31 PM) [facility]
--- NOTE | 2019-03-18 00:16 | EKG ---
[address] [address] Test Date: 2019-03-17 Test Time: 20:15:31 Pat Name: ROHITH PINO Department: Room: Gender: F Production Expediter: CAROL ANN : 1935 Requested By: HERO VANEGAS Order Number: [id number] Reading MD: Grover Hutchison MD Measurements Intervals [place] Rate: 82 P: 51 VA: 160 QRS: -14 QRSD: 132 T: 39 QT: 386 QTc: 454 Interpretive Statements SINUS RHYTHM BIV PACED Electronically Signed On 03-18-2019 18:14:41 CDT by Grover Hutchison MD
== END 2019-03-17 22:05 | disposition home or self-care (01) ==
LOC: ER 20:03
DX: T82.111A Breakdown (mechanical) of cardiac pulse generator (battery), initial encounter (principal); R00.2 Palpitations; K21.9 Gastro-esophageal reflux disease without esophagitis; I11.9 Hypertensive heart disease without heart failure; K58.9 Irritable bowel syndrome, unspecified; Z95.0 Presence of cardiac pacemaker; Z88.5 Allergy status to narcotic agent; Z88.8 Allergy status to other drugs, medicaments and biological substances
CPT/HCPCS: 36415; 71045; 80053; 84484; 85025; 93005; 99285

== ENCOUNTER → 2019-06-24 | Outpatient (CLI) | payer MEDICARE, BC ==
[2019-06-24 13:13] LABS: ALBUMIN 3.5 g/dL (3.4-5.0); ALBUMIN/GLOBULIN RATIO 0.9 (1.0-1.7); CALCIUM 9.2 mg/dL (8.5-10.1); CREATININE 1.3 mg/dL (0.6-1.0); GFR 38.9; POTASSIUM 4.6 mmol/L (3.5-5.1); TOTAL BILIRUBIN 0.5 mg/dL (0.2-1.0); TOTAL PROTEIN 7.3 g/dL (6.4-8.2)
[2019-06-25 14:29] LABS: FREE T4 1.17 ng/dL (0.76-1.46); THYROID STIM HORMONE (TSH) 3.898 uIU/mL (0.358-3.740)
== END | disposition home or self-care (01) ==
LOC: LAB 12:39
PROVIDERS: ATTEND Internal Medicine Advanced Heart Failure and Transplant Cardiology
DX: I49.3 Ventricular premature depolarization (principal); Z79.899 Other long term (current) drug therapy
CPT/HCPCS: 36415; 80053; 84439; 84443

== ENCOUNTER → 2019-07-10 | Outpatient (CLI) | payer MEDICARE, BC ==
--- NOTE | 2019-07-10 16:11 | RAD ---
CHEST PA LATERAL Clinical indications: Premature ventricular contractions. COMPARISON: March 17, 2019. Findings: Pedro B line's are seen within the right lateral costophrenic angle. This may be an early indication of mild interstitial pulmonary edema. No perihilar pulmonary edema is seen otherwise. No lung consolidation or lung mass or pleural effusion or pneumothorax is seen. Cardiomegaly is evident but is stable. 3-lead pacemaker is again evident. The pulmonary vasculature, mediastinum and both ciera are unremarkable. Scoliosis is seen. Impression: Cardiomegaly. Pedro B line's are seen within the right lateral costophrenic angle. This may be an early indication of mild interstitial pulmonary edema. Electronically signed by: Sourav Rowan MD (07/10/2019 4:08 PM) [facility]
== END | disposition home or self-care (01) ==
LOC: DXRAD 15:31
PROVIDERS: ATTEND Internal Medicine Advanced Heart Failure and Transplant Cardiology
DX: I51.7 Cardiomegaly (principal); I49.3 Ventricular premature depolarization; M41.84 Other forms of scoliosis, thoracic region; Z95.0 Presence of cardiac pacemaker
CPT/HCPCS: 71046

== ENCOUNTER 2019-07-18 12:49 | Emergency (ER) | payer MEDICARE, BC ==
[~2019-07-18] VITALS: Ht 154.9 cm; Wt 64.3 kg
[2019-07-18 13:38] LABS: BASO % 0 % (0-3); EOS # 0.1 x10^3/uL (0.0-0.7); EOS % 1 % (0-3); HEMATOCRIT 40.7 % (36.0-47.0); HEMOGLOBIN 13.5 g/dL (12.0-15.5); LYMPH # 1.2 x10^3/uL (1.0-4.8); LYMPH % 19 % (24-48); MEAN CORPUSCULAR HEMOGLOBIN 31 pg (25-35); MEAN CORPUSCULAR HGB CONC 33 g/dL (31-37); MEAN CORPUSCULAR VOLUME 95 fL (79-100); MONO # 1.3 x10^3/uL (0.0-1.1); MONO % 20 % (0-9); NEUT # 3.9 x10^3uL (1.8-7.7); NEUT % 59 % (31-73); PLATELET COUNT 153 x10^3/uL (140-400); RED CELL DISTRIBUTION WIDTH 14.7 % (11.5-14.5); WHITE BLOOD COUNT 6.5 x10^3/uL (4.0-11.0)
[2019-07-18 13:47] LABS: CALCIUM 9.1 mg/dL (8.5-10.1); CREATININE 1.3 mg/dL (0.6-1.0); GFR 38.9; POTASSIUM 3.7 mmol/L (3.5-5.1)
[2019-07-18 14:00] LABS: ALBUMIN 3.2 g/dL (3.4-5.0); ALBUMIN/GLOBULIN RATIO 0.9 (1.0-1.7); MAGNESIUM 1.9 mg/dL (1.8-2.4); TOTAL BILIRUBIN 0.6 mg/dL (0.2-1.0); TOTAL PROTEIN 6.7 g/dL (6.4-8.2)
--- NOTE | 2019-07-18 14:13 | RAD ---
CT HEAD WO CONTRAST Date: 07/18/2019 1:16 PM Clinical Indication: Dizziness, balance issues Comparison: 03/04/2019. Technique: 5 mm axial tomographic images were obtained of the head without contrast. These were viewed on brain and bone windows. One or more of the following dose reduction techniques were utilized: Automated exposure control (AEC), Adjustment of mA and/or kV according to patient size, Use of iterative reconstruction technique such as ASiR, CT scan done according to ALARA and image gently/image wisely Findings: Mild generalized cerebral and cerebellar volume loss. Moderate nonspecific periventricular hypoattenuation, most commonly seen with chronic small vessel ischemic disease. Calcified atherosclerosis of the bilateral cavernous and paraclinoid internal carotid arteries and intracranial vertebral arteries. No intra- or extra-axial mass or fluid collection. No acute hemorrhage. The ventricles are normal in size, shape, and morphology. The hudson-white matter junction is normal. The subarachnoid cisterns are patent. Mild ethmoid sinus disease. The visualized portions of the orbits and globes are normal. The mastoid air cells are clear. The teen counselor topogram shows no lytic lesion or fracture. Impression: No acute intracranial process. Mild cerebral volume loss. Moderate chronic small vessel ischemic disease. Electronically signed by: Leo Lott MD (07/18/2019 2:11 PM) [facility]
--- NOTE | 2019-07-18 14:18 | RAD ---
PORTABLE CHEST 1V Clinical Indication: Cough Comparison: Two-view chest July 10, 2019. Findings: Stable left chest dual-chamber biventricular pacer. Atherosclerotic and tortuous thoracic aorta. Cardiomegaly is unchanged. Lungs are clear. There is no pneumothorax. No pleural effusion is appreciated. No acute bone abnormality. Mild S-shaped thoracolumbar scoliosis. IMPRESSION: No acute cardiopulmonary process. Electronically signed by: Ford Love MD (07/18/2019 2:15 PM) [facility]
[2019-07-18 14:21] LABS: CLARITY,URINE HAZY; COLOR,URINE YELLOW; GLUCOSE,URINE NEG (NEG)
[2019-07-18 14:22] LABS: BACTERIA,URINE MOD /HPF (0-FEW); BILIRUBIN,URINE NEG (NEG); NITRITE,URINE NEG (NEG); SQUAMOUS EPITHELIAL CELL,UR FEW /LPF; UROBILINOGEN,URINE 0.2 mg/dL (0.2 mg/dL)
--- NOTE | 2019-07-18 14:25 | PHYS DOC ---
Past History Past Medical History: Arthritis, Bronchitis, CAD, CHF, Diverticulitis, GERD, Heart Disease, Hypertension, IBS, GA, UTI Past Surgical History: , Hip Replacement, Pacemaker, Other Additional Past Surgical Histo: cardiac stents; common bile duct stents; right hip replacement Smoking: Non-smoker Alcohol Use: None Drug Use: None Adult General Chief Complaint Chief Complaint: MULTIPLE COMPLAINTS [facility] Patient is a 83 year old female who was brought here for evaluation from home by her children with complaining of generalized weakness for about 10 days. She denies any trouble breathing, no cough, no fever. Patient denies any headache, no nausea vomiting. She denies any abdominal pain, no chest pain, no trouble breathing. She says she feel weak and dizzy when she stands up. All other ROS is negative unless otherwise noted in HPI Review of Systems Review of Systems See above Allergies Allergies Allergies Coded Allergies Type Severity Reaction Last Updated Verified codeine Allergy Intermediate 07/18/19 Yes iron Allergy Intermediate 07/18/19 Yes tramadol Allergy Unknown 07/18/19 Yes Physical Exam Physical Exam See above Constitutional: Well developed, well nourished, no acute distress, non-toxic appearance. [] HENT: Normocephalic, atraumatic, bilateral external ears normal, oropharynx moist, no oral exudates, nose normal. [] Eyes: PERRLA, EOMI, conjunctiva normal, no discharge. [] Neck: Normal range of motion, no tenderness, supple, no stridor. [] Cardiovascular:Heart rate regular rhythm, no murmur [] Lungs & Thorax: Bilateral breath sounds clear to auscultation [] Abdomen: Bowel sounds normal, soft, no tenderness, no masses, no pulsatile masses. [] Skin: Warm, dry, no erythema, no rash. [] Back: No tenderness, no CVA tenderness. [] Extremities: No tenderness, no cyanosis, no clubbing, ROM intact, no edema. [] Neurologic: Alert and oriented X 3, normal motor function, normal sensory function, no focal deficits noted. [] Psychologic: Affect normal, judgement normal, mood normal. [] Current Patient Data Vital Signs Vital Signs Date Time Temp Pulse Resp B/P (MAP) Pulse Ox O2 Delivery O2 Flow Rate FiO2 07/18/19 12:50 97.5 76 13 97 Room Air Lab Results Laboratory Tests Test 07/18/19 13:25 07/18/19 13:35 White Blood Count 6.5 x10^3/uL (4.0-11.0) Red Blood Count 4.30 x10^6/uL (3.50-5.40) Hemoglobin 13.5 g/dL (12.0-15.5) Hematocrit 40.7 % (36.0-47.0) Mean Corpuscular Volume 95 fL (79-100) Mean Corpuscular Hemoglobin 31 pg (25-35) Mean Corpuscular Hemoglobin Concent 33 g/dL (31-37) Red Cell Distribution Width 14.7 % (11.5-14.5) H Platelet Count 153 x10^3/uL (140-400) Neutrophils (%) (Auto) 59 % (31-73) Lymphocytes (%) (Auto) 19 % (24-48) L Monocytes (%) (Auto) 20 % (0-9) H Eosinophils (%) (Auto) 1 % (0-3) Basophils (%) (Auto) 0 % (0-3) Neutrophils # (Auto) 3.9 x10^3uL (1.8-7.7) Lymphocytes # (Auto) 1.2 x10^3/uL (1.0-4.8) Monocytes # (Auto) 1.3 x10^3/uL (0.0-1.1) H Eosinophils # (Auto) 0.1 x10^3/uL (0.0-0.7) Basophils # (Auto) 0.0 x10^3/uL (0.0-0.2) Activated Partial Thromboplast Time 25 SEC (23-33) Sodium Level 138 mmol/L (136-145) Potassium Level 3.7 mmol/L (3.5-5.1) Chloride Level 102 mmol/L (98-107) Carbon Dioxide Level 29 mmol/L (21-32) Anion Gap 7 (6-14) Blood Urea Nitrogen 19 mg/dL (7-20) Creatinine 1.3 mg/dL (0.6-1.0) H Estimated GFR (Cockcroft-Gault) 38.9 BUN/Creatinine Ratio 15 (6-20) Glucose Level 102 mg/dL (70-99) H Lactic Acid Level 0.8 mmol/L (0.4-2.0) Calcium Level 9.1 mg/dL (8.5-10.1) Magnesium Level 1.9 mg/dL (1.8-2.4) Total Bilirubin 0.6 mg/dL (0.2-1.0) Aspartate Amino Transferase (AST) 18 U/L (15-37) Alanine Aminotransferase (ALT) 28 U/L (14-59) Alkaline Phosphatase 111 U/L (46-116) Troponin I Quantitative 0.024 ng/mL (0-0.055) TL-Yls-S-Type Natriuretic Peptide 4556 pg/mL (0-449) H Total Protein 6.7 g/dL (6.4-8.2) Albumin 3.2 g/dL (3.4-5.0) L Albumin/Globulin Ratio 0.9 (1.0-1.7) L Urine Collection Type Void Urine Color Yellow Urine Clarity Hazy Urine pH 6.0 Urine Specific [place] 1.025 Urine Protein Neg (NEG-TRACE) Urine Glucose (UA) Neg mg/dL (NEG) Urine Ketones (Stick) Neg mg/dL (NEG) Urine Blood Mod (NEG) Urine Nitrite Neg (NEG) Urine Bilirubin Neg (NEG) Urine Urobilinogen Dipstick 0.2 mg/dL (0.2 mg/dL) Urine Leukocyte Esterase Mod (NEG) Urine RBC 6-10 /HPF (0-2) Urine WBC 11-20 /HPF (0-4) Urine Squamous Epithelial Cells Few /LPF Urine Transitional Epithelial Cells Few /LPF Urine Bacteria Mod /HPF (0-FEW) Urine Mucus Mod /LPF EKG EKG EKG WAS READ BY THIS PHYSICIAN AT 0148 PM, RATE OF 76 BPM, PACED RHYTHM, NO STEMI. [] Radiology/Procedures Radiology/Procedures [][address] [address] IMAGING REPORT Signed PATIENT: ROHITH PINO ACCOUNT: [id number] : 1935 LOCATION: ER AGE: 83 SEX: F EXAM STATUS: REG ER ORD. PHYSICIAN: SHAILA FAJARDO DO REASON: DIZZINESS, BALANCE PROBLEM PROCEDURE: CT HEAD WO CONTRAST CT HEAD WO CONTRAST Date: 07/18/2019 1:16 PM Clinical Indication: Dizziness, balance issues Comparison: 03/04/2019. Technique: 5 mm axial tomographic images were obtained of the head without contrast. These were viewed on brain and bone windows. One or more of the following dose reduction techniques were utilized: Automated exposure control (AEC), Adjustment of mA and/or kV according to patient size, Use of iterative reconstruction technique such as ASiR, CT scan done according to ALARA and image gently/image wisely Findings: Mild generalized cerebral and cerebellar volume loss. Moderate nonspecific periventricular hypoattenuation, most commonly seen with chronic small vessel ischemic disease. Calcified atherosclerosis of the bilateral cavernous and paraclinoid internal carotid arteries and intracranial vertebral arteries. No intra- or extra-axial mass or fluid collection. No acute hemorrhage. The ventricles are normal in size, shape, and morphology. The hudson-white matter junction is normal. The subarachnoid cisterns are patent. Mild ethmoid sinus disease. The visualized portions of the orbits and globes are normal. The mastoid air cells are clear. 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 Impression: No acute intracranial process. Mild cerebral volume loss. Moderate chronic small vessel ischemic disease. Electronically signed by: Ruth Lott MD (07/18/2019 2:11 PM) [facility] DICTATED AND SIGNED BY: RUTH LOTT MD DATE: 07/18/191410 CC: MEJIA GONSALES MD; SHAILA FAJARDO DO ~ [place] [address] IMAGING REPORT Signed PATIENT: ROHITH PINO ACCOUNT: [id number] : 1935 LOCATION: ER AGE: 83 SEX: F EXAM STATUS: REG ER ORD. PHYSICIAN: SHAILA FAJARDO DO REASON: COUGH PROCEDURE: PORTABLE CHEST 1V PORTABLE CHEST 1V Clinical Indication: Cough Comparison: Two-view chest July 10, 2019. Findings: Stable left chest dual-chamber biventricular pacer. Atherosclerotic and tortuous thoracic aorta. Cardiomegaly is unchanged. Lungs are clear. There is no pneumothorax. No pleural effusion is appreciated. No acute bone abnormality. Mild S-shaped thoracolumbar scoliosis. IMPRESSION: No acute cardiopulmonary process. Electronically signed by: Ford Love MD (07/18/2019 2:15 PM) [facility] DICTATED AND SIGNED BY: FORD LOVE MD DATE: 07/18/19 1415 CC: MEJIA GONSALES MD; SHAILA FAJARDO DO ~ Course & Med Decision Making Course & Med Decision Making Pertinent Labs and Imaging studies reviewed. (See chart for details) Patient was found to have UTI and dehydration. Patient was given iv fluid and iv rocephin. SHe would like to go home. She will follow up with her doctor at [facility] NEXT WEEK. Dragon Disclaimer Dragon Disclaimer This electronic medical record was generated, in whole or in part, using a voice recognition dictation system. Departure Departure: Impression: Primary Impression: UTI (urinary tract infection) Additional Impression: Dehydration Disposition: 01 HOME, SELF-CARE Condition: IMPROVED Referrals: MEJIA GONSALES MD (PCP) PLEASE FOLLOW UP WITH YOUR DOCTOR ON MONDAY FOR REEVALUATION. Patient Instructions: Dehydration, Adult, Urinary Tract Infection Scripts Cephalexin (KEFLEX) 500 Mg Capsule 1 CAP PO TID for UTI for 7 Days, #21 CAP 0 Refills Prov: SHAILA FAJARDO DO 07/18/19 Problem Qualifiers SHAILA FAJARDO DO Jul 18, 2019 14:25
[2019-07-18] MEDS ORDERED: IV NORMAL SALINE 500ML 500 ML IV ONE (14:45)
[2019-07-18] MEDS ORDERED: CEPH-264 PO (15:06)
[2019-07-18] MEDS ORDERED: IV NORMAL SALINE 50ML 50 ML ONE (15:08)
[2019-07-18] MEDS ORDERED: cefTRIAXone SODIUM 1 GM VIAL ONE (15:08)
[2019-07-18 16:41] VITALS: BP 153/55
--- NOTE | 2019-07-18 19:24 | EKG ---
[address] [address] Test Date: 2019-07-18 Test Time: 13:47:11 Pat Name: ROHITH PINO Department: Room: Gender: F [employer] Le[employer] P[employer]: : 1935 Requested By: SHAILA FAJARDO Order Number: [id number] Reading MD: Measurements Intervals [place] Rate: 76 P: 90 ND: 132 QRS: -101 QRSD: 148 T: 134 QT: 454 QTc: 510 Interpretive Statements SINUS RHYTHM ABNORMAL RIGHT SUPERIOR AXIS DEVIATION RIGHT BUNDLE BRANCH BLOCK RVH WITH REPOLARIZATION ABNORMALITY QRS(T) CONTOUR ABNORMALITY CONSIDER ANTEROSEPTAL MYOCARDIAL DAMAGE ABNORMAL ECG RI6.01 No previous ECG available for comparison
== END 2019-07-18 17:45 | disposition home or self-care (01) ==
LOC: ER 12:49
DX: N39.0 Urinary tract infection, site not specified (principal); E86.0 Dehydration; M19.90 Unspecified osteoarthritis, unspecified site; I25.10 Atherosclerotic heart disease of native coronary artery without angina pectoris; I11.0 Hypertensive heart disease with heart failure; I50.9 Heart failure, unspecified; K21.9 Gastro-esophageal reflux disease without esophagitis; K58.9 Irritable bowel syndrome, unspecified; I25.2 Old myocardial infarction; Z87.440 Personal history of urinary (tract) infections; Z95.0 Presence of cardiac pacemaker; Z88.5 Allergy status to narcotic agent; Z88.8 Allergy status to other drugs, medicaments and biological substances
CPT/HCPCS: 36415; 70450; 71045; 80053; 81001; 83605; 83735; 83880; 84484; 85025; 85610; 85730; 87040; 87086; 93005; 96365; 96366; 99285; J0696; J7040

== ENCOUNTER 2019-10-11 10:33 | Inpatient (IN) | payer MEDICARE, BC ==
[~2019-10-11 10:33] MED LIST changes: +CEPH-264 PO
[2019-10-11] MEDS ORDERED: FURO-69 PO (21:26)
[2019-10-11] MEDS ORDERED: PANT40TA3 PO (21:26)
[2019-10-11] MEDS ORDERED: CITA10TA8 PO (21:26)
[2019-10-11] MEDS ORDERED: RIVA15TA PO (21:26)
[2019-10-11] MEDS ORDERED: LISI-338 PO (21:26)
[2019-10-11] MEDS ORDERED: METO50TA29 PO (21:26)
[2019-10-11] MEDS ORDERED: DICY10CA3 PO (21:26)
[2019-10-11] MEDS ORDERED: AMIO200T4 PO (21:26)
[2019-10-11] MEDS ORDERED: CLOP75TA57 PO (21:26)
== END 2019-10-11 20:15 | disposition home or self-care (01) | DRG 556 ==
LOC: LND 18:56
PROVIDERS: ADMIT Internal Medicine; ATTEND Internal Medicine
DX: M25.552 Pain in left hip (principal); I25.10 Atherosclerotic heart disease of native coronary artery without angina pectoris; I48.91 Unspecified atrial fibrillation; I11.0 Hypertensive heart disease with heart failure; I50.9 Heart failure, unspecified; E78.5 Hyperlipidemia, unspecified; I49.5 Sick sinus syndrome; M19.90 Unspecified osteoarthritis, unspecified site; K21.9 Gastro-esophageal reflux disease without esophagitis; K57.90 Diverticulosis of intestine, part unspecified, without perforation or abscess without bleeding; Z66 Do not resuscitate; Z96.642 Presence of left artificial hip joint; Z95.0 Presence of cardiac pacemaker; Z90.49 Acquired absence of other specified parts of digestive tract; Z88.8 Allergy status to other drugs, medicaments and biological substances; Z95.5 Presence of coronary angioplasty implant and graft

== ENCOUNTER 2019-10-11 20:40 | Inpatient (IN) | payer MEDICARE, BC ==
[~2019-10-11] VITALS: Ht 154.9 cm; Wt 64.5 kg
[2019-10-11 21:05] VITALS: BP 107/62
[2019-10-11 21:13] LABS: BGAS PH 7.5 (7.35-7.45)
[2019-10-11 21:18] LABS: BASO % 0 % (0-3); EOS % 0 % (0-3); HEMATOCRIT 32.9 % (36.0-47.0); HEMOGLOBIN 10.7 g/dL (12.0-15.5); LYMPH # 0.6 x10^3/uL (1.0-4.8); LYMPH % 4 % (24-48); MEAN CORPUSCULAR HEMOGLOBIN 31 pg (25-35); MEAN CORPUSCULAR HGB CONC 33 g/dL (31-37); MEAN CORPUSCULAR VOLUME 95 fL (79-100); MONO # 2.1 x10^3/uL (0.0-1.1); MONO % 16 % (0-9); NEUT % 80 % (31-73); PLATELET COUNT 134 x10^3/uL (140-400); RED BLOOD COUNT 3.48 x10^6/uL (3.50-5.40); RED CELL DISTRIBUTION WIDTH 16.7 % (11.5-14.5); WHITE BLOOD COUNT 13.7 x10^3/uL (4.0-11.0)
--- NOTE | 2019-10-11 21:21 | RAD ---
Exam: Chest one view INDICATION: Respiratory distress TECHNIQUE: Frontal view of the chest Comparisons: 07/18/2019 FINDINGS: Pacer with leads terminating the right atrium and ventricle and coronary sinus. Heart is enlarged. Pulmonary vessels are within normal limits. The lung and pleural spaces are clear. IMPRESSION: Cardiomegaly without acute pulmonary process identified. Electronically signed by: Marjorie Benavides MD (10/11/2019 9:18 PM) [id number]
[2019-10-11] MEDS ORDERED: DICY10CA3 PO (21:26)
[2019-10-11] MEDS ORDERED: CITA10TA8 PO (21:26)
[2019-10-11] MEDS ORDERED: AMIO200T4 PO (21:26)
[2019-10-11] MEDS ORDERED: FURO-69 PO (21:26)
[2019-10-11] MEDS ORDERED: CLOP75TA57 PO (21:26)
[2019-10-11] MEDS ORDERED: RIVA15TA PO (21:26)
[2019-10-11] MEDS ORDERED: METO50TA29 PO (21:26)
[2019-10-11] MEDS ORDERED: LISI-338 PO (21:26)
[2019-10-11] MEDS ORDERED: PANT40TA3 PO (21:26)
[2019-10-11 21:38] LABS: ALBUMIN 2.4 g/dL (3.4-5.0); ALBUMIN/GLOBULIN RATIO 0.7 (1.0-1.7); CALCIUM 9.6 mg/dL (8.5-10.1); CREATININE 1.2 mg/dL (0.6-1.0); GFR 42.6
[2019-10-11 21:45] LABS: POTASSIUM 2.9 mmol/L (3.5-5.1)
[2019-10-11 22:09] LABS: BILIRUBIN,URINE NEG (NEG); CLARITY,URINE HAZY; COLOR,URINE YELLOW; GLUCOSE,URINE NEG (NEG)
[2019-10-11 22:10] LABS: BACTERIA,URINE 0 /HPF (0-FEW); NITRITE,URINE NEG (NEG); SQUAMOUS EPITHELIAL CELL,UR FEW /LPF; UROBILINOGEN,URINE 0.2 mg/dL (0.2 mg/dL); WBC,URINE OCC /HPF (0-4)
[2019-10-11 22:11] LABS: AMORPHOUS SEDIMENT,UR PRESENT /HPF; GRANULAR CASTS,URINE MOD /HPF
[2019-10-11] MEDS: POTASSIUM BICARB 20 MEQ EFFERVESCENT TABLET. FT SCH (22:44)
[2019-10-11 23:23] VITALS: BP 129/70
[2019-10-12] MEDS: POTASSIUM BICARB 20 MEQ EFFERVESCENT TABLET. FT SCH (02:00)
[2019-10-12] MEDS: ACETAMINOPHEN 650 MG/20.3 ML SOLUTION. PO PRN ×3 (02:18→21:15)
[2019-10-12 05:12] VITALS: BP_SYST 109; BP_SYST 119; BP_DIAS 63; BP_DIAS 75
[2019-10-12 07:16] LABS: BASO % 0 % (0-3); EOS % 0 % (0-3); HEMATOCRIT 32.6 % (36.0-47.0); HEMOGLOBIN 10.7 g/dL (12.0-15.5); LYMPH # 0.9 x10^3/uL (1.0-4.8); LYMPH % 7 % (24-48); MEAN CORPUSCULAR HEMOGLOBIN 31 pg (25-35); MEAN CORPUSCULAR HGB CONC 33 g/dL (31-37); MEAN CORPUSCULAR VOLUME 95 fL (79-100); MONO % 16 % (0-9); NEUT % 76 % (31-73); PLATELET COUNT 118 x10^3/uL (140-400); RED BLOOD COUNT 3.44 x10^6/uL (3.50-5.40); RED CELL DISTRIBUTION WIDTH 16.2 % (11.5-14.5); WHITE BLOOD COUNT 11.9 x10^3/uL (4.0-11.0)
[2019-10-12 07:29] LABS: ALBUMIN 2.1 g/dL (3.4-5.0); ALBUMIN/GLOBULIN RATIO 0.6 (1.0-1.7); CALCIUM 9.1 mg/dL (8.5-10.1); CREATININE 1.1 mg/dL (0.6-1.0); GFR 47.1; POTASSIUM 3.7 mmol/L (3.5-5.1); TOTAL BILIRUBIN 0.8 mg/dL (0.2-1.0); TOTAL PROTEIN 5.6 g/dL (6.4-8.2)
[2019-10-12] MEDS: METOPROLOL SUCC 24HR ER 50 MG TAB.ER.24H. PO SCH (08:34)
[2019-10-12] MEDS: CITALOPRAM 10 MG TABLET. PO SCH (08:34)
[2019-10-12] MEDS: PANTOPRAZOLE 40 MG TABLET. PO SCH (08:34)
[2019-10-12] MEDS: CHOLECALCIFEROL (VITAMIN D3) 1,000 UNIT TABLET PO SCH (08:34)
[2019-10-12] MEDS: CLOPIDOGREL BISULFATE 75 MG TABLET PO SCH (08:34)
[2019-10-12] MEDS: DICYCLOMINE HCL 10 MG CAPSULE PO SCH ×2 (08:35→21:14)
[2019-10-12 09:00] VITALS: BP 135/79
--- NOTE | 2019-10-12 13:25 | HP ---
ADMIT DATE: HISTORY OF PRESENT ILLNESS: The patient is an 84-year-old female patient who was admitted to [facility] on 10/08/2019. She apparently lives at home. She became dizzy and had a ground level fall in the bathroom, sustaining left femoral neck fracture. The patient developed severe pain and inability to ambulate and therefore she was brought to the Emergency Room of [facility]. She was evaluated by the Cardiology team. Apparently, she is stable from that point of view and was seen in consultation by the orthopedic surgeon and she underwent left hip hemiarthroplasty successfully. Postoperatively, the patient was somewhat confused and hypoxic and her opioids were discontinued due to confusion. She was given Lasix and was seen by the physical and occupational therapy and once stabilized, a decision was made to transfer her to [facility] to continue the process of rehabilitation. Unfortunately, by the time she arrived here, she was noted to be extremely confused, very lethargic and therefore a decision was made to admit her to [address] [place] [address] for further evaluation and treatment. PAST MEDICAL HISTORY: Significant for atrial fibrillation, coronary artery disease, congestive heart failure, hypertension, hyperlipidemia, sick sinus syndrome, status post permanent pacemaker. She is also known to have gastroesophageal reflux disease, osteoarthritis. She has history of irritable bowel syndrome, diverticulitis, diverticulosis. PAST SURGICAL HISTORY: Significant for complete heart block with previous permanent pacemaker implantation. She has also coronary artery disease, status post PCI with drug-eluting stent to proximal and distal left anterior descending. She also had cholecystectomy. FAMILY HISTORY: Noncontributory. SOCIAL HISTORY: She is , lives alone. She does not smoke, drink alcohol or use any recreational drugs. ALLERGIES: She is allergic to CODEINE, IRON and TRAMADOL. MEDICATIONS: She is currently on following medications: She is on dicyclomine 10 mg twice a day, rivaroxaban 15 mg daily, Plavix 75 mg once a day, amiodarone 200 mg at bedtime, metoprolol succinate 50 mg once a day, lisinopril 5 mg once a day, citalopram hydrobromide for Celexa 10 mg daily. She is on furosemide 40 mg every other day, Protonix 40 mg daily, cholecalciferol for vitamin D3 1000 [employer] Unit once a day. REVIEW OF SYSTEMS: The patient denied any blurring of vision, cataract, glaucoma or macular degeneration. Denied any earache, tinnitus or sensorineural deafness. Denied any nosebleeds, stuffy nose or postnasal drip. Denied any sore throat, sore tongue, toothache, hoarseness of voice or difficulty swallowing. Denied any nausea, vomiting, diarrhea or constipation. Denied any dysuria, frequency or hematuria. In fact, she has an indwelling Koenig catheter. Denied any chest pain, shortness of breath, orthopnea, paroxysmal nocturnal dyspnea. Denied any cough, phlegm or hemoptysis. PHYSICAL EXAMINATION: GENERAL: When I saw her this morning, she was resting slightly propped up in bed, in no apparent respiratory distress, somewhat pale, but no jaundice, cyanosis or thyromegaly. No jugular venous distention. No lower limb edema. VITAL SIGNS: Her heart rate was 76, blood pressure was 119/75, temperature was 98.1, respiratory rate was 16 and oxygen saturation was 98% on 2 liters of oxygen. HEAD, EYES, EARS, NOSE AND THROAT: Showed normocephalic, atraumatic. NECK: Supple. HEART: Showed normal first and second heart sounds. No gallop or murmur. CHEST: Clear to auscultation. No crepitation or rhonchi. ABDOMEN: Distended, soft, nontender. NEUROLOGIC: She is definitely more awake, alert, responding appropriately. She is oriented x 3. All her cranial nerves are intact. EXTREMITIES: She moves extremities without difficulty, although obviously she is mostly bedbound. LABORATORY DATA: This morning showed white cell count of 11,900, hemoglobin 10.7, hematocrit 32.6, MCV 95 and platelet count of 118,000 with normal manual differential. Her prothrombin time 20.7, INR of 2, aPTT was 43 and D-dimer was 1.93. Her chemistry on arrival here yesterday showed serum sodium 136, potassium 2.9, chloride 99, bicarbonate 31, anion gap of 6, BUN 23, creatinine 1.2, estimated GFR was 42 mL per minute. Today's labs showed her serum sodium is 137, potassium 3.7, chloride 101, bicarbonate 32, anion gap of 4, BUN 25, creatinine 1.1, estimated GFR was 47 mL per minute. Her glucose was 99, calcium was 9.1, magnesium was 1.8. Total bilirubin, AST, ALT, alkaline phosphatase were normal. The beta natriuretic peptide was 5146. Total protein was 5.6, albumin 2.1. Her urinalysis was essentially unremarkable and the urine was negative for nitrite, leukocyte esterase, only 3-5 rbc's, occasional wbc's and no bacteria. Her chest x-ray showed that the pacers with leads terminating the right atrium and ventricle and coronary sinus. Heart is enlarged. Pulmonary vessels are within normal limits. Lungs and pleural spaces are clear. ASSESSMENT AND PLAN: In summary, this is an 84-year-old female patient who underwent left hip hemiarthroplasty and she is here for pain management, deep venous thrombosis prophylaxis and to start the process of rehabilitation. She is weightbearing as tolerated. Plan is to continue with all her medications. She was very lethargic yesterday and most of the lab work was unremarkable including lactic acid was only 1.4. I did order procalcitonin, the result of which is still pending at the time of this dictation. KOREY RAY MD DR: DE/shannen JOB#: [id number] / [id number]
[2019-10-12] MEDS ORDERED: PIP/TAZO PER PHARMACY MC PRN (14:00)
[2019-10-12] MEDS ORDERED: VANCOMYCIN PER PHARMACY MC PRN (14:00)
[2019-10-12] MEDS: PIPERACILLIN/TAZOBACTAM 2.25 GM in IV NORMAL SALINE 50ML 50 ML IV SCH ×2 (14:57→21:15)
[2019-10-12 15:00] VITALS: BP 135/79
[2019-10-12] MEDS ORDERED: VANCOMYCIN 1.5 GM in IV NORMAL SALINE 500ML 500 ML IV ONE (15:00)
[2019-10-12] MEDS ORDERED: IPRATRPIUM/ALBUTEROL 0.5/2.5MG 3 ML NEBU. NEB ONE (16:30)
[2019-10-12] MEDS: RIVAROXABAN 15 MG TABLET. PO SCH (17:44)
[2019-10-12] MEDS ORDERED: HYDROcodone/APAP 5/325MG 1 TAB TABLET PO PRN ×2 (18:00)
[2019-10-12 19:25] VITALS: BP 117/70
[2019-10-12] MEDS: LISINOPRIL 5 MG TABLET. PO SCH (21:14)
[2019-10-12] MEDS: AMIODARONE HCL 200 MG TABLET PO SCH (21:15)
[2019-10-12 23:17] VITALS: BP 105/66
[2019-10-13] MEDS: PIPERACILLIN/TAZOBACTAM 2.25 GM in IV NORMAL SALINE 50ML 50 ML IV SCH ×4 (02:19→20:38)
[2019-10-13] MEDS ORDERED: ACETAMINOPHEN 325 MG TABLET PO PRN (02:45)
[2019-10-13 05:58] VITALS: BP 111/69
[2019-10-13] MEDS: PANTOPRAZOLE 40 MG TABLET. PO SCH (08:34)
[2019-10-13] MEDS: DICYCLOMINE HCL 10 MG CAPSULE PO SCH ×2 (08:34→20:38)
[2019-10-13] MEDS: CHOLECALCIFEROL (VITAMIN D3) 1,000 UNIT TABLET PO SCH (08:34)
[2019-10-13] MEDS: CITALOPRAM 10 MG TABLET. PO SCH (08:34)
[2019-10-13] MEDS: METOPROLOL SUCC 24HR ER 50 MG TAB.ER.24H. PO SCH (08:34)
[2019-10-13] MEDS: CLOPIDOGREL BISULFATE 75 MG TABLET PO SCH (08:34)
[2019-10-13] MEDS: ACETAMINOPHEN 650 MG/20.3 ML SOLUTION. PO PRN (08:40)
[2019-10-13] MEDS ORDERED: FUROSEMIDE 20 MG TABLET PO SCH (09:00)
[2019-10-13] MEDS ORDERED: IPRATRPIUM/ALBUTEROL 0.5/2.5MG 3 ML NEBU. NEB SCH (09:00)
[2019-10-13 09:13] LABS: HEMATOCRIT 30.3 % (36.0-47.0); HEMOGLOBIN 10.1 g/dL (12.0-15.5); RED BLOOD COUNT 3.21 x10^6/uL (3.50-5.40); RED CELL DISTRIBUTION WIDTH 16.6 % (11.5-14.5); WHITE BLOOD COUNT 9.7 x10^3/uL (4.0-11.0)
[2019-10-13 09:41] LABS: ALBUMIN 1.9 g/dL (3.4-5.0); ALBUMIN/GLOBULIN RATIO 0.6 (1.0-1.7); CALCIUM 8.6 mg/dL (8.5-10.1); CREATININE 0.8 mg/dL (0.6-1.0); POTASSIUM 3.3 mmol/L (3.5-5.1); TOTAL BILIRUBIN 1.1 mg/dL (0.2-1.0); TOTAL PROTEIN 5.2 g/dL (6.4-8.2)
[2019-10-13 11:58] VITALS: BP 126/67
[2019-10-13] MEDS ORDERED: POTASSIUM CHLORIDE 20 MEQ TABLET.ER. PO ONE (12:15)
[2019-10-13] MEDS ORDERED: POTASSIUM BICARB 20 MEQ EFFERVESCENT TABLET. PO ONE (12:30)
--- NOTE | 2019-10-13 13:09 | PN ---
DATE: 10/13/2019 SUBJECTIVE: She is resting flat, clearly in pain. She also has not eaten much this morning. They tried hydrocodone half a tablet, but the patient became extremely lethargic. In discussion with her daughter, she apparently did well with the fentanyl, so we are going to start her on fentanyl 25-50 mcg every 3 hours. Her lab work showed that she has hyponatremia and hypokalemia, and therefore, I will discontinue the Lasix altogether and will replenish her potassium to see how she does today with her ability to eat. We might have eventually to start her on Procalamine. PHYSICAL EXAMINATION: GENERAL: When I saw her this morning, she looked well and she was clearly in no apparent respiratory distress, but she was clearly in pain, pale, but no jaundice, cyanosis, or thyromegaly. No jugular venous distension. No lower limb edema. VITAL SIGNS: His heart rate was 76, blood pressure was 111/69, temperature was 98.5, respiratory rate was 16, and oxygen saturation was 99% on 2 liters of oxygen. HEAD, EYES, EARS, NOSE, AND THROAT: Showed normocephalic, atraumatic. NECK: Supple. CARDIAC: Normal first and second heart sounds. No gallop or murmur. CHEST: Clear to auscultation. No crepitation or rhonchi. ABDOMEN: Distended, soft, nontender. NEUROLOGIC: She is sleepy, but arousable. All cranial nerves are intact. She is moving her upper extremities without difficulty. She obviously has severe pain in her left hip joint. Therefore, her intake over the last 24 hours was 320, output was 450. LABORATORY DATA: As of this morning, her white cell count is down to 9700, hemoglobin 10, hematocrit 30, MCV 94, and platelet count of 133,000. Serum sodium was 132, potassium 3.3, chloride 97, bicarbonate 31, anion gap of 4, BUN 21, creatinine 0.8, estimated GFR was 68 mL per minute. Her glucose was 88, calcium was 8.6. Total bilirubin, AST, ALT, alkaline phosphatase were normal. Total protein was 5.2, albumin was 1.9. Her procalcitonin was 0.4. Her prothrombin time, INR, aPTT, and D-dimer are all elevated; however, she is already on apixaban. Urinalysis was essentially unremarkable. ASSESSMENT: 1. The patient has undergone left hip hemiarthroplasty successfully after she has fallen at home. She is here for pain management for which we will add fentanyl 25-50 mcg. 2. Deep vein thrombosis for which she is already on apixaban. She apparently is weightbearing as tolerated. I have already consulted the physical and occupational therapist. Her other medical problems includin. Atrial fibrillation, rate controlled, well anticoagulated. 2. Coronary artery disease, she is chest pain free. 3. Congestive heart failure, she is clinically seemed to be well compensated. 4. Hypertension, well controlled. 5. Hyperlipidemia, on atorvastatin. PLAN: My plan is to replenish her potassium. She was given 40 mEq once now and we will start her on potassium chloride 20 mEq twice a day. Obviously, for her pneumonia, we will continue with vancomycin and Zosyn. She is afebrile. Her white cell count has actually normalized. For her pain, we started her on fentanyl 25-50 mcg IV q. 3 hourly. We will continue obviously with physical and occupational therapy. I will repeat all her labs. KOREY RAY MD DR: ED/shannen JOB#: [id number] / [id number]
[2019-10-13 16:23] VITALS: BP 124/79
[2019-10-13] MEDS: RIVAROXABAN 15 MG TABLET. PO SCH (17:08)
[2019-10-13] MEDS: VANCOMYCIN 1 GM in IV NORMAL SALINE 250ML 250 ML IV SCH (17:08)
[2019-10-13 19:15] VITALS: BP 126/80
[2019-10-13] MEDS: IPRATRPIUM/ALBUTEROL 0.5/2.5MG 3 ML NEBU. NEB SCH (20:06)
[2019-10-13] MEDS: POTASSIUM CHLORIDE 20 MEQ TABLET.ER. PO SCH (20:39)
[2019-10-13] MEDS: AMIODARONE HCL 200 MG TABLET PO SCH (20:39)
[2019-10-13] MEDS: LACTOBACILLUS RHAMNOSUS GG 1 CAPSULE. PO SCH (20:39)
[2019-10-13] MEDS: LISINOPRIL 5 MG TABLET. PO SCH (20:40)
[2019-10-13] MEDS: ACETAMINOPHEN 325 MG TABLET PO PRN (20:43)
[2019-10-13 23:09] VITALS: BP 99/65
[2019-10-14] MEDS: PIPERACILLIN/TAZOBACTAM 2.25 GM in IV NORMAL SALINE 50ML 50 ML IV SCH ×4 (01:54→20:42)
[2019-10-14 06:35] LABS: HEMATOCRIT 30.8 % (36.0-47.0); HEMOGLOBIN 10.1 g/dL (12.0-15.5); RED BLOOD COUNT 3.28 x10^6/uL (3.50-5.40); RED CELL DISTRIBUTION WIDTH 16.2 % (11.5-14.5); WHITE BLOOD COUNT 9.1 x10^3/uL (4.0-11.0)
[2019-10-14 06:54] LABS: ALBUMIN 1.9 g/dL (3.4-5.0); ALBUMIN/GLOBULIN RATIO 0.5 (1.0-1.7); CALCIUM 8.9 mg/dL (8.5-10.1); CREATININE 0.9 mg/dL (0.6-1.0); GFR 59.4; POTASSIUM 3.8 mmol/L (3.5-5.1); TOTAL BILIRUBIN 1.3 mg/dL (0.2-1.0); TOTAL PROTEIN 5.4 g/dL (6.4-8.2)
[2019-10-14] MEDS: PANTOPRAZOLE 40 MG TABLET. PO SCH (08:15)
[2019-10-14] MEDS: LACTOBACILLUS RHAMNOSUS GG 1 CAPSULE. PO SCH ×2 (08:17→20:51)
[2019-10-14] MEDS: DICYCLOMINE HCL 10 MG CAPSULE PO SCH ×2 (08:17→20:43)
[2019-10-14] MEDS: METOPROLOL SUCC 24HR ER 50 MG TAB.ER.24H. PO SCH (08:19)
[2019-10-14] MEDS: CLOPIDOGREL BISULFATE 75 MG TABLET PO SCH (08:20)
[2019-10-14] MEDS: CITALOPRAM 10 MG TABLET. PO SCH (08:20)
[2019-10-14] MEDS: CHOLECALCIFEROL (VITAMIN D3) 1,000 UNIT TABLET PO SCH (08:20)
[2019-10-14] MEDS: POTASSIUM CHLORIDE 20 MEQ TABLET.ER. PO SCH ×2 (08:20→20:43)
--- NOTE | 2019-10-14 08:28 | PDOC ---
CARDIO Progress Notes Date & Time Date of Service DATE: 10/14/19 TIME: 08:24 Time of Evaluation 08:24 Subjective Notes Confused. No shortness of breath, chest pain Vitals Vitals Vital Signs Date Time Temp Pulse Resp B/P (MAP) Pulse Ox O2 Delivery O2 Flow Rate FiO2 10/14/19 08:19 84 146/69 10/13/19 23:09 98.0 20 96 Room Air 10/13/19 08:00 2.0 Weight Weight [ ] Input and Output I.O. Intake and Output 10/14/19 07:00 Intake Total 1317 ml Output Total 850 ml Balance 467 ml Intake Oral 810 ml IV Total 507 ml Output Urine Total 850 ml Laboratory Labs Laboratory Tests Test 10/13/19 09:00 10/14/19 06:12 White Blood Count 9.7 x10^3/uL (4.0-11.0) 9.1 x10^3/uL (4.0-11.0) Red Blood Count 3.21 x10^6/uL (3.50-5.40) 3.28 x10^6/uL (3.50-5.40) Hemoglobin 10.1 g/dL (12.0-15.5) 10.1 g/dL (12.0-15.5) Hematocrit 30.3 % (36.0-47.0) 30.8 % (36.0-47.0) Mean Corpuscular Volume 94 fL (79-100) 94 fL (79-100) Mean Corpuscular Hemoglobin 31 pg (25-35) 31 pg (25-35) Mean Corpuscular Hemoglobin Concent 33 g/dL (31-37) 33 g/dL (31-37) Red Cell Distribution Width 16.6 % (11.5-14.5) 16.2 % (11.5-14.5) Platelet Count 133 x10^3/uL (140-400) 153 x10^3/uL (140-400) Sodium Level 132 mmol/L (136-145) 133 mmol/L (136-145) Potassium Level 3.3 mmol/L (3.5-5.1) 3.8 mmol/L (3.5-5.1) Chloride Level 97 mmol/L (98-107) 97 mmol/L (98-107) Carbon Dioxide Level 31 mmol/L (21-32) 31 mmol/L (21-32) Anion Gap 4 (6-14) 5 (6-14) Blood Urea Nitrogen 21 mg/dL (7-20) 16 mg/dL (7-20) Creatinine 0.8 mg/dL (0.6-1.0) 0.9 mg/dL (0.6-1.0) Estimated GFR (Cockcroft-Gault) 68.0 59.4 BUN/Creatinine Ratio 26 (6-20) 18 (6-20) Glucose Level 88 mg/dL (70-99) 89 mg/dL (70-99) Calcium Level 8.6 mg/dL (8.5-10.1) 8.9 mg/dL (8.5-10.1) Total Bilirubin 1.1 mg/dL (0.2-1.0) 1.3 mg/dL (0.2-1.0) Aspartate Amino Transf (AST/SGOT) 21 U/L (15-37) 22 U/L (15-37) Alanine Aminotransferase (ALT/SGPT) 9 U/L (14-59) 13 U/L (14-59) Alkaline Phosphatase 89 U/L (46-116) 107 U/L (46-116) Total Protein 5.2 g/dL (6.4-8.2) 5.4 g/dL (6.4-8.2) Albumin 1.9 g/dL (3.4-5.0) 1.9 g/dL (3.4-5.0) Albumin/Globulin Ratio 0.6 (1.0-1.7) 0.5 (1.0-1.7) Microbiology Micro Microbiology 10/11/19 Blood Culture - Preliminary, Resulted NO GROWTH AFTER 2 DAYS... Physical Exams HEENT: Neck Supple W Full Motion Chest: Symmetric Lungs: Clear to Auscultation Heart: RRR Abdomen: Soft N/T Extremities: No Edema Neurology: alert, follow commands, confused Assessment Assessment This is an 84 yo female who presented last week to [facility] due to fall and hip fracture. Was followed by our service there due to history of cardiomyopathy. Was transferred to [facility] for rehab. Upon arrival, was lethargic and confused and the decision was made to transfer her to [address] [place] [address] for further evaluation and treatment prior to rehab. Please seen consult at [place] 10/08/19 for further details 1. Traumatic mechanical fall; s/p left hip hemiarthroplasty 2. Chronic systolic CHF with ICM: LVEF 20%; appears compensated 3. CAD: s/p PCI/BAYLEE to proximal and distal LAD. clinically stable 5. Hypertension; controlled 6. CKD 7. Hyperlipidemia; statin 8. SSS with [employer]-P: s/p Bi-V (Biotronik) 9. PAFIB: regular rate; amiodarone. follows with HF clinic and EP. 10. Metabolic encephalopathy Recommendations Strict I & O daily wt. 1500-2000cc FR. Lasix PRN Continue secondary prevention measures. Continue Plavix. No ASA as patient is on Xarelto Amiodarone for rhythm control Continue toprol, lisinopril. amiodarone. Xarelto for stroke prophylaxis. Consider for outpt watchman procedure for DARIUS closure Supportive care MATEUS BERNARDO APRN Oct 14, 2019 08:28
[2019-10-14 08:30] VITALS: BP 149/63
[2019-10-14] MEDS: IPRATRPIUM/ALBUTEROL 0.5/2.5MG 3 ML NEBU. NEB SCH ×2 (09:29→20:48)
[2019-10-14 10:33] VITALS: BP 143/72
--- NOTE | 2019-10-14 10:42 | PN ---
DATE: 10/14/2019 SUBJECTIVE: The patient is resting, slightly propped up in bed, clearly in no apparent respiratory distress. She is very confused and disoriented; however, she clinically does not seem to be in any distress. PHYSICAL EXAMINATION: GENERAL: When I examined here, she was somewhat pale, not jaundiced, cyanosed or thyromegaly. No jugular venous distention. No lower limb edema. VITAL SIGNS: Her heart rate was 84, blood pressure was 146/69, temperature was 98, respiratory rate was 20, and oxygen saturation was 97%. HEAD, EYES, EARS, NOSE AND THROAT: Normocephalic, atraumatic. NECK: Supple. HEART: Showed normal first and second heart sounds. No gallop or murmur. CHEST: Clear to auscultation. No crepitation or rhonchi. ABDOMEN: Distended, soft, nontender. NEUROLOGIC: She was awake, alert, but very confused; however, all her cranial nerves are intact. She moves her extremities spontaneously. Her intake over the last 24 hours was 1500, no output was recorded. LABORATORY DATA: Her lab work as of this morning showed a white cell count 9000, hemoglobin 10, hematocrit 30, MCV 94 and platelet count of 153,000. Her serum sodium was 133, potassium 3.8, chloride 97, bicarbonate 31, anion gap of 5, BUN 16, creatinine 0.5, estimated GFR was 59 mL per minute. Her glucose was 89, calcium was 8.9. Total bilirubin slightly elevated; however, AST, ALT, alkaline phosphatase were normal. Total protein was 5.4, albumin was 1.9. Her prothrombin time, INR, APTT and D-dimer are all elevated. Urinalysis was essentially unremarkable. Her blood cultures are so far negative with no growth after 2 days. ASSESSMENT: 1. Altered mental status, probably multifactorial. 2. The patient has fallen at home sustaining left hip fractures for which she underwent left hip hemiarthroplasty successfully. 3. Deep vein thrombosis, which she is already on apixaban. She apparently had a fall. She is apparently weightbearing as tolerated. 4. The patient has multiple other medical problems includin. Atrial fibrillation, rate controlled, well anticoagulated. 2. Coronary artery disease, chest pain free. 3. Congestive heart failure, this clinically seems to be well controlled. 4. Hypertension, well controlled. 5. Hyperlipidemia, on atorvastatin. PLAN: Plan is to continue with IV antibiotic, continued nutritional support, all the narcotics are causing her to be more confused and we will probably limit her pain medication to Tylenol. KOREY RAY MD DR: ED/shannen JOB#: [id number] / [id number]
[2019-10-14] MEDS: ACETAMINOPHEN 325 MG TABLET PO PRN ×2 (14:08→21:43)
[2019-10-14 15:07] VITALS: BP 123/72
[2019-10-14] MEDS: VANCOMYCIN 1 GM in IV NORMAL SALINE 250ML 250 ML IV SCH (16:23)
[2019-10-14] MEDS: RIVAROXABAN 15 MG TABLET. PO SCH (17:25)
[2019-10-14 19:03] VITALS: BP 103/55
[2019-10-14] MEDS: AMIODARONE HCL 200 MG TABLET PO SCH (20:43)
[2019-10-14] MEDS: LISINOPRIL 5 MG TABLET. PO SCH (21:10)
[2019-10-14 22:32] VITALS: BP 108/69
[2019-10-15] MEDS: PIPERACILLIN/TAZOBACTAM 2.25 GM in IV NORMAL SALINE 50ML 50 ML IV SCH ×2 (01:43→08:55)
[2019-10-15 06:39] VITALS: BP 144/78
[2019-10-15 07:22] LABS: CALCIUM 9.2 mg/dL (8.5-10.1); CREATININE 0.9 mg/dL (0.6-1.0); GFR 59.4; POTASSIUM 4.1 mmol/L (3.5-5.1)
--- NOTE | 2019-10-15 07:49 | PDOC ---
CARDIO Progress Notes Date & Time Date of Service DATE: 10/15/19 TIME: 07:48 Time of Evaluation 07:48 Subjective Notes No CP, SOA. confused Vitals Vitals Vital Signs Date Time Temp Pulse Resp B/P (MAP) Pulse Ox O2 Delivery O2 Flow Rate FiO2 10/15/19 06:39 97.9 76 20 144/78 (100) 95 Room Air 10/14/19 08:30 2.0 Weight Weight [ ] Input and Output I.O. Intake and Output 10/15/19 07:00 Intake Total 770 ml Output Total 2200 ml Balance -1430 ml Intake Oral 720 ml IV Total 50 ml Output Urine Total 2200 ml Laboratory Labs Laboratory Tests Test 10/13/19 09:00 10/14/19 06:12 10/15/19 07:07 White Blood Count 9.7 x10^3/uL (4.0-11.0) 9.1 x10^3/uL (4.0-11.0) Red Blood Count 3.21 x10^6/uL (3.50-5.40) 3.28 x10^6/uL (3.50-5.40) Hemoglobin 10.1 g/dL (12.0-15.5) 10.1 g/dL (12.0-15.5) Hematocrit 30.3 % (36.0-47.0) 30.8 % (36.0-47.0) Mean Corpuscular Volume 94 fL (79-100) 94 fL (79-100) Mean Corpuscular Hemoglobin 31 pg (25-35) 31 pg (25-35) Mean Corpuscular Hemoglobin Concent 33 g/dL (31-37) 33 g/dL (31-37) Red Cell Distribution Width 16.6 % (11.5-14.5) 16.2 % (11.5-14.5) Platelet Count 133 x10^3/uL (140-400) 153 x10^3/uL (140-400) Sodium Level 132 mmol/L (136-145) 133 mmol/L (136-145) 137 mmol/L (136-145) Potassium Level 3.3 mmol/L (3.5-5.1) 3.8 mmol/L (3.5-5.1) 4.1 mmol/L (3.5-5.1) Chloride Level 97 mmol/L (98-107) 97 mmol/L (98-107) 101 mmol/L (98-107) Carbon Dioxide Level 31 mmol/L (21-32) 31 mmol/L (21-32) 31 mmol/L (21-32) Anion Gap 4 (6-14) 5 (6-14) 5 (6-14) Blood Urea Nitrogen 21 mg/dL (7-20) 16 mg/dL (7-20) 12 mg/dL (7-20) Creatinine 0.8 mg/dL (0.6-1.0) 0.9 mg/dL (0.6-1.0) 0.9 mg/dL (0.6-1.0) Estimated GFR (Cockcroft-Gault) 68.0 59.4 59.4 BUN/Creatinine Ratio 26 (6-20) 18 (6-20) Glucose Level 88 mg/dL (70-99) 89 mg/dL (70-99) 89 mg/dL (70-99) Calcium Level 8.6 mg/dL (8.5-10.1) 8.9 mg/dL (8.5-10.1) 9.2 mg/dL (8.5-10.1) Total Bilirubin 1.1 mg/dL (0.2-1.0) 1.3 mg/dL (0.2-1.0) Aspartate Amino Transf (AST/SGOT) 21 U/L (15-37) 22 U/L (15-37) Alanine Aminotransferase (ALT/SGPT) 9 U/L (14-59) 13 U/L (14-59) Alkaline Phosphatase 89 U/L (46-116) 107 U/L (46-116) Total Protein 5.2 g/dL (6.4-8.2) 5.4 g/dL (6.4-8.2) Albumin 1.9 g/dL (3.4-5.0) 1.9 g/dL (3.4-5.0) Albumin/Globulin Ratio 0.6 (1.0-1.7) 0.5 (1.0-1.7) Microbiology Micro Microbiology 10/11/19 Blood Culture - Preliminary, Resulted NO GROWTH AFTER 3 DAYS... Physical Exams HEENT: Neck Supple W Full Motion Chest: Symmetric Lungs: Clear to Auscultation Heart: RRR Abdomen: Soft N/T Extremities: No Edema Neurology: alert, follow commands, confused Assessment Assessment This is an 84 yo female who presented last week to [facility] due to fall and hip fracture. Was followed by our service there due to history of cardiomyopathy. Was transferred to [facility] for rehab. Upon arrival, was lethargic and confused and the decision was made to transfer her to [address] [place] [address] for further evaluation and treatment prior to rehab. Please seen consult at [place] 10/08/19 for further details 1. Traumatic mechanical fall; s/p left hip hemiarthroplasty 2. Chronic systolic CHF with ICM: LVEF 20%; appears compensated 3. CAD: s/p PCI/BAYLEE to proximal and distal LAD. clinically stable 5. Hypertension; controlled 6. CKD 7. Hyperlipidemia; statin 8. SSS with [employer]-P: s/p Bi-V (Biotronik) 9. PAFIB: regular rate; amiodarone. follows with HF clinic and EP. 10. Metabolic encephalopathy Recommendations Strict I & O daily wt. 1500-2000cc FR. Lasix PRN Continue secondary prevention measures. Continue Plavix. No ASA as patient is on Xarelto Amiodarone for rhythm control Continue toprol, lisinopril. amiodarone. Consider for outpt watchman procedure for DARIUS closure Supportive care MATEUS BERNARDO APRN Oct 15, 2019 07:49
[2019-10-15] MEDS: CHOLECALCIFEROL (VITAMIN D3) 1,000 UNIT TABLET PO SCH (08:53)
[2019-10-15] MEDS: LACTOBACILLUS RHAMNOSUS GG 1 CAPSULE. PO SCH (08:53)
[2019-10-15] MEDS: METOPROLOL SUCC 24HR ER 50 MG TAB.ER.24H. PO SCH (08:54)
[2019-10-15] MEDS: ACETAMINOPHEN 325 MG TABLET PO PRN (08:54)
[2019-10-15] MEDS: CLOPIDOGREL BISULFATE 75 MG TABLET PO SCH (08:54)
[2019-10-15] MEDS: PANTOPRAZOLE 40 MG TABLET. PO SCH (08:55)
[2019-10-15] MEDS: POTASSIUM CHLORIDE 20 MEQ TABLET.ER. PO SCH (08:55)
[2019-10-15] MEDS: CITALOPRAM 10 MG TABLET. PO SCH (08:57)
[2019-10-15] MEDS: DICYCLOMINE HCL 10 MG CAPSULE PO SCH (08:58)
[2019-10-15] MEDS: IPRATRPIUM/ALBUTEROL 0.5/2.5MG 3 ML NEBU. NEB SCH (10:54)
[2019-10-15 11:28] VITALS: BP 105/56
[2019-10-15] MEDS ORDERED: ACET325T9 PO (11:33)
[2019-10-15] MEDS ORDERED: AMOX1TAB61 PO (11:33)
[2019-10-15] MEDS ORDERED: DOCU-109 PO (11:41)
[2019-10-15] MEDS ORDERED: POLY17PO5 PO (11:41)
[2019-10-15] MEDS ORDERED: LACT1CAP19 PO (17:51)
[2019-10-15] MEDS ORDERED: POTA20TA4 PO (17:51)
[2019-10-15] MEDS ORDERED: ACET325T21 PO (17:51)
[2019-10-15] MEDS ORDERED: IPRA3AMP29 NEB (17:51)
--- NOTE | 2019-10-15 18:16 | PN ---
DATE: SUBJECTIVE: The patient is sitting in her chair comfortably in no apparent distress. She denied any complaint; however, nursing staff stated that she has not had any bowel movement over the last 6 days. She was able to walk with a walker with 2-person assist for a short distance. She is definitely more awake, alert, though continued to have episodes of confusion. PHYSICAL EXAMINATION: GENERAL: When I saw her this morning, she looked pale, no jaundice or cyanosis. No lymphadenopathy, no thyromegaly. No jugular venous distention. No lower limb edema. VITAL SIGNS: Her heart rate was 75, blood pressure 105/56, temperature was 98, respiratory rate was 20, and oxygen saturation was 96% on room air. HEAD, EYES, EARS, NOSE AND THROAT: Showed normocephalic, atraumatic. NECK: Supple. HEART: Showed normal first and second heart sounds. No gallop or murmur. CHEST: Shows central trachea, equal bilateral expansion, air entry, expansion with crepitation mostly in the left side posteriorly. I could not appreciate any rhonchi. ABDOMEN: Distended, soft, nontender. No guarding or rigidity. No organomegaly. All hernial orifice intact. Bowel sounds normal. NEUROLOGIC: She is awake, alert, continued to have episodes of confusion and disorientation. All cranial nerves are intact. She moves extremities without difficulty. Her wound is covered with dressing that is dry and intact. Her intake was 1300, output was 850. LABORATORY DATA: No lab works done today; however, yesterday, her white cell count was 9100, hemoglobin 10, hematocrit 30, MCV 94 and platelet count 253,000. Serum sodium was 137, potassium 4.1, chloride 101, bicarbonate 31, anion gap of 5, BUN 12, creatinine 0.9, estimated GFR was 59 mL per minute. Her glucose was 89, calcium was 9.2. Her prothrombin time, INR, aPTT and D-dimer were elevated. Urinalysis is essentially unremarkable. Her blood cultures showed no growth after 3 days. She will be transferred to the swing bed to continue on Tylenol 650 mg every 4 hours as needed, Augmentin 875 mg twice a day for 7 more days with food, amiodarone 200 mg at bedtime, cholecalciferol for vitamin D3 1000 International Units once a day, citalopram hydrobromide 10 mg daily, Plavix 75 mg once a day, dicyclomine 10 mg twice a day, furosemide 20 mg once every other day, lisinopril 5 mg at bedtime, metoprolol succinate 50 mg once a day, Protonix 40 mg daily and rivaroxaban 15 mg daily. FINAL DISCHARGE DIAGNOSES: 1. Fall, sustaining left hip fracture, status post left hip hemiarthroplasty. 2. The patient has multiple other medical problems including atrial fibrillation, rate controlled, well anticoagulated. 3. Coronary artery disease. 4. Congestive heart failure, seems clinically well compensated. 5. Hypertension, well controlled. 6. Hyperlipidemia. In fact, she is not on any cholesterol lowering agent. 7. Irritable bowel syndrome for which she is on dicyclomine. 8. Gastroesophageal reflux disease for which she is on Protonix. KOREY RAY MD DR: ED/shannen JOB#: [id number] / [id number]
== END 2019-10-15 15:25 | DRG 682 ==
LOC: 1 SOUTH 20:40
PROVIDERS: ADMIT Internal Medicine; ATTEND Internal Medicine
DX: N17.0 Acute kidney failure with tubular necrosis (principal); G93.41 Metabolic encephalopathy; E43 Unspecified severe protein-calorie malnutrition; E87.1 Hypo-osmolality and hyponatremia; I50.22 Chronic systolic (congestive) heart failure; I42.9 Cardiomyopathy, unspecified; I13.0 Hypertensive heart and chronic kidney disease with heart failure and stage 1 through stage 4 chronic kidney disease, or unspecified chronic kidney disease; I48.91 Unspecified atrial fibrillation; I25.10 Atherosclerotic heart disease of native coronary artery without angina pectoris; I49.5 Sick sinus syndrome; K21.9 Gastro-esophageal reflux disease without esophagitis; M19.90 Unspecified osteoarthritis, unspecified site; K58.9 Irritable bowel syndrome, unspecified; K57.90 Diverticulosis of intestine, part unspecified, without perforation or abscess without bleeding; E87.6 Hypokalemia; E78.5 Hyperlipidemia, unspecified; N18.9 Chronic kidney disease, unspecified; Z98.61 Coronary angioplasty status; Z95.0 Presence of cardiac pacemaker; Z90.49 Acquired absence of other specified parts of digestive tract; Z88.6 Allergy status to analgesic agent; Z88.5 Allergy status to narcotic agent; Z79.02 Long term (current) use of antithrombotics/antiplatelets; Z79.899 Other long term (current) drug therapy; Z68.26 Body mass index [BMI] 26.0-26.9, adult
CPT/HCPCS: 36415; 71045; 80048; 80053; 81001; 82803; 83605; 83735; 83880; 84145; 85025; 85027; 85379; 85610; 85730; 87040; 94640; J2543; J3010; J3370; J7040; J7050; 97110; 97530

== ENCOUNTER 2019-10-15 15:02 | Inpatient (IN) | payer MEDICARE, BC ==
[~2019-10-15] VITALS: Ht 154.9 cm; Wt 68.6 kg
[~2019-10-15 15:02] MED LIST changes: +ACET325T9 PO; +AMIO200T4 PO; +AMOX1TAB61 PO; +CITA10TA8 PO; +CLOP75TA57 PO; +DICY10CA3 PO; +DOCU-109 PO; +FURO-69 PO; +METO50TA29 PO; +POLY17PO5 PO; +RIVA15TA PO
[2019-10-15 16:56] VITALS: BP 107/60
[2019-10-15] MEDS ORDERED: LACT1CAP19 PO (17:51)
[2019-10-15] MEDS ORDERED: ACET325T21 PO (17:51)
[2019-10-15] MEDS ORDERED: POTA20TA4 PO (17:51)
[2019-10-15] MEDS ORDERED: IPRA3AMP29 NEB (17:51)
[2019-10-15] MEDS ORDERED: FUROSEMIDE 20 MG TABLET PO PRN (18:00)
[2019-10-15] MEDS ORDERED: ACETAMINOPHEN 325 MG TABLET PO ONE (18:30)
[2019-10-15] MEDS: IPRATRPIUM/ALBUTEROL 0.5/2.5MG 3 ML NEBU. NEB SCH (20:47)
[2019-10-15] MEDS: AMOXICILLIN/K CLAV 875/125MG TABLET. PO SCH (21:00)
[2019-10-15] MEDS: ACETAMINOPHEN 325 MG TABLET PO SCH (21:01)
[2019-10-15] MEDS: DICYCLOMINE HCL 10 MG CAPSULE PO SCH (21:01)
[2019-10-15] MEDS: DOCUSATE SODIUM 100 MG CAPSULE PO SCH (21:01)
[2019-10-15] MEDS: AMIODARONE HCL 200 MG TABLET PO SCH (21:01)
[2019-10-15] MEDS: LISINOPRIL 5 MG TABLET. PO SCH (21:02)
[2019-10-15] MEDS: POTASSIUM CHLORIDE 20 MEQ TABLET.ER. PO SCH (21:05)
[2019-10-16 06:07] VITALS: BP 152/81
[2019-10-16 06:18] LABS: BASO % 0 % (0-3); EOS # 0.1 x10^3/uL (0.0-0.7); EOS % 1 % (0-3); HEMATOCRIT 31.3 % (36.0-47.0); HEMOGLOBIN 10.2 g/dL (12.0-15.5); LYMPH # 1.1 x10^3/uL (1.0-4.8); LYMPH % 13 % (24-48); MEAN CORPUSCULAR HEMOGLOBIN 31 pg (25-35); MEAN CORPUSCULAR HGB CONC 33 g/dL (31-37); MEAN CORPUSCULAR VOLUME 94 fL (79-100); MONO # 1.8 x10^3/uL (0.0-1.1); MONO % 22 % (0-9); NEUT # 5.2 x10^3uL (1.8-7.7); NEUT % 64 % (31-73); PLATELET COUNT 186 x10^3/uL (140-400); RED BLOOD COUNT 3.33 x10^6/uL (3.50-5.40); RED CELL DISTRIBUTION WIDTH 16.5 % (11.5-14.5); WHITE BLOOD COUNT 8.2 x10^3/uL (4.0-11.0)
[2019-10-16 06:24] LABS: CALCIUM 9.1 mg/dL (8.5-10.1); CREATININE 0.9 mg/dL (0.6-1.0); GFR 59.4; POTASSIUM 4.5 mmol/L (3.5-5.1)
[2019-10-16] MEDS: CHOLECALCIFEROL (VITAMIN D3) 1,000 UNIT TABLET PO SCH (09:00)
[2019-10-16] MEDS: AMOXICILLIN/K CLAV 875/125MG TABLET. PO SCH ×2 (09:51→20:18)
[2019-10-16] MEDS: DICYCLOMINE HCL 10 MG CAPSULE PO SCH ×2 (09:51→20:18)
[2019-10-16] MEDS: LACTOBACILLUS RHAMNOSUS GG 1 CAPSULE. PO SCH (09:51)
[2019-10-16] MEDS: ACETAMINOPHEN 325 MG TABLET PO SCH ×2 (09:52→20:17)
[2019-10-16] MEDS: PANTOPRAZOLE 40 MG TABLET. PO SCH (09:52)
[2019-10-16] MEDS: CITALOPRAM 10 MG TABLET. PO SCH (09:52)
[2019-10-16] MEDS: DOCUSATE SODIUM 100 MG CAPSULE PO SCH ×2 (09:52→20:18)
[2019-10-16] MEDS: CLOPIDOGREL BISULFATE 75 MG TABLET PO SCH (09:52)
[2019-10-16] MEDS: METOPROLOL SUCC 24HR ER 50 MG TAB.ER.24H. PO SCH (09:52)
[2019-10-16] MEDS: POLYETHYLENE GLYCOL 3350 17 GM PACKET. PO SCH (09:53)
[2019-10-16] MEDS: POTASSIUM CHLORIDE 20 MEQ TABLET.ER. PO SCH ×2 (09:53→20:19)
[2019-10-16] MEDS: IPRATRPIUM/ALBUTEROL 0.5/2.5MG 3 ML NEBU. NEB SCH ×2 (11:44→20:45)
[2019-10-16 14:16] LABS: % BANDS 1 % (0-9); % EOS 2 % (0-5); % LYMPHS 18 % (24-48); % MONOS 16 % (0-10); % MYELOS 2 % (0-0); % SEGS 61 % (35-66)
[2019-10-16 14:17] LABS: PLT ESTIMATE ADEQUATE (ADEQUATE)
[2019-10-16 14:24] LABS: BURR CELLS FEW
[2019-10-16] MEDS ORDERED: OLANZapine IM 10 MG VIAL. IM PRN (16:30)
[2019-10-16] MEDS: RIVAROXABAN 15 MG TABLET. PO SCH (16:50)
--- NOTE | 2019-10-16 17:18 | HP ---
ADMIT DATE: 10/15/2019 HISTORY OF PRESENT ILLNESS: The patient is an 84-year-old female patient, who was transferred to [facility] swing bed; however, upon arrival, she was noted to be extremely lethargic and encephalopathic. She has leukocytosis and elevated procalcitonin and therefore, we admit her to acute care and we did start her on IV Zosyn and vancomycin. She obviously has dementia and she is confused. Once her white cell count improved and blood cultures were negative, a decision was made to transfer her to swing bed to continue the process of rehabilitation. Apparently, she has been extremely agitated, combative and insisting she wants to go home. When I saw her this afternoon, she was clearly very angry and therefore I did start her on a small dose of Zyprexa at 1.25 mg intramuscular every 4 hours or Zyprexa Zydis by mouth every 4 hours. I did consult Dr. Beckham to assist with her delirium and send urine for UA and culture and sensitivity as well as repeat her labs including comprehensive metabolic profile and ammonia to exclude any possible metabolic reason for her extreme agitation and restlessness. PAST MEDICAL HISTORY: Significant for atrial fibrillation, coronary artery disease, congestive heart failure, hypertension, hyperlipidemia, sick sinus syndrome, status post permanent pacemaker. She is also known to have gastroesophageal reflux disease, osteoarthritis. She has a history of irritable bowel syndrome, diverticulitis and diverticulosis. PAST SURGICAL HISTORY: Significant for complete heart block treated with permanent pacemaker implantation. She is also known to have coronary artery disease, status post PCI with drug-eluting stent deployment to the proximal and distal left anterior descending artery. She has also had cholecystectomy. She has right hip fracture, status post open reduction and internal fixation and most recently left hip fracture, status post left hip hemiarthroplasty. FAMILY HISTORY: Noncontributory. SOCIAL HISTORY: She is , lives alone. She does not smoke, drink alcohol or use any recreational drugs. She has a very supporting family. ALLERGIES: SHE IS ALLERGIC TO CODEINE, IRON AND TRAMADOL. MEDICATIONS: She is currently on following medications: She is on rivaroxaban 15 mg daily, olanzapine 2.5 mg p.o. every 4 hourly as needed for agitation and olanzapine 1.25 mg every 4 hours intramuscular as needed, polyethylene glycol 17 grams daily, metoprolol succinate 50 mg daily, lactobacillus rhamnosus 1 capsule daily, Plavix 75 mg daily, citalopram hydrobromide 10 mg daily, vitamin D 1000 units daily, Protonix 40 mg daily, acetaminophen 650 mg p.o. b.i.d., potassium chloride 20 mEq twice a day, lisinopril 5 mg at bedtime, DuoNeb in 3 mL by nebulizer twice a day, Colace 100 mg twice a day, dicyclomine 10 mg twice a day, amoxicillin/clavulanic acid 1 tablet twice a day, amiodarone 200 mg daily furosemide 20 mg daily as a p.r.n., and Tylenol 650 mg every 6 hours. PHYSICAL EXAMINATION: GENERAL: When I examined her this afternoon, she looked well and was clearly in no apparent respiratory distress. She is very restless, agitated, but she is also slightly pale, but no jaundice, cyanosis or thyromegaly. No jugular venous distention. No limb edema. VITAL SIGNS: Her heart rate was 80, blood pressure was 152/81, temperature was 97.9, respiratory rate was 18 and oxygen saturation was 93%. HEAD, EYES, EARS, NOSE AND THROAT: Showed normocephalic, atraumatic. NECK: Supple. HEART: Showed normal first and second heart sounds. No gallop or murmur. CHEST: Clear to auscultation. No crepitation or rhonchi. ABDOMEN: Distended, soft, nontender. NEUROLOGIC: She was awake, alert. She is very demented, confused, agitated, but all her cranial nerves are intact. She moves extremities without difficulty. She is in a wheelchair, but obviously, she is here to continue the process of physical and occupational therapy. She has also surgical wound covered with wound VAC. We will continue with all her current medications. Continue with physical and occupational therapy. We will await the evaluation by Dr. Beckham to assist in the management of her delirium. KOREY RAY MD DR: ED/shannen JOB#: [id number] / [id number]
[2019-10-16 17:43] VITALS: BP 112/52
[2019-10-16 19:46] LABS: BILIRUBIN,URINE NEG (NEG); CLARITY,URINE HAZY; COLOR,URINE AMBER; GLUCOSE,URINE NEG (NEG); NITRITE,URINE POS (NEG)
[2019-10-16 19:47] LABS: BACTERIA,URINE 0 /HPF (0-FEW); SQUAMOUS EPITHELIAL CELL,UR FEW /LPF
[2019-10-16] MEDS: LISINOPRIL 5 MG TABLET. PO SCH (20:17)
[2019-10-16] MEDS: AMIODARONE HCL 200 MG TABLET PO SCH (20:18)
[2019-10-16 20:32] VITALS: BP 118/61
[2019-10-16] MEDS: LIDOCAINE (700MG/PATCH) PATCH. TD SCH (22:30)
[2019-10-16] MEDS: KETOROLAC TROMETHAMINE 10 MG TABLET PO PRN (23:27)
[2019-10-17] MEDS: ACETAMINOPHEN 325 MG TABLET PO PRN (03:41)
[2019-10-17 05:11] VITALS: BP 122/54
[2019-10-17 06:20] LABS: ALBUMIN 2.1 g/dL (3.4-5.0); ALBUMIN/GLOBULIN RATIO 0.6 (1.0-1.7); CALCIUM 8.9 mg/dL (8.5-10.1); GFR 52.6; POTASSIUM 4.7 mmol/L (3.5-5.1); TOTAL PROTEIN 5.4 g/dL (6.4-8.2)
[2019-10-17] MEDS: LIDOCAINE (700MG/PATCH) PATCH. TD SCH (09:00)
[2019-10-17] MEDS: AMOXICILLIN/K CLAV 875/125MG TABLET. PO SCH ×2 (09:05→20:26)
[2019-10-17] MEDS: ACETAMINOPHEN 325 MG TABLET PO SCH ×2 (09:05→20:30)
[2019-10-17] MEDS: DOCUSATE SODIUM 100 MG CAPSULE PO SCH ×2 (09:05→20:29)
[2019-10-17] MEDS: CHOLECALCIFEROL (VITAMIN D3) 1,000 UNIT TABLET PO SCH (09:05)
[2019-10-17] MEDS: POLYETHYLENE GLYCOL 3350 17 GM PACKET. PO SCH (09:05)
[2019-10-17] MEDS: DICYCLOMINE HCL 10 MG CAPSULE PO SCH ×2 (09:06→20:30)
[2019-10-17] MEDS: POTASSIUM CHLORIDE 20 MEQ TABLET.ER. PO SCH ×2 (09:06→20:31)
[2019-10-17] MEDS: CLOPIDOGREL BISULFATE 75 MG TABLET PO SCH (09:06)
[2019-10-17] MEDS: PANTOPRAZOLE 40 MG TABLET. PO SCH (09:06)
[2019-10-17] MEDS: CITALOPRAM 10 MG TABLET. PO SCH (09:06)
[2019-10-17] MEDS: LACTOBACILLUS RHAMNOSUS GG 1 CAPSULE. PO SCH (09:06)
[2019-10-17] MEDS: METOPROLOL SUCC 24HR ER 50 MG TAB.ER.24H. PO SCH (09:06)
[2019-10-17] MEDS: IPRATRPIUM/ALBUTEROL 0.5/2.5MG 3 ML NEBU. NEB SCH ×2 (10:20→19:52)
[2019-10-17] MEDS: RIVAROXABAN 15 MG TABLET. PO SCH (16:21)
[2019-10-17 18:18] VITALS: BP 108/48
[2019-10-17] MEDS: KETOROLAC TROMETHAMINE 10 MG TABLET PO PRN (20:29)
[2019-10-17] MEDS: AMIODARONE HCL 200 MG TABLET PO SCH (20:29)
[2019-10-17] MEDS: LISINOPRIL 5 MG TABLET. PO SCH (20:30)
[2019-10-17] MEDS: PATCH REMOVAL. MC SCH (20:31)
[2019-10-18] MEDS: IPRATRPIUM/ALBUTEROL 0.5/2.5MG 3 ML NEBU. NEB SCH ×3 (05:10→21:19)
[2019-10-18 05:36] VITALS: BP 125/56
[2019-10-18] MEDS: DICYCLOMINE HCL 10 MG CAPSULE PO SCH ×2 (08:35→21:12)
[2019-10-18] MEDS: DOCUSATE SODIUM 100 MG CAPSULE PO SCH ×2 (08:35→21:12)
[2019-10-18] MEDS: METOPROLOL SUCC 24HR ER 50 MG TAB.ER.24H. PO SCH (08:36)
[2019-10-18] MEDS: ASCORBIC ACID 500 MG TABLET PO SCH (08:36)
[2019-10-18] MEDS: PANTOPRAZOLE 40 MG TABLET. PO SCH (08:36)
[2019-10-18] MEDS: POTASSIUM CHLORIDE 20 MEQ TABLET.ER. PO SCH ×2 (08:36→21:13)
[2019-10-18] MEDS: CITALOPRAM 10 MG TABLET. PO SCH (08:36)
[2019-10-18] MEDS: CHOLECALCIFEROL (VITAMIN D3) 1,000 UNIT TABLET PO SCH (08:37)
[2019-10-18] MEDS: POLYETHYLENE GLYCOL 3350 17 GM PACKET. PO SCH (08:37)
[2019-10-18] MEDS: LACTOBACILLUS RHAMNOSUS GG 1 CAPSULE. PO SCH (08:37)
[2019-10-18] MEDS: CLOPIDOGREL BISULFATE 75 MG TABLET PO SCH (08:37)
[2019-10-18] MEDS: ACETAMINOPHEN 325 MG TABLET PO SCH ×2 (08:37→21:13)
[2019-10-18] MEDS: AMOXICILLIN/K CLAV 875/125MG TABLET. PO SCH ×2 (08:37→21:12)
[2019-10-18] MEDS: LIDOCAINE (700MG/PATCH) PATCH. TD SCH (08:39)
[2019-10-18] MEDS: RIVAROXABAN 15 MG TABLET. PO SCH (17:17)
[2019-10-18 18:24] VITALS: BP 108/50
[2019-10-18] MEDS: PATCH REMOVAL. MC SCH (21:00)
[2019-10-18] MEDS: AMIODARONE HCL 200 MG TABLET PO SCH (21:12)
[2019-10-18] MEDS: LISINOPRIL 5 MG TABLET. PO SCH (21:12)
[2019-10-19 05:31] VITALS: BP 132/72
[2019-10-19] MEDS: CITALOPRAM 10 MG TABLET. PO SCH (08:45)
[2019-10-19] MEDS: CHOLECALCIFEROL (VITAMIN D3) 1,000 UNIT TABLET PO SCH (08:45)
[2019-10-19] MEDS: CLOPIDOGREL BISULFATE 75 MG TABLET PO SCH (08:45)
[2019-10-19] MEDS: PANTOPRAZOLE 40 MG TABLET. PO SCH (08:45)
[2019-10-19] MEDS: AMOXICILLIN/K CLAV 875/125MG TABLET. PO SCH ×2 (08:45→21:09)
[2019-10-19] MEDS: LACTOBACILLUS RHAMNOSUS GG 1 CAPSULE. PO SCH (08:45)
[2019-10-19] MEDS: DOCUSATE SODIUM 100 MG CAPSULE PO SCH ×2 (08:45→21:08)
[2019-10-19] MEDS: DICYCLOMINE HCL 10 MG CAPSULE PO SCH ×2 (08:45→21:08)
[2019-10-19] MEDS: ACETAMINOPHEN 325 MG TABLET PO SCH ×2 (08:46→21:09)
[2019-10-19] MEDS: METOPROLOL SUCC 24HR ER 50 MG TAB.ER.24H. PO SCH (08:46)
[2019-10-19] MEDS: POTASSIUM CHLORIDE 20 MEQ TABLET.ER. PO SCH ×2 (08:46→21:12)
[2019-10-19] MEDS: ASCORBIC ACID 500 MG TABLET PO SCH (08:47)
[2019-10-19] MEDS: LIDOCAINE (700MG/PATCH) PATCH. TD SCH ×2 (08:47→09:00)
[2019-10-19] MEDS: POLYETHYLENE GLYCOL 3350 17 GM PACKET. PO SCH (09:00)
[2019-10-19] MEDS: IPRATRPIUM/ALBUTEROL 0.5/2.5MG 3 ML NEBU. NEB SCH ×2 (09:26→20:51)
--- NOTE | 2019-10-19 12:40 | PN ---
DATE: 10/19/2019 SUBJECTIVE: The patient is sitting comfortably in her recliner, eating her lunch comfortably, in no apparent distress. She is definitely much improved. She is no more agitated, restless. The nursing staff and nursing aides state that patient is now doing a lot more on her own. She requires only 1-person assist to go to the bathroom and generally has improved dramatically. PHYSICAL EXAMINATION: GENERAL: When I examined her, she looked well and was clearly in no apparent respiratory distress, pale, no jaundice, cyanosis or thyromegaly. No jugular venous distention or limb edema. VITAL SIGNS: Her heart rate was 75, blood pressure was 132/72, temperature was 97.8, respiratory rate was 18 and oxygen saturation was 97% on room air. HEAD, EYES, EARS, NOSE AND THROAT: Normocephalic, atraumatic. NECK: Supple. HEART: Showed normal first and second heart sounds. No gallop or murmur. CHEST: Clear to auscultation. No crepitation or rhonchi. ABDOMEN: Distended, soft, nontender. NEUROLOGIC: She is definitely more awake, alert, more lucid and oriented to time, place and person. All her cranial nerves intact. She moves extremities without difficulty. She ambulates with a walker with standby assist. Her intake was 1200, no output was recorded. LABORATORY DATA: Showed his serum sodium was 135, potassium 4.7, chloride 102, bicarbonate 27, anion gap of 6, BUN 14, creatinine 1, estimated GFR was 53 mL per minute. Her glucose was 86, calcium was 8.9. Total bilirubin, AST, ALT, alkaline phosphatase were normal. Her ammonia was only 12. Total protein was 5.4, albumin was 2.1. Her white cell count was 8200, hemoglobin 10, hematocrit 30, MCV 94 and platelet count of 106,000. Urinalysis essentially unremarkable and urine culture showed no growth. ASSESSMENT: In summary, this is an 84-year-old female patient who has had left hip fracture, status post left hip hemiarthroplasty. The patient was extremely lethargic, encephalopathic and had also leukocytosis and elevated procalcitonin and therefore, she was treated with IV Zosyn and vancomycin. Once improved, we switched her to oral Augmentin and she had an episode of severe delirium and that apparently has improved. She has other medical problems include atrial fibrillation, rate controlled, well anticoagulated, coronary artery disease. She is chest pain free. 1. Congestive heart failure. The patient seemed to be clinically well compensated. 2. Hypertension, well controlled. 3. Hyperlipidemia. 4. Gastroesophageal reflux disease. 5. Generalized osteoarthritis. 6. Irritable bowel syndrome. PLAN: My plan is obviously to continue with DVT prophylaxis. Continue with pain management. Continue with rehabilitation. KOREY RAY MD DR: ED/shannen JOB#: [id number] / [id number]
[2019-10-19 17:09] VITALS: BP 123/59
[2019-10-19] MEDS: PATCH REMOVAL. MC SCH (21:00)
[2019-10-19] MEDS: AMIODARONE HCL 200 MG TABLET PO SCH (21:08)
[2019-10-19] MEDS: LISINOPRIL 5 MG TABLET. PO SCH (21:11)
[2019-10-20 06:01] VITALS: BP 134/72
[2019-10-20] MEDS: PANTOPRAZOLE 40 MG TABLET. PO SCH (08:10)
[2019-10-20] MEDS: DOCUSATE SODIUM 100 MG CAPSULE PO SCH ×2 (08:10→19:54)
[2019-10-20] MEDS: LIDOCAINE (700MG/PATCH) PATCH. TD SCH (08:10)
[2019-10-20] MEDS: CHOLECALCIFEROL (VITAMIN D3) 1,000 UNIT TABLET PO SCH (08:10)
[2019-10-20] MEDS: AMOXICILLIN/K CLAV 875/125MG TABLET. PO SCH ×2 (08:10→19:54)
[2019-10-20] MEDS: CLOPIDOGREL BISULFATE 75 MG TABLET PO SCH (08:11)
[2019-10-20] MEDS: DICYCLOMINE HCL 10 MG CAPSULE PO SCH ×2 (08:11→19:54)
[2019-10-20] MEDS: LACTOBACILLUS RHAMNOSUS GG 1 CAPSULE. PO SCH (08:11)
[2019-10-20] MEDS: ACETAMINOPHEN 325 MG TABLET PO SCH ×2 (08:11→19:55)
[2019-10-20] MEDS: CITALOPRAM 10 MG TABLET. PO SCH (08:11)
[2019-10-20] MEDS: METOPROLOL SUCC 24HR ER 50 MG TAB.ER.24H. PO SCH (08:11)
[2019-10-20] MEDS: ASCORBIC ACID 500 MG TABLET PO SCH (08:11)
[2019-10-20] MEDS: POTASSIUM CHLORIDE 20 MEQ TABLET.ER. PO SCH ×2 (08:12→19:55)
[2019-10-20] MEDS: POLYETHYLENE GLYCOL 3350 17 GM PACKET. PO SCH (08:12)
[2019-10-20] MEDS: IPRATRPIUM/ALBUTEROL 0.5/2.5MG 3 ML NEBU. NEB SCH ×2 (09:34→21:03)
[2019-10-20] MEDS: ACETAMINOPHEN 325 MG TABLET PO PRN (16:44)
[2019-10-20] MEDS: RIVAROXABAN 15 MG TABLET. PO SCH (16:52)
[2019-10-20 18:03] VITALS: BP 103/43
[2019-10-20 19:10] VITALS: BP 119/45
[2019-10-20] MEDS: AMIODARONE HCL 200 MG TABLET PO SCH (19:55)
[2019-10-20] MEDS: LISINOPRIL 5 MG TABLET. PO SCH (19:56)
[2019-10-20] MEDS: PATCH REMOVAL. MC SCH (21:00)
[2019-10-21 06:08] VITALS: BP 147/76
[2019-10-21] MEDS: POLYETHYLENE GLYCOL 3350 17 GM PACKET. PO SCH (08:31)
[2019-10-21] MEDS: CHOLECALCIFEROL (VITAMIN D3) 1,000 UNIT TABLET PO SCH (08:32)
[2019-10-21] MEDS: POTASSIUM CHLORIDE 20 MEQ TABLET.ER. PO SCH ×2 (08:32→20:15)
[2019-10-21] MEDS: DICYCLOMINE HCL 10 MG CAPSULE PO SCH ×2 (08:33→20:15)
[2019-10-21] MEDS: PANTOPRAZOLE 40 MG TABLET. PO SCH (08:33)
[2019-10-21] MEDS: LACTOBACILLUS RHAMNOSUS GG 1 CAPSULE. PO SCH (08:33)
[2019-10-21] MEDS: CITALOPRAM 10 MG TABLET. PO SCH (08:33)
[2019-10-21] MEDS: ASCORBIC ACID 500 MG TABLET PO SCH (08:33)
[2019-10-21] MEDS: ACETAMINOPHEN 325 MG TABLET PO SCH ×2 (08:33→20:15)
[2019-10-21] MEDS: DOCUSATE SODIUM 100 MG CAPSULE PO SCH ×2 (08:33→20:15)
[2019-10-21] MEDS: CLOPIDOGREL BISULFATE 75 MG TABLET PO SCH (08:33)
[2019-10-21] MEDS: AMOXICILLIN/K CLAV 875/125MG TABLET. PO SCH ×2 (08:33→20:13)
[2019-10-21] MEDS: LIDOCAINE (700MG/PATCH) PATCH. TD SCH (08:34)
[2019-10-21] MEDS: METOPROLOL SUCC 24HR ER 50 MG TAB.ER.24H. PO SCH (08:39)
[2019-10-21] MEDS: RIVAROXABAN 15 MG TABLET. PO SCH (16:28)
[2019-10-21 19:00] VITALS: BP 102/43
[2019-10-21] MEDS: IPRATRPIUM/ALBUTEROL 0.5/2.5MG 3 ML NEBU. NEB SCH (20:06)
[2019-10-21 20:12] VITALS: BP 108/56
[2019-10-21] MEDS: PATCH REMOVAL. MC SCH (20:13)
[2019-10-21] MEDS: LISINOPRIL 5 MG TABLET. PO SCH (20:14)
[2019-10-21] MEDS: AMIODARONE HCL 200 MG TABLET PO SCH (20:15)
[2019-10-22] MEDS: ACETAMINOPHEN 325 MG TABLET PO PRN (00:34)
[2019-10-22 05:38] VITALS: BP 132/67
[2019-10-22] MEDS: CHOLECALCIFEROL (VITAMIN D3) 1,000 UNIT TABLET PO SCH (08:51)
[2019-10-22] MEDS: AMOXICILLIN/K CLAV 875/125MG TABLET. PO SCH (08:51)
[2019-10-22] MEDS: CLOPIDOGREL BISULFATE 75 MG TABLET PO SCH (08:51)
[2019-10-22] MEDS: DICYCLOMINE HCL 10 MG CAPSULE PO SCH ×2 (08:51→20:55)
[2019-10-22] MEDS: ACETAMINOPHEN 325 MG TABLET PO SCH ×2 (08:51→20:55)
[2019-10-22] MEDS: DOCUSATE SODIUM 100 MG CAPSULE PO SCH ×2 (08:52→20:54)
[2019-10-22] MEDS: POLYETHYLENE GLYCOL 3350 17 GM PACKET. PO SCH (08:52)
[2019-10-22] MEDS: PANTOPRAZOLE 40 MG TABLET. PO SCH (08:52)
[2019-10-22] MEDS: LACTOBACILLUS RHAMNOSUS GG 1 CAPSULE. PO SCH (08:52)
[2019-10-22] MEDS: METOPROLOL SUCC 24HR ER 50 MG TAB.ER.24H. PO SCH (08:52)
[2019-10-22] MEDS: POTASSIUM CHLORIDE 20 MEQ TABLET.ER. PO SCH ×2 (08:52→20:54)
[2019-10-22] MEDS: ASCORBIC ACID 500 MG TABLET PO SCH (08:53)
[2019-10-22] MEDS: CITALOPRAM 10 MG TABLET. PO SCH (08:53)
[2019-10-22] MEDS: LIDOCAINE (700MG/PATCH) PATCH. TD SCH (08:53)
[2019-10-22] MEDS: IPRATRPIUM/ALBUTEROL 0.5/2.5MG 3 ML NEBU. NEB SCH ×2 (10:47→20:06)
[2019-10-22] MEDS: RIVAROXABAN 15 MG TABLET. PO SCH (17:03)
[2019-10-22 20:18] VITALS: BP 115/61
[2019-10-22] MEDS: PATCH REMOVAL. MC SCH (20:23)
[2019-10-22] MEDS: LISINOPRIL 5 MG TABLET. PO SCH (20:54)
[2019-10-22] MEDS: AMIODARONE HCL 200 MG TABLET PO SCH (20:54)
[2019-10-23 05:17] VITALS: BP 126/66
[2019-10-23] MEDS: IPRATRPIUM/ALBUTEROL 0.5/2.5MG 3 ML NEBU. NEB SCH ×3 (05:44→21:15)
[2019-10-23 06:01] VITALS: BP 133/64
[2019-10-23] MEDS: CLOPIDOGREL BISULFATE 75 MG TABLET PO SCH (07:40)
[2019-10-23] MEDS: CHOLECALCIFEROL (VITAMIN D3) 1,000 UNIT TABLET PO SCH (07:40)
[2019-10-23] MEDS: ACETAMINOPHEN 325 MG TABLET PO SCH ×2 (07:41→20:54)
[2019-10-23] MEDS: DICYCLOMINE HCL 10 MG CAPSULE PO SCH ×2 (07:41→20:54)
[2019-10-23] MEDS: ASCORBIC ACID 500 MG TABLET PO SCH (07:41)
[2019-10-23] MEDS: POTASSIUM CHLORIDE 20 MEQ TABLET.ER. PO SCH ×2 (07:41→20:54)
[2019-10-23] MEDS: LACTOBACILLUS RHAMNOSUS GG 1 CAPSULE. PO SCH (07:41)
[2019-10-23] MEDS: CITALOPRAM 10 MG TABLET. PO SCH (07:41)
[2019-10-23] MEDS: METOPROLOL SUCC 24HR ER 50 MG TAB.ER.24H. PO SCH (07:41)
[2019-10-23] MEDS: POLYETHYLENE GLYCOL 3350 17 GM PACKET. PO SCH (07:42)
[2019-10-23] MEDS: PANTOPRAZOLE 40 MG TABLET. PO SCH (07:42)
[2019-10-23] MEDS: DOCUSATE SODIUM 100 MG CAPSULE PO SCH ×2 (07:42→20:54)
[2019-10-23] MEDS: FUROSEMIDE 20 MG TABLET PO SCH (07:43)
[2019-10-23] MEDS: LIDOCAINE (700MG/PATCH) PATCH. TD SCH (07:48)
[2019-10-23] MEDS: RIVAROXABAN 15 MG TABLET. PO SCH (16:55)
[2019-10-23 17:46] VITALS: BP 114/52
[2019-10-23] MEDS: PATCH REMOVAL. MC SCH (20:37)
[2019-10-23 20:47] VITALS: BP 124/79
[2019-10-23] MEDS: LISINOPRIL 5 MG TABLET. PO SCH (20:54)
[2019-10-23] MEDS: AMIODARONE HCL 200 MG TABLET PO SCH (20:54)
[2019-10-24 05:39] VITALS: BP 156/73
[2019-10-24] MEDS: PANTOPRAZOLE 40 MG TABLET. PO SCH (08:14)
[2019-10-24] MEDS: METOPROLOL SUCC 24HR ER 50 MG TAB.ER.24H. PO SCH (08:15)
[2019-10-24] MEDS: DOCUSATE SODIUM 100 MG CAPSULE PO SCH ×2 (08:15→20:46)
[2019-10-24] MEDS: ACETAMINOPHEN 325 MG TABLET PO SCH ×2 (08:15→20:46)
[2019-10-24] MEDS: CHOLECALCIFEROL (VITAMIN D3) 1,000 UNIT TABLET PO SCH (08:16)
[2019-10-24] MEDS: ASCORBIC ACID 500 MG TABLET PO SCH (08:16)
[2019-10-24] MEDS: POTASSIUM CHLORIDE 20 MEQ TABLET.ER. PO SCH ×2 (08:16→20:46)
[2019-10-24] MEDS: CLOPIDOGREL BISULFATE 75 MG TABLET PO SCH (08:16)
[2019-10-24] MEDS: LACTOBACILLUS RHAMNOSUS GG 1 CAPSULE. PO SCH (08:17)
[2019-10-24] MEDS: POLYETHYLENE GLYCOL 3350 17 GM PACKET. PO SCH (08:17)
[2019-10-24] MEDS: DICYCLOMINE HCL 10 MG CAPSULE PO SCH ×2 (08:17→20:46)
[2019-10-24] MEDS: CITALOPRAM 10 MG TABLET. PO SCH (08:17)
[2019-10-24] MEDS: LIDOCAINE (700MG/PATCH) PATCH. TD SCH (08:30)
[2019-10-24] MEDS: RIVAROXABAN 15 MG TABLET. PO SCH (17:23)
[2019-10-24 18:37] VITALS: BP 150/72
[2019-10-24 19:53] VITALS: BP 139/77
[2019-10-24] MEDS: AMIODARONE HCL 200 MG TABLET PO SCH (20:47)
[2019-10-24] MEDS: LISINOPRIL 5 MG TABLET. PO SCH (20:47)
[2019-10-24] MEDS: PATCH REMOVAL. MC SCH (21:00)
[2019-10-24] MEDS: IPRATRPIUM/ALBUTEROL 0.5/2.5MG 3 ML NEBU. NEB SCH (21:25)
[2019-10-25 05:37] VITALS: BP 142/76
[2019-10-25] MEDS: POLYETHYLENE GLYCOL 3350 17 GM PACKET. PO SCH (08:20)
[2019-10-25] MEDS: ASCORBIC ACID 500 MG TABLET PO SCH (08:20)
[2019-10-25 08:21] VITALS: BP 142/76
[2019-10-25] MEDS: LACTOBACILLUS RHAMNOSUS GG 1 CAPSULE. PO SCH (08:21)
[2019-10-25] MEDS: METOPROLOL SUCC 24HR ER 50 MG TAB.ER.24H. PO SCH (08:21)
[2019-10-25] MEDS: ACETAMINOPHEN 325 MG TABLET PO SCH (08:21)
[2019-10-25] MEDS: CLOPIDOGREL BISULFATE 75 MG TABLET PO SCH (08:22)
[2019-10-25] MEDS: CITALOPRAM 10 MG TABLET. PO SCH (08:22)
[2019-10-25] MEDS: POTASSIUM CHLORIDE 20 MEQ TABLET.ER. PO SCH (08:22)
[2019-10-25] MEDS: PANTOPRAZOLE 40 MG TABLET. PO SCH (08:22)
[2019-10-25] MEDS: DICYCLOMINE HCL 10 MG CAPSULE PO SCH (08:22)
[2019-10-25] MEDS: FUROSEMIDE 20 MG TABLET PO SCH (08:23)
[2019-10-25] MEDS: DOCUSATE SODIUM 100 MG CAPSULE PO SCH (08:23)
[2019-10-25] MEDS: CHOLECALCIFEROL (VITAMIN D3) 1,000 UNIT TABLET PO SCH (08:23)
[2019-10-25] MEDS: LIDOCAINE (700MG/PATCH) PATCH. TD SCH (08:24)
[2019-10-25] MEDS: IPRATRPIUM/ALBUTEROL 0.5/2.5MG 3 ML NEBU. NEB SCH (09:49)
--- NOTE | 2019-10-25 13:26 | DS ---
DATE OF DISCHARGE: 10/25/2019 ATTENDING PHYSICIAN: Dr. Ron. FINAL DISCHARGE DIAGNOSES: 1. Wound at left hip from recent surgery. 2. History of a fall and hip fracture. 3. Paroxysmal atrial fibrillation. 4. Coronary artery disease. 5. Congestive heart failure, compensated. 6. Essential hypertension. 7. Hyperlipidemia. 8. Sick sinus syndrome with permanent pacemaker. 9. Gastroesophageal reflux disease. 10. Degenerative arthritis. 11. Irritable bowel syndrome. 12. Diverticulosis. 13. History of drug-eluting stent. 14. History of cholecystectomy. 15. History of bilateral hip fracture, most recent left hip fracture with previous left hip hemiarthroplasty. 16. Metabolic encephalopathy, resolved. HISTORY OF PRESENT ILLNESS: This 84-year-old female with recent left hip fracture, had open reduction and internal fixation. There is an open wound treated with a wound VAC. She was admitted to the rehabilitation unit. Dr. Ron admitted her on 10/11/2019. I am covering for him. I saw her on the day of discharge she is doing well. PHYSICAL EXAMINATION: Please see the dictated note. PERTINENT LABORATORY AND X-RAY STUDIES: On this admission, her hemoglobin was 10.2 g/dL with white count of 8200. Electrolytes were within normal range with the sodium 135, potassium 4.7 mEq, creatinine 1.0 mg/dL, serum ammonia level was 12. Liver functions unremarkable. Total protein diminished at 5.4 mg/dL. COURSE IN THE HOSPITAL: The patient was admitted for rehabilitation. She did well. Diet was advanced. Home meds continued and she was functioning. The wound stays clean. On the 14th hospital day, she was ready for discharge home. Two daughters work here. There are no changes on her home meds. She should continue her scheduled amiodarone 200 mg daily, Augmentin 875 one b.i.d. until done, Celexa 10 mg daily, Plavix 75 mg daily, Bentyl 10 mg b.i.d., docusate, Lasix 20 mg daily and p.r.n., albuterol, lisinopril 5 mg daily, metoprolol 50 mg daily, Protonix 40 mg daily, potassium, MiraLax, and Xarelto 15 mg daily. She has advanced directive, DNR. We will respect these wishes. She was discharged from the hospital in stable condition with explicit instructions and followup care. GALA SÁNCHEZ MD DR: SYLVESTER/shannen JOB#: [id number] / [id number] KOREY Conley MD
== END 2019-10-25 16:51 | disposition home or self-care (01) | DRG 555 ==
LOC: LND 15:02 → 1 SOUTH 10-23 20:43
PROVIDERS: ADMIT Internal Medicine; ATTEND Internal Medicine
DX: M25.552 Pain in left hip (principal); G93.41 Metabolic encephalopathy; D72.829 Elevated white blood cell count, unspecified; E78.5 Hyperlipidemia, unspecified; F03.90 Unspecified dementia, unspecified severity, without behavioral disturbance, psychotic disturbance, mood disturbance, and anxiety; I11.0 Hypertensive heart disease with heart failure; K21.9 Gastro-esophageal reflux disease without esophagitis; I25.10 Atherosclerotic heart disease of native coronary artery without angina pectoris; I48.0 Paroxysmal atrial fibrillation; I49.5 Sick sinus syndrome; I50.9 Heart failure, unspecified; K57.90 Diverticulosis of intestine, part unspecified, without perforation or abscess without bleeding; K58.9 Irritable bowel syndrome, unspecified; M15.9 Polyosteoarthritis, unspecified; Z66 Do not resuscitate; Z90.49 Acquired absence of other specified parts of digestive tract; Z95.0 Presence of cardiac pacemaker; Z96.642 Presence of left artificial hip joint; Z98.61 Coronary angioplasty status; Z88.6 Allergy status to analgesic agent; Z88.5 Allergy status to narcotic agent; Z88.8 Allergy status to other drugs, medicaments and biological substances
CPT/HCPCS: 36415; 80048; 80053; 81001; 82140; 85007; 85025; 87086; 94640; 97110; 97116; 97530; 97535

== ENCOUNTER → 2020-01-01 | Outpatient (CLI) | payer MEDICARE, BC ==
[~2020-01-01] MED LIST changes: +ACET325T21 PO; +IPRA3AMP29 NEB; +LACT1CAP19 PO
[2020-01-01 17:16] LABS: ALBUMIN 3.3 g/dL (3.4-5.0); CALCIUM 9.1 mg/dL (8.5-10.1); CREATININE 1.3 mg/dL (0.6-1.0); DIRECT BILIRUBIN 0.4 mg/dL (0.0-0.2); GFR 38.8; POTASSIUM 4.4 mmol/L (3.5-5.1); TOTAL BILIRUBIN 1.4 mg/dL (0.2-1.0); TOTAL PROTEIN 7.1 g/dL (6.4-8.2)
[2020-01-02 13:40] LABS: FREE T4 1.72 ng/dL (0.76-1.46); THYROID STIM HORMONE (TSH) 7.046 uIU/mL (0.358-3.740)
== END | disposition home or self-care (01) ==
LOC: LAB 14:07
PROVIDERS: ATTEND Internal Medicine
DX: Z51.81 Encounter for therapeutic drug level monitoring (principal); I48.0 Paroxysmal atrial fibrillation; Z79.899 Other long term (current) drug therapy
CPT/HCPCS: 36415; 80048; 80076; 84439; 84443

== ENCOUNTER 2020-01-17 13:27 | Inpatient (IN) | payer MEDICARE, BC ==
[~2020-01-17] VITALS: Ht 154.9 cm; Wt 64.2 kg
--- NOTE | 2020-01-17 14:40 | NUR ---
NSG NOTE; ADMISSION ADMIT TO ROOM 107 AT 1340 VIA W/C ACCOMP BY TRANSPORT PERSONNEL FROM [facility] PT WAS ADMITTED TO [facility] ON 01/14/20 FOR MULTIPLE FALLS AND INCREASED CONFUSION. DX WITH UTI
[2020-01-17 14:44] VITALS: BP 123/77
[2020-01-17] MEDS ORDERED: POLY17PO5 PO (16:42)
[2020-01-17] MEDS ORDERED: DOCU-109 PO (16:42)
[2020-01-17] MEDS ORDERED: OLANZapine 5 MG TABLET PO PRN (16:45)
[2020-01-17] MEDS ORDERED: OLAN5TAB9 PO (16:46)
[2020-01-17] MEDS ORDERED: CEFU250T59 PO (16:46)
[2020-01-17] MEDS ORDERED: AMMO385C5 TP (16:46)
--- NOTE | 2020-01-17 17:13 | NUR ---
NSG NOTE; COVID 19 NEGATIVE TEST DONE 01/16/20 AT [facility]
--- NOTE | 2020-01-17 17:14 | NUR ---
Swing Bed Admission Patient Handbook for Care Home given to patient. Nursing Problem: Confusion, weakness and multiple falls. Pt had been admitted to [facility] on 01/15/20 for falls causing a coccyx contusion. A UTI was diagnosed and abx started. Admitted to [facility] Swing bed unit for continued PT/OT and antibiotics Cognitive/Behavioral: Pt is confused and making inapprop statements. Visual hallucinations- she saw a man in her room who was not there. Oriented to self, birthday, and year but does not know month/day/place. pt up in chair with personal alarm on and daughter at bedside. She is calm and cooperative Pain: c/o coccyx pain sec to fall. Chair cushion added to her chair Respiratory Status: CTA, RA, no cough or SOA Skin: thin and fragile, purple coloring on feet noted, coccyx bruising Bowel/Bladder Continence: continent of bowel per report, LBM 01/14, stress incontinence wearing brief but has been continent of urine x2 since admit ADL Functional Status: transfer & walking: x2 person assist with walker and gait belt-unsteady and weak, taking small shuffling steps despite prompting eating-needed setup, attempts to feed self but spilling food in her lap, did better with the handheld hamburger toileting-needed x2 assist to get into bathroom, pt gave minimal assist with pulling her pants down and needed staff to wipe her and pull up her pants Fall(s) prior to admission? yes, several times at home before admit Admitted from [facility]
[2020-01-17 18:57] VITALS: BP 117/74
[2020-01-17] MEDS: CEFDINIR 300 MG CAPSULE PO SCH ×2 (21:00→21:55)
[2020-01-17] MEDS: LISINOPRIL 5 MG TABLET. PO SCH ×2 (21:00→21:54)
[2020-01-17] MEDS: LACTOBACILLUS RHAMNOSUS GG 1 CAPSULE. PO SCH ×2 (21:00→21:54)
[2020-01-17] MEDS: AMMONIUM LACTATE 12% TOPICAL LOTION 226GM BOTTLE. TP SCH ×2 (21:00→21:54)
[2020-01-17] MEDS: DOCUSATE SODIUM 100 MG CAPSULE PO PRN (21:54)
--- NOTE | 2020-01-18 03:43 | NUR ---
Swing Bed Nursing Note Patient Handbook for [facility] given to patient. Nursing Problem: Confusion, weakness and multiple falls. Pt had been admitted to [facility] on 01/15/20 for falls causing a coccyx contusion. A UTI was diagnosed and abx started. Admitted to [facility] Swing bed unit for continued PT/OT and antibiotics Cognitive/Behavioral: Pt. was pleasantly confused and stated how exhausted she was. Pt sundowns and though cooperative with ADLs, pt unable to follow directions in assisting with her cares. Pt was tucked into bed shortly after shift change with family at bedside. Family reports pt has not slept in a couple days. Pt quickly fell asleep and would not awaken for night time medications after multiple attempts. HS meds were non-administered in EMAR. Pain: c/o coccyx pain sec to fall. Barrier cream applied Respiratory Status: CTA, Pt. placed on 2L while sleeping to help maintain O2 above 90% Skin: thin and fragile, purple coloring on feet noted, coccyx bruising Bowel/Bladder Continence: continent of bowel per report, LBM 01/14, stress incontinence wearing brief but has been continent of urine this shift ADL Functional Status: transfer & walking: x2 person assist with walker and gait belt-unsteady and weak, taking small shuffling steps despite prompting toileting-needed x2 assist to turn and pivot from chair to BSC, pt required full assist with pulling her pants down and to wipe her and pull up her pants.
[2020-01-18 05:10] VITALS: BP 153/95
--- NOTE | 2020-01-18 05:48 | NUR ---
Pt slept soundly through the night. Checked Q2hrs for incontinence, pt remains dry. Pt awoke momentarily to take a few sips of water, declined need to toilet, and fell back to sleep. Pt has intermittent periods of apneic breathing. Remains on 2L O2 via NC while asleep. SpO2 100% this AM.
--- NOTE | 2020-01-18 06:37 | NUR ---
Pt awoke to use BSC. Able to assist x2, pt following directions with toileting. Able to wipe self. Pt back in bed per request, resting until breakfast. Call light in reach.
[2020-01-18] MEDS: CLOPIDOGREL BISULFATE 75 MG TABLET PO SCH (08:23)
[2020-01-18] MEDS: LACTOBACILLUS RHAMNOSUS GG 1 CAPSULE. PO SCH ×2 (08:23→20:06)
[2020-01-18] MEDS: CITALOPRAM 10 MG TABLET. PO SCH (08:24)
[2020-01-18] MEDS: PANTOPRAZOLE 40 MG TABLET. PO SCH (08:24)
[2020-01-18] MEDS: CEFDINIR 300 MG CAPSULE PO SCH ×2 (08:24→20:05)
[2020-01-18] MEDS: METOPROLOL SUCC 24HR ER 50 MG TAB.ER.24H. PO SCH (08:24)
[2020-01-18] MEDS: DOCUSATE SODIUM 100 MG CAPSULE PO PRN (08:24)
[2020-01-18] MEDS: POLYETHYLENE GLYCOL 3350 17 GM PACKET. PO PRN (08:24)
[2020-01-18] MEDS: AMIODARONE HCL 200 MG TABLET PO SCH (08:24)
[2020-01-18] MEDS: AMMONIUM LACTATE 12% TOPICAL LOTION 226GM BOTTLE. TP SCH ×2 (08:25→21:00)
--- NOTE | 2020-01-18 09:22 | HP ---
ADMIT DATE: 01/17/2020 ATTENDING PHYSICIAN: Dr. Sánchez. CHIEF COMPLAINT: The patient is here for the rehabilitation unit. HISTORY OF PRESENT ILLNESS: The patient is a pleasant 84-year-old female recently hospitalized at [facility]. She has had frequent UTIs, generalized weakness and falling. She was treated for the UTI. She was seen by physiatry services and recommended acute rehabilitation. She was discharged from that facility and sent here yesterday afternoon. PAST MEDICAL HISTORY: Significant for chronic low back pain with degenerative disk disease of the lumbar spine with some degree of lumbar spondylosis and central spinal canal and neural foraminal compromise with clinical evidence of lumbar spinal stenosis. She had degenerative joint disease of both knees, paroxysmal atrial fibrillation, coronary artery disease, congestive heart failure compensated, previous myocardial infarction, sick sinus syndrome, permanent pacemaker placement, hyperlipidemia, gastroesophageal reflux disease and bilateral hip replacement for fractures in 2017 and 2019. ALLERGIES: She has drug allergies to CODEINE, IRON AND TRAMADOL. Exact reaction is unclear. CURRENT MEDICINES: Include Tylenol, amiodarone 200 mg daily, Lac-Hydrin, cefuroxime axetil to finish up her treatment of UTI, Celexa, Plavix, Colace, Lasix, lactobacillus, lisinopril, metoprolol, olanzapine, Protonix, MiraLax and potassium chloride. SOCIAL HISTORY: She is a nonsmoker and nondrinker. FAMILY HISTORY: Noncontributory. REVIEW OF SYSTEMS: Significant for the hearing loss, balance problem, frequent falls, chronic low back pain. She denied any chest pain, palpitations. She was fairly alert. All other systems currently reviewed and determined to be negative. PHYSICAL EXAMINATION: GENERAL: When I saw her, this is a pleasant elderly female. She was alert and oriented. VITAL SIGNS: When I saw her, her blood pressure is 153/94 mmHg, temperature 97.6 degrees Fahrenheit, pulse 82 and regular, oxygen saturation 95% on room air. HEENT: Head is without trauma. Pupils are reactive. Sclerae nonicteric. The oropharynx is clear. NECK: Supple, no bruits identified. LUNGS: Otherwise clear. CARDIOVASCULAR: Showed regular heart tones. No gallops. Peripheral pulses are palpable and full. ABDOMEN: Soft, nontender, no organomegaly. Bowel sounds are hypoactive. EXTREMITIES: Showed no cyanosis or edema. NEUROLOGIC: Focally intact. No deficits. PERTINENT LABORATORY STUDIES: Reviewed from [place]. Her urinalysis was fairly unremarkable. Hemoglobin on 24th of this month was 10.9 g/dL with white count of 5200. Potassium is 3.5 mEq, sodium 136, creatinine 1.2 mg/dL. Transaminases unremarkable. Most recent echocardiogram showed the left ventricle to have normal wall thickness, is mildly dilated. There is decreased ejection fraction estimated at 20%. There is diffuse hypokinesis and abnormal septal motion consistent with right ventricular pacing. The left atrium is severely dilated. ASSESSMENT: 1. An 84-year-old female with chronic back pain due to spinal stenosis with frequent falls. 2. Frequent urinary tract infection. 3. Known ischemic cardiomyopathy with ejection fraction estimated at 20%. 4. Sick sinus syndrome, permanent pacemaker. 5. Acute on chronic congestive heart failure, compensated. 6. History of previous myocardial infarction. 7. Gastroesophageal reflux disease. 8. Irritable bowel syndrome by history. 9. Anxiety and depression. PLAN: 1. Her home meds were reviewed and continued. 2. She will undergo rehabilitation here in our inpatient rehabilitation unit. 3. I should gladly follow along during her inpatient stay. Please note that her advanced directive is indicated a DNR status. We will respect these wishes. GALA SÁNCHEZ MD DR: SYLVESTER/shannen JOB#: [id number] / [id number] MEJIA Godwin MD
[2020-01-18 14:20] VITALS: BP 123/72
[2020-01-18] MEDS: ACETAMINOPHEN 325 MG TABLET PO PRN ×2 (17:24→20:05)
[2020-01-18 20:01] VITALS: BP 107/65
[2020-01-18] MEDS: LISINOPRIL 5 MG TABLET. PO SCH (20:05)
--- NOTE | 2020-01-18 22:03 | NUR ---
Swing Bed Nursing Note Patient Handbook for [facility] given to patient. Nursing Problem: Confusion, weakness and multiple falls. Pt had been admitted to [facility] on 01/15/20 for falls causing a coccyx contusion. A UTI was diagnosed and abx started. Admitted to [facility] Swing bed unit for continued PT/OT and antibiotics Cognitive/Behavioral: Pt. was pleasantly confused and stated how exhausted she was. Pt sundowns and though cooperative with ADLs, pt unable to follow directions in assisting with her cares. Pt was tucked into bed shortly after shift change with family at bedside. Family reports pt has not slept in a couple days. Pt quickly fell asleep and would not awaken for night time medications after multiple attempts. HS meds were non-administered in EMAR. Pain: c/o coccyx pain sec to fall. Barrier cream applied Respiratory Status: CTA, Pt. placed on 2L while sleeping to help maintain O2 above 90% Skin: thin and fragile, purple coloring on feet noted, coccyx bruising Bowel/Bladder Continence: continent of bowel per report, LBM 01/17, stress incontinence wearing brief but has been continent of urine this shift ADL Functional Status: transfer & walking: x1 person assist with walker and gait belt-unsteady and weak, taking small shuffling steps despite prompting Toileting-needed x1 assist to turn and pivot from chair to BSC, pt required minimum assist with pulling her pants down and to wipe her and pull up her pants.
[2020-01-19] MEDS: AMMONIUM LACTATE 12% TOPICAL LOTION 226GM BOTTLE. TP SCH ×2 (09:00→20:05)
[2020-01-19] MEDS: METOPROLOL SUCC 24HR ER 50 MG TAB.ER.24H. PO SCH (09:15)
[2020-01-19] MEDS: CEFDINIR 300 MG CAPSULE PO SCH ×2 (09:15→20:05)
[2020-01-19] MEDS: LACTOBACILLUS RHAMNOSUS GG 1 CAPSULE. PO SCH ×2 (09:15→20:05)
[2020-01-19] MEDS: CITALOPRAM 10 MG TABLET. PO SCH (09:15)
[2020-01-19] MEDS: CLOPIDOGREL BISULFATE 75 MG TABLET PO SCH (09:15)
[2020-01-19] MEDS: AMIODARONE HCL 200 MG TABLET PO SCH (09:15)
[2020-01-19] MEDS: PANTOPRAZOLE 40 MG TABLET. PO SCH (09:16)
[2020-01-19 09:31] VITALS: BP 131/83
[2020-01-19 19:38] VITALS: BP 105/68
[2020-01-19] MEDS: ACETAMINOPHEN 325 MG TABLET PO PRN (20:05)
[2020-01-19] MEDS: LISINOPRIL 5 MG TABLET. PO SCH (20:07)
[2020-01-19] MEDS: CARBAMIDE PEROXIDE 6.5% OTIC SOLUTION 15ML BOTTLE. AU SCH (21:00)
--- NOTE | 2020-01-20 05:24 | NUR ---
Swing Bed Nursing Note Patient Handbook for [facility] given to patient. Nursing Problem: Confusion, weakness and multiple falls. Pt had [facility] for falls causing a coccyx contusion. A UTI was diagnosed and abx started. Admitted to [facility] Swing bed unit for continued PT/OT and antibiotics Cognitive/Behavioral: Pt. was very pleasant during assessment, sitting up in bed watching tv without c/o. Pt was aware of self and situation, able to follow directions. Pain: c/o coccyx pain sec to fall. PRN Tylenol administered at HS. Pt slept well throughout the night. Respiratory Status: CTA, Pt. placed on 2L while sleeping to help maintain O2 above 90% Skin: thin and fragile, purple coloring on feet noted, coccyx bruising. dry flaky skin bilateral feet, ammonium lactate lotion applied Bowel/Bladder Continence: continent of bowel per report, LBM 01/19, stress incontinence wearing brief but has been continent of urine this shift ADL Functional Status: pt. up with gait belt and walker x1 assist. pt turns self independently in bed. takes pills whole w/o difficulty toileting-pt walks to bathroom with walker and gait belt x1 assist, requires some assistance pulling up brief, able to wipe self independently.
[2020-01-20] MEDS: POLYETHYLENE GLYCOL 3350 17 GM PACKET. PO PRN (05:50)
[2020-01-20 07:54] VITALS: BP 151/90
[2020-01-20] MEDS: CLOPIDOGREL BISULFATE 75 MG TABLET PO SCH (07:55)
[2020-01-20] MEDS: LACTOBACILLUS RHAMNOSUS GG 1 CAPSULE. PO SCH ×2 (07:56→20:59)
[2020-01-20] MEDS: AMIODARONE HCL 200 MG TABLET PO SCH (07:56)
[2020-01-20] MEDS: METOPROLOL SUCC 24HR ER 50 MG TAB.ER.24H. PO SCH (07:56)
[2020-01-20] MEDS: CITALOPRAM 10 MG TABLET. PO SCH (07:56)
[2020-01-20] MEDS: PANTOPRAZOLE 40 MG TABLET. PO SCH (07:56)
[2020-01-20] MEDS: AMMONIUM LACTATE 12% TOPICAL LOTION 226GM BOTTLE. TP SCH ×3 (07:58→20:59)
[2020-01-20] MEDS: FUROSEMIDE 20 MG TABLET PO SCH (07:58)
[2020-01-20] MEDS: POTASSIUM CHLORIDE 20 MEQ TABLET.ER. PO SCH (07:58)
[2020-01-20] MEDS: CARBAMIDE PEROXIDE 6.5% OTIC SOLUTION 15ML BOTTLE. AU SCH ×2 (08:11→20:58)
--- NOTE | 2020-01-20 09:30 | NUR ---
NURSING NOTE EAR DROPS PT REFUSED EAR DROPS STATING "THOSE DROPS FELT LIKE THEY JUST RAN DOWN THE BACK OF MY THROAT AND I DONT WANT TO USE THEM TODAY". RUBEN FARIA
--- NOTE | 2020-01-20 13:02 | NUR ---
Swing Bed Nursing Note Patient Handbook for [facility] given to patient. Nursing Problem: Confusion, weakness and multiple falls. Pt had been admitted to [facility] on 01/15/20 for falls causing a coccyx contusion. Admitted to [facility] Swing bed unit for continued PT/OT and antibiotics. Cognitive/Behavioral: Pt was A&O this am to self, place and president. pt was not sure of the date. pt has been calm and cooperative with all cares thus far, worked with pt/ot this am with no problem. was compliant with shower day this am. took her medications whole. Pain: pt does c/o pain at 1-2 out of 10 on her coccyx, relieved with repositioning. Respiratory Status: RA, clear. Skin: thin and fragile, purple coloring on feet noted, coccyx bruising, cream on coccyx applied Bowel/Bladder Continence: lbm 01/19, continent, wears brief for stress incont. will use call light for notification of needing to use restroom. ADL Functional Status: pt is x1 assist with walker and gait belt. pt is unsteady on her feet at times. pt was able to wash the soap out of her hair herself, pt was able to wash the front of her body but required assistance with washing her back, legs, and bottom. pt is able to pull her pants down with minimal assist to use the restroom, does occasionally need help pulling up her brief at times. pt needs encouragement to wipe and keep up on personal hygiene. pt is independent with her meals. cassandra elise
[2020-01-20] MEDS: ACETAMINOPHEN 325 MG TABLET PO PRN (20:59)
[2020-01-20] MEDS: LISINOPRIL 5 MG TABLET. PO SCH (20:59)
[2020-01-20 21:00] VITALS: BP 132/78
--- NOTE | 2020-01-20 22:39 | NUR ---
Pt. has been complaining of pulsating in upper abdomen. Pt. describes it as severe hiccups. Pt was visited by [employer] rep early today and pacemaker was reprogrammed with relief of symptoms. Upon changing for bed pt lifted arms to put on night gown and pulsating resumed. Day nurse Augustina reported that she contacted [employer] again and rep is to return later tonight. [employer] rep returned at 22:20 and reprogrammed again successfully. Abdomen is no longer pulsating and pt is resting comfortably in bed. Follow up report with programmed settings from [employer] is placed in chart.
--- NOTE | 2020-01-21 05:15 | NUR ---
Swing Bed Nursing Note Patient Handbook for [facility] given to patient. Nursing Problem: Confusion, weakness and multiple falls. [facility] causing a coccyx contusion. A UTI was diagnosed and abx started. Admitted to [facility] Swing bed unit for continued PT/OT and antibiotics Cognitive/Behavioral: Pt. was very pleasant during assessment, sitting up in bed watching tv without c/o. Pt was aware of self and situation, able to follow directions. Pain: c/o coccyx pain sec to fall. PRN Tylenol administered at HS. Pt slept well throughout the night. Pt. denied any further complaints of abdomen pulsating throughout night. Respiratory Status: CTA, Pt. placed on 2L while sleeping to help maintain O2 above 90%. Skin: thin and fragile, purple coloring on feet noted, coccyx bruising. dry flaky skin bilateral feet, ammonium lactate lotion applied Bowel/Bladder Continence: continent of bowel per report, LBM 01/19, stress incontinence wearing brief but has been continent of urine this shift ADL Functional Status: pt. up with gait belt and walker x1 assist. pt turns self independently in bed. takes pills whole w/o difficulty. Set up help with snack and ate independently. toileting-pt walks to bathroom with walker and gait belt x1 assist, requires some assistance pulling up brief, able to wipe self independently.
[2020-01-21 07:32] VITALS: BP 148/78
[2020-01-21] MEDS: CITALOPRAM 10 MG TABLET. PO SCH (08:17)
[2020-01-21] MEDS: METOPROLOL SUCC 24HR ER 50 MG TAB.ER.24H. PO SCH (08:17)
[2020-01-21] MEDS: PANTOPRAZOLE 40 MG TABLET. PO SCH (08:17)
[2020-01-21] MEDS: LACTOBACILLUS RHAMNOSUS GG 1 CAPSULE. PO SCH ×2 (08:17→20:27)
[2020-01-21] MEDS: CLOPIDOGREL BISULFATE 75 MG TABLET PO SCH (08:17)
[2020-01-21] MEDS: AMIODARONE HCL 200 MG TABLET PO SCH (08:18)
[2020-01-21] MEDS: AMMONIUM LACTATE 12% TOPICAL LOTION 226GM BOTTLE. TP SCH ×2 (08:19→20:28)
[2020-01-21] MEDS: CARBAMIDE PEROXIDE 6.5% OTIC SOLUTION 15ML BOTTLE. AU SCH ×2 (08:19→20:28)
--- OUTSIDE RECORDS SUMMARY | 2020-01-21 09:16 | XMS REPORT | Patient Health Record ---
Author Author [facility] Phys[facility] Organization [facility] Address Unknown Phone Unavailable Care Team Providers Care Operator/Assistant Foreman Name Role Phone KYM LOPEZ Unavailable [phone] RAZA JO Unavailable [phone] DAVEY RIVERS Unavailable [phone] Fern Chery Unavailable [phone] CHAKA PEÑA Unavailable [phone] Bhargavi Bloom Unavailable [phone] BAYRON NEWMANBERLY Unavailable [phone] Mark Anthony SANCHEZ Unavailable [phone] Leoncio Hill Unavailable [phone] MAXINE BAIRD Unavailable [phone] PROBLEMS Type Condition ICD9-CM Code GCI61-VF Code Onset Dates Condition S tatus SNOMED Code Notes Problem Cardiac pacemaker in situ Z95.0 Active 354211 002 Normal in office device check today. Problem Hypertension 401.9 Active 04531130 Well-contr olled. 2-D echocardiogram showed normal left ventricle systolic function. Problem Paroxysmal atrial fibrillation I48.0 Active 2 31783515 Problem Cardiomyopathy I42.9 Active 52633030 Problem PAF (paroxysmal atrial fibrillation) I48.0 Act biju 15166085 No recurrence based on recent device interrogation Problem Frequent PVCs I49.3 Active 712970421 Problem Cardiomyopathy I42.9 Active 05968530 Problem PVC (premature ventricular contraction) I49.3 Active 23545999 Problem Complete heart block I44.2 Active 71520942 Problem SSS (sick sinus syndrome) I49.5 Active 740744 00 s/p Dual chamber pacemaker. Problem Ischemic cardiomyopathy I25.5 Active 27694723 4 Problem Dyslipidemia E78.5 Active 576216902 Problem History of right hip hemiarthroplasty Z96.641 tive 003342466 ALLERGIES Allergen (clinical drug ingredient) Drug/Non Drug Allergy do cumented on EMR Reaction Allergy Type Onset Date Status Codeine codeine([facility] Code:[address]-72) Unknown Drug Allergy Active ENCOUNTERS from 1935 to 2020-01-20 Encounter Location Date Provider Diagnosis [facility] [place] [address] [facility] [address] [place] [address] Mar, RAZA JO [facility] [address] [phone] Oct, MEJIA DEAN [facility] [address] [id number] Oct, MEJIA DEAN Closed fracture of right hip with routine healing, subsequent encounter S72.001D [facility] [address] [facility] [address] [facility] [place] [address] [id number] Oct, MEJIA DEAN [facility] [address] [facility] [address] [place] [address] [id number] Sep, RAZA JO [facility] [address] [id number] Sep, MEJIA DEAN [facility] [place] [address] [facility] [address] [place] [phone] Jun, RAAZ JO Ischemic cardiomyopathy I25. 5 ; PAF (paroxysmal atrial fibrillation) I48.0 ; Dyslipidemia E78.5 ; Cardiac pacemaker in situ Z95.0 and Frequent PVCs I49.3 [facility] [place] [address] [facility] [address] [facility] [place] [address] Mar, RAZA JO Cardiomyopathy I42.9 and PVC (premature ventricular contraction) I49.3 [facility] [address] [facility] [address] [place] [id number] Mar, RAZA JO [facility] [place] [address] [place] [address] Dec, RAZA KATRAPATI Ischemic cardiomyopathy I25. 5 ; PAF (paroxysmal atrial fibrillation) I48.0 ; Dyslipidemia E78.5 and Cardiac pacemaker in situ Z95.0 [facility] [address] [place] [address] [id number] Dec, DAVEY PASNOORI Cardiac pacemaker in situ Z9 5.0 [facility] [address] [place] [address] [id number] Oct, RAZA SANDRO Paroxysmal atrial fibrillati on I48.0 [facility] [address] [place] [address] [id number] Oct, RAZA SANDRO [facility] [address] [place] [address] [id number] Oct, RAZA SANDRO Cardiac pacemaker in situ Z9 5.0 [facility] [place] [address] [place] [phone] Oct, RAZA KATRAPATI Ischemic cardiomyopathy I25. 5 ; PAF (paroxysmal atrial fibrillation) I48.0 ; Dyslipidemia E78.5 and Cardiac pacemaker in situ Z95.0 [facility] [address] [place] [address] [id number] Oct, RAZA PRANAVPATI [facility] [address] [place] [address] [id number] Oct, RAZA PRANAVPATI [facility] [place] [address] [facility] [address] [place] [phone] Sep, RAZA KATRAPATI Ischemic cardiomyopathy I25. 5 ; PAF (paroxysmal atrial fibrillation) I48.0 ; Dyslipidemia E78.5 and Cardiac pacemaker in situ Z95.0 [facility] [address] [place] [address] [id number] Jun, DAVEY PASNOORI Cardiac pacemaker in situ Z9 5.0 [facility] [address] [place] [address] [id number] Mar, RAZA KATRAPATI Cardiac pacemaker in situ Z9 5.0 [facility] [place] [address] [place] [address] Mar, RAZA KATRAPATI Cardiac pacemaker in situ Z9 5.0 ; Paroxysmal atrial fibrillation I48.0 ; Ischemic cardiomyopathy I25.5 and Dyslipidemia E78.5 [facility] [address] [place] [address] [id number] Dec, RAZA EULALIORACHAPIS Cardiac pacemaker in situ Z9 5.0 [facility] [place] [address] [facility] [place] [address] Oct, RAZA KATPATI PAF (paroxysmal atrial fibri llation) I48.0 and Ischemic cardiomyopathy I25.5 [facility] [place] [address] [facility] [place] [address] Oct, Fern Chery Cardiac pacemaker in situ Z9 5.0 [facility] [address] [place] [address] [id number] Oct, RAZA PRANAVPATI [facility] [address] [place] [address] [id number] Oct, RAZA SANDRO [facility] [address] [place] [address] [id number] Oct, RAZA EULALIORAPATI [facility] [address] [facility] [place] [address] [id number] Sep, KYM LOPEZ History of right hip hemiart hroplasty Z96.641 [facility] [address] [facility] [address] [place] [address] [id number] Sep, RAZA KATRAPATI Cardiac pacemaker in situ Z9 5.0 [facility] [place] [address] [facility] [address] [facility] [place] [address] Sep, RAZA KATRAPATI Cardiac pacemaker in situ Z9 5.0 ; Paroxysmal atrial fibrillation I48.0 ; Ischemic cardiomyopathy I25.5 and Dyslipidemia E78.5 [facility] [address] [place] [address] [place] [address] [id number] Aug, KYM LOPEZ History of right hip hemiart hroplasty Z96.641 [facility] [address] [place] [address] [place] [address] [id number] Jul, KYM LOPEZ [facility] [address] [place] [address] [id number] Jul, RAZA JO [facility] [place] [address] [place] [address] Jul, RAZA JO Cardiac pacemaker in situ Z9 5.0 ; Paroxysmal atrial fibrillation I48.0 ; Ischemic cardiomyopathy I25.5 and Dyslipidemia E78.5 [facility] [address] [facility] [place] [address] [place] [address] [id number] Jul, KYM LOPEZ Closed fracture of right hip with routine healing, subsequent encounter S72.001D [facility] [address] [facility] [place] [address] [id number] Jun, KYM LOPEZ Closed fracture of right hip with routine healing, subsequent encounter S72.001D [facility] [address] [facility] [address] [place] [address] [id number] Jun, RAZA JO Cardiac pacemaker in situ Z9 5.0 [facility] [address] [facility] [address] [place] [address] [id number] Jun, KYM LOPEZ Closed fracture of right hip with routine healing, subsequent encounter S72.001D [facility] [address] [facility] [address] [place] [address] [id number] May, RAZA JO [facility] [place] [address] [place] [address] May, RAZA JO Ischemic cardiomyopathy I25. 5 ; SSS (sick sinus syndrome) I49.5 ; PAF (paroxysmal atrial fibrillation) I48.0 and Dyslipidemia E78.5 [facility] [address] [place] [address] [id number] May, RAZA JO Ischemic cardiomyopathy I25. 5 and Paroxysmal atrial fibrillation I48.0 [facility] [address] [place] [address] [id number] May, RAZA JO [facility] [address] [facility] [address] [place] [address] [id number] May, AUDIE NEWMAN [facility] [address] [place] [address] [place] [id number] May, KYM LOPEZ [facility] [address] [place] [id number] Mar, RAZAFAUSTO JO Cardiac pacemaker in situ Z9 5.0 [facility] [place] [address] [facility] [place] [address] Feb, RAZAFAUSTO JO Ischemic cardiomyopathy I25. 5 ; SSS (sick sinus syndrome) I49.5 ; PAF (paroxysmal atrial fibrillation) I48.0 and Dyslipidemia E78.5 [facility] [address] [place] [id number] Dec, RAZAFAUSTO JO Cardiac pacemaker in situ Z9 5.0 [facility] [place] [address] [facility] [place] [address] Oct, RAZAFAUSTO JO Ischemic cardiomyopathy I25. 5 ; SSS (sick sinus syndrome) I49.5 and PAF (paroxysmal atrial fibrillation) I48.0 [facility] [address] [place] [address] [id number] Oct, RAZAFAUSTO JO [facility] [address] [place] [address] [id number] Aug, RAZAFAUSTO JO Cardiac pacemaker in situ Z9 5.0 [facility] [place] [address] [facility] [place] [address] Jul, RAZAFAUSTO JO Ischemic cardiomyopathy I25. 5 ; SSS (sick sinus syndrome) I49.5 and PAF (paroxysmal atrial fibrillation) I48.0 [facility] [address] [place] [address] [id number] Jul, RAZAFAUSTO JO [facility] [address] [place] [address] [id number] Jul, RAZAFAUSTO JO Ischemic cardiomyopathy I25. 5 [facility] [address] [place] [id number] Jul, RAZAFAUSTO JO [facility] [address] [place] [address] [id number] Jul, RAZA TSAIAMADO [facility] [address] [place] [address] [id number] Jul, RAZAFAUSTO JO Cardiomyopathy I42.9 [facility] [address] [place] [address] [id number] Jul, RAZAFAUSTO JO Cardiomyopathy I42.9 [facility] [address] [place] [address] [id number] Jul, RAZAFAUSTO JO [facility] [address] [place] [address] [id number] Jun, RAZAFAUSTO JO [facility] [address] [place] [address] [id number] Jun, RAZAFAUSTO [place] Paroxysmal atrial fibrillati on I48.0 ; Cardiomyopathy I42.9 and Complete heart block I44.2 [facility] [place] [address] [place] [address] Apr, DAVEY PASNOORI Complete heart block I44.2 ; Paroxysmal atrial fibrillation I48.0 and Hypertension I10 [facility] [address] [place] [address] [id number] Apr, DAVEY PASNOORI Complete heart block I44.2 a nd Cardiac pacemaker in situ Z95.0 [facility] [address] [place] [address] [id number] Jan, DAVEY PASNOORI Complete heart block I44.2 a nd Cardiac pacemaker in situ Z95.0 [facility] [address] [place] [address] [id number] November, DAVEY PASNOORI Paroxysmal atrial fibrillati on I48.0 [facility] [place] [address] [place] [address] Oct, DAVEY PASNOORI Complete heart block I44.2 ; Paroxysmal atrial fibrillation I48.0 and Hypertension I10 [facility] [address] [place] [address] [id number] Aug, Fern Chery Complete heart block I44.2 a nd Cardiac pacemaker in situ Z95.0 [facility] [address] [place] [address] [id number] Jul, DAVEYEULALIO ARAGONNOORI [facility] [address] [place], [place] [id number] Jul, DAVEYEULALIO ARAGONNOORI [facility] [place] [address] [place] [address] Jul, DAVEY RIVERS Complete heart block I44.2 ; Paroxysmal atrial fibrillation I48.0 and Hypertension I10 [facility] [address] [place] [phone] Jun, DAVEYEULALIO ARAGONNOORI [facility] [place] [address] [facility] [place] [address] Mar, DAVEYEULALIO RIVERS Abnormal EKG 794.31 ; Hypert ension 401.9 and Varicose veins 454.9 [facility] [place] [address] [facility] [place] [address] Feb, DAVEY RIVERS Abnormal EKG 794.31 ; Hypert ension 401.9 and Varicose veins 454.9 [facility] [place] [address] [place] [address] Jan, CHAKA CASEY Chest pain 786.50 and Nausea 787.02 [facility] [place] [address] [facility] [address] [place], [place] [phone] Jan, zmirelaSTRYAN LynnMAN UTI (urinary tract infection ) 599.0 [facility] [address] [place] [phone] Jan, zzzSTEVE zzzWAXMAN [facility] [address] [place], [place] [phone] Jan, zzzSTEVE leannaWAXMAN UTI (urinary tract infection) 599.0 [facility] [address] [place] [phone] Oct, Mark Anthony RICHARDSON Urinary tract infection NOS 599.0 and Breast tenderness 611.71 [facility] [place] [facility] [address] [place] [address] Oct, CHAKA PEÑA [facility] [place] [address] [place] [address] Oct, CHAKA PEÑA Abdominal pain 789.00 [facility] [place] [address] [place] [address] Oct, CHAKAForest PEÑA UTI (lower urinary tract inf ection) 599.0 and Special screening for malignant neoplasms of other sites V76.49 [facility] [place] [address] [place] [address] Sep, CHAKA PEÑA Dysuria 788.1 [facility] [place] [address] [place] [address] Aug, zzzC IVONNE zzzJACKSON [facility] [place] [address] [place] [address] Jul, zzzC IVONNE zzzJACKSON [facility] [place] [address] [place] [address] Jun, MAXINE BAIRD IMMUNIZATIONS No Information SOCIAL HISTORY Tobacco Use: Social History Observation Description Date Details (start date - stop date) Never Smoker Sex Assigned At : Social History Observation Description Sex Assigned At Unknown Tobacco Questionnaire: Question Answer Notes Are you a: never smoker REASON FOR REFERRAL from 1935 to 2020-01-20 Reason ccd Referring Provider First Name VINNY Referring Provider Last Name NIKO Referring Provider Specialty Neurology Referring Provider email [email or web address] Referred Provider N/A, [email or web address] VITAL SIGNS from 1933 to 2020-01-20 Height 5'3'' in Oct, Weight w/c lbs Oct, BMI 24.62 kg/m2 Jun, Temperature 98.0 degrees Fahrenheit Oct, Respiratory Rate 16 /min Sep, Oximetry 93 % Jun, Blood pressure systolic 146 mm Hg Oct, Blood pressure diastolic 82 mm Hg Oct, MEDICATIONS Medication SIG (Take, Route, Frequency, Duration) Start Date En d Date Status Plavix 75 mg 1 tab(s) orally once a day A ctive Metoprolol Succinate ER 50 mg 1 tab(s) orally once a day Active aspirin 81 mg 1 tab(s) orally once a day Active Celexa 20 mg 1 tab(s) orally once a day A ctive amiodarone 200 mg 1 tab(s) orally once a day Mar, Active Acetaminophen-Hydrocodone Bitartrate 325 mg-5 mg 1 tab (s) orally every 6 hours for 15 day(s) May, Active pantoprazole 40 mg 1 tab(s) orally once a day Active Vitamin D3 1000 intl units 1 cap(s) orally once a day for 30 day(s) Active Protonix 40 mg 1 tab(s) orally as needed for 90 days Active lisinopril 5 mg 1 tab(s) orally once a day for 90 days Jul, Active TOPROL XL 50 mg 1 tab(s) orally once a day for 90 days Oct, Not-Taking furosemide 20 mg 1 tab(s) orally once a day as needed for 90 day s Jun, Active PROCEDURES from 1935 to 2020-01-20 Procedure Date Ordered Result Body Site Bladder Scan 2014-01-23 N/A Electrocardiogram, complete 2014-02-11 N/A Remote Pacemaker Check 2015-09-07 N/A Remote Pacemaker Check 2018-01-04 N/A Remote Pacemaker Check 2018-04-05 N/A Remote Pacemaker Check 2018-07-05 N/A Remote Pacemaker Check 2018-10-04 N/A Pacemaker In Person Programming Dual Lead 2018-10-31 N/A Remote Pacemaker Check 2019-01-03 N/A RESULTS No Results REASON FOR VISIT fall fu , left knee pain has had falls /Surg 10/08 Lt femoral neck fx NEEDS XRAY S , PA Issue, left hip, left hip hemiarthroplasty 10/09/19, doing physical therap y, walking with a walker, would like refill of hydrocodone, having pain while tr [place] to sleep, appt on 11/13, left hip, left hip, Cardiomessenger, WC fup, 6 mo fu, hosp fu / does she need dec appt?, High PVC count., PVC''s, Right hip, 3 mo, 90 Day Remote Device Check, Pt is out of med today PK pt, refer to yannick in offi ce check, per pk , Request call from Dr Stovall, FU 6MTH LV, 90 Day Device Check, 6 mo , 90 Day Device Check, 6 mo fu, 90 Day Device Check, Annual In Office Check, F/U with device check, ABD QUIVERING-CONSIRNED WITH BP, MEDLIST VARIFIED/ BRILINTA CHANGED TO PLAVIX, QUESTIONS ON ATORVASTATIN DOSE, f/u right hip - pt states so metimes will have pain in groin area when doing a lot of walking. , 90 Day Devic e Check, Hospital follow up- remote check done in June/Next one due October 04 , fu [facility] had floor call for appt, 6 months follow up, Right Esteban Hip Fem ur 08/22/2017 - pt feels doing well. An pain is surgical pain. in PT three times a day. , Right Esteban Hip Femur, CARDIAC CLEARANCE PROVIDED, fu mid jul after echo , fu , needs fu , 3 wk f/u right hip - pt complains of continued pain. , 90 Day Device Check, Post op R hip Fracture - pain comes and goes is getting better. Francis llanes member with pt at appointment states pt does complain about pain in right p osterior buttock and also groin, Need Echo order, 4 weeks hospital follow up, VANESSA SINORPIL/LASIX/TOPROL REFILLS, Zenaida/ Stitches, Hospital follow up, Follow Up , LHC/Stent, 90 Day Device Check, 4 months follow up, 90 Day Device Check, FU , Follow Up, 6 mth, PROTONIX AND BRILINTA REFILLS, 90 Day Device Check, fu per EMELINA Geiger HSPT FU, LOW BP/DIZZINESS, Zoll Life Vest, PTCA/LAD, START ED ON ENTRESTO SAMPLES, LHC, POTASSIUM RX ?, SOA, INCREASED EDEMA, Right side fl uid build up , Follow up, 90 Day Device Check, BIOTRONIK [place], Follow up, 90 Day Device Check, FLECAINIDE REFILL, Follow up with device check, 90 Day Device Check, Flushing with Flecainide., Follow up with device check, Dual Chamber Pace maker, Follow up testing, NPT- Abnormal EKG-Dr. Chau referring, cystoscopy, p t states, not much has changed since she finished bactrima few days ago, still h as burning with urination, NEW RX FOR UTI 01/27/14, recurrent uti,treated past 6 m o w/no relief, uti, walk in, uti MEDICAL (GENERAL) HISTORY Type Description Date Medical History IBS Medical History Diverticulosis Medical History Hypertension Medical History CHB Medical History PAF Medical History Ischemic cardiomyopathy Medical History Coronary artery disease, s/p PCI/stent p lacement to LAD Surgical History Cholecystectomy Surgical History section x 2 Surgical History Permanent pacemaker implantation (Biotro edgardo) 06/2015 Surgical History Right Hip Pin 05/2017 Surgical History Right hip surgery 07/2017 Surgical History left hip hemiarthroplasty 10/09/19 Hospitalization History CHF/Fatigue 06/2015 Goals Section No Information Health Concerns No Information MEDICAL EQUIPMENT No Information MENTAL STATUS No Information FUNCTIONAL STATUS No Information ASSESSMENTS Encounter Date Diagnosis Notes Mar, Cardiac pacemaker in situ (ICD-10 - Z95. 0) Remote device check reveals stable impedances (RA 468, RV 507), thresholds (RA 0.6 V @ 0.4 ms, RV 0.6 V @ 0.4 ms) and sensing (RA 3.1 mV, RV 8.4 mV). Adequate battery life ~80%. 99% v paced. 0 new HVRs. Mar, Cardiac pacemaker in situ (ICD-10 - Z95. 0) Remote device check reveals stable impedances (RA 449, RV 507), thresholds (RA 0.6 V @ 0.4 ms, RV 0.7 V @ 0.4 ms) and sensing (RA 2.3 mV, RV 9.6 mV). Adequate battery life ~90%. 93% v paced. No HVRs or mode switching. Sep, Ischemic cardiomyopathy (ICD-10 - I25.5) Jun, Cardiac pacemaker in situ (ICD-10 - Z95. 0) Remote device check reveals stable impedances (RA 468, RV 507), thresholds (RA 0.6 V @ 0.4 ms, RV 0.6 V @ 0.4 ms) and sensing (RA 1.9 mV, RV 8.5 mV). Adequate battery life ~80%. 99% v paced. 0 new HVR EGMs since November 2017. Oct, PAF (paroxysmal atrial fibrillation) (IC D-10 - I48.0) No recurrence based on recent device interrogation Sep, History of right hip hemiarthroplasty (I CD-10 - Z96.641) Dec, Cardiac pacemaker in situ (ICD-10 - Z95. 0) Remote device check reveals stable impedances (RA 468, RV 507), thresholds (RA 0.6 V @ 0.4 ms, RV 0.6 V @ 0.4 ms) and sensing (RA 2.2 mV, RV 8.0 mV). Adequate battery life ~85%. 98% v paced. 0 new HVRs. Oct, Cardiac pacemaker in situ (ICD-10 - Z95. 0) Programming device check reveals stable impedances (RA 448, RV 487), thresholds (RA 0.6 V @ 0.4 ms, RV 0.6 V @ 0.4 ms) and sensing (RA 2.8 mV, RV 5.3 mV). Adequate battery life ~85%. 94% v paced. 8 HVRs consistent with NSVT. Sep, Cardiac pacemaker in situ (ICD-10 - Z95. 0) Remote device check reveals stable impedances (RA 449, RV 488), thresholds (RA 0.5 V @ 0.4 ms, RV 0.6 V @ 0.4 ms) and sensing (RA 1.8 mV, RV 7.9 mV). Adequate battery life ~90%. 93% v paced. No HVRs or mode switching. Sep, Cardiac pacemaker in situ (ICD-10 - Z95. 0) Remote device check reveals stable impedances (RA 449, RV 507), thresholds (RA 0.6 V @ 0.4 ms, RV 0.7 V @ 0.4 ms) and sensing (RA 2.3 mV, RV 9.6 mV). Adequate battery life ~90%. 93% v paced. No HVRs or mode switching. Jul, Closed fracture of right hip with routine healing, subsequent encounter (ICD-10 - S72.001D) Jun, Closed fracture of right hip with routine healing, subsequent encounter (ICD-10 - S72.001D) Aug, H/O total hip arthroplasty, right (ICD-1 0 - Z96.641) Jul, Cardiac pacemaker in situ (ICD-10 - Z95. 0) Remote device check reveals stable impedances (RA 449, RV 507), thresholds (RA 0.6 V @ 0.4 ms, RV 0.7 V @ 0.4 ms) and sensing (RA 2.3 mV, RV 9.6 mV). Adequate battery life ~90%. 93% v paced. No HVRs or mode switching. May, Ischemic cardiomyopathy (ICD-10 - I25.5) May, Ischemic cardiomyopathy (ICD-10 - I25.5) Jun, Cardiac pacemaker in situ (ICD-10 - Z95. 0) Remote device check reveals stable impedances (RA 449, RV 507), thresholds (RA 0.6 V @ 0.4 ms, RV 0.7 V @ 0.4 ms) and sensing (RA 2.3 mV, RV 9.6 mV). Adequate battery life ~90%. 93% v paced. No HVRs or mode switching. Jun, Closed fracture of right hip with routine healing, subsequent encounter (ICD-10 - S72.001D) Aug, History of right hip hemiarthroplasty (I CD-10 - Z96.641) Dec, PAF (paroxysmal atrial fibrillation) (IC D-10 - I48.0) No recurrence based on recent device interrogation Mar, PVC (premature ventricular contraction) (ICD-10 - I49.3) Mar, Cardiac pacemaker in situ (ICD-10 - Z95. 0) Remote device check reveals stable impedances (RA 449, RV 507), thresholds (RA 0.6 V @ 0.4 ms, RV 0.7 V @ 0.4 ms) and sensing (RA 2.8 mV, RV 10.5 mV). Adequate battery life ~90%. 69% v paced. No HVRs or mode switching. Jul, Ischemic cardiomyopathy (ICD-10 - I25.5) Jul, Ischemic cardiomyopathy (ICD-10 - I25.5) Life vest download reveals Sinus rhythm with 1st degree AVB. There were occasional multifocal PVCs and occasional premature atrial contractions. No significant arrhythmias were noted. The recording summary noted one detected / not treated episode which was not associated with any arrhythmias. There were 5 patient initiated recordings not associated with any arrhythmias. The patient wore the Vest for 3 days with an average daily use of 13.41 hours. Oct, Ischemic cardiomyopathy (ICD-10 - I25.5) Aug, Cardiac pacemaker in situ (ICD-10 - Z95. 0) Remote device check reveals stable impedances (RA 468, RV 507), thresholds (RA 0.6 V @ 0.4 ms, RV 0.7 V @ 0.4 ms) and sensing (RA 2.8 mV, RV 8.8 mV). Adequate battery life ~90%. 38% v paced. 3 HVRs consistasnt with short salvos of NSVT, longest 15 beats. 03 Jul, 2016 Cardiomyopathy (ICD-10 - I42.9) Aug, GERD (gastroesophageal reflux disease) ( ICD-10 - K21.9) Jun, Paroxysmal atrial fibrillation (ICD-10 - I48.0) Oct, Degenerative arthritis (ICD-10 - M19.90) Jul, Unstable angina (ICD-10 - I20.0) Aug, Paroxysmal a-fib (ICD-10 - I48.0) Jul, Cardiomyopathy (ICD-10 - I42.9) Oct, Cardiac pacemaker (ICD-10 - Z95.0) Feb, Ischemic cardiomyopathy (ICD-10 - I25.5) Dec, Cardiac pacemaker in situ (ICD-10 - Z95. 0) Remote device check reveals stable impedances (RA 468, RV 488), thresholds (RA 0.6 V @ 0.4 ms, RV 0.7 V @ 0.4 ms) and sensing (RA 2.2 mV, RV 8.5 mV). Adequate battery life ~90%. 53% v paced. 2 HVRs consistant with short salvos of NSVT, longest 18 beats. Oct, Gastro-esophageal reflux dis ease without esophagitis (ICD-10 - K21.9) Oct, Irritable bowel syndrome (ICD-10 - K58.9 ) Aug, Osteoarthritis (ICD-10 - M19.90) Aug, Irritable bowel (ICD-10 - K58.9) Oct, Complete heart block (ICD-10 - I44.2) s/ p permanent pacemaker implantation. Her device was interrogated and found to be functioning well. 15 Aug, 2015 Complete heart block (ICD-10 - I44.2) Jan, Complete heart block (ICD-10 - I44.2) November, Paroxysmal atrial fibrillation (ICD-10 - I48.0) Feb, Abnormal EKG (ICD9-CM - 794.31) EKG show ed sinus rhythm with inferolateral ST depressions. We will obtain Lexiscan nuclear stress test to rule out ischemia. Jul, Complete heart block (ICD-10 - I44.2) s/ p recent permanent pacemaker implantation. Her device was interrogated and found to be functioning well. Her incision healed well. Mar, Abnormal EKG (ICD9-CM - 794.31) EKG show ed sinus rhythm with inferolateral ST depressions. Lexiscan nuclear stress test did not show any ischemia. Patient is cleared for colonoscopy from cardiac standpoint. Apr, Complete heart block (ICD-10 - I44.2) s/ p permanent pacemaker implantation. Her device was interrogated recently and found to be functioning well. Apr, Complete heart block (ICD-10 - I44.2) Apr, Ischemic cardiomyopathy (ICD-10 - I25.5) Sep, Dysuria (ICD9-CM - 788.1) Oct, Abdominal pain (ICD9-CM - 789.00) Jul, Dyslipidemia (ICD-10 - E78.5) Oct, UTI (lower urinary tract infection) (ICD 9-CM - 599.0) Aug, Benign essential HTN (ICD-10 - I10) Mar, Paroxysmal atrial fibrillation (ICD-10 - I48.0) Feb, Dyslipidemia (ICD-10 - E78.5) Oct, Ischemic cardiomyopathy (ICD-10 - I25.5) May, Dyslipidemia (ICD-10 - E78.5) Oct, PAF (paroxysmal atrial fibrillation) (IC D-10 - I48.0) No recurrence based on recent device interrogation Oct, Paroxysmal a-fib (ICD-10 - I48.0) Sep, PAF (paroxysmal atrial fibrillation) (IC D-10 - I48.0) No recurrence based on recent device interrogation Apr, Dyslipidemia (ICD-10 - E78.5) Jan, UTI (urinary tract infection) (ICD9-CM - 599.0) 18 Oct, 2013 Urinary tract infection NOS (ICD9-CM - 5 99.0) Jan, Chest pain (ICD9-CM - 786.50) Jan, UTI (urinary tract infection) (ICD9-CM - 599.0) Jul, Paroxysmal atrial fibrillation (ICD-10 - I48.0) Oct, Cardiac pacemaker in situ (ICD-10 - Z95. 0) Normal in office device check today. May, SSS (sick sinus syndrome) (ICD-10 - I49. 5) s/p Dual chamber pacemaker. Dec, Cardiac pacemaker in situ (ICD-10 - Z95. 0) Normal in office device check today. Sep, Paroxysmal atrial fibrillation (ICD-10 - I48.0) Mar, Dyslipidemia (ICD-10 - E78.5) Aug, Athscl heart disease of kaitlynn ve coronary artery w/o ang pctrs (ICD- 10 - I25.10) Sep, Cardiac pacemaker in situ (ICD-10 - Z95. 0) Remote device check reveals stable impedances (RA 468, RV 507), thresholds (RA 0.6 V @ 0.4 ms, RV 0.6 V @ 0.4 ms) and sensing (RA 3.1 mV, RV 8.4 mV). Adequate battery life ~80%. 99% v paced. 0 new HVRs. Sep, Dyslipidemia (ICD-10 - E78.5) May, Paroxysmal atrial fibrillation (ICD-10 - I48.0) Feb, SSS (sick sinus syndrome) (ICD-10 - I49. 5) s/p Dual chamber pacemaker. Oct, SSS (sick sinus syndrome) (ICD-10 - I49. 5) s/p Dual chamber pacemaker. 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 5) s/p Dual chamber pacemaker. Jun, Cardiac pacemaker in situ (ICD-10 - Z95. 0) Normal in office device check today. Jul, Cardiomyopathy (ICD-10 - I42.9) Oct, CAD (coronary artery disease) (ICD-10 - I25.10) Apr, Paroxysmal atrial fibrillation (ICD-10 - I48.0) Device interrogation showed an episode of atrial fibrillation recently that lasted 11 hours. Last 2-D echo showed normal left ventricle systolic function. Continue aspirin. Start flecainide for rhythm maintenance. We will repeat device check in 3 months to assess atrial fibrillation burden and consider long-term anticoagulation. Aug, Cardiac pacemaker (ICD-10 - Z95.0) Apr, Complete heart block (ICD-10 - I44.2) Oct, SSS (sick sinus syndrome) (ICD-10 - I49. 5) Apr, Closed fracture of right hip with routine healing, subsequent encounter (ICD-10 - S72.001D) Aug, SSS (sick sinus syndrome) (ICD-10 - I49. 5) Apr, SSS (sick sinus syndrome) (ICD-10 - I49. 5) s/p Dual chamber pacemaker. Oct, HLD (hyperlipidemia) (ICD-10 - E78.5) Aug, HLD (hyperlipidemia) (ICD-10 - E78.5) Oct, HTN (hypertension) (ICD-10 - I10) Apr, Paroxysmal atrial fibrillation (ICD-10 - I48.0) Device interrogation did not show any further episodes of atrial fibrillation. Check 2-D echocardiogram to assess LV systolic function. Continue flecainide for rhythm maintenance. Apr, Cardiac pacemaker in situ (ICD-10 - Z95. 0) Remote device check reveals stable impedances (RA 488, RV 507), thresholds (RA 0.7 V @ 0.4 ms, RV 0.9 V @ 0.4 ms) and sensing (RA 3.1 mV, RV 8.8 mV). Adequate battery life ~90%. No high rates or mode switching. 98% v paced. Apr, Hypertension (ICD-10 - I10) Patient was taken off all antihypertensives in the interim due to low blood pressure. Her blood pressure has been well-controlled. Jan, Cardiac pacemaker in situ (ICD-10 - Z95. 0) Remote device check reveals stable impedances (RA 566, V546), thresholds (RA 0.8 V @ 0.4 ms, RV 0.8 V @ 0.4 ms) and sensing (RA 3.1 mV, RV 8.9 mV). Adequate battery life. No high rates or mode switching. 89% v paced. Apr, Hypertension (ICD-10 - I10) Well-control led. Jul, Hypertension (ICD-10 - I10) Well-control led. Oct, Hypertension (ICD-10 - I10) Well-control led. Jul, Paroxysmal atrial fibrillation (ICD-10 - I48.0) Device interrogation showed an episode of atrial fibrillation recently that lasted 11 hours. Last 2-D echo showed normal left ventricle systolic function. Continue aspirin. Start flecainide for rhythm maintenance. We will repeat device check in 3 months to assess atrial fibrillation burden and consider long-term anticoagulation. Feb, Varicose veins (ICD9-CM - 454.9) We will obtain lower extremity venous duplex scan to assess the significance of reflux and consider ablation therapy if needed. Mar, Hypertension (ICD9-CM - 401.9) Well-cont rolled. 2-D echocardiogram showed normal left ventricle systolic function. Mar, Varicose veins (ICD9-CM - 454.9) We will obtain lower extremity venous duplex scan to assess the significance of reflux and consider ablation therapy if needed. Oct, Paroxysmal atrial fibrillation (ICD-10 - I48.0) Device interrogation did not show any further episodes of atrial fibrillation. Last 2- D echo showed normal left ventricle systolic function. Continue flecainide for rhythm maintenance. Jun, PAF (paroxysmal atrial fibrillation) (IC D-10 - I48.0) No recurrence based on recent device interrogation Aug, Cardiac pacemaker in situ (ICD-10 - Z95. 0) Remote device check reveals stable impedances (A566, V546) and sensing (A3.1, V12.1). Adequate battery life. No high rates or mode switching. Mean PVC burden has decreased. Oct, Presence of left artificial hip joint (I CD-10 - Z96.642) Oct, Breast tenderness (ICD9-CM - 611.71) Jun, Complete heart block (ICD-10 - I44.2) Oct, Special screening for malign ant neoplasms of other sites (ICD9-CM - V76.49) Jul, PAF (paroxysmal atrial fibrillation) (IC D-10 - I48.0) No recurrence based on recent device interrogation Feb, Hypertension (ICD9-CM - 401.9) Well-cont rolled. Check 2-D echocardiogram to assess LV function. Jan, Nausea (ICD9-CM - 787.02) Apr, PAF (paroxysmal atrial fibrillation) (IC D-10 - I48.0) No recurrence based on recent device interrogation Oct, Unspecified open wound, left hip, initial encounter (ICD-10 - S71.002A) Mar, Ischemic cardiomyopathy (ICD-10 - I25.5) Jun, Ischemic cardiomyopathy (ICD-10 - I25.5) Aug, Weakness (ICD-10 - R53.1) Oct, Closed fracture of right hip with routine healing, subsequent encounter (ICD-10 - S72.001D) Sep, Ischemic cardiomyopathy (ICD-10 - I25.5) Dec, Ischemic cardiomyopathy (ICD-10 - I25.5) May, PAF (paroxysmal atrial fibrillation) (IC D-10 - I48.0) No recurrence based on recent device interrogation Dec, Cardiac pacemaker in situ (ICD-10 - Z95. 0) 90 Day Remote pacemaker device check reveals DDD mode, stable lead impedances (RA 468, RV 507), thresholds (RA 0.6V@0.40ms, RV 0.5V@0.40ms), and sensing (RA 2.3mV, RV 8.9mV). Battery life at 75%. AF [place] 0%. RV Pacing 99%. No ventricular high rates or mode switching. Continue to monitor. Jul, Ischemic cardiomyopathy (ICD-10 - I25.5) Mar, Cardiomyopathy (ICD-10 - I42.9) Oct, PAF (paroxysmal atrial fibrillation) (IC D-10 - I48.0) No recurrence based on recent device interrogation Feb, Gait disorder (ICD-10 - R26.9) 16 Feb, 2017 PAF (paroxysmal atrial fibrillation) (IC D-10 - I48.0) No recurrence based on recent device interrogation Oct, Ischemic cardiomyopathy (ICD-10 - I25.5) Dec, Dyslipidemia (ICD-10 - E78.5) Jun, Dyslipidemia (ICD-10 - E78.5) Oct, Paroxysmal atrial fibrillation (ICD-10 - I48.0) Sep, Dyslipidemia (ICD-10 - E78.5) Oct, Cardiac pacemaker in situ (ICD-10 - Z95. 0) Normal in office device check today with normal impedances, threshold and sensing tests. good batery life. RV pacing 99%. See procedure noted. Oct, Dyslipidemia (ICD-10 - E78.5) PLAN OF TREATMENT Medication Medication Name Sig Start Date Stop Date Acetaminophen-Hydrocodone Bitartrate 325 mg-5 mg 1 tab (s) orally every 6 hours for 15 day(s) May, Plavix 75 mg 1 tab(s) orally once a day Treatment Notes Assessment Notes Clinical Notes Ischemic cardiomyopathy -Overall doing well since by the ICD upgrade. Continue current medical therapy. Continue exercises as able. Cardiac pacemaker in situ Status post upgrade to MEDICAL GENETICS DIRECTOR-P (Garfield cortes) Ischemic cardiomyopathy -Today she is on maximum irma erated medical therapy, appears euvolemic but does have lifestyle limiting dyspnea and fatigue. She still lives alone and enjoys life vigorously and wishes to pursue maximal interventional therapies as needed to help with her symptoms. She could consider upgrade to a by the ICD and we discussed this today and she would be interested in this. We will plan for upgrade to a by the ICD in the near future but prior to this we will have her evaluated through the heart failure clinic for any other suggestions for improvement in her symptoms. As stated previously she has been unable to tolerate afterload reducing agents and aggressive diuresis due to lower blood pressures. Cardiac pacemaker in situ Status post biv ICD Closed fracture of right hip with routine healing, sub sequent encounter She is here with her daughters and they all feel like she is slowly still getting better and working well with home health. I encouraged him to continue home health and call once those benefits have , we can get her started on outpatient. Ischemic cardiomyopathy -Overall doing well since e MEDICAL GENETICS DIRECTOR-P upgrade. She is on toprol XL and lisinopril. Continue amiodarone-She will have f/u closely with [facility]. We will see her back in 9 months. SSS (sick sinus syndrome) Last device check is within normal limits. Cardiomyopathy -In light of her cardiomyopa thy we will stop her flecainide, initiate her on long-acting metoprolol and once a day Lasix.-I discussed the risks, benefits and alternative approaches to further evaluation of her cardio myopathy including noninvasive evaluation as well as cardiac catheterization. After discussion of the risks and benefits the patient wishes to proceed with cardiac catheterization.-We will repeat a basic metabolic profile, BNP and hepatic function panel in the near future.She was advised to seek emergency care should she have any significant worsening of her symptoms. Follow-up will be scheduled in approximately 2 weeks after her cardiac catheterization. Ischemic cardiomyopathy -Currently very well compens ated and euvolemic. No angina. Continue current medical therapy.- device interrogation today reveals 28 episodes of nonsustained VT since last check in May 2017. We've had multiple discussions with her and her family about ICD upgrade with a biventricular device but they have defer this in the past. She is more inclined to considering this in the near future. She will notify us when she is ready. We'll also notify family. SSS (sick sinus syndrome) Last device check is within normal limits in December 2016. Dyslipidemia -Lipids at goal. Continue the same. Ischemic cardiomyopathy -Continue current medical th erapy. She is euvolemic and without any significant lifestyle limiting symptoms from a cardiac standpoint. Supportive care.-Continue asa/plavix indefinitely Ischemic cardiomyopathy -Given history of ischemic c ardio myopathy we will plan for testing as noted above. She previously had declined ICD which is reasonable given her age. Low atrial fibrillation burden on her pacemaker interrogation and currently no need for anticoagulation for her paroxysmal atrial fibrillation. Supportive care for now. We will await the results the testing and determine further evaluation. Dyslipidemia Off statin per PCP. Presumably her parisa sterol is at goal. Cardiac pacemaker in situ stable check, continue monitoring Dyslipidemia -Lipids at goal. Continue the same. Complete heart block Suspect that this may be rel ated to pacemaker induced cardiomyopathy. Chest pain Patient had EKG performed today PAF (paroxysmal atrial fibrillation) Low atrial fibril lation burden and given her age and antiplatelet therapy for overlapping proximal stents she has not been on anticoagulation. Ischemic cardiomyopathy -Overall, Mrs. Mueller is doing quite well. She has had significantly less fatigue and dyspnea. She is back to doing many activities.-We will refer her to [facility] cardiac rehabilitation. We will obtain an echocardiogram approximately 2-3 months from now to assess the need for any upgrade to an ICD.-Start low-dose lisinopril therapy (unable to tolerate entrest) and decrease potassium supplementation. Continue Lasix therapy. Recheck basic metabolic profile in 2 weeks. PAF (paroxysmal atrial fibrillation) No recurrence at this t adwoa. Ischemic cardiomyopathy -Referral made again to [facility] rehabilitation at [facility] echocardiogram after cardiac rehabilitation. Currently her ejection fraction is 35-40% and would not merit out great to a defibrillator. She does have a left bundle-branch block and we will repeat a echocardiogram and reassess her EKG at her next visit to determine if she would benefit from a biventricular ICD upgrade depending on her symptoms.I discussed the importance of rehabilitation today. We discussed defibrillator and its risks and benefits. PAF (paroxysmal atrial fibrillation) No recurrence at this t adwoa. Ischemic cardiomyopathy -Doing well from a cardiac p erspective. No acute indication for an ICD. Her pacemaker interrogation has not revealed any significant sustained arrhythmias.We briefly discussed her various medications and considering her abdominal discomfort I advised her that she could hold her atorvastatin or her potassium supplementation to determine if this helps her but it seems that she's had these problems well before her cardiac issues. Ischemic cardiomyopathy Denies any pain or dyspnea.A ppears euvolemic on exam.Discussed her preoperative risk. Would classify as moderate to high but not prohibitive for her hip surgery.Would prefer if able that hip surgery be done on Brilinta.EF last week at approximately 35%. Patient and family will discuss consideration for BiV upgrade.Supportive care. Ischemic cardiomyopathy -Doing well from a cardiac p erspective.-Continue monitoring. Repeat echo in 6 weeks and determine need for ICD upgrade. Not able to tolerate lifevest. Recent pacer interrogation without significant a rrhythmias. PAF (paroxysmal atrial fibrillation) No recurrence at this t adwoa. Closed fracture of right hip with routine healing, sub sequent encounter I went over with her and her daughter who was present for the visit today that there is settling the fracture is well aligned but there is a possibility that it may not continue to heal. This is typically a blood supply issue and if she continues to have it collapsed she'll likely have more pain and the possibility that we may need to convert to a hemiarthroplasty. I'm unwilling to do that at present because there is no hardware cut out and the alignment is still acceptable and there is a chance of healing. I would like to see her back in about 3-4 weeks for reexamination and x-rays sooner if she has increased pain as that may indicate some further collapse hardware cut out or other reasons that we would want to evaluate her sooner for revision Closed fracture of right hip with routine healing, sub sequent encounter I went over with the patient and her family the fact that I don't think the fracture settled anymore than what it did previously screws arm moderately prominent laterally due to the previous settling but overall it looks like it is healing in a shortened and lower offset position been previous due to the settling. There is no cut out of the screws into the joint and I think she could reasonably expect her current status to continue however she says she is very limited in terms of that and we therefore discussed the possibility of conversion to a hemiarthroplasty which could restore her leg length offset and would eliminate the lateral prominence of the screws. Overall to judgment call regarding her current status and risk of medical issues with surgery. She does wish to proceed with the surgical conversion to a hemiarthroplasty which can otherwise be scheduled at her convenience Ischemic cardiomyopathy -Continue current medical th erapy. She is euvolemic and without any significant lifestyle limiting symptoms from a cardiac standpoint. Supportive care. PAF (paroxysmal atrial fibrillation) Low atrial fibril lation burden and given her age and antiplatelet therapy for overlapping proximal stents she has not been on anticoagulation aas she is Arty on dual antiplatelet therapy. PVC (premature ventricular contraction) I spoke with h er medical van driver at and we will initiate her on amiodarone 400 mg twice a day 7 days and then 400 mg daily to help suppress her PVCs. Routine labs were obtained and her potassium and magnesium are appropriate. She will have close follow-up through [facility] as well.Her blood pressure has been slightly elevated and I've advised her to increase her lisinopril to 5 mg twice a day. PAF (paroxysmal atrial fibrillation) Low atrial fibril lation burden and given her age and antiplatelet therapy for overlapping proximal stents she has not been on anticoagulation. History of right hip hemiarthroplasty She is doing ext remely well at this point I think if she is successfully doing her activities of daily living with consideration of the help that she has at home that she could certainly go home continue to advance activities as tolerated follow-up in about a month or as needed History of right hip hemiarthroplasty She is progressi ng very well the pain that she is having is just a consequence of muscular discomfort which will hopefully continue to resolve with strengthening. I think she is coming along very well w ith this present advance activity as tolerated follow up on an as-needed basis only Cardiac pacemaker in situ Well functioning. No significant a rrhythmias. Treatment Notes Test Name Order Date Pacemaker In Person Programming Dual Lead 2020-01-20 Remote Pacemaker Check 2020-01-20 Remote Pacemaker Check 2020-01-20 Remote Pacemaker Check 2020-01-20 Remote Pacemaker Check 2020-01-20 Cardiac Rehab 2020-01-20 Remote Pacemaker Check 2020-01-20 BASIC METABOLIC PANEL 2020-01-20 Left Heart Catherization 2020-01-20 HEPATIC FUNCTION PANEL 2020-01-20 B TYPE NATRIURETIC PEPTIDE (BNP) 2020-01-20 BASIC METABOLIC PANEL 2020-01-20 CBC 2020-01-20 Remote Pacemaker Check 2020-01-20 Remote Pacemaker Check 2020-01-20 Pacemaker In Person Programming Dual Lead 2020-01-20 Pacemaker In Person Programming Dual Lead 2020-01-20 Future Test Test Name Order Date Echocardiogram, Transthoracic [id number] Referrals Referral Date Details recurrent uti's, Sara rodríguez Please evaluate and treat as indicated, [facility] CCD ccd Next Appt Details Provider Name:RAZA JO, 202 01:00:00 PM, [address], [address], [place], [address], Insurance Providers Payer Name Payer Address Payer Phone Insured Name Patient Relati onship to Insured Coverage Start Date Coverage End Date Medicare LEATHA Wy Stephanie [address] [facility] [phone] Mueller,Gisele A self [employer] Fed LEATHA [address] [facility] [id number] Mueller,Gisele A self
--- NOTE | 2020-01-21 16:36 | NUR ---
Swing Bed Nursing Note Patient Handbook for Shelter given to patient. Nursing Problem: Confusion, weakness and multiple falls. Pt had been admitted to [facility] on 01/15/20 for falls causing a coccyx contusion. A UTI was diagnosed and abx completed 01/19/20. Admitted to [facility] Swing bed unit for continued PT/OT and antibiotics Cognitive/Behavioral: Pt. was very pleasant during assessment, sitting up in bed watching tv without c/o. Pt was aware of self and situation, able to follow directions. Pain: c/o coccyx pain sec to fall. No PRN medication given today. Pt slept well throughout the night. Respiratory Status: CTA, Pt. placed on 2L while sleeping to help maintain O2 above 90%. Skin: thin and fragile, purple coloring on feet noted, coccyx bruising. dry flaky skin bilateral feet, ammonium lactate lotion applied Bowel/Bladder Continence: continent of bowel per report, LBM 01/20, stress incontinence wearing brief but has been continent of urine this shift ADL Functional Status: pt. up with gait belt and walker x1 assist. pt turns self independently in bed. takes pills whole w/o difficulty. Set up help with snack and ate independently. toileting-pt walks to bathroom with walker and gait belt x1 assist, requires some assistance pulling up brief, able to wipe self independently.
[2020-01-21] MEDS ORDERED: DICY10CA3 PO (19:31)
[2020-01-21 20:21] VITALS: BP 125/78
[2020-01-21] MEDS: DOCUSATE SODIUM 100 MG CAPSULE PO PRN (20:27)
[2020-01-21] MEDS: DICYCLOMINE HCL 10 MG CAPSULE PO SCH (20:27)
[2020-01-21] MEDS: LISINOPRIL 5 MG TABLET. PO SCH (20:28)
[2020-01-21] MEDS: ACETAMINOPHEN 325 MG TABLET PO PRN (20:28)
--- NOTE | 2020-01-22 06:01 | NUR ---
Swing Bed Nursing Note Patient Handbook for Retirement given to patient. Nursing Problem: Confusion, weakness and multiple falls. Pt had been admitted to [facility] on 01/15/20 for falls causing a coccyx contusion. A UTI was diagnosed and abx started. Admitted to [facility] Swing bed unit for continued PT/OT and antibiotics Cognitive/Behavioral: Pt. was approached to move rooms at shift change. Pt. was cooperative and followed directions while moving from wheelchair to bed. Pt has had several phone calls with family and is in pleasant mood. Pt was aware of self and situation. Pain: c/o coccyx pain sec to fall. PRN Tylenol administered at HS. Pt was placed on side with pillow under coccyx to help relieve pain. Pt slept throughout the night. Respiratory Status: CTA, Pt. placed on 2L while sleeping to help maintain O2 above 90%. Skin: thin and fragile, purple coloring on feet noted, coccyx bruising. dry flaky skin bilateral feet, ammonium lactate lotion applied Bowel/Bladder Continence: continent of bowel per report, LBM 01/20, stress incontinence wearing brief but has been continent of urine this shift ADL Functional Status: pt. up with gait belt and walker x1 assist. pt turns self independently in bed. takes pills whole w/o difficulty. Set up help with snack and ate independently. toileting-pt walks to bathroom with walker and gait belt x1 assist, requires some assistance pulling up brief, able to wipe self independently.
[2020-01-22] MEDS: LACTOBACILLUS RHAMNOSUS GG 1 CAPSULE. PO SCH ×2 (08:25→20:49)
[2020-01-22] MEDS: DICYCLOMINE HCL 10 MG CAPSULE PO SCH ×2 (08:25→20:49)
[2020-01-22] MEDS: METOPROLOL SUCC 24HR ER 50 MG TAB.ER.24H. PO SCH (08:25)
[2020-01-22] MEDS: CLOPIDOGREL BISULFATE 75 MG TABLET PO SCH (08:26)
[2020-01-22] MEDS: CITALOPRAM 10 MG TABLET. PO SCH (08:26)
[2020-01-22] MEDS: POTASSIUM CHLORIDE 20 MEQ TABLET.ER. PO SCH (08:26)
[2020-01-22] MEDS: PANTOPRAZOLE 40 MG TABLET. PO SCH (08:26)
[2020-01-22] MEDS: FUROSEMIDE 20 MG TABLET PO SCH (08:26)
[2020-01-22] MEDS: AMIODARONE HCL 200 MG TABLET PO SCH (08:26)
[2020-01-22] MEDS: AMMONIUM LACTATE 12% TOPICAL LOTION 226GM BOTTLE. TP SCH ×2 (08:28→20:49)
[2020-01-22 09:17] VITALS: BP 113/68
[2020-01-22 13:50] VITALS: BP 117/70
--- NOTE | 2020-01-22 15:33 | NUR ---
[place] paged at this time, states that a local rep will be contacted. Patient resting in chair at this time, complaints of 2 occasions of pulsations occurring to left upper abdomen. Nurse observed one occurrence, patient denies pain or discomfort but stated she can feel the pulsation occurring. Second occurrence happened when Nurse Manisha was at side
--- NOTE | 2020-01-22 15:39 | NUR ---
Rep notified at this time, states that he will up in the morning. States he will turn of [employer] lead and will need to follow up with [employer] in regards to pacemaker.
--- NOTE | 2020-01-22 15:40 | NUR ---
Swing Bed Nursing Note Patient Handbook for Care Home given to patient. Nursing Problem: Confusion, weakness and multiple falls. Pt had been admitted to [facility] on 01/15/20 for falls causing a coccyx contusion. A UTI was diagnosed and abx completed 01/19/20. Admitted to [facility] Swing bed unit for continued PT/OT and antibiotics Cognitive/Behavioral: Pt. was very pleasant during assessment, sitting up in recliner eating breakfast during time of assessment. Pt was aware of self and situation, able to follow directions. Pain: c/o coccyx pain sec to fall. No PRN medication given today. Pt slept well throughout the night. Respiratory Status: CTA sats 97% on room air. denies soa or difficulty breathing. Pt. placed on 2L while sleeping to help maintain O2 above 90%. Skin: thin and fragile, purple coloring on feet noted, coccyx bruising. dry flaky skin bilateral feet, ammonium lactate lotion applied, showered this morning. Bowel/Bladder Continence: continent of bowel per report, LBM 01/20, stress incontinence wearing brief but has been continent of urine this shift ADL Functional Status: pt. up with gait belt and walker x1 assist. pt turns self independently in bed. takes pills whole w/o difficulty. Set up help with snack and ate independently. toileting-pt walks to bathroom with walker and gait belt x1 assist, requires some assistance pulling up brief, able to wipe self independently.
[2020-01-22] MEDS: ACETAMINOPHEN 325 MG TABLET PO PRN (17:41)
[2020-01-22 20:05] VITALS: BP 126/73
[2020-01-22] MEDS: LISINOPRIL 5 MG TABLET. PO SCH (20:49)
[2020-01-22] MEDS: DOCUSATE SODIUM 100 MG CAPSULE PO PRN (20:49)
--- NOTE | 2020-01-23 03:35 | NUR ---
Swing Bed Nursing Note Nursing Problem: Pt was experiencing confusion, having leg weakness and multiple falls at home. Pt had been admitted to [facility] on 01/15/20 for falls causing a coccyx contusion. Pt also had UTI and had antibiotics started. Pt was then admitted to Swing bed unit for continued PT/OT and antibiotics. Cognitive/Behavioral: Pt was sitting up in chair visiting with daughter at change of shift. Pt is A&Ox3, with increased forgetfulness noted at night. Pt was pleasant and cooperative with assessment and cares. Pt able to followed directions when up moving around the room and to bathroom. Pt stated that she had a good day and was excited about the 24 of January coming up and also her great grandson's birthday. Pain: Pt had c/o coccyx pain on prior shift at dinner time. PRN Tylenol had been given. Pt currently denies pain or discomfort. Pt with pillow under coccyx to help relieve pain when up in chair. Respiratory Status: CTA. Pt denies cough or SOA. Pt placed on 2L during night to help maintain O2 above 90%. Planned for Nocturnal Desat. study upon DC. Skin: Pt with thin/fragile skin. Pt with coccyx bruising but intact. Dry, flaky skin to bilateral feet, Ammonium Lactate lotion applied when pt got into bed. Pt had shower earlier today. Bowel/Bladder Continence: Pt continent of bowel, with LBM on 01/21 per pt. Pt with stress incontinence, wears brief but has been continent of urine this shift. ADL Functional Status: Pt up with walker, x1 assist and gait belt. Pt was able to change into PJs with set up help only. Pt able to turn independently in bed and use call light. Pt is able to take pills whole w/o difficulty and eat independently. Pt did need x1 assist help lifting legs into bed. Bed alarm on. Toileting: Pt walks to bathroom with walker, x1 assist and gait belt. Pt does require x1 assist pulling up brief and PJ pants but was able to wipe self independently.
[2020-01-23 06:03] LABS: HEMATOCRIT 33.3 % (36.0-47.0); HEMOGLOBIN 10.5 g/dL (12.0-15.5); RED BLOOD COUNT 3.74 x10^6/uL (3.50-5.40); RED CELL DISTRIBUTION WIDTH 17.7 % (11.5-14.5); WHITE BLOOD COUNT 9.5 x10^3/uL (4.0-11.0)
[2020-01-23 06:22] LABS: ALBUMIN 2.8 g/dL (3.4-5.0); ALBUMIN/GLOBULIN RATIO 0.8 (1.0-1.7); CALCIUM 8.7 mg/dL (8.5-10.1); CREATININE 1.1 mg/dL (0.6-1.0); GFR 47.1; POTASSIUM 4.5 mmol/L (3.5-5.1); TOTAL BILIRUBIN 0.7 mg/dL (0.2-1.0); TOTAL PROTEIN 6.4 g/dL (6.4-8.2)
[2020-01-23] MEDS: LACTOBACILLUS RHAMNOSUS GG 1 CAPSULE. PO SCH ×2 (07:49→21:03)
[2020-01-23] MEDS: PANTOPRAZOLE 40 MG TABLET. PO SCH (07:49)
[2020-01-23] MEDS: DICYCLOMINE HCL 10 MG CAPSULE PO SCH ×2 (07:50→21:03)
[2020-01-23] MEDS: CLOPIDOGREL BISULFATE 75 MG TABLET PO SCH (07:50)
[2020-01-23] MEDS: CITALOPRAM 10 MG TABLET. PO SCH (07:50)
[2020-01-23] MEDS: AMMONIUM LACTATE 12% TOPICAL LOTION 226GM BOTTLE. TP SCH ×2 (07:50→21:03)
[2020-01-23 07:51] VITALS: BP 145/75
[2020-01-23] MEDS: METOPROLOL SUCC 24HR ER 50 MG TAB.ER.24H. PO SCH (07:54)
[2020-01-23] MEDS: AMIODARONE HCL 200 MG TABLET PO SCH (07:55)
[2020-01-23] MEDS: ACETAMINOPHEN 325 MG TABLET PO PRN ×2 (12:43→21:04)
--- NOTE | 2020-01-23 17:29 | NUR ---
Swing Bed Nursing Note Patient Handbook for [facility] given to patient. Nursing Problem: Confusion, weakness and multiple falls. Pt had been admitted to [facility] on 01/15/20 for falls causing a coccyx contusion. Admitted to [facility] Swing bed unit for continued PT/OT and antibiotics. Cognitive/Behavioral: Pt was A&O this am to self, place and president, more confused today. pt was not sure of the date. pt has been calm and cooperative with all cares. pt put together a puzzle today and was very interactive. Pain: pt does c/o pain at 1-2 out of 10 on her coccyx, relieved with repositioning. prn tylenol given. Respiratory Status: RA, clear. Skin: coccyx bruising, foam pillow in use, thin fragile skin. Bowel/Bladder Continence: lbm 01/22, continent, wears brief for stress incont. will use call light for notification of needing to use restroom. ADL Functional Status: pt knees were hurting this afternoon, x1 assist to get back from bathroom. pt did require assistance to pull up her pants and brief to be able to reach them. pt can wipe herself and clean herself, pt able to comb her hair and brush her teeth independently with set up only. pt can dress herself, does occasionally need assistance with her socks. cassandra elise
[2020-01-23 19:57] VITALS: BP 105/55
[2020-01-23] MEDS: LISINOPRIL 5 MG TABLET. PO SCH (21:03)
--- NOTE | 2020-01-24 02:30 | NUR ---
Swing Bed Nursing Note Nursing Problem: Pt was experiencing confusion, having leg weakness and multiple falls at home. Pt had been admitted to [facility] on 01/15/20 for falls causing a coccyx contusion. Pt also had UTI and had antibiotics started. Pt was then admitted to Swing bed unit for continued PT/OT and antibiotics. Cognitive/Behavioral: Pt is A&Ox2, with increased confusion/forgetfulness noted this evening. Pt was sitting up in chair visiting with daughter at change of shift. Pt was pleasant and cooperative with assessment and cares. Pt able to follow command/directions when moving around the room and to the bathroom. Pt stated that she had a good day but is tired and ready for bed. Hopeful for DC back home soon. Pain: Pt had c/o coccyx "soreness" (09/02) PRN Tylenol given with HS medications. Pt currently denies pulsating/pain in Abd from pacemaker since [employer] made setting adjustments. Pt with pillow under coccyx to help relieve pain when up in chair and pillow under heels when in bed. Respiratory Status: CTA. Pt denies cough or SOA. Pt placed on 2L during night to help maintain O2 above 90%. Planned for Nocturnal Desat. study upon DC. Skin: Pt with thin/fragile skin. Pt with coccyx bruising but intact. Dry, flaky skin to bilateral feet, Ammonium Lactate lotion applied when pt got into bed. Pt had shower yesterday, denied need for one tonight. Bowel/Bladder Continence: Pt continent of bowel, with LBM on 01/22 per pt. Pt with stress incontinence, wears brief but has been mainly continent of urine this shift, with only small spot in one brief. ADL Functional Status: Pt up with walker, x1 assist and gait belt. Pt was able to change into PJs with set up help only for top dressing and needed x1 assist with placing on bottoms. Pt walks to bathroom with walker, x1 assist and gait belt. Pt does require x1 assist pulling up brief and PJ pants but was able to wipe self independently. Pt able to turn independently in bed and use call light appropriately. Pt is able to take pills whole w/o difficulty and eat independently. Pt did need x1 assist help lifting legs into bed. Bed alarm on.
[2020-01-24 08:07] VITALS: BP 148/86
[2020-01-24] MEDS: FUROSEMIDE 20 MG TABLET PO SCH (10:40)
[2020-01-24] MEDS: LACTOBACILLUS RHAMNOSUS GG 1 CAPSULE. PO SCH ×2 (10:40→19:40)
[2020-01-24] MEDS: AMIODARONE HCL 200 MG TABLET PO SCH (10:41)
[2020-01-24] MEDS: POTASSIUM CHLORIDE 20 MEQ TABLET.ER. PO SCH (10:41)
[2020-01-24] MEDS: CITALOPRAM 10 MG TABLET. PO SCH (10:41)
[2020-01-24] MEDS: PANTOPRAZOLE 40 MG TABLET. PO SCH (10:41)
[2020-01-24] MEDS: CLOPIDOGREL BISULFATE 75 MG TABLET PO SCH (10:41)
[2020-01-24] MEDS: METOPROLOL SUCC 24HR ER 50 MG TAB.ER.24H. PO SCH (10:41)
[2020-01-24] MEDS: DICYCLOMINE HCL 10 MG CAPSULE PO SCH ×2 (10:41→19:40)
[2020-01-24] MEDS: AMMONIUM LACTATE 12% TOPICAL LOTION 226GM BOTTLE. TP SCH ×2 (10:42→19:41)
--- NOTE | 2020-01-24 17:53 | NUR ---
Swing Bed shift Nursing Problem: Confusion, weakness and multiple falls. Pt had been admitted to [facility] on 01/15/20 for falls causing a coccyx contusion. A UTI was diagnosed and abx started. Admitted to [facility] Swing bed unit for continued PT/OT and antibiotics Cognitive/Behavioral: calm and cooperative, pleasant, A&O x 3 until late afternoon when pt became more disoriented and confused. Pain: c/o mild coccyx pain sec to fall. refused tylenol for pain. Cushion on chair Respiratory Status: CTA, RA, no cough or SOA Skin: thin and fragile, purple coloring on feet noted, coccyx bruising Bowel/Bladder Continence: continent of bowel , LBM 7/2, stress incontinence wearing brief but has been continent of urine today ADL Functional Status: transfer & walking: x1 person assist with walker and gait belt-unsteady and but getting stronger. Is walking longer distances such as down to the dining room for meals. As the afternoon wore on, pt becomes more confused and had more issues with amb despite prompting eating-needed setup and feeds self toileting-needed x assist to get into bathroom, pt gave minimal assist with pulling her pants down and up but does wipe herself dressing-set up and dressed self
[2020-01-24 19:40] VITALS: BP 124/66
[2020-01-24] MEDS: ACETAMINOPHEN 325 MG TABLET PO PRN (19:41)
[2020-01-24] MEDS: LISINOPRIL 5 MG TABLET. PO SCH (19:41)
--- NOTE | 2020-01-25 05:35 | NUR ---
Swing Bed Nursing Note Nursing Problem: Pt was experiencing confusion, having leg weakness and multiple falls at home. Pt had been admitted to [facility] on 01/15/20 for falls causing a coccyx contusion. Pt also had UTI and had antibiotics started. Pt was then admitted to Swing bed unit for continued PT/OT and antibiotics. Cognitive/Behavioral: Pt was sitting up in chair visiting with daughter at change of shift. Pt is A&Ox3, with increased forgetfulness noted at night. Pt was pleasant and cooperative with assessment and cares. Pt able to followed directions when up moving around the room and to bathroom. Pt stated that she had a good day and Stated "It's the 24 of January!" Pain: Pt had c/o coccyx discomfort beginning of shift. PRN Tylenol was given. Pt currently denies pain or discomfort. Pt with pillow under coccyx to help relieve pain when up in chair. Respiratory Status: CTA. Pt denies cough or SOA. Pt placed on 2L during night to help maintain O2 above 90%. Planned for Nocturnal Desat. study upon DC. Skin: Pt with thin/fragile skin. Pt with coccyx bruising but intact.Calazime cream applied at HS. Dry, flaky skin to bilateral feet, Ammonium Lactate lotion applied when pt got into bed. Bowel/Bladder Continence: Pt continent of bowel, with LBM on 01/21 per pt. Pt with stress incontinence, wears brief but has been continent of urine this shift. ADL Functional Status: Pt up with walker, x1 assist and gait belt. Pt was able to change into PJs with set up help only. Pt able to turn independently in bed and use call light. Pt is able to take pills whole w/o difficulty and eat independently. Pt did need x1 assist help lifting legs into bed. Bed alarm on. Toileting: Pt walks to bathroom with walker, x1 assist and gait belt. Pt does require x1 assist pulling up brief, but was able to wipe self independently.
[2020-01-25] MEDS: CLOPIDOGREL BISULFATE 75 MG TABLET PO SCH (07:46)
[2020-01-25] MEDS: PANTOPRAZOLE 40 MG TABLET. PO SCH (07:46)
[2020-01-25] MEDS: DICYCLOMINE HCL 10 MG CAPSULE PO SCH ×2 (07:47→21:25)
[2020-01-25] MEDS: CITALOPRAM 10 MG TABLET. PO SCH (07:47)
[2020-01-25] MEDS: METOPROLOL SUCC 24HR ER 50 MG TAB.ER.24H. PO SCH (07:47)
[2020-01-25] MEDS: LACTOBACILLUS RHAMNOSUS GG 1 CAPSULE. PO SCH ×2 (07:47→21:24)
[2020-01-25] MEDS: AMIODARONE HCL 200 MG TABLET PO SCH (07:48)
[2020-01-25] MEDS: AMMONIUM LACTATE 12% TOPICAL LOTION 226GM BOTTLE. TP SCH ×2 (07:48→21:25)
[2020-01-25 08:12] VITALS: BP 140/75
[2020-01-25] MEDS: ACETAMINOPHEN 325 MG TABLET PO PRN (16:23)
[2020-01-25] MEDS ORDERED: ONDANSETRON ODT 4 MG TAB.RAPDIS PO PRN (16:30)
--- NOTE | 2020-01-25 19:33 | RAD ---
Exam: CT head INDICATION: Confusion, weakness TECHNIQUE: Sequential axial images through the head were obtained without the administration of IV contrast. Comparisons: 07/18/2019 FINDINGS: No focal parenchymal lesion or hemorrhage is identified. There is no midline shift or sulcal effacement. Patchy hypodensity in the periventricular white matter. No acute vascular territory infarction is identified. Ryan-white distinction is preserved. The ventricular system is within normal limits without compression hydrocephalus. The basal cisterns are well maintained. The visualized portions of the paranasal sinuses and mastoid air cells are well-pneumatized. No acute fractures. IMPRESSION: Small vessel ischemic change, not significantly changed from the prior exam. Exposure: One or more of the following in the visualized dose reduction techniques were utilized for this examination: 1. Automated exposure control 2. Adjustment of the MA and/or KV according to patient size Use of iterative of reconstructive technique Electronically signed by: Marjorie Benavides MD (01/25/2020 7:30 PM) [id number]
[2020-01-25 19:56] VITALS: BP 130/71
[2020-01-25] MEDS: LISINOPRIL 5 MG TABLET. PO SCH (21:25)
--- NOTE | 2020-01-25 22:21 | PDOC ---
Exam Note: Bill Note: Please also refer to the separate dictated note~for this date of service dictated separately.~Patient seen individually. Discussed the patient with Nursing staff reviewed the chart.~Reviewed interim history and current functioning. Reviewed vital signs,~Labs/ Radiology~and current medications noted below. Continue current treatment with the changes noted in the dictated addendum note Assessment: Vital Signs/I&O: Vital Signs Date Time Temp Pulse Resp B/P (MAP) Pulse Ox O2 Delivery O2 Flow Rate FiO2 01/25/20 21:25 57 130/71 01/25/20 20:35 97 Nasal Cannula 2.0 01/25/20 19:56 97.8 18 I & O 01/24/20 01/24/20 01/25/20 15:00 23:00 07:00 Intake Total 600 ml 560 ml 300 ml Balance 600 ml 560 ml 300 ml Current Medications: Meds: Current Medications Medications (Trade) Dose Ordered Sig/Alexus Route PRN Reason Start Time Stop Time Status Last Admin Dose Admin Ondansetron HCl (Zofran Odt) 4 mg PRN Q8HRS PRN PO NAUSEA/VOMITING 01/25/20 16:30 01/25/20 16:30 I have reviewed the current psychotropics carefully including drug interactions. Risk benefit ratio favors no change other than as noted in my dictated progress note. Diagnosis: Problems: (1) Mild cognitive impairment PB DEMPSEY MD Jan 25, 2020 22:21
--- NOTE | 2020-01-26 01:17 | CONS ---
DATE OF CONSULTATION: 01/25/2020 This note covers the elements not covered in my initial note, 01/25/2020. IDENTIFYING DATA: The patient is an 84-year-old female seen in bed 132, [address] [place] [address], for a psychiatric consult requested by Dr. Ron/Dr. Butler on account of the patient's increasing confusion, more so in the evening within the context of her UTI and sundowning. She was transferred from [facility] for care home care and seen in bed 132 on the skilled unit. I met with the patient's daughter who was visiting with the patient, gathered further historical information from both the patient and her daughter, and the nursing staff. CHIEF COMPLAINT: "Yes, I get a little forgetful, more so in the evening." HISTORY OF PRESENT ILLNESS: The patient has a history of mild cognitive impairment. Reportedly, she has been living at home with her son and her significant other. She does have some sundowning, worsening confusion in the evening. She was admitted to [facility], treated for UTI and then transferred here for skilled care. Sleep and appetite are fair. No psychotic symptoms, suicidal or homicidal ideation. No clear history of bipolar disorder. PAST PSYCHIATRIC HISTORY: As above. MEDICAL HISTORY: Positive for chronic low back pain; degenerative disk disease, both knees; lumbar spondylosis; lumbar stenosis; paroxysmal atrial fibrillation; coronary artery disease; CHF, compensated; history of [place]; sick sinus syndrome; permanent pacemaker in place; hyperlipidemia; GERD; bilateral hip replacement for fractures in 2007 and 2019. ALLERGIES: CODEINE, IRON, TRAMADOL. CURRENT PSYCHOTROPICS: Celexa 10 mg a day, Zyprexa 5 mg b.i.d. p.r.n. psychosis, agitation. FAMILY HISTORY: Not contributory. SOCIAL HISTORY: No history of alcohol or drug abuse. 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 MENTAL STATUS EXAMINATION: The patient was seen individually evening of 01/25/2020. She is oriented to herself and situation. She knew it was 01/25/2020, that the president was president Starr. She was able to do one step of serial 7, spelt world forward no error, backward 1 error, unable to remember who the president was prior to president Trazar. Mood is euthymic, slightly anxious. Affect, mood congruent. No suicidal or homicidal ideation. Attention span is fair. IMPRESSION: Mild cognitive impairment; urinary tract infection; anxiety disorder, unspecified. Rest unchanged as above. RECOMMENDATIONS: Would suggest having CT head done as workup of her mild cognitive impairment since one has not been done in the recent past. I do feel the UTI is compounding her short-term memory deficits, which should improve as the UTI resolves, but I do feel the CT head would be reasonable at this stage. Continue Celexa at current dosage. Maintain Zyprexa p.r.n. May add low-dose Seroquel, but I would like to wait and have the UTI resolved, and if symptoms persist thereafter, initiate psychotropics at that time rather than now. Dr. Ron, thank you for the opportunity to participate in your patient's care. We will follow with you. MAN Jaclyn DEMPSEY MD DR: JOHNATHAN/shannen JOB#: [id number] / [id number]
--- NOTE | 2020-01-26 06:55 | NUR ---
Pt up most of the night fidgeting, asking for the fan on then off, tv off then off multiple times. Up to the toilet once. She had a small, unproductive cough off and on. Will continue to monitor.
--- NOTE | 2020-01-26 06:56 | NUR ---
Swing Bed Nursing Note Nursing Problem: Pt was experiencing confusion, having leg weakness and multiple falls at home. Pt had been admitted to [facility] on 01/15/20 for falls causing a coccyx contusion. Pt also had UTI and had antibiotics started. Pt was then admitted to Swing bed unit for continued PT/OT and antibiotics. Cognitive/Behavioral: Pt was in bed sleeping at change of shift. Pt is A&Ox3, with increased forgetfulness noted at night. Pt was pleasant and cooperative with assessment and cares. Pt able to followed directions when up moving around the room and to bathroom. Pain: Pt denies pain. Respiratory Status: CTA. Pt denies cough or SOA but noted by [employer] through night. Pt on 2L during night to help maintain O2 above 90%. She takes the nasal cannula off often. Skin: Pt with thin/fragile skin. Pt with coccyx bruising but intact. Dry, flaky skin to bilateral feet, Ammonium Lactate lotion applied when pt got into bed. Bowel/Bladder Continence: Pt continent of bowel, with LBM on 01/21 per pt. Pt with stress incontinence, wears brief but has been continent of urine this shift. ADL Functional Status: Pt up with walker, x1 assist and gait belt. Pt was able to change into PJs with set up help only. Pt able to turn independently in bed and use call light. Pt is able to take pills whole w/o difficulty and eat independently. Pt did need x1 assist help lifting legs into bed. Bed alarm on. Toileting: Pt walks to bathroom with walker, x1 assist and gait belt. Pt does require x1 assist pulling up brief, but was able to wipe self independently.
[2020-01-26 08:12] VITALS: BP 130/74
[2020-01-26] MEDS: CITALOPRAM 10 MG TABLET. PO SCH (08:23)
[2020-01-26] MEDS: AMIODARONE HCL 200 MG TABLET PO SCH (08:23)
[2020-01-26] MEDS: CLOPIDOGREL BISULFATE 75 MG TABLET PO SCH (08:24)
[2020-01-26] MEDS: METOPROLOL SUCC 24HR ER 50 MG TAB.ER.24H. PO SCH (08:24)
[2020-01-26] MEDS: DICYCLOMINE HCL 10 MG CAPSULE PO SCH ×2 (08:24→20:50)
[2020-01-26] MEDS: AMMONIUM LACTATE 12% TOPICAL LOTION 226GM BOTTLE. TP SCH ×2 (08:24→20:50)
[2020-01-26] MEDS: LACTOBACILLUS RHAMNOSUS GG 1 CAPSULE. PO SCH ×2 (08:24→20:50)
[2020-01-26] MEDS: PANTOPRAZOLE 40 MG TABLET. PO SCH (08:26)
--- NOTE | 2020-01-26 17:32 | NUR ---
Swing Bed Nursing Note Nursing Problem: Pt was experiencing confusion, having leg weakness and multiple falls at home. Pt had been admitted to [facility] on 01/15/20 for falls causing a coccyx contusion. Pt also had UTI and had antibiotics started. Pt was then admitted to Swing bed unit for continued PT/OT and antibiotics. Cognitive/Behavioral: Pt is A&Ox2, with increased forgetfulness noted at night. Pt was pleasant and cooperative with assessment and cares. Pt able to follow directions when up moving around the room and to bathroom. Pt will try to get up without help at times, she was found in the bathroom during morning rounds. Pain: Pt COMPLAINS OF BACK AND HIP PAIN. Respiratory Status: CTA. Pt denies cough or SOA but COUGH WAS NOTED THROUGHOUT THE DAY. Pt on 2L during night to help maintain O2 above 90%. She takes the nasal cannula off often. Skin: Pt with thin/fragile skin. Pt coccyx HAS bruising but intact. Bowel/Bladder Continence: Pt continent of bowel, with LBM on 75per pt. Pt with stress incontinence, wears brief but has been continent of urine this shift. ADL Functional Status: Pt up with walker, x1 assist and gait belt. Pt was able to change into clothes with moderate assist. Pt able to turn independently in bed and use call light. Pt is able to take pills whole w/o difficulty and eat independently. Pt did need x1 assist help lifting legs into bed. Bed alarm on. Toileting: Pt walks to bathroom with walker, x1 assist and gait belt. Pt does require x1 assist pulling up brief, but was able to wipe self independently.
[2020-01-26] MEDS: ACETAMINOPHEN 325 MG TABLET PO PRN (17:47)
[2020-01-26 20:40] VITALS: BP 130/80
[2020-01-26] MEDS: LISINOPRIL 5 MG TABLET. PO SCH (20:50)
[2020-01-26] MEDS ORDERED: traZODone 50 MG TABLET. PO ONE (21:00)
--- NOTE | 2020-01-26 22:01 | PDOC ---
Exam Note: Bill Note: Please also refer to the separate dictated note~for this date of service dictated separately.~Patient seen individually. Discussed the patient with Nursing staff reviewed the chart.~Reviewed interim history and current functioning. Reviewed vital signs,~Labs/ Radiology~and current medications noted below. Continue current treatment with the changes noted in the dictated addendum note Assessment: Vital Signs/I&O: Vital Signs Date Time Temp Pulse Resp B/P (MAP) Pulse Ox O2 Delivery O2 Flow Rate FiO2 01/26/20 20:50 74 130/80 01/26/20 20:40 Room Air 01/26/20 20:40 97.7 14 96 01/25/20 20:35 2.0 I & O 01/25/20 01/25/20 01/26/20 15:00 23:00 07:00 Intake Total 200 ml Balance 200 ml Current Medications: I have reviewed the current psychotropics carefully including drug interactions. Risk benefit ratio favors no change other than as noted in my dictated progress note. Diagnosis: Problems: (1) Anxiety disorder, unspecified (2) Mild cognitive impairment (3) UTI (urinary tract infection) PB DEMPSEY MD Jan 26, 2020 22:01
--- NOTE | 2020-01-26 22:36 | NUR ---
Swing Bed Nursing Note Nursing Problem: Patient was exhibiting confusion, weakness, and had multiple falls at home. Patient had been admitted to [facility] on 01/15/20 for falls with coccyx contusion. Patient also had UTI and had antibiotics started. Patient was then admitted to Swing bed unit for continued PT/OT and antibiotics. Cognitive/Behavioral: Patient is A&Ox2, with increased forgetfulness noted at night. Patient was pleasant and cooperative with assessment and cares. Patient able to follow directions when up moving around the room and to bathroom. Patient will try to get up without help at times, bed alarm set for safety. Pain: Patient denies pain this evening. Respiratory Status: Lungs CTA. Patient denies shortness of air, does have an intermittent dry cough. Patient wears 2L NC while sleeping. She does frequently remove the cannula in her sleep. Skin: Patient with thin/fragile skin. Coccyx is bruised but intact. Bowel/Bladder Continence: Patient continent of bowel, with last bowel movement on 01/25. Patient with stress incontinence, wears brief but has been continent of urine this evening. ADL Functional Status: Patient up with walker, x1 assist and gait belt. Patient is able to change into clothes with moderate assist. Patient able to turn independently in bed and use call light. Patient is able to take pills whole w/o difficulty and eat independently. Patient does need x1 assist help lifting legs into bed. Toileting: Patient walks to bathroom with walker, x1 assist and gait belt. Patient requires x1 assist pulling up brief, but is able to wipe self independently.
--- NOTE | 2020-01-26 22:48 | NUR ---
Patient's daughter, Wendy, requested Trazodone not be given due to patient's negative prior experiences with sedating medications. Trazodone held, patient has been sleeping most of the evening.
[2020-01-27 02:44] VITALS: BP 137/83
--- NOTE | 2020-01-27 07:00 | NUR ---
Reported by Sumaya KELLER, that patient was awake for most of the night taking oxygen off and talking to herself. Reports patient was pleasantly confused. Nurse went into patients room this morning and asked if she would like to get up, stated she would like to rest for a little longer since she did not sleep well.
--- NOTE | 2020-01-27 08:03 | PDOC ---
Exam Note: Bill Note: This note is a late entry for 01/26/2020 covers elements not covered in my initial note. Subjective: The patient was seen individually in the evening of 01/26/2020 in room #132 senior living care. Discussed with nursing staff. Overall the patient is doing reasonably well. She gets a little confused late in the evening but this is understandable both with her age early onset and mild cognitive impairment and current UTI. Review of Systems: Ambulation impaired. No CV, , pulmonary, eye, ENT system symptoms on review. Mental Status Exam: Oriented to herself and situation. Speech is coherent. Abstraction is fair. Computation is impaired. Language function is intact. Attention span is short. Mood and affect somewhat anxious. Laboratory Data: Reviewed. Impression: Mild cognitive impairment. UTI. Major neurocognitive disorder, early vascular with delusion, depression. Rest unchanged. Plan: No change from initial note. Assessment: Vital Signs/I&O: Vital Signs Date Time Temp Pulse Resp B/P (MAP) Pulse Ox O2 Delivery O2 Flow Rate FiO2 01/27/20 02:44 97.5 75 18 137/83 (101) 95 Nasal Cannula 2.0 I & O 01/26/20 01/26/20 01/27/20 15:00 23:00 07:00 Intake Total 600 ml Balance 600 ml Current Medications: I have reviewed the current psychotropics carefully including drug interactions. Risk benefit ratio favors no change other than as noted in my dictated progress note. Diagnosis: Problems: (1) Major neurocognitive disorder (2) Dementia, vascular, with delusions (3) Dementia, vascular, with depression (4) UTI (urinary tract infection) (5) Mild cognitive impairment (6) Anxiety disorder, unspecified PB DEMPSEY MD Jan 27, 2020 08:03
[2020-01-27] MEDS: POTASSIUM CHLORIDE 20 MEQ TABLET.ER. PO SCH (08:14)
[2020-01-27] MEDS: DICYCLOMINE HCL 10 MG CAPSULE PO SCH ×2 (08:15→19:52)
[2020-01-27] MEDS: CITALOPRAM 10 MG TABLET. PO SCH (08:15)
[2020-01-27] MEDS: CLOPIDOGREL BISULFATE 75 MG TABLET PO SCH (08:15)
[2020-01-27] MEDS: METOPROLOL SUCC 24HR ER 50 MG TAB.ER.24H. PO SCH (08:15)
[2020-01-27] MEDS: AMIODARONE HCL 200 MG TABLET PO SCH (08:15)
[2020-01-27] MEDS: LACTOBACILLUS RHAMNOSUS GG 1 CAPSULE. PO SCH ×2 (08:15→19:52)
[2020-01-27] MEDS: FUROSEMIDE 20 MG TABLET PO SCH (08:16)
[2020-01-27] MEDS: AMMONIUM LACTATE 12% TOPICAL LOTION 226GM BOTTLE. TP SCH ×2 (08:16→19:53)
[2020-01-27] MEDS: PANTOPRAZOLE 40 MG TABLET. PO SCH (08:16)
[2020-01-27 13:21] LABS: CALCIUM 9.2 mg/dL (8.5-10.1); CREATININE 1.4 mg/dL (0.6-1.0); GFR 35.7; POTASSIUM 4.7 mmol/L (3.5-5.1)
--- NOTE | 2020-01-27 13:54 | NUR ---
Labs obtained, awaiting for chest xray to be completed Will report results to physician once resulted. Patient ambulated to restroom, knees buckled and was unable to make it back to recliner without using wheelchair. Patient ambulated this time without oxygen, sats assessed and o2 was 94% on room air after ambulating. Patient continues to state "i dont know why im getting weaker, whats wrong with me?"
--- NOTE | 2020-01-27 13:57 | NUR ---
Swing Bed Nursing Note Nursing Problem: Patient was exhibiting confusion, weakness, and had multiple falls at home. Patient had been admitted to [facility] on 01/15/20 for falls with coccyx contusion. Patient also had UTI and had antibiotics started which completed on 01/18. Patient was then admitted to Swing bed unit for continued PT/OT and antibiotics. Cognitive/Behavioral: Patient is A&Ox2, with increased forgetfulness and confusion noted throughout the day. Patient was pleasant and cooperative with assessment and cares. Patient able to follow directions when up moving around the room and to bathroom but does need direction and encouragement to do activities. Chair alarm placed due to high fall risk and willingness of getting up without asking for assistance. Pain: Complaints of pain to bilateral knees, requests PRN tylenol. Respiratory Status: Lungs CTA. Patient denies shortness of air, does have an intermittent dry cough. Patient wears 2L NC while sleeping and occasional o2 use during the day today. Patient ambulated with PT/OT and sats decreased to 78% able to increase saturations into the 80% with pursed lip breathing. 3l applied to patient and oxygen increased to 97%, pnce saturations were established oxygen was decreased to 2l and sats were monitored frequently. Skin: Patient with thin/fragile skin. Coccyx is bruised but intact. Bowel/Bladder Continence: Patient continent of bowel, with last bowel movement on 01/26. Patient with stress incontinence, wears brief but has been continent of urine. ADL Functional Status: Patient up with walker, x1 assist and gait belt. Patient is able to change into clothes with moderate assist. Patient able to transfer from chair to standing position independently and walk to use the restroom with standby minimal assistance. Patient did need to have moderate assistance during the afternoon when her knees buckled and then required using a wheelchair for transfer. Patient is able to take pills whole w/o difficulty and eat independently. Patient does need x1 assist help lifting legs into bed. Toileting: Patient walks to bathroom with walker, x1 assist and gait belt. Patient requires x1 assist pulling up brief, but is able to wipe self independently.
--- NOTE | 2020-01-27 16:30 | RAD ---
Chest, PA and Lateral: Technique: PA and lateral views of the chest were obtained. History: Acute hypoxia respiratory failure. Comparison: 10/11/2019. Findings: Moderate cardiomegaly. Left-sided cardiac pacer is identified. Mild bibasilar lung airspace opacities likely atelectasis or infiltrates. IMPRESSION: Mild bibasilar lung airspace opacities likely atelectasis or infiltrates. Follow-up to resolution. Electronically signed by: Jaron George MD (01/27/2020 4:26 PM) [id number]
[2020-01-27 17:47] LABS: BASO % 0 % (0-3); EOS % 0 % (0-3); HEMATOCRIT 33.1 % (36.0-47.0); HEMOGLOBIN 10.4 g/dL (12.0-15.5); LYMPH # 0.5 x10^3/uL (1.0-4.8); LYMPH % 7 % (24-48); MEAN CORPUSCULAR HEMOGLOBIN 28 pg (25-35); MEAN CORPUSCULAR HGB CONC 32 g/dL (31-37); MEAN CORPUSCULAR VOLUME 89 fL (79-100); MONO # 1.1 x10^3/uL (0.0-1.1); MONO % 15 % (0-9); NEUT # 5.5 x10^3uL (1.8-7.7); NEUT % 78 % (31-73); PLATELET COUNT 218 x10^3/uL (140-400); RED BLOOD COUNT 3.71 x10^6/uL (3.50-5.40); RED CELL DISTRIBUTION WIDTH 17.5 % (11.5-14.5); WHITE BLOOD COUNT 7.1 x10^3/uL (4.0-11.0)
--- NOTE | 2020-01-27 18:07 | NUR ---
Spoke with Dr mishra in regards to patients lab results. Orders for CBC, DDIMER and Troponin; states that due to elevated creatinine and BUN this needs to be checked. If labs are not within normal limits patient may need to be placed on the acute care side for possible IV Lasix and further monitoring. Wendy, daughter notified in regards to patients status.
[2020-01-27 18:35] VITALS: BP 138/62
--- NOTE | 2020-01-27 18:36 | NUR ---
Spoke with Dr Ron in regards to patient ddimer and troponin, states he will discuss with family and case management tomorrow.
[2020-01-27 20:02] VITALS: BP 142/74
[2020-01-27] MEDS: LISINOPRIL 5 MG TABLET. PO SCH (20:05)
--- NOTE | 2020-01-27 20:35 | NUR ---
Swing Bed Nursing Note Nursing Problem: Patient was exhibiting confusion, weakness, and had multiple falls at home. Patient had been admitted to [facility] on 01/15/20 for falls with coccyx contusion. Patient also had UTI and had antibiotics started. Patient was then admitted to Swing bed unit for continued PT/OT and antibiotics. Cognitive/Behavioral: Patient is A&Ox2, with increased forgetfulness noted at night. Patient was pleasant and cooperative with assessment and cares. Patient able to follow directions when up moving around the room and to bathroom. Patient will try to get up without help at times, bed alarm set for safety. Pain: Patient denies pain this evening. Respiratory Status: Lungs CTA. Patient denies shortness of air, does have an intermittent dry cough. Patient wears 2L NC while sleeping. She does frequently remove the cannula in her sleep. Skin: Patient with thin/fragile skin. Coccyx is bruised but intact. Bowel/Bladder Continence: Patient continent of bowel, with last bowel movement on 01/26. Patient with stress incontinence wears brief. ADL Functional Status: Patient up with walker, x1 assist and gait belt. Patient is able to change into clothes with moderate assist. Patient able to turn independently in bed and use call light. Patient is able to take pills whole w/o difficulty and eat independently. Patient does need x1 assist help lifting legs into bed. Toileting: Patient walks to bathroom with walker, x1 assist and gait belt. Patient requires x1 assist pulling up brief, but is able to wipe self independently.
--- NOTE | 2020-01-27 20:38 | NUR ---
Pt has increased shuffling and unsteadiness when trying to ambulate. Pt stated she doesn't feel steady and wants to use wheelchair.
--- NOTE | 2020-01-27 22:05 | PDOC ---
Exam Note: Bill Note: Please also refer to the separate dictated note~for this date of service dictated separately.~Patient seen individually. Discussed the patient with Nursing staff reviewed the chart.~Reviewed interim history and current functioning. Reviewed vital signs,~Labs/ Radiology~and current medications noted below. Continue current treatment with the changes noted in the dictated addendum note Assessment: Vital Signs/I&O: Vital Signs Date Time Temp Pulse Resp B/P (MAP) Pulse Ox O2 Delivery O2 Flow Rate FiO2 01/27/20 20:05 71 142/74 01/27/20 20:02 97.9 18 97 Nasal Cannula 2.0 I & O 01/26/20 01/26/20 01/27/20 14:59 22:59 06:59 Intake Total 600 ml Balance 600 ml Labs: Laboratory Tests Test 01/27/20 13:05 01/27/20 17:40 Sodium Level 134 mmol/L (136-145) L Potassium Level 4.7 mmol/L (3.5-5.1) Chloride Level 100 mmol/L (98-107) Carbon Dioxide Level 29 mmol/L (21-32) Anion Gap 5 (6-14) L Blood Urea Nitrogen 21 mg/dL (7-20) H Creatinine 1.4 mg/dL (0.6-1.0) H Estimated GFR (Cockcroft-Gault) 35.7 Glucose Level 159 mg/dL (70-99) H Calcium Level 9.2 mg/dL (8.5-10.1) PX-Ero-V-Type Natriuretic Peptide 52978 pg/mL (0-449) H White Blood Count 7.1 x10^3/uL (4.0-11.0) Red Blood Count 3.71 x10^6/uL (3.50-5.40) Hemoglobin 10.4 g/dL (12.0-15.5) L Hematocrit 33.1 % (36.0-47.0) L Mean Corpuscular Volume 89 fL (79-100) Mean Corpuscular Hemoglobin 28 pg (25-35) Mean Corpuscular Hemoglobin Concent 32 g/dL (31-37) Red Cell Distribution Width 17.5 % (11.5-14.5) H Platelet Count 218 x10^3/uL (140-400) Neutrophils (%) (Auto) 78 % (31-73) H Lymphocytes (%) (Auto) 7 % (24-48) L Monocytes (%) (Auto) 15 % (0-9) H Eosinophils (%) (Auto) 0 % (0-3) Basophils (%) (Auto) 0 % (0-3) Neutrophils # (Auto) 5.5 x10^3uL (1.8-7.7) Lymphocytes # (Auto) 0.5 x10^3/uL (1.0-4.8) L Monocytes # (Auto) 1.1 x10^3/uL (0.0-1.1) Eosinophils # (Auto) 0.0 x10^3/uL (0.0-0.7) Basophils # (Auto) 0.0 x10^3/uL (0.0-0.2) D-Dimer (Araceli) 1.78 mg/L (0.00-0.50) H Troponin I Quantitative < 0.017 ng/mL (0-0.055) Current Medications: I have reviewed the current psychotropics carefully including drug interactions. Risk benefit ratio favors no change other than as noted in my dictated progress note. Diagnosis: Problems: (1) Anxiety disorder, unspecified (2) Dementia, vascular, with depression (3) Dementia, vascular, with delusions (4) Major neurocognitive disorder (5) Mild cognitive impairment (6) UTI (urinary tract infection) PB DEMPSEY MD Jan 27, 2020 22:05
[2020-01-28 08:07] VITALS: BP 142/74
[2020-01-28] MEDS: AMIODARONE HCL 200 MG TABLET PO SCH (08:07)
[2020-01-28] MEDS: LACTOBACILLUS RHAMNOSUS GG 1 CAPSULE. PO SCH (08:07)
[2020-01-28] MEDS: ACETAMINOPHEN 325 MG TABLET PO PRN (08:07)
[2020-01-28] MEDS: METOPROLOL SUCC 24HR ER 50 MG TAB.ER.24H. PO SCH (08:07)
[2020-01-28] MEDS: CITALOPRAM 10 MG TABLET. PO SCH (08:07)
[2020-01-28] MEDS: CLOPIDOGREL BISULFATE 75 MG TABLET PO SCH (08:08)
[2020-01-28] MEDS: AMMONIUM LACTATE 12% TOPICAL LOTION 226GM BOTTLE. TP SCH (08:08)
[2020-01-28] MEDS: DICYCLOMINE HCL 10 MG CAPSULE PO SCH (08:08)
[2020-01-28] MEDS: PANTOPRAZOLE 40 MG TABLET. PO SCH (08:08)
--- NOTE | 2020-01-28 11:10 | NUR ---
Swing Bed Nursing Note Nursing Problem: Patient was exhibiting confusion, weakness, and had multiple falls at home. Patient had been admitted to [facility] on 01/15/20 for falls with coccyx contusion. Patient also had UTI and had antibiotics started which completed on 01/18. Patient was then admitted to Swing bed unit for continued PT/OT and antibiotics. Cognitive/Behavioral: Patient is A&Ox2, with increased forgetfulness and confusion noted throughout the day. Patient was pleasant and cooperative with assessment and cares. Patient was able to able to follow directions when up moving around the room and to bathroom but does need direction and encouragement to do activities. Chair alarm placed due to high fall risk and willingness of getting up without asking for assistance. Pain: Complaints of pain to bilateral knees, requests PRN tylenol. Respiratory Status: Lungs CTA. Patient denies shortness of air, does have an intermittent dry cough. Patient wears 2L NC while sleeping and occasional o2 use during the day today. Patient ambulated with PT/OT and sats decreased to 78% able to increase saturations into the 80% with pursed lip breathing. 3l applied to patient and oxygen increased to 97%, pnce saturations were established oxygen was decreased to 2l and sats were monitored frequently. Skin: Patient with thin/fragile skin. Coccyx is bruised but intact. Bowel/Bladder Continence: Patient continent of bowel, with last bowel movement on 01/26. Patient with stress incontinence, wears brief but has been continent of urine. ADL Functional Status: Patient up with walker, x1 assist and gait belt. Patient is able to change into clothes with moderate assist. Patient able to transfer from chair to standing position independently and walk to use the restroom with standby minimal assistance. Patient did need to have moderate assistance during the afternoon when her knees buckled and then required using a wheelchair for transfer. Patient is able to take pills whole w/o difficulty and eat independently. Patient does need x1 assist help lifting legs into bed. Toileting: Patient walks to bathroom with walker, x1 assist and gait belt. Patient requires x1 assist pulling up brief, but is able to wipe self independently. Addendum: 01/28/20 at 1111 by NOE BURNETT RN not done finishing note.
--- NOTE | 2020-01-28 11:11 | NUR ---
Swing Bed Nursing Note Nursing Problem: Patient was exhibiting confusion, weakness, and had multiple falls at home. Patient had been admitted to [facility] on 01/15/20 for falls with coccyx contusion. Patient also had UTI and had antibiotics started which completed on 01/18. Patient was then admitted to Swing bed unit for continued PT/OT and antibiotics. Cognitive/Behavioral: Patient is A&Ox2, with increased forgetfulness and confusion noted throughout the day. Patient was pleasant and cooperative with assessment and cares. Patient was able to follow directions when up moving around the room and to bathroom but does need direction and encouragement to do activities. Chair alarm placed due to high fall risk and willingness of getting up without asking for assistance. Pain: Complaints of pain to bilateral knees, PRN tylenol given this morning. Continued to complain of pain with PT, orders placed for Voltaren gel to be applied to see if this will help alleviate pain. Respiratory Status: Lungs CTA upon assessment this am, except for fine crackles noted to left lower lobe. Patient denies shortness of air, does have an intermittent dry cough. Patient wears 2L NC while sleeping and occasional o2 use during the day today. Occasionaly will check sats while on room air, sats while eating breakfast were at 94%. Skin: Patient with thin/fragile skin. Coccyx is bruised but intact. Bowel/Bladder Continence: Patient continent of bowel, with last bowel movement on 01/26. Patient with stress incontinence, wears brief but has been continent of urine. ADL Functional Status: Patient up with walker, x1 assist and gait belt. Patient was able to get out of bed and transfer from bed to recliner independently with walker and verbal cues. Patient required moderate assistance when changing into clothes. When Patient transfered from chair to standing position independently and walked to use the restroom with standby minimal assistance patient felt as if she wasnt going to make it very far due to left knee. Stated that it was hurting, "buckling" and having sharp stabbing pain. Patient then required wheelchair to transport from bathroom to PT/OT therapy room. Patient is able to take pills whole w/o difficulty and eat independently. Toileting: Patient walks to bathroom with walker and at times requires a wheelchair, x1 assist and gait belt. Patient requires x1 assist pulling up brief, but is able to wipe self independently.
--- NOTE | 2020-01-28 11:17 | NUR ---
TEE, case technician and family member, Hermelinda had a care plan meeting in regards to patients discharge plan. Plan is to discharge on hospice to assisted living, senior care care facility or home. Family will need to discuss discharge plan and decide on which option will be best for the patient. Awaiting for Dr Ron to see patient today.
[2020-01-28] MEDS ORDERED: DICLOFENAC SODIUM 1% TOPICAL GEL 100GM TUBE. TP SCH (14:00)
--- NOTE | 2020-01-28 17:33 | NUR ---
Dr Ron and Daughter Samreen discussed patients condition and cardiologys consult today. Discussion is to discharge patient from skilled rehab and admit to inpatient acute care for IV Lasix and additional monitoring.
--- NOTE | 2020-01-28 17:35 | NUR ---
Patient is discharged and will be going to room 107 with personal belongings. DPOA aware of plan of care.
== END 2020-01-28 17:30 | disposition short-term general hospital (02) | DRG 948 ==
LOC: 1 SOUTH 13:27 → LND 01-21 19:00
PROVIDERS: ADMIT Hospitalist; ATTEND Internal Medicine
DX: R53.1 Weakness (principal); N39.0 Urinary tract infection, site not specified; F05 Delirium due to known physiological condition; M48.00 Spinal stenosis, site unspecified; E78.5 Hyperlipidemia, unspecified; F01.50 Vascular dementia, unspecified severity, without behavioral disturbance, psychotic disturbance, mood disturbance, and anxiety; I50.9 Heart failure, unspecified; F32.9 Major depressive disorder, single episode, unspecified; F41.9 Anxiety disorder, unspecified; G89.29 Other chronic pain; I25.10 Atherosclerotic heart disease of native coronary artery without angina pectoris; I25.5 Ischemic cardiomyopathy; I48.0 Paroxysmal atrial fibrillation; I49.5 Sick sinus syndrome; Z96.643 Presence of artificial hip joint, bilateral; K21.9 Gastro-esophageal reflux disease without esophagitis; M17.0 Bilateral primary osteoarthritis of knee; R29.6 Repeated falls; Z87.440 Personal history of urinary (tract) infections; I25.2 Old myocardial infarction; Z95.0 Presence of cardiac pacemaker; Z88.5 Allergy status to narcotic agent; Z88.8 Allergy status to other drugs, medicaments and biological substances
CPT/HCPCS: 36415; 70450; 71046; 80048; 80053; 83880; 84484; 85025; 85027; 85379; Q0162; 97110; 97112; 97116; 97530; 97535

== ENCOUNTER 2020-01-28 17:05 | Inpatient (IN) | payer MEDICARE, BC ==
[~2020-01-28] VITALS: Ht 154.9 cm; Wt 63.2 kg
[~2020-01-28 17:05] MED LIST changes: +AMMO385C5 TP; +CEFU250T59 PO; +OLAN5TAB9 PO
[2020-01-28] MEDS ORDERED: POLYETHYLENE GLYCOL 3350 17 GM PACKET. PO PRN (17:45)
[2020-01-28] MEDS ORDERED: OLANZapine 5 MG TABLET PO PRN (17:45)
[2020-01-28] MEDS ORDERED: DOCUSATE SODIUM 100 MG CAPSULE PO PRN (17:45)
[2020-01-28] MEDS ORDERED: ACETAMINOPHEN 325 MG TABLET PO PRN (17:45)
--- NOTE | 2020-01-28 18:21 | NUR ---
The patient, ROHITH PINO, 84 y/o, F admitted by KOREY RAY MD, was given written information regarding hospital policies, unit procedures and contact persons. Valuables were checked and left in room. Patient ambulated via wheelchair to Room 107 from swing bed unit due to acute on chronic CHF and possible HCAPs. Orders placed by Dr Ray for morning labs, IV Start and Lasix [address] Beckham and Cardiology placed. Patients family aware of transition of care. Belongings left in room.
--- NOTE | 2020-01-28 18:32 | DS ---
DATE OF DISCHARGE: HOSPITAL COURSE: The patient is an 84-year-old female patient, who was admitted to swing bed to continue the process of rehabilitation. She was hospitalized at [facility]. She has had frequent UTIs, generalized weakness and falling. She was treated for UTI. She was seen by the physiatry services and recommended acute rehabilitation. She was discharged. She was basically noted to have an episode of hypoxia and pain in her left knee joint in particular, and we actually did repeated her lab work. She continued to have markedly elevated beta natriuretic peptide; although, her white cell count remained normal. Her chest x-ray showed that she has mild bibasilar lung airspace opacities, likely atelectasis or infiltrate, and therefore, a decision was made to transfer her to acute care. We start her on IV Lasix and consulted the Cardiology to assist with her management. When I saw her this afternoon, she was resting slightly propped up in bed, in no apparent respiratory distress. However, her performance is extremely variable and she desaturates with exertion and has been complaining of severe pain in her left knee joint. PHYSICAL EXAMINATION: GENERAL: When I examined her, she was pale, but no jaundice, cyanosis or thyromegaly. No jugular venous distention. No limb edema. VITAL SIGNS: Her heart rate was 71, blood pressure was 142/74, temperature was 97.9, respiratory rate was 18 and oxygen saturation was 94% on 2 liters of oxygen. HEAD, EYES, EARS, NOSE AND THROAT: Showed normocephalic, atraumatic. NECK: Supple. HEART: Showed normal first and second heart sounds. No gallop or murmur. CHEST: Shows central trachea. Equal bilateral expansion, air entry. Vesicular sounds with bilateral basal crepitation posteriorly. I could not appreciate any rhonchi. ABDOMEN: Distended, soft, nontender. NEUROLOGIC: She is obviously demented and confused at times. Sometimes she is very lucid. All her cranial nerves are intact. She moves all extremities without difficulty. She ambulates with a walker with marked variation in her performance. LABORATORY DATA: Her lab work as of yesterday showed a white cell count 7100, hemoglobin 10, hematocrit 33, MCV 89 and platelet count 218,000. Her D-dimer was slightly elevated at 1.78. His serum sodium was 134, potassium 4.7, chloride 100, bicarbonate 29, anion gap of 5, BUN 21, creatinine 1.4, estimated GFR was 36 mL per minute, her glucose 159, calcium was 9.2. Total bilirubin, AST, ALT were normal. Alkaline phosphatase slightly elevated. Beta natriuretic peptide was 13,823. Total protein was 6.4, albumin was 2.8. ASSESSMENT: 1. Acute on chronic congestive heart failure. 2. Acute kidney injury. 3. 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 Plan is to start her on IV Lasix at 20 mg daily and consult the circular saw operator. We will continue obviously with physical and occupational therapy. KOREY RAY MD DR: ED/shannen JOB#: [id number] / [id number]
[2020-01-28 20:35] VITALS: BP 114/71
[2020-01-28] MEDS: LISINOPRIL 5 MG TABLET. PO SCH (21:23)
[2020-01-28] MEDS: AMMONIUM LACTATE 12% TOPICAL LOTION 226GM BOTTLE. TP SCH (21:23)
--- NOTE | 2020-01-28 22:03 | PDOC ---
Exam Note: Bill Note: Please also refer to the separate dictated note~for this date of service dictated separately.~Patient seen individually. Discussed the patient with Nursing staff reviewed the chart.~Reviewed interim history and current functioning. Reviewed vital signs,~Labs/ Radiology~and current medications noted below. Continue current treatment with the changes noted in the dictated addendum note Assessment: Vital Signs/I&O: Vital Signs Date Time Temp Pulse Resp B/P (MAP) Pulse Ox O2 Delivery O2 Flow Rate FiO2 01/28/20 21:23 75 114/71 01/28/20 20:35 Nasal Cannula 2.0 01/28/20 20:35 98.3 21 95 Current Medications: Meds: Current Medications Medications (Trade) Dose Ordered Sig/Alexus Route PRN Reason Start Time Stop Time Status Last Admin Dose Admin Lisinopril (Prinivil) 5 mg QHS PO 01/28/20 21:00 01/28/20 21:23 Lactic Acid (Lac-Hydrin) 1 nancy BID TP 01/28/20 21:00 01/28/20 21:23 I have reviewed the current psychotropics carefully including drug interactions. Risk benefit ratio favors no change other than as noted in my dictated progress note. Diagnosis: Problems: (1) Anxiety disorder, unspecified (2) Dementia, vascular, with depression (3) Dementia, vascular, with delusions (4) Major neurocognitive disorder (5) Mild cognitive impairment PB DEMPSEY MD Jan 28, 2020 22:03
[2020-01-28 22:59] VITALS: BP 153/93
--- NOTE | 2020-01-28 23:37 | PDOC2 ---
CARDIAC CONSULT DATE OF CONSULT Date Of Consult DATE: 01/28/20 TIME: 9:55 REASON FOR CONSULT Reason for Consult CHF REFERRING PHYSICIAN Referring Physician Dr. Ron SOURCE Source: Chart review, Patient HPI History of Present Illness This is an 84 yo female, well known to our clinic, who has been on swing bed unit for rehab. Patient has had hypoxia with exertion, which has prompted concerns for fluid overload, which prompted this consult. She denies any short ness of breath at rest, chest pain, palpitations, dizziness, diaphoresis, or nausea/vomiting. Does have some mild LE edema. PAST MEDICAL HISTORY Past Medical History Cardiovascular: AFIB (paroxysmal ), CAD, CHF, HTN, UT, Hyperlipidemia, Other (SSS s/p PPM implantation) Pulmonary: No pertinent hx GI: Diverticulosis, GERD, Irritable bowel disease Heme/Onc: No pertinent hx Hepatobiliary: No pertinent hx Psych: Anxiety Musculoskeletal: Osteoarthritis Rheumatologic: No pertinent hx Infectious disease: No pertinent hx ENT: No pertinent hx Renal/: No pertinent hx Endocrine: No pertinent hx Dermatology: No pertinent hx PAST SURGICAL HISTORY Past Surgical History pacemaker (Bi-V; Biotronik), Cholecystectomy, Other (right hip ORIF, tubal ligation) FAMILY HISTORY Family History: Coronary Artery Disease, Diabetes SOCIAL HISTORY Smoke: No ALCOHOL: none Drugs: None Lives: with Family CURRENT MEDICATIONS Current Medications Current Medications Furosemide (Lasix) 20 mg DAILY IVP ; Start 01/29/20 at 09:00 Acetaminophen (Tylenol) 650 mg PRN Q6HRS PRN PO pain or fever; Start 01/28/20 at 17:45 Amiodarone HCl (Cordarone) 200 mg DAILY PO ; Start 01/29/20 at 09:00 Citalopram Hydrobromide (CeleXA) 10 mg DAILY PO ; Start 01/29/20 at 09:00 Clopidogrel Bisulfate (Plavix) 75 mg DAILY PO ; Start 01/29/20 at 09:00 Docusate Sodium (Colace) 100 mg PRN BID PRN PO CONSTIPATION; Start 01/28/20 at 17:45 Lactobacillus Rhamnosus (Culturelle) 1 cap DAILY PO ; Start 01/29/20 at 09:00 Lisinopril (Prinivil) 5 mg QHS PO Last administered on 01/28/20at 21:23; Start 01/28/20 at 21:00 Metoprolol Succinate (Toprol Xl) 50 mg DAILY PO ; Start 01/29/20 at 09:00 Olanzapine (ZyPREXA) 5 mg PRN BID PRN PO ANXIETY/AGITATION; Start 01/28/20 at 17:45 Pantoprazole Sodium (Protonix) 40 mg DAILY PO ; Start 01/29/20 at 09:00 Polyethylene Glycol (miraLAX) 17 gm PRN DAILY PRN PO CONSTIPATION; Start 01/28/20 at 17:45 Potassium Chloride (Klor-Con) 20 meq 3X/WEEK PO ; Start 01/29/20 at 09:00 Lactic Acid (Lac-Hydrin) 1 finesse BID TP Last administered on 01/28/20at 21:23; Start 01/28/20 at 21:00 Active Scripts Active Reported Olanzapine 5 Mg Tablet 5 Mg PO BID PRN Ammonium Lactate 385 Gm Cream..g. 1 Finesse TP BID Colace (Docusate Sodium) 100 Mg Capsule 1 Cap PO BID PRN Miralax (Polyethylene Glycol 3350) 17 Gm Powd.pack 1 Packet PO DAILY PRN dissolve in water Potassium Chloride (Potassium Chloride) 20 Meq Tablet.er 20 Meq PO 3X/WEEK Culturelle (Lactobacillus Rhamnosus Gg) 1 Each Cap.sprink 1 Cap PO DAILY Acetaminophen 325 Mg Tablet 2 Tab PO PRN Q6HRS PRN Celexa (Citalopram Hydrobromide) 10 Mg Tablet 10 Mg PO DAILY Protonix (Pantoprazole Sodium) 40 Mg Tablet.dr 40 Mg PO DAILY Lasix (Furosemide) 20 Mg Tablet 20 Mg PO 3X/WEEK Amiodarone Hcl 200 Mg Tablet 200 Mg PO DAILY Plavix (Clopidogrel Bisulfate) 75 Mg Tablet 75 Mg PO DAILY Lisinopril 5 Mg Tablet 5 Mg PO QHS Metoprolol Succinate ( Xl ) (Metoprolol Succinate) 50 Mg Tab.er.24h 50 Mg PO DAILY ALLERGIES Allergies: Coded Allergies: codeine (Verified Allergy, Intermediate, 07/18/19) iron (Verified Allergy, Intermediate, 07/18/19) tramadol (Verified Allergy, Unknown, 07/18/19) ROS Review of Systems 14 point ROS conducted with pertinent positives noted above in HPI PHYSICAL EXAM Physical Exam General: Alert, Oriented to person and place, Cooperative, No acute distress HEENT: Atraumatic, Mucous membr. moist/pink Lungs: RLL fine crackles Heart: Regular rate Abdomen: Soft, No tenderness Extremities: 1+ bilateral LE edema, Normal pulses Skin: No significant lesion Neuro: Normal speech, Sensation intact Psych/Mental Status: mild confusion, Mood NL MUSCULOSKELETAL: Osteoarthritic changes both hands VITALS Vital Signs Vital Signs Date Time Temp Pulse Resp B/P (MAP) Pulse Ox O2 Delivery O2 Flow Rate FiO2 01/28/20 22:59 97.4 76 20 153/93 (113) 97 Nasal Cannula 2.0 ECHOCARDIOGRAM Echocardiogram Left Ventricle: Normal wall thickness. Mildly dilated. Severely decreased ejection fraction with LVEF=20%. Diffuse hypokinesis. Abnormal septal motion consistent with right ventricular pacing. Left Atrium: Severely dilated. Right Atrium: Moderately dilated. Tricuspid Valve: Normal valve structure. No stenosis. Moderate regurgitation. Mitral Valve: Normal valve structure. No stenosis. Mild to moderate regurgitation. Estimated Peak Systolic PA Pressure 66 mmHg. Markedly elevated central venous pressure (>15 mm Hg). No prior for comparison. 10/02/19 - 2-D + DOPPLER ECHOCARDIOGRAM W/STRAIN HEART CATH Heart Cath Conclusion 1. Successful PCI of the proximal and distal LAD with Resolute 4.0/18 and 3.0/ BAYLEE. 2. Negative FFR of the RCA. Recommendations Aggressive Medical Therapy DATE: 07/29/16 1245 CORONARY ANGIOGRAPHY: LM is a large caliber vessel with normal angiographic appearance. LAD is a large caliber vessel with a 95% proximal stent edge restenosis. There is a patent mid stent. The remainder of the vessel had mild luminal irregularities. D1 is a small caliber vessel with an ostial 90% stenosis. LCx is a moderate caliber non-dominant vessel with normal angiographic apearance. OM1 is a moderate caliber vessel with a proximal 50% stenosis. RCA is a large caliber dominant vessel with a mid to distal 60-70% stenosis, unchanged in appearance from prior cath. RPDA and RPL are moderate caliber vessels with mild luminal irregularities. Conclusion 1. Three vessel coronary artery disease with focal ISR of the proximal LAD stent, treated with a Xience 4.0/12 mm stent, post-dilated with high pressure non-compliant balloon at 20 suyapa. Recommendations ASA 81mg daily Ticagrelor 90mbid for at least 1 year if tolerated. LDL goal less than 70. DATE: 04/26/17 0839 ASSESSMENT/PLAN Assessment/Plan 1. Exertional dyspnea, hypoxia 2. Acute on chronic CHFBack pain, DDD, lumbar stenosis. ? contributing to falls. 3. CAD: s/p PCI/BAYLEE to proximal and distal LAD. 4. Chronic systolic CHF with ICM: LVEF 20%; s/p Bi-V, ADMINISTRATIVE HEARING OFFICER-P(Biotronik). 5. Hypertension; controlled 6. CKD; Cr stable 7. Hyperlipidemia; statin 8. PAFIB; maintaining SR 9. High PVC burden: hence with amiodarone 10. Mobitz type 2: noted briefly at 37 Recommendations Mild diuresis with close monitoring of renal function Continue secondary prevention measures Amiodarone for rhythm maintenance Continue ASA therapy. Poor candidate for long-term OAC given recurrent falls. Supportive care from a CV standpoint Family meeting today to determine goals of care. MATEUS BERNARDO APRN Jan 28, 2020 23:37
[2020-01-29 03:15] VITALS: BP 153/72
--- NOTE | 2020-01-29 05:30 | NUR ---
Pt able to get a good amount of sleep during the shift. Was dozing off already when I came in to give night meds. Pt stood and pivot with aid of walker to BSC to void, without difficulty. Definitely weak but required only one person assist. Pt had no c/o of pain during shift and asked multiple times but denied. Pt VSS. Pt took in po what pt voided out, BLE remains edematous but will be receiving IV lasix starting this AM. AM labs to be drawn still and reviewed.
[2020-01-29 06:10] LABS: HEMATOCRIT 30.9 % (36.0-47.0); HEMOGLOBIN 9.9 g/dL (12.0-15.5); RED BLOOD COUNT 3.48 x10^6/uL (3.50-5.40); RED CELL DISTRIBUTION WIDTH 17.7 % (11.5-14.5); WHITE BLOOD COUNT 9.8 x10^3/uL (4.0-11.0)
[2020-01-29 06:31] LABS: ALBUMIN 2.7 g/dL (3.4-5.0); ALBUMIN/GLOBULIN RATIO 0.7 (1.0-1.7); CALCIUM 9.2 mg/dL (8.5-10.1); CREATININE 1.3 mg/dL (0.6-1.0); GFR 38.8; POTASSIUM 4.6 mmol/L (3.5-5.1); TOTAL BILIRUBIN 0.7 mg/dL (0.2-1.0); TOTAL PROTEIN 6.6 g/dL (6.4-8.2)
--- NOTE | 2020-01-29 07:47 | PDOC ---
Exam Note: Bill Note: This note is a late entry for 01/27/2020 covers elements not covered in my initial note. Subjective: The patient was seen individually in the evening of 01/27/2020 and with the patients oldest daughter who was visiting her over supper time. Also discussed with nursing staff. The patient tends to sundown and towards the evening gets more confused. If she takes a nap in the afternoon she does a little better for a longer period of time in the evening as she is less tired. Daughter had questions about the patients diagnosis. We addressed this and discussed modifications of her home environment to keep the room simple, have a clock and a calendar and for family members who come to visit to sign off on the calendar so that the patient may be reminded of this since she forgets due to her short-term memory deficits. Majority of her memory deficits seemed to be vascular changes rather than Alzheimers and we will avoid any cholinesterase inhibitors. Review of Systems: Ambulation impaired. No CV, , pulmonary, eye system symptoms on review. Mental Status Exam: Oriented to herself and situation. Speech is coherent. Abstraction is fair. Computation is impaired. Language function is intact. Attention span is short. Mood and affect somewhat anxious. Laboratory Data: Reviewed. Impression: Mild cognitive impairment. Major neurocognitive disorder, early vascular with delusion, depression. Rest unchanged. Plan: We addressed pros and cons of cholinesterase inhibitors and Namenda but for now we will avoid this since the majority of her memory deficits are vascular in nature. Continue rest of the psychotropics unchanged. Assessment: Vital Signs/I&O: Vital Signs Date Time Temp Pulse Resp B/P (MAP) Pulse Ox O2 Delivery O2 Flow Rate FiO2 01/29/20 03:15 98.1 77 20 153/72 (99) 95 Nasal Cannula 2.0 I & O 01/28/20 01/28/20 01/29/20 15:00 23:00 07:00 Intake Total 120 ml 200 ml Output Total 0 ml 200 ml Balance 120 ml 0 ml Labs: Laboratory Tests Test 01/29/20 05:53 White Blood Count 9.8 x10^3/uL (4.0-11.0) Red Blood Count 3.48 x10^6/uL (3.50-5.40) L Hemoglobin 9.9 g/dL (12.0-15.5) L Hematocrit 30.9 % (36.0-47.0) L Mean Corpuscular Volume 89 fL (79-100) Mean Corpuscular Hemoglobin 28 pg (25-35) Mean Corpuscular Hemoglobin Concent 32 g/dL (31-37) Red Cell Distribution Width 17.7 % (11.5-14.5) H Platelet Count 202 x10^3/uL (140-400) Sodium Level 133 mmol/L (136-145) L Potassium Level 4.6 mmol/L (3.5-5.1) Chloride Level 100 mmol/L (98-107) Carbon Dioxide Level 30 mmol/L (21-32) Anion Gap 3 (6-14) L Blood Urea Nitrogen 20 mg/dL (7-20) Creatinine 1.3 mg/dL (0.6-1.0) H Estimated GFR (Cockcroft-Gault) 38.8 BUN/Creatinine Ratio 15 (6-20) Glucose Level 93 mg/dL (70-99) Calcium Level 9.2 mg/dL (8.5-10.1) Total Bilirubin 0.7 mg/dL (0.2-1.0) Aspartate Amino Transferase (AST) 19 U/L (15-37) Alanine Aminotransferase (ALT) 28 U/L (14-59) Alkaline Phosphatase 156 U/L (46-116) H DF-Lkl-K-Type Natriuretic Peptide 6724 pg/mL (0-449) H Total Protein 6.6 g/dL (6.4-8.2) Albumin 2.7 g/dL (3.4-5.0) L Albumin/Globulin Ratio 0.7 (1.0-1.7) L Current Medications: Meds: Current Medications Medications (Trade) Dose Ordered Sig/Alexus Route PRN Reason Start Time Stop Time Status Last Admin Dose Admin Lisinopril (Prinivil) 5 mg QHS PO 01/28/20 21:00 01/28/20 21:23 Lactic Acid (Lac-Hydrin) 1 nancy BID TP 01/28/20 21:00 01/28/20 21:23 I have reviewed the current psychotropics carefully including drug interactions. Risk benefit ratio favors no change other than as noted in my dictated progress note. Diagnosis: Problems: (1) Major neurocognitive disorder (2) Dementia, vascular, with delusions (3) Anxiety disorder, unspecified (4) Mild cognitive impairment (5) Dementia, vascular, with depression PB DEMPSEY MD Jan 29, 2020 07:47
[2020-01-29] MEDS: PANTOPRAZOLE 40 MG TABLET. PO SCH (08:29)
[2020-01-29] MEDS: CLOPIDOGREL BISULFATE 75 MG TABLET PO SCH (08:29)
[2020-01-29] MEDS: METOPROLOL SUCC 24HR ER 50 MG TAB.ER.24H. PO SCH (08:29)
[2020-01-29] MEDS: LACTOBACILLUS RHAMNOSUS GG 1 CAPSULE. PO SCH (08:29)
[2020-01-29] MEDS: POTASSIUM CHLORIDE 20 MEQ TABLET.ER. PO SCH (08:30)
[2020-01-29] MEDS: CITALOPRAM 10 MG TABLET. PO SCH (08:30)
[2020-01-29] MEDS: AMIODARONE HCL 200 MG TABLET PO SCH (08:30)
[2020-01-29] MEDS ORDERED: FUROSEMIDE 40 MG/4 ML VIAL IVP ONE (08:30)
[2020-01-29] MEDS: AMMONIUM LACTATE 12% TOPICAL LOTION 226GM BOTTLE. TP SCH ×2 (08:31→20:43)
--- NOTE | 2020-01-29 08:33 | PDOC ---
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 Intake and Output 01/29/20 07:00 Intake Total 320 ml Output Total 200 ml Balance 120 ml Intake Oral 320 ml Output Urine Total 200 ml Laboratory Labs Laboratory Tests Test 01/29/20 05:53 White Blood Count 9.8 x10^3/uL (4.0-11.0) Red Blood Count 3.48 x10^6/uL (3.50-5.40) Hemoglobin 9.9 g/dL (12.0-15.5) Hematocrit 30.9 % (36.0-47.0) Mean Corpuscular Volume 89 fL (79-100) Mean Corpuscular Hemoglobin 28 pg (25-35) Mean Corpuscular Hemoglobin Concent 32 g/dL (31-37) Red Cell Distribution Width 17.7 % (11.5-14.5) Platelet Count 202 x10^3/uL (140-400) Sodium Level 133 mmol/L (136-145) Potassium Level 4.6 mmol/L (3.5-5.1) Chloride Level 100 mmol/L (98-107) Carbon Dioxide Level 30 mmol/L (21-32) Anion Gap 3 (6-14) Blood Urea Nitrogen 20 mg/dL (7-20) Creatinine 1.3 mg/dL (0.6-1.0) Estimated GFR (Cockcroft-Gault) 38.8 BUN/Creatinine Ratio 15 (6-20) Glucose Level 93 mg/dL (70-99) Calcium Level 9.2 mg/dL (8.5-10.1) Total Bilirubin 0.7 mg/dL (0.2-1.0) Aspartate Amino Transf (AST/SGOT) 19 U/L (15-37) Alanine Aminotransferase (ALT/SGPT) 28 U/L (14-59) Alkaline Phosphatase 156 U/L (46-116) JQ-Exc-A-Type Natriuretic Peptide 6724 pg/mL (0-449) Total Protein 6.6 g/dL (6.4-8.2) Albumin 2.7 g/dL (3.4-5.0) Albumin/Globulin Ratio 0.7 (1.0-1.7) Physical Exams HEENT: Neck Supple W Full Motion Chest: Symmetric Lungs: Other (bilateral crackles ) Heart: S1S2, RRR Abdomen: Soft N/T Extremities: Other (1+ bilateral LE edema ) Neurology: alert, follow commands, confused Assessment Assessment 1. Exertional dyspnea, hypoxia 2. Acute on chronic CHFBack pain, DDD, lumbar stenosis. ? contributing to falls. 3. CAD: s/p PCI/BAYLEE to proximal and distal LAD. 4. Chronic systolic CHF with ICM: LVEF 20%; s/p Bi-V, LABOR ARBITRATOR HEARING OFFICE-P(Biotronik). 5. Hypertension; controlled 6. CKD; Cr stable 7. Hyperlipidemia; statin 8. PAFIB; maintaining SR 9. High PVC burden: hence with amiodarone 10. Mobitz type 2: noted briefly at 37 Recommendations Mild diuresis with close monitoring of renal function Continue secondary prevention measures Amiodarone for rhythm maintenance Continue ASA therapy. Poor candidate for long-term OAC given recurrent falls. Supportive care from a CV standpoint Family entertaining Hospice upon discharge. RAZA JO MD 01/29/20 9013: CARDIO Progress Notes Attending Signature I have participated in the care of this patient and I have reviewed and agree with all pertinent clinical information above including history, exam, and recommendations. MATEUS BERNARDO APRN Jan 29, 2020 08:33 RAZA JO MD Jan 29, 2020 22:57
--- NOTE | 2020-01-29 08:33 | PDOC ---
Exam Note: Bill Note: This note is a late entry for 01/28/2020 covers elements not covered in my initial note. Subjective: The patient was seen individually in the evening of 01/28/2020. Per nursing report the patient has done somewhat better today. She still gets a little more confused with sundowning but improved. Review of Systems: Ambulation impaired. No CV, , pulmonary, eye system symptoms on review. Mental Status Exam: Oriented to herself and situation. Speech is coherent, has some latency, pleasant, verbal, smiling. Abstraction is fair. Computation is impaired. Language function is intact. Short-term memory is impaired. Mood and affect somewhat withdrawn. Laboratory Data: Reviewed. Impression: Mild cognitive impairment. Major neurocognitive disorder, early vascular with delusion, depression. Rest unchanged. Plan: No change from initial note. Assessment: Vital Signs/I&O: Vital Signs Date Time Temp Pulse Resp B/P (MAP) Pulse Ox O2 Delivery O2 Flow Rate FiO2 01/29/20 03:15 98.1 77 20 153/72 (99) 95 Nasal Cannula 2.0 I & O 01/28/20 01/28/20 01/29/20 15:00 23:00 07:00 Intake Total 120 ml 200 ml Output Total 0 ml 200 ml Balance 120 ml 0 ml Labs: Laboratory Tests Test 01/29/20 05:53 White Blood Count 9.8 x10^3/uL (4.0-11.0) Red Blood Count 3.48 x10^6/uL (3.50-5.40) L Hemoglobin 9.9 g/dL (12.0-15.5) L Hematocrit 30.9 % (36.0-47.0) L Mean Corpuscular Volume 89 fL (79-100) Mean Corpuscular Hemoglobin 28 pg (25-35) Mean Corpuscular Hemoglobin Concent 32 g/dL (31-37) Red Cell Distribution Width 17.7 % (11.5-14.5) H Platelet Count 202 x10^3/uL (140-400) Sodium Level 133 mmol/L (136-145) L Potassium Level 4.6 mmol/L (3.5-5.1) Chloride Level 100 mmol/L (98-107) Carbon Dioxide Level 30 mmol/L (21-32) Anion Gap 3 (6-14) L Blood Urea Nitrogen 20 mg/dL (7-20) Creatinine 1.3 mg/dL (0.6-1.0) H Estimated GFR (Cockcroft-Gault) 38.8 BUN/Creatinine Ratio 15 (6-20) Glucose Level 93 mg/dL (70-99) Calcium Level 9.2 mg/dL (8.5-10.1) Total Bilirubin 0.7 mg/dL (0.2-1.0) Aspartate Amino Transferase (AST) 19 U/L (15-37) Alanine Aminotransferase (ALT) 28 U/L (14-59) Alkaline Phosphatase 156 U/L (46-116) H RL-Haa-N-Type Natriuretic Peptide 6724 pg/mL (0-449) H Total Protein 6.6 g/dL (6.4-8.2) Albumin 2.7 g/dL (3.4-5.0) L Albumin/Globulin Ratio 0.7 (1.0-1.7) L Current Medications: Meds: Current Medications Medications (Trade) Dose Ordered Sig/Alexus Route PRN Reason Start Time Stop Time Status Last Admin Dose Admin Lisinopril (Prinivil) 5 mg QHS PO 01/28/20 21:00 01/28/20 21:23 Lactic Acid (Lac-Hydrin) 1 nancy BID TP 01/28/20 21:00 01/28/20 21:23 I have reviewed the current psychotropics carefully including drug interactions. Risk benefit ratio favors no change other than as noted in my dictated progress note. Diagnosis: Problems: (1) Mild cognitive impairment (2) Anxiety disorder, unspecified (3) Dementia, vascular, with depression (4) Dementia, vascular, with delusions (5) Major neurocognitive disorder PB DEMPSEY MD Jan 29, 2020 08:33
[2020-01-29] MEDS ORDERED: FUROSEMIDE 20 MG/2 ML VIAL IVP SCH (09:00)
[2020-01-29 09:11] VITALS: BP 127/73
--- NOTE | 2020-01-29 09:36 | HP ---
ADMIT DATE: 01/28/2020 ATTENDING PHYSICIAN: Dr. Sánchez. CHIEF COMPLAINT: Shortness of breath. HISTORY OF PRESENT ILLNESS: The patient is an 84-year-old female admitted to the acute floor from rehabilitation. She had been on the swing bed for the last couple of weeks after being hospitalized at [facility]. She has a longstanding acute and chronic congestive heart failure with dilated cardiomyopathy and an ejection fraction estimated at 15%. She was symptomatic with desaturation and exertional dyspnea. No chest pain per se. She has degenerative arthritis with recent injury to the right knee. BNP was elevated. She was sent here for further treatment of acute on chronic congestive heart failure. Intravenous diuresis and help with Cardiology service as well familiar with her. PAST MEDICAL HISTORY: Significant for multiple admissions for congestive heart failure. She has a very narrow range weights between congestive heart failure and dehydration with resultant hypotension. She has been on Entresto before, but this was stopped because of syncope and dehydration. She was also on Xarelto, recently stopped because of frequent falls. ALLERGIES: Se has allergies to CODEINE, IRON, and TRAMADOL. CURRENT MEDICATIONS: Include amiodarone 200 mg daily, Celexa 10 mg daily, Plavix, docusate, Lasix 20 mg daily, lactobacillus, lisinopril 5 mg daily, metoprolol 50 mg daily, olanzapine, Protonix, MiraLax, and potassium supplementation. SOCIAL HISTORY: She is a nonsmoker and nondrinker. PAST SURGICAL HISTORY: Includes diaphragmatic stimulation, cardiac pacemaker, frequent pneumonias, UTIs, underlying dementia and sensorineural hearing loss. FAMILY HISTORY: Noncontributory. REVIEW OF SYSTEMS: Significant for frequent fall, dyspnea with minimal exertion, right knee pain. She also has memory issues, no family is here. The rest of the detailed review of system is unfortunately unobtainable. PHYSICAL EXAMINATION: GENERAL: When I saw her, this is a pleasant, confused elderly female. INITIAL VITAL SIGNS: When I saw her showed a blood pressure of 153/72, her pulse is 77 and regular, temperature 98.1 degrees Fahrenheit, and her oxygen saturation 95% on 2 liters of supplemental nasal cannula oxygen. HEENT: Head is without trauma. Pupils are reactive. Sclerae nonicteric. Oropharynx clear. NECK: Supple, no bruits identified. Venous pressure was distended at 45 degrees. LUNGS: Bibasilar rales. CARDIOVASCULAR: Showed distant heart tones. Noticeable S3 gallop at the apex. Peripheral pulses are palpable and full. ABDOMEN: Soft, obese, protuberant. No organomegaly. Bowel sounds were hypoactive. EXTREMITIES: Showed 2+ pitting edema of the lower extremities. NEUROLOGIC: Function focally intact. Speech is fluent. Her memory is suspect. LABORATORY DATA: Potassium is 4.6 mEq per liter. Creatinine 1.3 mg/dL, nonfasting blood sugar 93 mg/dL. The BNP is elevated at 6724. Chest x-ray dated 01/27/2020 showed cardiomegaly, permanent pacemaker, evidence of infiltrate consistent with vascular congestion and heart failure. ASSESSMENT: 1. An 84-year-old female with acute on chronic congestive heart failure. 2. Dilated cardiomyopathy. 3. Degenerative arthritis. 4. Underlying dementia. 5. Hypertensive heart disease. 6. Generalized debilitation. 7. Anemia of chronic disease. PLAN: 1. Admit to the inpatient unit. 2. Cardiology consultation helped with management. 3. Tentative plans for the family to decide whether hospice care is appropriate. Her prognosis is guarded and probably terminal. She is a DNR per advanced directives. GALA SÁNCHEZ MD DR: SYLVESTER/shannen JOB#: [id number] / [id number] KOREY Conley MD
--- NOTE | 2020-01-29 14:28 | NUR ---
Patient doing well today, Cardiology here this AM to see patient. Orders to given Lasix IVP and repeat labs in AM. Patient has been using bedside commode majority of day due to receiving lasix and had occasional incontinent episodes due. Patient aware of need of void but unable to make it to the restroom in time, appears having the commode next to recliner is helping. Patient working with therapy this morning, was able to ambulate to hallway and back before knee started to "buckle" Patient denies complaints of SOA or difficulty breathing, remains on room air throughout the day. Patient assisted back to bed at this time, requested to take a nap. Will continue to monitor output and vitals throughout the day.
[2020-01-29 17:15] VITALS: BP 108/70
[2020-01-29 19:59] VITALS: BP 143/73
[2020-01-29] MEDS: LISINOPRIL 5 MG TABLET. PO SCH (20:43)
[2020-01-29 23:07] VITALS: BP 121/72
[2020-01-30 05:50] VITALS: BP 134/74
[2020-01-30 06:02] LABS: CALCIUM 9.1 mg/dL (8.5-10.1); CREATININE 1.1 mg/dL (0.6-1.0); GFR 47.1; POTASSIUM 4.1 mmol/L (3.5-5.1)
[2020-01-30] MEDS: METOPROLOL SUCC 24HR ER 50 MG TAB.ER.24H. PO SCH (07:33)
[2020-01-30] MEDS: CLOPIDOGREL BISULFATE 75 MG TABLET PO SCH (07:33)
[2020-01-30] MEDS: PANTOPRAZOLE 40 MG TABLET. PO SCH (07:34)
[2020-01-30] MEDS: CITALOPRAM 10 MG TABLET. PO SCH (07:34)
[2020-01-30] MEDS: AMMONIUM LACTATE 12% TOPICAL LOTION 226GM BOTTLE. TP SCH ×2 (07:34→20:59)
[2020-01-30] MEDS: AMIODARONE HCL 200 MG TABLET PO SCH (07:34)
[2020-01-30] MEDS: LACTOBACILLUS RHAMNOSUS GG 1 CAPSULE. PO SCH (07:34)
--- NOTE | 2020-01-30 09:04 | PN ---
DATE: 01/30/2020 ATTENDING PHYSICIAN: Dr. Sánchez. SUBJECTIVE: The patient is comfortable. She is not requiring supplemental oxygen. She is eating breakfast independently. She denies any dyspnea or shortness of breath. OBJECTIVE FINDINGS: VITAL SIGNS: Her blood pressure is 134/74 mmHg, pulse of 72 and regular, temperature 98.4 degrees Fahrenheit, and her oxygen saturations are 94% on room air. HEENT: Head is without trauma. Pupils are reactive. Sclerae nonicteric. The oropharynx is clear. NECK: Supple. LUNGS: Minimal crackles at posterior left base. CARDIOVASCULAR: Showed distant heart tones. No obvious gallops. Peripheral pulses are palpable and full. ABDOMEN: Soft, nontender, no organomegaly. Bowel sounds are hypoactive. EXTREMITIES: Show trace edema. NEUROLOGIC FINDING: Alert, pleasantly confused. ASSESSMENT: 1. An 84-year-old female with acute on chronic congestive heart failure. 2. Dilated cardiomyopathy. 3. Degenerative arthritis. 4. Underlying dementia. 5. Hypertensive heart disease. 6. Generalized debilitation. 7. Anemia of chronic disease. PLAN: 1. Comfort measures. 2. Diet as tolerated. 3. Afterload and preload reduction per Cardiology. 4. Tentative plans for home with hospice care. GALA SÁNCHEZ MD DR: SYLVESTER/shannen JOB#: [id number] / [id number] KOREY Conley MD
[2020-01-30 09:27] VITALS: BP 115/69
--- NOTE | 2020-01-30 09:42 | PDOC ---
CARDIO Progress Notes Date & Time Date of Service DATE: 01/30/20 TIME: 09:37 Time of Evaluation 08:37 Subjective Notes No chest pain, palpitations, dizziness, diaphoresis, nausea/vomiting. Vitals Vitals Vital Signs Date Time Temp Pulse Resp B/P (MAP) Pulse Ox O2 Delivery O2 Flow Rate FiO2 01/30/20 09:27 98.4 63 20 115/69 (84) 99 Room Air 01/30/20 05:50 2.0 Weight Weight [ ] Input and Output I.O. Intake and Output 01/30/20 07:00 Intake Total 770 ml Output Total 1325 ml Balance -555 ml Intake Oral 770 ml Output Urine Total 1325 ml # Voids 5 Laboratory Labs Laboratory Tests Test 01/28/20 19:10 01/29/20 05:53 01/30/20 05:46 Procalcitonin < 0.10 ng/mL (0.00-0.10) White Blood Count 9.8 x10^3/uL (4.0-11.0) Red Blood Count 3.48 x10^6/uL (3.50-5.40) Hemoglobin 9.9 g/dL (12.0-15.5) Hematocrit 30.9 % (36.0-47.0) Mean Corpuscular Volume 89 fL (79-100) Mean Corpuscular Hemoglobin 28 pg (25-35) Mean Corpuscular Hemoglobin Concent 32 g/dL (31-37) Red Cell Distribution Width 17.7 % (11.5-14.5) Platelet Count 202 x10^3/uL (140-400) Sodium Level 133 mmol/L (136-145) 133 mmol/L (136-145) Potassium Level 4.6 mmol/L (3.5-5.1) 4.1 mmol/L (3.5-5.1) Chloride Level 100 mmol/L (98-107) 99 mmol/L (98-107) Carbon Dioxide Level 30 mmol/L (21-32) 29 mmol/L (21-32) Anion Gap 3 (6-14) 5 (6-14) Blood Urea Nitrogen 20 mg/dL (7-20) 17 mg/dL (7-20) Creatinine 1.3 mg/dL (0.6-1.0) 1.1 mg/dL (0.6-1.0) Estimated GFR (Cockcroft-Gault) 38.8 47.1 BUN/Creatinine Ratio 15 (6-20) Glucose Level 93 mg/dL (70-99) 88 mg/dL (70-99) Calcium Level 9.2 mg/dL (8.5-10.1) 9.1 mg/dL (8.5-10.1) Total Bilirubin 0.7 mg/dL (0.2-1.0) Aspartate Amino Transf (AST/SGOT) 19 U/L (15-37) Alanine Aminotransferase (ALT/SGPT) 28 U/L (14-59) Alkaline Phosphatase 156 U/L (46-116) RK-Hkh-O-Type Natriuretic Peptide 6724 pg/mL (0-449) Total Protein 6.6 g/dL (6.4-8.2) Albumin 2.7 g/dL (3.4-5.0) Albumin/Globulin Ratio 0.7 (1.0-1.7) Magnesium Level 2.0 mg/dL (1.8-2.4) Physical Exams HEENT: Neck Supple W Full Motion Chest: Symmetric Lungs: Other (CTA) Heart: S1S2, RRR Abdomen: Soft N/T Extremities: Other (trace bilateral LE edema ) Neurology: alert, follow commands, confused (intermittent ) Assessment Assessment 1. Exertional dyspnea, hypoxia 2. Acute on chronic systolic CHF; better compensated following diuresis. 3. CAD: s/p PCI/BAYLEE to proximal and distal LAD. 4. ICM: LVEF 20%; s/p Bi-V, FERRYBOAT CAPTAIN-P(Biotronik). 5. Hypertension; controlled 6. CKD; Cr stable 7. Hyperlipidemia; statin 8. PAFIB; maintaining SR. On Amiodarone therapy Recommendations Resume oral diuretics Lasix 20mg oral today, and then resume 3x's per week Supportive care Plans for home with Hospice MATEUS BERNARDO APRN Jan 30, 2020 09:42
[2020-01-30] MEDS ORDERED: FUROSEMIDE 20 MG TABLET PO ONE (09:55)
[2020-01-30 14:23] VITALS: BP 139/75
--- NOTE | 2020-01-30 17:30 | NUR ---
NURSING NOTE PT C/O PAIN IN HER SHOULDER, STATES THAT SHE THINKS IT GOT PULLED ON WHEN SHE WAS UP IN THE CHAIR TODAY. PT ALSO STATES HER KNEES ARE HURTING AND SHE IS A BIT NAUSEATED WITH DINNER. PT GIVEN PRN TYLENOL. ORDER OBTAINED FOR PRN ZOFRAN 4MG IV Q6HRS. RUBEN FARIA.
[2020-01-30] MEDS ORDERED: ONDANSETRON PF 4 MG/2 ML VIAL. IVP PRN (17:45)
[2020-01-30 19:23] VITALS: BP 126/73
--- NOTE | 2020-01-30 19:24 | NUR ---
PT saturation noted to be 91%, increased O2 to 3L.
[2020-01-30] MEDS: LISINOPRIL 5 MG TABLET. PO SCH (20:59)
[2020-01-31 06:03] VITALS: BP 148/77
[2020-01-31] MEDS: LACTOBACILLUS RHAMNOSUS GG 1 CAPSULE. PO SCH (08:03)
[2020-01-31] MEDS: AMIODARONE HCL 200 MG TABLET PO SCH (08:03)
[2020-01-31] MEDS: POTASSIUM CHLORIDE 20 MEQ TABLET.ER. PO SCH (08:03)
[2020-01-31] MEDS: METOPROLOL SUCC 24HR ER 50 MG TAB.ER.24H. PO SCH (08:03)
[2020-01-31] MEDS: PANTOPRAZOLE 40 MG TABLET. PO SCH (08:04)
[2020-01-31] MEDS: AMMONIUM LACTATE 12% TOPICAL LOTION 226GM BOTTLE. TP SCH ×2 (08:04→20:09)
[2020-01-31] MEDS: CLOPIDOGREL BISULFATE 75 MG TABLET PO SCH (08:04)
[2020-01-31] MEDS: CITALOPRAM 10 MG TABLET. PO SCH (08:04)
--- NOTE | 2020-01-31 09:19 | PN ---
DATE: 01/31/2020 ATTENDING PHYSICIAN: Dr. Sánchez. SUBJECTIVE: The patient is comfortable. She is bright, cheery, alert, ate breakfast independently. She is sitting in her chair, reading her Dom. OBJECTIVE FINDINGS: VITAL SIGNS: Her blood pressure today is 148/77, pulse is 76 and regular, temperature 98.2 degrees Fahrenheit, and oxygen saturation 98% on 2 liters of supplemental oxygen. HEENT: Head is without trauma. Pupils are reactive. Sclerae nonicteric. Venous pressure is slightly distended at 45 degrees. LUNGS: Bibasilar crackles remained. Otherwise, good air movement. CARDIOVASCULAR: Showed distant heart tones. Normal S1, S2. I did hear a faint S3 gallop at the apex. Peripheral pulses are palpable and full. ABDOMEN: Soft, scaphoid, nontender, no organomegaly. Bowel sounds are hypoactive. EXTREMITIES: Showed no cyanosis or edema. NEUROLOGIC: Focally intact. No deficits. PERTINENT LABORATORY DATA: Reviewed yesterday. Potassium is 4.1 mEq per liter. Creatinine is improved to 1.1 mg/dL, sodium 133, BUN is 17 mg/dL. BNP remains elevated at 6700. ASSESSMENT: 1. The patient has acute on chronic systolic congestive heart failure. 2. Dilated cardiomyopathy. 3. Degenerative arthritis. 4. Underlying dementia. 5. Hypertensive heart disease. 6. Generalized debilitation. 7. Anemia of chronic disease. PLAN: 1. Afterload and preload reduction per Cardiology. 2. Diet as tolerated. 3. Tentative plans for discharge with home hospice tomorrow. GALA SÁNCHEZ MD DR: SYLVESTER/shannen JOB#: [id number] / [id number] KOREY Conley MD
[2020-01-31] MEDS ORDERED: FUROSEMIDE 40 MG TABLET PO ONE (09:55)
[2020-01-31 11:00] VITALS: BP 124/74
[2020-01-31 16:00] VITALS: BP 130/74
[2020-01-31 19:15] VITALS: BP 121/73
[2020-01-31] MEDS: LISINOPRIL 5 MG TABLET. PO SCH (20:09)
[2020-01-31 21:55] VITALS: BP 105/66
[2020-02-01 05:29] VITALS: BP 147/76
[2020-02-01] MEDS: AMIODARONE HCL 200 MG TABLET PO SCH (08:33)
[2020-02-01] MEDS: LACTOBACILLUS RHAMNOSUS GG 1 CAPSULE. PO SCH (08:33)
[2020-02-01] MEDS: CLOPIDOGREL BISULFATE 75 MG TABLET PO SCH (08:33)
[2020-02-01 08:34] VITALS: BP 147/76
[2020-02-01] MEDS: AMMONIUM LACTATE 12% TOPICAL LOTION 226GM BOTTLE. TP SCH (08:34)
[2020-02-01] MEDS: CITALOPRAM 10 MG TABLET. PO SCH (08:34)
[2020-02-01] MEDS: PANTOPRAZOLE 40 MG TABLET. PO SCH (08:34)
[2020-02-01] MEDS: METOPROLOL SUCC 24HR ER 50 MG TAB.ER.24H. PO SCH (08:34)
--- NOTE | 2020-02-01 11:05 | DS ---
DATE OF DISCHARGE: 02/01/2020 ATTENDING PHYSICIAN: Dr. Sánchez. FINAL DISCHARGE DIAGNOSES: 1. Acute on chronic systolic congestive heart failure. 2. Dilated cardiomyopathy, ejection fraction estimated at 15%. 3. Underlying dementia. 4. Degenerative arthritis. 5. Hypertensive heart disease. 6. Generalized debilitation. 7. Anemia of chronic disease. HISTORY AND PHYSICAL: The patient is an 84-year-old female with end-stage heart failure. She has a large dilated cardiomyopathy, ejection fraction estimated at 15%. She also has a permanent pacemaker. She had been on rehabilitation unit. She was admitted here with exacerbation of her congestive heart failure. PHYSICAL EXAMINATION: Please see the dictated note. PERTINENT X-RAY AND LABORATORY STUDIES: On this admission, her hemoglobin was 9.9 g/dL with a white count of 9800. Sodium was 133, potassium is maintained at 4.1 mEq, creatinine improved to 1.1 mg/dL, nonfasting blood sugar 93. BNP is elevated at 6724. COURSE IN THE HOSPITAL: The patient was admitted to the medical service. She was given supplemental oxygen. We continued her Lasix and her afterload reduction beta blockers and lisinopril. Supplemental oxygen was added. Cardiology services were asked to help along. They are well familiar with her and their recommendation on the chart. We gave her intermittent higher dose of Lasix to maintain her preload reduction as well as to treat her edema. She did well. Her blood pressure and vital signs were stable. On the day of discharge, her BP was 147/76. She was comfortable. She was pleasantly confused. She has 8 children, two of whom work here and her daughter, Manisha, who works in the ICU, is her power of erisa attorney. She is discharged home with home hospice care to be arranged. Her discharge meds are basically unchanged. She will continue her lisinopril 5 mg daily, Lasix 20 mg p.o. every other day, amiodarone 200 mg p.o. daily, Lac-Hydrin p.r.n., Celexa 10 mg daily, Plavix 75 mg daily, docusate daily, Lasix as prescribed, metoprolol 50 mg daily, olanzapine 5 mg b.i.d. p.r.n., Protonix 40 mg daily and potassium supplementation. She is a DNR per advanced directive. Her prognosis is guarded. She was discharged from our hospital in stable condition with explicit instructions and followup care. GALA SÁNCHEZ MD DR: SYLVESTER/shannen JOB#: [id number] / [id number] KOREY Conley MD
== END 2020-02-01 15:42 | disposition hospice, home (50) | DRG 291 ==
LOC: 1 SOUTH 17:05
PROVIDERS: ADMIT Internal Medicine; ATTEND Internal Medicine
DX: I13.0 Hypertensive heart and chronic kidney disease with heart failure and stage 1 through stage 4 chronic kidney disease, or unspecified chronic kidney disease (principal); I50.23 Acute on chronic systolic (congestive) heart failure; N17.9 Acute kidney failure, unspecified; F05 Delirium due to known physiological condition; J98.11 Atelectasis; N39.0 Urinary tract infection, site not specified; E44.1 Mild protein-calorie malnutrition; I42.0 Dilated cardiomyopathy; D63.8 Anemia in other chronic diseases classified elsewhere; E78.5 Hyperlipidemia, unspecified; F01.50 Vascular dementia, unspecified severity, without behavioral disturbance, psychotic disturbance, mood disturbance, and anxiety; F32.9 Major depressive disorder, single episode, unspecified; F41.9 Anxiety disorder, unspecified; H90.5 Unspecified sensorineural hearing loss; I25.10 Atherosclerotic heart disease of native coronary artery without angina pectoris; I44.1 Atrioventricular block, second degree; I48.0 Paroxysmal atrial fibrillation; M17.0 Bilateral primary osteoarthritis of knee; I50.84 End stage heart failure; M48.061 Spinal stenosis, lumbar region without neurogenic claudication; N18.9 Chronic kidney disease, unspecified; Z82.49 Family history of ischemic heart disease and other diseases of the circulatory system; Z83.3 Family history of diabetes mellitus; Z87.440 Personal history of urinary (tract) infections; Z95.0 Presence of cardiac pacemaker; Z98.61 Coronary angioplasty status; K21.9 Gastro-esophageal reflux disease without esophagitis; K57.90 Diverticulosis of intestine, part unspecified, without perforation or abscess without bleeding; Z66 Do not resuscitate; Z68.26 Body mass index [BMI] 26.0-26.9, adult
CPT/HCPCS: 36415; 80048; 80053; 83735; 83880; 84145; 85027; J1940; J2405; 97110; 97116; 97530; 97535

== ENCOUNTER 2020-03-03 16:00 | Inpatient (IN) | payer MEDICARE, BC ==
[~2020-03-03] VITALS: Ht 154.9 cm; Wt 49.9 kg
[2020-03-03 18:31] VITALS: BP 149/76
[2020-03-03 18:42] LABS: BASO % 0 % (0-3); EOS % 0 % (0-3); HEMATOCRIT 38.2 % (36.0-47.0); HEMOGLOBIN 12.3 g/dL (12.0-15.5); LYMPH # 0.5 x10^3/uL (1.0-4.8); LYMPH % 5 % (24-48); MEAN CORPUSCULAR HEMOGLOBIN 27 pg (25-35); MEAN CORPUSCULAR HGB CONC 32 g/dL (31-37); MEAN CORPUSCULAR VOLUME 85 fL (79-100); MONO % 9 % (0-9); NEUT # 9.3 x10^3uL (1.8-7.7); NEUT % 86 % (31-73); PLATELET COUNT 216 x10^3/uL (140-400); RED BLOOD COUNT 4.51 x10^6/uL (3.50-5.40); WHITE BLOOD COUNT 10.9 x10^3/uL (4.0-11.0)
[2020-03-03 19:13] LABS: ALBUMIN/GLOBULIN RATIO 0.6 (1.0-1.7); CALCIUM 8.6 mg/dL (8.5-10.1); GFR 52.6; POTASSIUM 3.5 mmol/L (3.5-5.1); TOTAL BILIRUBIN 1.1 mg/dL (0.2-1.0); TOTAL PROTEIN 5.3 g/dL (6.4-8.2)
[2020-03-03 19:31] LABS: % BANDS 1 % (0-9); % LYMPHS 1 % (24-48); % MONOS 5 % (0-10); % SEGS 93 % (35-66)
[2020-03-03 19:32] LABS: PLT ESTIMATE ADEQUATE (ADEQUATE)
[2020-03-03] MEDS ORDERED: DICY10CA3 PO (21:20)
[2020-03-03] MEDS: DICYCLOMINE HCL 10 MG CAPSULE PO SCH (21:30)
[2020-03-03 21:42] LABS: BGAS PH 7.43 (7.35-7.45)
[2020-03-03] MEDS: POTASSIUM CL 20MEQ IN 0.9%NACL 1,000 ML IV SCH (22:19)
[2020-03-03 22:26] VITALS: BP 156/89
--- NOTE | 2020-03-03 22:29 | RAD ---
Exam: CT of chest without contrast INDICATION: Increased oxygen, short of air TECHNIQUE: Sequential axial images through the chest obtained without IV contrast. Sagittal and coronal reformatted images were reconstructed from the axial data and reviewed. Comparisons: Chest x-ray 01/27/2020 FINDINGS: Visualized portions of the thyroid are unremarkable. No enlarged mediastinal lymph nodes. Heart is enlarged. Pacer leads noted terminating in the right heart and coronary sinus. No pericardial effusion. Mild coronary artery calcium lesions. Thoracic aorta has a normal course and caliber. Pulmonary artery is not enlarged. Airways are patent. There is patchy groundglass opacity in the upper lobes bilaterally. More focal consolidative changes are seen in the right lung base. There is a moderate to large left pleural effusion causing complete atelectasis of the left lower lobe and partial atelectasis of the left upper lobe. Trace right pleural effusion as. Increased echogenicity of the liver parenchyma. Otherwise, visualized upper abdomen is unremarkable. No suspicious osseous lesions or acute fractures. IMPRESSION: 1. Large left pleural effusion causing complete atelectasis of the left lower lobe and partial atelectasis of the left upper lobe. 2. Patchy areas of groundglass opacity in the right upper lung with more focal areas of consolidation in the right lung base which may be infectious or inflammatory in etiology. 3. Increased echogenicity of liver parenchyma on noncontrast exam. Given cardiomegaly, correlate for amiodarone use. Exposure: One or more of the following in the visualized dose reduction techniques were utilized for this examination: 1. Automated exposure control 2. Adjustment of the MA and/or KV according to patient size 3. Use of iterative of reconstructive technique Electronically signed by: Marjorie Benavides MD (03/03/2020 10:27 PM) [email or web address]
[2020-03-04] VITALS (8 sets, daily range): BP systolic 145–158; BP diastolic 68–91
[2020-03-04] MEDS: LOPERAMIDE 2 MG CAPSULE PO PRN (00:57)
[2020-03-04 01:29] LABS: BACTERIA,URINE 0 /HPF (0-FEW); BILIRUBIN,URINE NEG (NEG); CLARITY,URINE CLEAR; COLOR,URINE YELLOW; GLUCOSE,URINE NEG (NEG); NITRITE,URINE POS (NEG); RBC,URINE 0 /HPF (0-2); SQUAMOUS EPITHELIAL CELL,UR OCC /LPF; WBC,URINE OCC /HPF (0-4)
--- NOTE | 2020-03-04 02:55 | NUR ---
Pt was admitted before shift change to room 107. Pt. was lethargic but awoke when name was spoken during assessment. Pt arrived w/ complaints of continues loose stools. Pt appeared SOA w/ little activity. Upon results of chest CT, Dr Ron was notified. Pt was then swabbed for COVID and moved to room 103 for airborne and contact precautions. After pt was moved to room 103 rectal tube and catheter where placed. Pt received PRN Imodium as indicated. Pt. appears to be resting comfortably. Will continue to monitor.
[2020-03-04] MEDS: DICYCLOMINE HCL 10 MG CAPSULE PO SCH ×2 (07:48→21:00)
[2020-03-04] MEDS: METOPROLOL SUCC 24HR ER 50 MG TAB.ER.24H. PO SCH (07:49)
[2020-03-04] MEDS: AMIODARONE HCL 200 MG TABLET PO SCH (07:50)
[2020-03-04] MEDS ORDERED: CLOPIDOGREL BISULFATE 75 MG TABLET PO SCH (09:00)
--- NOTE | 2020-03-04 09:52 | NUR ---
IP: patient PUI for COVID-19, requires contact and airborne precautions.
--- NOTE | 2020-03-04 09:53 | NUR ---
IP: patient tested for c diff, requires contact + precautions until c diff ruled out.
[2020-03-04 11:47] LABS: BASO % 0 % (0-3); EOS # 0.1 x10^3/uL (0.0-0.7); EOS % 1 % (0-3); HEMATOCRIT 37.8 % (36.0-47.0); HEMOGLOBIN 12.2 g/dL (12.0-15.5); LYMPH # 0.7 x10^3/uL (1.0-4.8); LYMPH % 7 % (24-48); MEAN CORPUSCULAR HEMOGLOBIN 27 pg (25-35); MEAN CORPUSCULAR HGB CONC 32 g/dL (31-37); MEAN CORPUSCULAR VOLUME 85 fL (79-100); MONO # 1.4 x10^3/uL (0.0-1.1); MONO % 14 % (0-9); NEUT # 7.9 x10^3uL (1.8-7.7); NEUT % 78 % (31-73); PLATELET COUNT 241 x10^3/uL (140-400); RED BLOOD COUNT 4.46 x10^6/uL (3.50-5.40); RED CELL DISTRIBUTION WIDTH 19.8 % (11.5-14.5); WHITE BLOOD COUNT 10.1 x10^3/uL (4.0-11.0)
[2020-03-04 12:03] LABS: ALBUMIN/GLOBULIN RATIO 0.6 (1.0-1.7); CALCIUM 8.2 mg/dL (8.5-10.1); CREATININE 0.9 mg/dL (0.6-1.0); GFR 59.4; POTASSIUM 3.6 mmol/L (3.5-5.1); TOTAL PROTEIN 5.4 g/dL (6.4-8.2)
[2020-03-04] MEDS: VANCOMYCIN 125 MG/2.5 ML ORAL SOLUTION. PO SCH ×3 (13:31→21:00)
[2020-03-04] MEDS: ACETAMINOPHEN 325 MG TABLET PO SCH ×2 (13:32→18:00)
[2020-03-04] MEDS: DEXAMETHASONE 4 MG TABLET PO SCH (13:32)
[2020-03-04] MEDS: POTASSIUM CL 20MEQ IN 0.9%NACL 1,000 ML IV SCH (13:33)
[2020-03-04] MEDS ORDERED: AZITHROMYCIN 250 MG TABLET. PO ONE (13:45)
--- NOTE | 2020-03-04 14:51 | HP ---
ADMIT DATE: 03/03/2020 HISTORY OF PRESENT ILLNESS: The patient is an 84-year-old female patient who was on hospice care and apparently was noted by her family to have recurrent episodes of diarrhea that has been constant. The patient was extremely lethargic, weak and therefore, a decision was made to admit her directly to [facility] for further evaluation and treatment. When she came here initially, the patient was apparently very lethargic, although arousable and she continued to have recurrent bouts of loose bowel movement, that rectal tube was placed and we did actually send stool for C. diff toxins. She did have also CT scan of the chest without contrast, which basically showed that the patient has large left pleural effusion causing complete atelectasis of the left lower lobe and partial atelectasis of the left upper lobe. She has also patchy areas of ground glass opacity in the right upper lung with more focal areas of consolidation in the right lung base, which may be infectious, inflammatory in etiology. She has increased echogenicity of her liver parenchyma on the noncontrasted exam. Given cardiomegaly, correlate for amiodarone use. The patient was started on IV fluid in the form of normal saline with 20 mEq of potassium chloride at 75 mL per hour. We did continue with her home medication. On arrival, her white cell count was 10,900, hemoglobin 12, hematocrit 38, MCV 85 and platelet count 216,000 with normal manual differential. Her arterial blood gas showed a pH of 7.433, pCO2 of 45, pO2 of 86, bicarbonate 30 and oxygen saturation was 97%. Her chemistry showed a serum sodium 137, potassium 3.5, chloride 101, bicarbonate 31, anion gap of 5, BUN 20, creatinine 1, estimated GFR was 52 mL per minute. Her glucose was 53, calcium was 8.6. Her lactic acid was only 0.5 millimoles per liter. Her total bilirubin, AST, ALT were normal. Alkaline phosphatase slightly elevated. Her ammonia was only less than 10. Beta natriuretic peptide was 15,000. Total protein was 5.3, albumin was 2. Her urinalysis showed the urine was yellow, clear with a pH of 6.5, specific gravity of 1.020 and the urine was negative for protein, glucose. There was small amount of ketones, negative for blood, positive for nitrite and leukocyte esterase was negative. There are no rbc's, occasional wbc's, and no bacteria. The CT scan of the chest without contrast showed the patient has large left side pleural effusion causing complete atelectasis of the left lower lobe and partial atelectasis of the left upper lobe and patchy areas of ground glass opacity in the right upper lung with more focal areas of consolidation in the right lung base, which may be infectious, inflammatory in etiology. Increased echogenicity of the liver parenchyma on noncontrast exam. Given cardiomegaly, correlate with amiodarone. The patient was admitted with recurrent bouts of diarrhea with the possible etiologies including C. diff colitis versus COVID-19. She was also found to have this ground glass opacity in her right upper lung with more focal areas of consolidation in the right lung base, which may be infectious. Obviously, this finding is also possible with COVID or other atypical pneumonia and community-acquired pneumonia. The patient was started on Rocephin and Zithromax. I did also start her on dexamethasone. However, her oxygen saturation remained stable. She herself denied any chest pain or shortness of breath and her oxygen requirement remained stable as she was at home, she is maintaining her oxygen saturation at 96% on 4 liters oxygen by nasal cannula. PAST MEDICAL HISTORY: Significant for paroxysmal atrial fibrillation, coronary artery disease, congestive heart failure, hypertension, myocardial infarction, hyperlipidemia. She is also known to have sick sinus syndrome, status post permanent pacemaker placement. She is known to have diverticulosis, gastroesophageal reflux disease, irritable bowel syndrome, generalized osteoarthritis, anxiety. PAST SURGICAL HISTORY: Significant for pacemaker, biventricular, Biotronik. She underwent cholecystectomy, right hip fracture status post open reduction and internal fixation, tubal ligation. FAMILY HISTORY: Significant for coronary artery disease and diabetes. SOCIAL HISTORY: She is , lives with her boyfriend. She does not smoke, drink alcohol or use recreational drugs. MEDICATIONS: She was on following medications: She is on dicyclomine 10 mg twice a day, Plavix 75 mg once a day, amiodarone 200 mg once a day, metoprolol succinate 50 mg daily. PHYSICAL EXAMINATION: GENERAL: On arrival to the hospital, the patient looked somewhat pale, but no jaundice, cyanosis or thyromegaly. No jugular venous distention. No limb edema. VITAL SIGNS: Her heart rate was 70, blood pressure was 149/76, temperature was 98.1, respiratory rate was 19 and oxygen saturation was 95% on 4 liters of oxygen. HEAD, EYES, EARS, NOSE AND THROAT: Showed normocephalic, atraumatic. NECK: Supple. HEART: Showed normal first and second heart sounds. No gallop or murmur. CHEST: Shows central trachea, equal bilateral expansion, air entry, vesicular sounds. No crepitation or rhonchi anteriorly. The patient has dull percussion noted and absent breath sounds posteriorly, more on the left than right. I could not appreciate any crepitation or rhonchi. ABDOMEN: Distended, soft, nontender. NEUROLOGIC: She is awake, alert, responding appropriately. All cranial nerves intact. EXTREMITIES: She moves extremities without difficulty. She has an indwelling Koenig catheter and rectal tube. LABORATORY DIAGNOSTIC DATA: Her lab work on arrival showed a white cell count of 10,900, hemoglobin 12, hematocrit 38, MCV 85 and platelet count 216,000 with a manual differential showed 86% polymorphs, 5% lymphocytes, 9% monocytes. Her chemistry showed a serum sodium 137, potassium 3.5, chloride 101, bicarbonate 31, anion gap of 5, BUN 20, creatinine 1, estimated GFR was 52 mL per minute. Her glucose was 53. Lactic acid was 0.5 millimoles per liter. Her serum calcium was 8.6. AST, ALT were normal. Total bilirubin and alkaline phosphatase slightly elevated. Her ammonia was less than 10. Beta natriuretic peptide was 15,000 and total protein was 5.3, albumin 2. Her blood gases showed a pH of 7.433, pCO2 of 45, pO2 of 86, bicarbonate 30, oxygen saturation was 97% on FiO2 of 36%. Urinalysis essentially unremarkable. CT scan of the chest showed that she has large left sided pleural effusion with complete atelectasis of the left lower lobe and partial atelectasis of the left upper lobe. She has patchy areas of ground glass opacity in the right upper lung with more focal areas of consolidation in the right lung base, which may be infectious, inflammatory. IMPRESSION: In summary, this is an 84-year-old female patient who was admitted with: 1. Altered mental status and recurrent bouts of loose bowel movement. 2. She has large left side pleural effusion. 3. Ground glass opacity and consolidation of the right lower lobe indicating probably viral versus atypical versus healthcare-associated pneumonia. The patient was swabbed for COVID-19. We have sent stool for Clostridium difficile toxins. We resumed her home medication. I believe she was on diuretics before, but we held that given her diarrhea. She was started on Zithromax 500 mg once a day and ceftriaxone 1 g IV daily for a possible community-acquired pneumonia. I added dexamethasone 6 mg once a day, although the patient herself is not extremely hypoxic nor is she short of breath or have any cough. Once we have the Clostridium difficile toxin results and the COVID-19, we will decide on further management accordingly. KOREY RAY MD DR: ED/shannen JOB#: [id number] / [id number]
--- NOTE | 2020-03-04 14:51 | PN ---
DATE: 03/04/2020 SUBJECTIVE: The patient is resting, slightly propped up in bed, in no apparent distress, awake, alert, responding appropriately. On questioning her, she denied any complaints, in particular denied any chest pain or shortness of breath. Denied any cough, phlegm or hemoptysis. Denied any chills, rigors or fever. She stated that her abdominal pain is much better, although she continued to have diarrhea and had had a rectal tube put in. She has also a Koenig catheter. The nursing staff stated that she did well this morning, she was more awake, alert. She was able to eat her breakfast. She did have some difficulty with her lunch, but however, her diet was changed to ground meat mechanical soft diet and we added Ensure with her meals. PHYSICAL EXAMINATION: GENERAL: When I examined her this afternoon, she looked well and was clearly in no apparent respiratory distress. No pallor, jaundice, cyanosis or thyromegaly. No jugular venous distention. No limb edema. VITAL SIGNS: Her heart rate was 75, blood pressure 154/71, temperature was 98.2, respiratory rate was 20, and oxygen saturation was 96% on 3 liters of oxygen. HEENT: Showed normocephalic, atraumatic. NECK: Supple. CARDIAC: Normal first and second heart sounds. No gallop, rub or murmur. CHEST: Shows central trachea, equal bilateral expansion, air entry, vesicular sounds. No crepitation or rhonchi anteriorly. She has dull percussion noted and absent breath sounds, mostly on the left side posteriorly. ABDOMEN: Slightly distended, soft, nontender. There is no guarding or rigidity. No organomegaly. All hernial orifice intact. Bowel sounds normal. NEUROLOGIC: She is definitely more awake, alert, responding appropriately. All cranial nerves are intact. She moves extremities without difficulty. Her intake over the last 24 hours and output incompletely recorded. LABORATORY DATA: Her lab work this afternoon showed a white cell count of 10,000, hemoglobin 12.2, hematocrit 37.8, MCV 85 and platelet count of 241,000. Her chemistry showed a serum sodium 136, potassium 3.6, chloride 100, bicarbonate 29, anion gap of 7, BUN 17, creatinine 0.9, estimated GFR was 59 mL per minute. Her glucose 106, calcium was 8.2. Total bilirubin, AST, ALT normal. Alkaline phosphatase slightly elevated. Her total protein was 5.4, albumin 2. ASSESSMENT AND PLAN: 1. Altered mental status. 2. Recurrent bouts of diarrhea, the cause of which is not clear. We sent stool for C. diff toxins and we did start her empirically on vancomycin 125 mg ____ times a day. Other possibilities showed that she has ground glass opacities in her right upper lobe of the right lung as well as consolidation of the right lower lobe of the right lung, raising the possibility of possible COVID-19 versus healthcare-associated pneumonia, for which we started her on IV Rocephin and Zithromax as well as dexamethasone 6 mg once a day, which she was swabbed for COVID-19. 3. Large left-sided pleural effusion with complete collapse of the left lower lobe and partial collapse of the left upper lobe. 4. Chronic systolic congestive heart failure with an ejection fraction of only 15%. Other medical problems include atrial fibrillation; coronary artery disease; sick sinus syndrome, status post permanent pacemaker; gastroesophageal reflux disease; irritable bowel syndrome; diverticulitis and diverticulosis. KOREY RAY MD DR: ED/shannen JOB#: [id number] / [id number]
[2020-03-04] MEDS ORDERED: DOXYCYCLINE HYCLATE 100 MG in IV DEXTROSE 5% 100 ML IV SCH (15:00)
[2020-03-04] MEDS: DOXYCYCLINE HYCLATE 100 MG TABLET PO SCH (21:00)
[2020-03-05] MEDS: POTASSIUM CL 20MEQ IN 0.9%NACL 1,000 ML IV SCH (00:10)
[2020-03-05] MEDS: ACETAMINOPHEN 325 MG TABLET PO SCH ×5 (00:12→23:56)
[2020-03-05 05:35] LABS: HEMATOCRIT 39.2 % (36.0-47.0); HEMOGLOBIN 12.4 g/dL (12.0-15.5); RED BLOOD COUNT 4.6 x10^6/uL (3.50-5.40); RED CELL DISTRIBUTION WIDTH 20.4 % (11.5-14.5); WHITE BLOOD COUNT 5.1 x10^3/uL (4.0-11.0)
[2020-03-05 05:49] LABS: ALBUMIN 1.9 g/dL (3.4-5.0); ALBUMIN/GLOBULIN RATIO 0.6 (1.0-1.7); CALCIUM 8.1 mg/dL (8.5-10.1); CREATININE 0.9 mg/dL (0.6-1.0); GFR 59.4; TOTAL BILIRUBIN 0.8 mg/dL (0.2-1.0); TOTAL PROTEIN 5.2 g/dL (6.4-8.2)
[2020-03-05 06:37] VITALS: BP 142/85
[2020-03-05] MEDS: DEXAMETHASONE 4 MG TABLET PO SCH (07:27)
[2020-03-05] MEDS: METOPROLOL SUCC 24HR ER 50 MG TAB.ER.24H. PO SCH (07:28)
[2020-03-05] MEDS: DICYCLOMINE HCL 10 MG CAPSULE PO SCH ×2 (07:28→20:51)
[2020-03-05] MEDS: AMIODARONE HCL 200 MG TABLET PO SCH (07:29)
[2020-03-05] MEDS: DOXYCYCLINE HYCLATE 100 MG TABLET PO SCH ×2 (07:29→20:51)
[2020-03-05] MEDS: VANCOMYCIN 125 MG/2.5 ML ORAL SOLUTION. PO SCH ×4 (07:30→20:51)
[2020-03-05 11:17] VITALS: BP 144/84
--- NOTE | 2020-03-05 11:44 | NUR ---
PATIENT IS AWAKE BUT LETHARGIC THIS AM, VISITING WITH HER DAUGHTER, PATIENT DENIED ANY PAIN, PT STATED SHE WANTED TO GO HOME AND BE THERE. PATIENT IS COMPLIANT WITH MED ADMINISTRATION, PT WAS TAKING HER PILLS WHOLE, ONE PILL AT THE TIME WITH WATER. WILL CONTINUE TO MONITOR.
[2020-03-05] MEDS: LOPERAMIDE 2 MG CAPSULE PO PRN (13:44)
[2020-03-05 15:37] VITALS: BP 175/98
[2020-03-05] MEDS ORDERED: LORazepam 0.5 MG TABLET PO PRN (16:30)
[2020-03-05 17:30] VITALS: BP 130/78
--- NOTE | 2020-03-05 18:21 | PN ---
DATE: 03/05/2020 SUBJECTIVE: The patient is resting, slightly propped up in bed, no apparent distress. She is wondering why she is here and she would like to go home; however, she denied any chest pain, shortness of breath. The output from the rectal tube is very minimal, so we are going to discontinue that. She would like to get up and sit in the recliner, so we will assist her with that. So far, her C. diff toxins as well as the COVID-19 tests are still negative. Tentatively, she is scheduled tomorrow at 10:00 for thoracentesis. She has large left-sided pleural effusion causing complete collapse of her left lower lobe and partial collapse of her left upper lobe. Meanwhile, we will continue with oral vancomycin for possible C. diff colitis together with IV antibiotic for pneumonia as well as dexamethasone. PHYSICAL EXAMINATION: GENERAL: When I examined her this afternoon, she looked well and was clearly in no apparent respiratory distress. No pallor, jaundice, cyanosis or thyromegaly. No jugular venous distention. No limb edema. VITAL SIGNS: Her heart rate was 79, blood pressure was 175/98, temperature was 98, respiratory rate was 20, and oxygen saturation was 93% on 2 liters of oxygen. HEENT: Showed normocephalic, atraumatic. NECK: Supple. HEART: Showed normal first and second heart sounds. No gallop or murmur. CHEST: Shows central trachea, equal bilateral chest expansion, air entry, vesicular sounds. No crepitation or rhonchi anteriorly. She has dull percussion noted and absent breath sounds posteriorly. ABDOMEN: Distended, soft, nontender. No guarding or rigidity. No organomegaly. All hernial orifice intact. Bowel sounds normal. NEUROLOGIC: She is awake, alert, responding appropriately. She moves all extremities without difficulty. Her intake over the last 24 hours was 120, output 275. LABORATORY DATA: Her lab work this morning showed a serum sodium 134, potassium 4, chloride 101, bicarbonate 26, anion gap of 7, BUN 16, creatinine 0.9, estimated GFR was 59 mL per minute. Her glucose 136, calcium was 8.1. Total bilirubin, AST, ALT were normal. Alkaline phosphatase slightly elevated. Total protein was 5.2, albumin was 1.9. Her urine culture showed growth of 10,000 colony forming units per mL of gram-negative rods identified as Pseudomonas aeruginosa. ASSESSMENT: 1. Altered mental status, improving. 2. Recurrent bouts of diarrhea because of which is not clear, the result of the stool for C. diff toxin still pending at the time of this dictation. She was treated empirically with vancomycin 125 mg 4 times a day. 3. Ground glass opacity in her right upper lobe and the right lung as well as consolidation of the right lower lobe, raising the possibility of possible COVID-19 versus healthcare-associated pneumonia, for which she is on IV Rocephin as well as doxycycline and also on dexamethasone 6 mg once a day. We are awaiting the result of the swab for COVID-19. 4. She has a large left-sided pleural effusion with complete collapse of the left lower lobe and partial collapse of the left upper lobe. She is scheduled for thoracentesis tomorrow under ultrasound guidance. 5. Chronic systolic congestive heart failure with an ejection fraction of only 15%. 6. Other medical problems including: A. Atrial fibrillation. B. Coronary artery disease. C. Sick sinus syndrome. D. Gastroesophageal reflux disease. E. Irritable bowel syndrome, diverticulosis and diverticulitis. I will discontinue the rectal tube, discontinue IV fluid and meanwhile, continue with all her other medications for now and I will add also SCDs for DVT prophylaxis. KOREY RAY MD DR: ED/shannen JOB#: [id number] / [id number]
[2020-03-05 19:47] VITALS: BP 151/85
[2020-03-05] MEDS: LACTOBACILLUS RHAMNOSUS GG 1 CAPSULE. PO SCH (20:51)
[2020-03-05 23:40] VITALS: BP 133/75
[2020-03-06] VITALS (11 sets, daily range): BP systolic 118–152; BP diastolic 66–88
[2020-03-06] MEDS: ACETAMINOPHEN 325 MG TABLET PO SCH ×3 (05:24→22:12)
[2020-03-06 06:29] LABS: CALCIUM 8.4 mg/dL (8.5-10.1); GFR 52.6; POTASSIUM 3.8 mmol/L (3.5-5.1)
[2020-03-06] MEDS: METOPROLOL SUCC 24HR ER 50 MG TAB.ER.24H. PO SCH (09:00)
--- NOTE | 2020-03-06 11:04 | NUR ---
NSG NOTE; LEFT THORACENTESIS CONSENTS SIGNED BY DAUGHTER/DPOA AICHA BAH [employer]LECTRONIC HEAT SEAL OPERATOR PERFORMED BY DR SUH AND CLAUDIA SORIANO WITH ASSIST BY KATARZYNA RN AND TITI RN PT DRISS PROCEDURE WELL 1260 ML CLEAR YELLOW FLUID REMOVED AND SENT TO LAB FOR PROCESSING VSS IMMEDIATE POST PROCEDURE WITH VS SCHED Q 15 MIN DAUGHTER AICHA AT BEDSIDE FOR BRIEF VISIT
--- NOTE | 2020-03-06 11:28 | RAD ---
AP chest. HISTORY: Postthoracentesis AP view was taken of the chest. There is a small residual left pleural effusion. There is no pneumothorax. Left pacemaker is unchanged. There is thoracolumbar scoliosis. The heart is enlarged. There are hazy bilateral infiltrates. IMPRESSION: 1. Small residual left effusion. 2. No pneumothorax. Electronically signed by: Manuelito Braswell MD (03/06/2020 11:26 AM) [id number]
[2020-03-06 13:04] LABS: BF CLARITY CLEAR; BF COLOR YELLOW; BF RBC COUNT 21; BF SOURCE THORACENTESIS; BF WBC COUNT 11
[2020-03-06 13:05] LABS: BF MON % 99 %; BF PMN % 1 %
--- NOTE | 2020-03-06 17:06 | PN ---
DATE: 03/06/2020 SUBJECTIVE: The patient is resting, slightly propped up in bed, very lethargic; apparently was given Ativan early this morning, showed that she is arousable and opens eyes. Denied any complaint. She has had her thoracentesis done and about 1260 mL of fluid was removed and her COVID-19 test as well as the C. diff toxins were both negative. PHYSICAL EXAMINATION: GENERAL: When I examined her this afternoon, she looked well and was clearly in no apparent respiratory distress, slightly pale, but no jaundice, cyanosis or thyromegaly. No jugular venous distention or limb edema. VITAL SIGNS: Her heart rate was 76, blood pressure was 125/76, temperature was 98.1, respiratory rate was 20 and oxygen saturation was 97% on 2 liters of oxygen. HEAD, EYES, EARS, NOSE, THROAT: Showed normocephalic, atraumatic. NECK: Supple. HEART: Showed normal first and second heart sounds. No gallop or murmur. CHEST: Showed central trachea, equal bilateral expansion, air entry anteriorly. She had dull percussion noted posteriorly, but the air entry is much improved after the thoracentesis and are not infected. Even the oxygen requirement is much improved. She was admitted to the morning on 4 liters and now on 2 liters. ABDOMEN: Soft, nontender. NEUROLOGIC: She is lethargic, but arousable. All cranial nerves are intact. She moves extremities without difficulty. She had an indwelling Koenig catheter. Her intake over the last 24 hours was 1730, output was 825. LABORATORY DATA: Her chemistry this morning showed a serum sodium 133, potassium 3.8, chloride 100, bicarbonate 28, anion gap of 5, BUN 19, creatinine 1, estimated GFR was 52 mL per minute, her glucose 140, calcium was 8.4. Her white cell count was 5100, hemoglobin 12, hematocrit 39, MCV 85 and platelet count 239,000. Her C. diff toxins by PCR were negative and coronavirus-2 PCR was not detected. Her pleural effusion was yellow, clear with a pH of 7.5, chloride 101, nucleated cells, 99% were mononuclear and 1% polymorphs. ASSESSMENT: 1. Altered mental status. Unfortunately, the patient was given Ativan early this morning and she is extremely lethargic this afternoon. 2. Recurrent bouts of diarrhea that has resolved. Her C. diff toxins were negative. 3. Community-acquired pneumonia with ground glass opacities in the right upper lobe and the right lower lobe, for which she is now on ceftriaxone and Zithromax and actually, she is on doxycycline. I did start her on dexamethasone also and however her COVID-19 was negative. 4. She has a large sided pleural effusion, status post with complete collapse of the left lower lobe and partial collapse of the left upper lobe. She is scheduled for thoracentesis. She has had thoracentesis done and about 1260 mL of yellow straw-colored fluid was removed that seems to be transudative in nature. 5. Chronic systolic congestive heart failure with an ejection fraction of only 15%. OTHER MEDICAL PROBLEMS: Include: A. Atrial fibrillation. B. Coronary artery disease. C. Sick sinus syndrome. D. Gastroesophageal reflux disease. E. Irritable bowel syndrome, diverticulosis and diverticulitis. I will continue for now with lactobacillus. I will continue with doxycycline and ceftriaxone; continue with dexamethasone, continue with amiodarone to control the heart rate and dicyclomine for irritable bowel syndrome. We will remove her Koenig catheter tomorrow and start the process of physical and occupational therapy. KOREY RAY MD DR: ED/shannen JOB#: [id number] / [id number]
[2020-03-06] MEDS: DICYCLOMINE HCL 10 MG CAPSULE PO SCH ×2 (17:28→22:12)
[2020-03-06] MEDS: LACTOBACILLUS RHAMNOSUS GG 1 CAPSULE. PO SCH ×2 (17:28→22:11)
[2020-03-06] MEDS: DEXAMETHASONE 4 MG TABLET PO SCH (17:28)
[2020-03-06] MEDS: DOXYCYCLINE HYCLATE 100 MG TABLET PO SCH ×2 (17:28→22:11)
[2020-03-06] MEDS: AMIODARONE HCL 200 MG TABLET PO SCH (17:29)
--- NOTE | 2020-03-06 18:10 | RAD ---
PROCEDURE: Ultrasound guided left thoracentesis. Clinical Indication: Shortness of breath. Known left pleural effusion. The procedure, risks, and complications, to include bleeding, infection and pneumothorax potentially requiring chest tube placement were explained to the patient who wished to proceed. The left chest was prepped and draped using maximum sterile technique, including the use of: Current guideline approved cutaneous antisepsis, a large sterile sheet to establish a sterile field. Additionally the stretcher drier operator wore a mask and sterile gloves during the procedure as well as practiced acceptable hand hygiene prior to placing the line. If ultrasound was utilized, sterile ultrasound technique was followed. 1 percent lidocaine was used for local anesthesia. Ultrasound evaluation showed a simple appearing fluid collection. Under ultrasound guidance, a [id number] device was inserted into the fluid and approximately 1260 cc of clear yellow fluid was removed. 50 cc of this was sent to the lab for further assessment. Sedation: None. Complications: None immediate. The patient tolerated the procedure well. IMPRESSION: Ultrasound-guided left diagnostic and therapeutic thoracentesis. Electronically signed by: ANU KEMP MD (03/06/2020 6:07 PM) [id number]
[2020-03-07 00:30] VITALS: BP 137/88
[2020-03-07] MEDS: ACETAMINOPHEN 325 MG TABLET PO SCH ×4 (01:06→17:02)
--- NOTE | 2020-03-07 05:59 | NUR ---
Pt slept soundly through the night. She barely woke when being turned. Pt denies pain or discomfort. Will continue to monitor.
[2020-03-07 06:51] VITALS: BP 174/73
[2020-03-07 06:57] LABS: HEMATOCRIT 39.8 % (36.0-47.0); HEMOGLOBIN 12.8 g/dL (12.0-15.5); RED BLOOD COUNT 4.68 x10^6/uL (3.50-5.40); RED CELL DISTRIBUTION WIDTH 20.7 % (11.5-14.5); WHITE BLOOD COUNT 4.7 x10^3/uL (4.0-11.0)
[2020-03-07 07:13] LABS: ALBUMIN 1.9 g/dL (3.4-5.0); ALBUMIN/GLOBULIN RATIO 0.6 (1.0-1.7); CALCIUM 8.6 mg/dL (8.5-10.1); GFR 52.6; POTASSIUM 4.2 mmol/L (3.5-5.1); TOTAL BILIRUBIN 0.6 mg/dL (0.2-1.0); TOTAL PROTEIN 5.2 g/dL (6.4-8.2)
[2020-03-07] MEDS: LACTOBACILLUS RHAMNOSUS GG 1 CAPSULE. PO SCH ×2 (08:17→22:02)
[2020-03-07] MEDS: DICYCLOMINE HCL 10 MG CAPSULE PO SCH ×2 (08:17→22:02)
[2020-03-07] MEDS: DOXYCYCLINE HYCLATE 100 MG TABLET PO SCH ×2 (08:17→22:02)
[2020-03-07] MEDS: DEXAMETHASONE 4 MG TABLET PO SCH (08:17)
[2020-03-07] MEDS: AMIODARONE HCL 200 MG TABLET PO SCH (08:17)
[2020-03-07] MEDS: METOPROLOL SUCC 24HR ER 50 MG TAB.ER.24H. PO SCH (08:18)
[2020-03-07 11:41] VITALS: BP 151/80
--- NOTE | 2020-03-07 11:59 | PN ---
DATE: 03/07/2020 SUBJECTIVE: The patient is resting, slightly propped up in bed, no apparent distress. She is very sleepy and lethargic, but arousable. On questioning her, she denied any complaint. The nursing staff stated that she has generally uneventful night. She discontinued her Ativan; however, she continued to be extremely lethargic. PHYSICAL EXAMINATION: GENERAL: When I examined her this afternoon, she was somewhat pale, no jaundice, cyanosis or thyromegaly. No jugular venous distention. No lower limb edema. VITAL SIGNS: His heart rate was 76, blood pressure was 174/73, temperature 97.4, respiratory rate was 16, and oxygen saturation was 98% on 1 liter of oxygen. HEAD, EYES, EARS, NOSE AND THROAT: Showed normocephalic, atraumatic. NECK: Supple. HEART: Showed normal first and second heart sounds. No gallop, rub or murmur. CHEST: Showed central trachea, equal bilateral chest expansion, air entry, vesicular sounds. No crepitation or rhonchi anteriorly. She continued to have a mild dull percussion note and absent breath sounds posteriorly mostly in the left side. ABDOMEN: Soft, nontender. NEUROLOGIC: She is sleepy, but arousable. All her cranial nerves intact. She moves extremities without difficulty. Her intake was 630, output was 200. LABORATORY DATA: As of this morning, her white cell count was 4700, hemoglobin 12.8, hematocrit 39.8, MCV 85 and platelet count 276,000. Her chemistry showed a serum sodium 133, potassium 4.2, chloride 101, bicarbonate 27, anion gap of 5, BUN 19, creatinine 1, estimated GFR was 52 mL per minute. Her glucose 132, calcium was 8.6. Total bilirubin, AST, ALT were normal. Alkaline phosphatase slightly elevated. Total protein was 5.2, albumin was 1.9. ASSESSMENT: 1. Altered mental status. The patient continued to be very sleepy and lethargic despite discontinuation of Ativan yesterday. According to nursing staff, she has not received any Zyprexa. 2. Recurrent bouts of diarrhea that has resolved completely. Her C. diff toxins were negative. 3. Community-acquired pneumonia with ground glass opacities in the right upper lobe and right lower lobe, for which she is now on ceftriaxone and doxycycline. I did start her on dexamethasone also; however, her COVID-19 was negative. 4. She has a large left-sided pleural effusion with a resultant complete collapse of the left lower lobe and partial collapse of the left upper lobe. She is status post thoracentesis. Chest x-ray done post-thoracentesis showed a small residual left-sided pleural effusion and no pneumothorax. 5. Chronic systolic congestive heart failure with an ejection fraction of only 15%. 6. Other medical problems include: A. Atrial fibrillation. B. Coronary artery disease. C. Sick sinus syndrome. D. Gastroesophageal reflux disease, irritable bowel syndrome, diverticulosis and diverticulitis. PLAN: To continue with doxycycline and ceftriaxone. I will cut down dexamethasone slowly. Meanwhile, we will continue the amiodarone to control the heart rate and dicyclomine for irritable bowel syndrome. We will remove her Koenig catheter. I did order physical and occupational therapy, although I am not sure that she would participate given her lethargy. KOREY RAY MD DR: ED/shannen JOB#: [id number] / [id number]
[2020-03-07 15:00] VITALS: BP 131/87
--- NOTE | 2020-03-07 16:58 | PDOC ---
PROVIDER NOTE PROVIDER NOTE PROVIDER NOTE S: Spoke to family. Patient resting comfortably. Denies any pain. O: VSS No LE edema. 2+ pulses Mild third spacing neck veins flat. Labs reviewed. Meds reviewed. Impression: 1. Acute on chronic systolic and diastolic HF RECS 1. Start Lasix 40mg daily, Spironolactone 25mg daily 2. Monitor renal function closely 3. Continue Toprol XL 4. Plan for Entresto if BP stable, otherwise, low dose lisinopril or losartan as BP allows. Supportive care. Justification of Admission: Justification of Admission: Justification of Admission Dx: Yes Respiratory Failure: Severe Resp Distress RAZA JO MD Mar 07, 2020 16:58
[2020-03-07] MEDS ORDERED: SPIRONOLACTONE 25 MG TABLET PO ONE (17:00)
[2020-03-07] MEDS: FUROSEMIDE 40 MG TABLET PO SCH (17:02)
[2020-03-07 20:00] VITALS: BP 163/73
[2020-03-07 22:30] VITALS: BP 141/97
--- NOTE | 2020-03-08 02:53 | NUR ---
Pt slept until evening med pass. She was awake for a few hours. Pt turned every 2 hours. Pt oxygen saturation levels within normal limits without nasal cannula. Oxygen held for the time being. Monitoring oxygen saturation levels. Pt requested to use commode for urination. When assisting pt to sit up in bed, pt decided she felt weak and could not move her legs to stand. Assisted pt back to supine and changed brief. Pt able to assist in rolling side to side. Pt struggled to hold spoon for snack this evening. Assisted pt with bringing food to her mouth. Pt now sleeping soundly. Will continue to monitor.
[2020-03-08 05:46] VITALS: BP 159/97
[2020-03-08] MEDS: ACETAMINOPHEN 325 MG TABLET PO SCH ×4 (06:00→17:00)
[2020-03-08] MEDS: METOPROLOL SUCC 24HR ER 50 MG TAB.ER.24H. PO SCH (08:12)
[2020-03-08] MEDS: DOXYCYCLINE HYCLATE 100 MG TABLET PO SCH ×2 (08:12→20:52)
[2020-03-08] MEDS: DICYCLOMINE HCL 10 MG CAPSULE PO SCH ×2 (08:12→20:52)
[2020-03-08] MEDS: LACTOBACILLUS RHAMNOSUS GG 1 CAPSULE. PO SCH ×2 (08:12→20:52)
[2020-03-08] MEDS: SPIRONOLACTONE 25 MG TABLET PO SCH (08:12)
[2020-03-08] MEDS: FUROSEMIDE 40 MG TABLET PO SCH (08:12)
[2020-03-08] MEDS: DEXAMETHASONE 4 MG TABLET PO SCH (08:12)
[2020-03-08] MEDS: AMIODARONE HCL 200 MG TABLET PO SCH (08:12)
[2020-03-08 08:41] LABS: CALCIUM 8.9 mg/dL (8.5-10.1); CREATININE 1.2 mg/dL (0.6-1.0); GFR 42.6; POTASSIUM 4.1 mmol/L (3.5-5.1)
--- NOTE | 2020-03-08 10:31 | PN ---
DATE: 03/08/2020 SUBJECTIVE: The patient is resting, propped up in her recliner, in no apparent distress. She is sleepy, but arousable. On questioning her, denied any complaint and nursing staff stated that she is more awake and alert. She ate some of her breakfast and she generally looked much better than yesterday. PHYSICAL EXAMINATION: GENERAL: When I examined her, she looked well and was clearly in no apparent respiratory distress. VITAL SIGNS: Her heart rate was 75, blood pressure was 159/97, temperature was 98.1, respiratory rate was 18 and oxygen saturation was 98% on 1 liter of oxygen. HEENT: Showed normocephalic, atraumatic. NECK: Supple. HEART: Normal first and second heart sounds with no gallop, rub or murmur. CHEST: Clear to auscultation. No crepitation or rhonchi. Does have dull percussion note and absent breath sounds in the left side posteriorly. ABDOMEN: Distended, soft, nontender. NEUROLOGICALLY: She was sleepy, but arousable. All cranial nerves are intact. She moves extremities without difficulty, although she is mostly bedbound. Her intake and output were incompletely recorded. Her chemistry this morning showed a serum sodium 133, potassium 4.1, chloride 100, bicarbonate 29, anion gap of 4, BUN 25, creatinine 1.2. Estimated GFR was 42 mL per minute. Her glucose 140, calcium was 8.9. ASSESSMENT: 1. Altered mental status. The patient seems to be more awake, alert today after discontinuation of her Ativan. 2. Recurrent bouts of diarrhea that has resolved. Her C. diff toxins were negative. 3. Community-acquired pneumonia with ground-glass opacities in the right upper lobe and right lower lobe, for which she was on ceftriaxone and doxycycline. Her COVID test was negative and her C. diff toxin was negative. 4. She has large left-sided pleural effusion with resultant complete collapse of the left lower lobe and partial collapse of the left upper lobe. She is status post thoracentesis. Chest x-ray done post-thoracentesis showed small residual left-sided pleural effusion and no pneumothorax. 5. [id number] systolic congestive heart failure, for which she was seen by the armoured car escort and she was started on Lasix and spironolactone. 6. Other medical problems include: A. Atrial fibrillation, rate controlled. B. Coronary artery disease, asymptomatic. C. Sick sinus syndrome. D. Gastroesophageal reflux disease, irritable bowel syndrome, diverticulosis, diverticulitis. PLAN: I will discontinue the IV Rocephin. I would cut down further the dexamethasone. I am going to discontinue the ceftriaxone, switch her to cefdinir for a few more days together with doxycycline. Meanwhile, we will continue with amiodarone, continue with furosemide for her congestive heart failure. KOREY RAY MD DR: ED/shannen JOB#: [id number] / [id number]
[2020-03-08 10:41] VITALS: BP 107/67
[2020-03-08] MEDS: CEFDINIR 300 MG CAPSULE PO SCH ×2 (12:00→20:52)
[2020-03-08] MEDS: SACUBITRIL/VALSARTAN 24/26MG TABLET. PO SCH ×2 (12:01→19:22)
[2020-03-08 15:20] VITALS: BP 121/72
[2020-03-08 19:02] VITALS: BP 95/61
[2020-03-08 23:10] VITALS: BP 126/85
[2020-03-09] MEDS: ACETAMINOPHEN 325 MG TABLET PO SCH ×5 (05:37→23:31)
[2020-03-09 06:26] VITALS: BP 126/83
[2020-03-09 06:35] LABS: CALCIUM 8.8 mg/dL (8.5-10.1); CREATININE 1.1 mg/dL (0.6-1.0); GFR 47.1; POTASSIUM 3.7 mmol/L (3.5-5.1)
[2020-03-09] MEDS: SPIRONOLACTONE 25 MG TABLET PO SCH (08:03)
[2020-03-09] MEDS: DICYCLOMINE HCL 10 MG CAPSULE PO SCH ×2 (08:03→20:10)
[2020-03-09] MEDS: DEXAMETHASONE 4 MG TABLET PO SCH (08:03)
[2020-03-09] MEDS: CEFDINIR 300 MG CAPSULE PO SCH ×2 (08:03→20:10)
[2020-03-09] MEDS: LACTOBACILLUS RHAMNOSUS GG 1 CAPSULE. PO SCH ×2 (08:03→20:10)
[2020-03-09] MEDS: AMIODARONE HCL 200 MG TABLET PO SCH (08:03)
[2020-03-09] MEDS: DOXYCYCLINE HYCLATE 100 MG TABLET PO SCH ×2 (08:03→20:09)
[2020-03-09] MEDS: FUROSEMIDE 40 MG TABLET PO SCH (08:04)
[2020-03-09] MEDS: SACUBITRIL/VALSARTAN 24/26MG TABLET. PO SCH (08:04)
[2020-03-09] MEDS: METOPROLOL SUCC 24HR ER 50 MG TAB.ER.24H. PO SCH (08:04)
--- NOTE | 2020-03-09 08:13 | PDOC ---
CARDIO Progress Notes Date & Time Date of Service DATE: 03/09/20 TIME: 08:04 Time of Evaluation 08:04 Subjective Notes SOA better, no CP, palpitations Vitals Vitals Vital Signs Date Time Temp Pulse Resp B/P (MAP) Pulse Ox O2 Delivery O2 Flow Rate FiO2 03/09/20 06:26 97.6 75 18 126/83 (97) 97 Nasal Cannula 2.0 Weight Weight [ ] Input and Output I.O. Intake and Output 03/09/20 07:00 Intake Total 720 ml Output Total 1 ml Balance 719 ml Intake Oral 720 ml Output Urine Total 1 ml # Voids 4 Laboratory Labs Laboratory Tests Test 03/08/20 07:30 03/09/20 05:48 Sodium Level 133 mmol/L (136-145) 135 mmol/L (136-145) Potassium Level 4.1 mmol/L (3.5-5.1) 3.7 mmol/L (3.5-5.1) Chloride Level 100 mmol/L (98-107) 100 mmol/L (98-107) Carbon Dioxide Level 29 mmol/L (21-32) 31 mmol/L (21-32) Anion Gap 4 (6-14) 4 (6-14) Blood Urea Nitrogen 25 mg/dL (7-20) 27 mg/dL (7-20) Creatinine 1.2 mg/dL (0.6-1.0) 1.1 mg/dL (0.6-1.0) Estimated GFR (Cockcroft-Gault) 42.6 47.1 Glucose Level 140 mg/dL (70-99) 148 mg/dL (70-99) Calcium Level 8.9 mg/dL (8.5-10.1) 8.8 mg/dL (8.5-10.1) Microbiology Micro Microbiology 03/06/20 Gram Stain - Final, Resulted 03/06/20 Aerobic and Anaerobic Culture - Preliminary, Resulted 03/04/20 Urine Culture - Final, Complete 03/04/20 Antimicrobic Susceptibility - Final, Complete Physical Exams HEENT: Neck Supple W Full Motion Chest: Symmetric Lungs: Other (diminished bases) Heart: RRR Abdomen: Soft N/T Extremities: Other (bilateral 1+ upper extremity edema ) Neurology: alert, follow commands, confused Assessment Assessment 1. Acute respiratory failure with a/c CHF and pleural effusion. S/p thoracentesis 2. Acute on chronic systolic CHF; better compensated 3. 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 CAD: s/p PCI/BAYLEE to proximal and distal LAD. Stable. CP free 5. Hypertension; low end this am 6. CKD; Cr stable 7. Hyperlipidemia; statin 8. PAFIB; maintaining SR 9. High PVC burden: on amiodarone Recommendations Continue Lasix and aldactone stop Entresto with hypotension Continue metoprolol as BP allows Consider low-dose ACEi/ARB if BP consistently adequate on metoprolol, diuretic therapy Secondary prevention measures Continue ASA therapy. Poor candidate for long-term OAC given recurrent falls. Supportive care from a CV standpoint MATEUS BERNARDO APRN Mar 09, 2020 08:13
[2020-03-09 10:49] VITALS: BP 122/72
--- NOTE | 2020-03-09 13:52 | PN ---
DATE: 03/09/2020 SUBJECTIVE: The patient is resting, slightly propped up in bed, no apparent distress. Apparently was extremely lethargic, hypotensive this morning and the Cardiology team recommended holding her Entresto; continued to have extremely poor appetite. PHYSICAL EXAMINATION: GENERAL: When I examined her, she looked well and was clearly in no apparent respiratory distress. No pallor, jaundice, cyanosis or thyromegaly. No jugular venous distention or limb edema. VITAL SIGNS: Her heart rate was 75, blood pressure was 122/72, temperature 97.5, respiratory rate was 20 and oxygen saturation was 98% on 2 liters of oxygen. HEAD, EYES, EARS, NOSE AND THROAT: Showed normocephalic, atraumatic. NECK: Supple. HEART: Normal first and second heart sounds. No gallop, rub or murmur. CHEST: Clear to auscultation. No crepitation or rhonchi. ABDOMEN: Distended, soft, nontender. NEUROLOGIC: She is actually somewhat more awake and alert this afternoon. All her cranial nerves intact. She moves extremities without difficulty. Her intake was 375, no output was recorded. LABORATORY DATA: As of this morning, her serum sodium was 135, potassium 3.7, chloride 100, bicarbonate 31, anion gap of 4, BUN 27, creatinine 1.1, estimated GFR was 47 mL per minute. Her glucose was 148 and calcium was 8.8. ASSESSMENT: 1. Altered mental status. The patient seems to be more awake this afternoon than earlier in the day. Blood pressure improved. 2. Recurrent bouts of diarrhea that has resolved. Her Clostridium difficile toxins were negative. 3. Community-acquired pneumonia with ground glass opacities in the right upper lobe and right lower lobe, for which she was on ceftriaxone and doxycycline. Her COVID test was negative and Clostridium difficile toxins were negative. 4. She has large left-sided pleural effusion with resultant complete collapse of the left lower lobe and partial collapse of the right lobe. She is status post thoracentesis and chest x-ray was done post-thoracentesis, showed small residual left-sided pleural effusion and no pneumothorax. 5. Acute on chronic systolic congestive heart failure for which she was seen by the Cardiology and was started back on Lasix and spironolactone. 6. Other medical problems include: A. Atrial fibrillation, rate controlled, not anticoagulated. B. Coronary artery disease, currently asymptomatic. C. Sick sinus syndrome. D. Gastroesophageal reflux disease, irritable bowel syndrome, diverticulosis and diverticulitis. PLAN: To continue with oral antibiotic in the form of cefdinir and doxycycline. I will discontinue her dexamethasone, continue with furosemide as well as amiodarone. Her Entresto was held today, will start the process of physical and occupational therapy. KOREY RAY MD DR: ED/shannen JOB#: [id number] / [id number]
[2020-03-09 15:25] VITALS: BP 103/68
[2020-03-09 19:36] VITALS: BP 115/74
--- NOTE | 2020-03-09 19:53 | NUR ---
Pt sleeping in bed, with daughter at the bedside. DPOA requests that the IV and pvc monitor D/C'd for pt comfort.
[2020-03-09 23:40] VITALS: BP 116/73
[2020-03-10] MEDS: ACETAMINOPHEN 325 MG TABLET PO SCH ×3 (05:54→20:48)
[2020-03-10 06:27] VITALS: BP 131/74
[2020-03-10] MEDS: CEFDINIR 300 MG CAPSULE PO SCH (08:01)
[2020-03-10] MEDS: DOXYCYCLINE HYCLATE 100 MG TABLET PO SCH (08:01)
[2020-03-10] MEDS: AMIODARONE HCL 200 MG TABLET PO SCH (08:02)
[2020-03-10] MEDS: DICYCLOMINE HCL 10 MG CAPSULE PO SCH ×2 (08:02→20:48)
[2020-03-10] MEDS: LACTOBACILLUS RHAMNOSUS GG 1 CAPSULE. PO SCH ×2 (08:02→20:48)
[2020-03-10] MEDS: FUROSEMIDE 40 MG TABLET PO SCH (08:02)
[2020-03-10] MEDS: DEXAMETHASONE 4 MG TABLET PO SCH (08:02)
[2020-03-10] MEDS: SPIRONOLACTONE 25 MG TABLET PO SCH (08:03)
[2020-03-10] MEDS: METOPROLOL SUCC 24HR ER 50 MG TAB.ER.24H. PO SCH (08:10)
--- NOTE | 2020-03-10 10:22 | PDOC ---
CARDIO Progress Notes Date & Time Date of Service DATE: 03/10/20 TIME: 10:21 Time of Evaluation 10:21 Subjective Notes No chest pain, shortness of breath, dizziness. Sitting up in chair Vitals Vitals Vital Signs Date Time Temp Pulse Resp B/P (MAP) Pulse Ox O2 Delivery O2 Flow Rate FiO2 03/10/20 08:10 76 131/74 03/10/20 08:00 Nasal Cannula 1.0 03/10/20 06:27 97.8 18 99 Weight Weight [ ] Input and Output I.O. Intake and Output 03/10/20 07:00 Intake Total 700 ml Balance 700 ml Intake Oral 700 ml # Voids 4 # Bowel Movements 3 Laboratory Labs Laboratory Tests Test 03/09/20 05:48 Sodium Level 135 mmol/L (136-145) Potassium Level 3.7 mmol/L (3.5-5.1) Chloride Level 100 mmol/L (98-107) Carbon Dioxide Level 31 mmol/L (21-32) Anion Gap 4 (6-14) Blood Urea Nitrogen 27 mg/dL (7-20) Creatinine 1.1 mg/dL (0.6-1.0) Estimated GFR (Cockcroft-Gault) 47.1 Glucose Level 148 mg/dL (70-99) Calcium Level 8.8 mg/dL (8.5-10.1) Microbiology Micro Microbiology 03/06/20 Gram Stain - Final, Resulted 03/06/20 Aerobic and Anaerobic Culture - Preliminary, Resulted 03/04/20 Urine Culture - Final, Complete 03/04/20 Antimicrobic Susceptibility - Final, Complete Physical Exams HEENT: Neck Supple W Full Motion Chest: Symmetric Lungs: Other (diminished bases) Heart: RRR Abdomen: Soft N/T Extremities: Other (trace bilateral LE edema ) Neurology: alert, follow commands, other (forgetful, sleepy) Assessment Assessment 1. Acute respiratory failure with a/c CHF and pleural effusion. S/p thoracentesis 2. Acute on chronic systolic CHF; appears compensated 3. ICM: LVEF 20%; s/p Bi-V, EDGE TRIMMER-P (Biotronik) 4. CAD: s/p PCI/BAYLEE to proximal and distal LAD. Stable. CP free 5. Hypertension; adequate 6. CKD; Cr stable 7. Hyperlipidemia; statin 8. PAFIB; maintaining SR 9. High PVC burden: on amiodarone Recommendations F/u CXR Continue Lasix therapy Metoprolol as BP allows Will add low-dose ACEi as BP allows. Secondary prevention Continue ASA therapy. Poor candidate for long-term OAC given recurrent falls. Supportive care from a CV standpoint Fdc prognosis poor. MATEUS BERNARDO APRN Mar 10, 2020 10:22
--- NOTE | 2020-03-10 11:28 | RAD ---
EXAM: CHEST ONE VIEW. HISTORY: Shortness of breath, status post thoracentesis. COMPARISON: 03/06/2020. FINDINGS: A frontal view of the chest is obtained. A left-sided pacemaker has its leads in the right atrium, right ventricle and a left cardiac vein. A small left pleural effusion has increased slightly since the prior examination. There is associated atelectasis in the left greater than right bases. A component of retrocardiac infiltrate cannot be excluded. There is no pneumothorax. The heart is not enlarged. There are atherosclerotic calcifications of the aorta. IMPRESSION: 1. Small left pleural effusion with retrocardiac atelectasis or infiltrate. Electronically signed by: Darren Armstrong MD (03/10/2020 11:25 AM) [id number]
[2020-03-10 12:54] VITALS: BP 91/59
[2020-03-10 15:25] VITALS: BP 98/61
[2020-03-10 19:22] VITALS: BP 104/66
[2020-03-10 22:50] VITALS: BP 107/64
--- NOTE | 2020-03-11 00:19 | PN ---
DATE: 03/10/2020 SUBJECTIVE: The patient is resting, slightly propped up, sleeping comfortably, no apparent distress. On questioning her, she denied any complaint. The nursing staff stated that she has been weak, ____ requires 3-person assist. PHYSICAL EXAMINATION: GENERAL: When I examined her, she was pale, no jaundice, cyanosis or thyromegaly. No jugular venous distention. No limb edema. VITAL SIGNS: Her heart rate was 77, blood pressure was 91/59, temperature was 97.7, respiratory rate was 16, and oxygen saturation was 94%. HEAD, EYES, EARS, NOSE, AND THROAT: Showed normocephalic and atraumatic. NECK: Supple. CARDIAC: Normal first and second heart sounds. No gallop or murmur. CHEST: Clear to auscultation. No crepitation or rhonchi. ABDOMEN: Distended, soft, nontender. No guarding or rigidity. No organomegaly. All hernial orifice intact. Bowel sounds normal. NEUROLOGIC: She was sleepy, but arousable. All cranial nerves intact. She moves extremities without difficulty. She is mostly bedbound. Her intake over the last 24 hours was 720, no output was recorded. LABORATORY DATA: As of this morning, her most recent serum sodium was 135, potassium 3.7, chloride 100, bicarbonate 31, anion gap of 4, BUN 27, creatinine 1.1, estimated GFR was 47 mL per minute. Her glucose 148, calcium was 8.8. ASSESSMENT: 1. Altered mental status, seems to be more awake after her Ativan was discontinued. 2. Recurrent bouts of diarrhea that has resolved. Her Clostridium difficile toxins were negative. 3. Community-acquired pneumonia with ground-glass opacities in the right upper lobe and right lower lobe, for which she was on ceftriaxone and doxycycline. Her COVID test was negative and Clostridium difficile toxins were negative. 4. She has large left side pleural effusion with resultant complete collapse of the left lower lobe and partial collapse of the right lobe. She is status post thoracentesis, chest x-ray done with thoracentesis showed small residual left side pleural effusion that has slightly increased on a chest x-ray done today. 5. Acute on chronic systolic congestive heart failure for which she was seen by the Cardiology and was started back on her Lasix and spironolactone. 6. Other medical problems includes; A. Atrial fibrillation, rate controlled and anticoagulated. B. Coronary artery disease, currently asymptomatic. C. Sick sinus syndrome. D. Gastroesophageal reflux disease, irritable bowel syndrome and diverticulosis and diverticulitis. PLAN: Obviously to continue with antibiotics. Continue with furosemide as well as spironolactone and amiodarone to control the heart rate and as far as the disposition, the patient was on hospice at home before and she now seems to be stable. I spoke with the professor of social work and to discuss with the family about the disposition. KOREY RAY MD DR: ED/shannen JOB#: [id number] / [id number]
[2020-03-11] MEDS: ACETAMINOPHEN 325 MG TABLET PO SCH ×4 (05:46→18:06)
[2020-03-11 06:05] VITALS: BP 101/66
[2020-03-11] MEDS: DICYCLOMINE HCL 10 MG CAPSULE PO SCH ×2 (08:20→21:00)
[2020-03-11] MEDS: FUROSEMIDE 40 MG TABLET PO SCH (08:20)
[2020-03-11] MEDS: METOPROLOL SUCC 24HR ER 50 MG TAB.ER.24H. PO SCH (08:21)
[2020-03-11] MEDS: LACTOBACILLUS RHAMNOSUS GG 1 CAPSULE. PO SCH ×2 (08:21→21:00)
[2020-03-11] MEDS: AMIODARONE HCL 200 MG TABLET PO SCH (08:21)
[2020-03-11] MEDS: LISINOPRIL 5 MG TABLET. PO SCH (08:22)
--- NOTE | 2020-03-11 08:23 | PN ---
DATE: 03/11/2020 ATTENDING PHYSICIAN: Dr. Ron. SUBJECTIVE: Confused, very weak, sleeping with the head of the bed up at 45 degrees. She has minimal dyspnea. She still requires 2:1 assistance in transfer. OBJECTIVE FINDINGS: VITAL SIGNS: Blood pressure today is 101/66 mmHg, temperature is 97.9 degrees Fahrenheit, oxygen saturation 98% on 1 liter nasal cannula. HEENT: Head is without trauma. Pupils are reactive. Sclerae are nonicteric. The oropharynx is clear. NECK: Supple. LUNGS: Bibasilar crackles. CARDIOVASCULAR: Showed regular rhythm. No gallops. Peripheral pulses are weak. ABDOMEN: Soft, no guarding. EXTREMITIES: Showed no cyanosis or edema. NEUROLOGIC: Pleasantly confused. LABORATORY DATA: Most recent one 2 days ago. The potassium is 3.7 mEq, creatinine is 1.1 mg/dL. ASSESSMENT: 1. An 84-year-old female with acute on chronic respiratory failure. 2. Altered mentation. 3. Community-acquired pneumonia with opacities in the right upper lobe and right lower lobe. She has had a negative COVID swabs and negative Clostridium difficile toxins. 4. Large pleural effusion with complete collapse of the left lower lobe and partial collapse of the right lower lobe. Small residual fluid left following thoracentesis. 5. Acute on chronic diastolic heart failure. 6. Generalized debilitation. 7. Atrial fibrillation. 8. Chronic anticoagulation. 9. Sick sinus syndrome. 10. Gastroesophageal reflux disease. PLAN: 1. Continue antibiotics as ordered. 2. Diuresis with limitations of blood pressure. 3. Continue amiodarone to control heart rate. 4. Disposition with family. She remains very weak and already has hospice care. GALA SÁNCHEZ MD DR: SYLVESTER/shannen JOB#: [id number] / [id number]
--- NOTE | 2020-03-11 08:55 | PDOC ---
CARDIO Progress Notes Date & Time Date of Service DATE: 03/11/20 TIME: 08:52 Time of Evaluation 08:52 Subjective Notes No chest pain, palpitations, dizziness, diaphoresis Vitals Vitals Vital Signs Date Time Temp Pulse Resp B/P (MAP) Pulse Ox O2 Delivery O2 Flow Rate FiO2 03/11/20 08:22 76 101/66 03/11/20 06:05 97.9 18 100 Nasal Cannula 1.0 Weight Weight [ ] Input and Output I.O. Intake and Output 03/11/20 07:00 Intake Total 680 ml Output Total 1 ml Balance 679 ml Intake Oral 680 ml Stool Total 1 ml # Voids 2 Microbiology Micro Microbiology 03/06/20 Gram Stain - Final, Resulted 03/06/20 Aerobic and Anaerobic Culture - Preliminary, Resulted 03/04/20 Urine Culture - Final, Complete 03/04/20 Antimicrobic Susceptibility - Final, Complete Physical Exams HEENT: Neck Supple W Full Motion Chest: Symmetric Lungs: Other (diminished bases) Heart: RRR Abdomen: Soft N/T Extremities: Other (trace bilateral LE edema ) Neurology: alert, follow commands, other (forgetful, sleepy) Assessment Assessment 1. Acute respiratory failure with a/c CHF and pleural effusion. S/p thoracentesis 2. Acute on chronic systolic CHF; appears compensated 3. 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 CAD: s/p PCI/BAYLEE to proximal and distal LAD. Stable. CP free 5. Hypertension; low end 6. CKD; Cr stable 7. Hyperlipidemia; statin 8. PAFIB; maintaining SR 9. High PVC burden: on amiodarone Recommendations Continue Lasix therapy daily HR optimization with BB and ACEi as BP allows Amiodarone for rhythm maintenance Long-term prognosis poor. Would recommend returning to Hospice ZA,EMILY MARE Mar 11, 2020 08:55
[2020-03-11 10:31] VITALS: BP 90/53
[2020-03-11 15:08] VITALS: BP 99/62
[2020-03-11 20:01] VITALS: BP 84/52
[2020-03-12] MEDS: ACETAMINOPHEN 325 MG TABLET PO SCH ×4 (05:18→18:03)
[2020-03-12 05:29] VITALS: BP 136/79
--- NOTE | 2020-03-12 06:19 | NUR ---
Pt sat up visiting with her eldest daughter Hermelinda for much of the evening, in good spirits. Pt's daughter went home around 2300 and pt slept well through much of the night. Pt reports coccyx pain intermittently. Given bernadette Tylenol and pt on Q2hr turning schedule. Barrier cream applied with brief changes. Pt incont of B+B, with large formed BM this AM. Linens and gown changed. Pt tolerated fair.
[2020-03-12] MEDS: METOPROLOL SUCC 24HR ER 50 MG TAB.ER.24H. PO SCH (09:10)
[2020-03-12] MEDS: DICYCLOMINE HCL 10 MG CAPSULE PO SCH ×2 (09:10→19:54)
[2020-03-12] MEDS: AMIODARONE HCL 200 MG TABLET PO SCH (09:10)
[2020-03-12] MEDS: LACTOBACILLUS RHAMNOSUS GG 1 CAPSULE. PO SCH ×2 (09:10→19:54)
[2020-03-12] MEDS: LISINOPRIL 5 MG TABLET. PO SCH (09:11)
[2020-03-12] MEDS: FUROSEMIDE 40 MG TABLET PO SCH (09:11)
[2020-03-12 10:25] VITALS: BP 103/64
--- NOTE | 2020-03-12 13:22 | PN ---
DATE: 03/12/2020 ATTENDING PHYSICIAN: Dr. Ron SUBJECTIVE: Very weak, pleasantly confused, still bedridden. She is being fed her breakfast. She is nonambulatory. OBJECTIVE FINDINGS: VITAL SIGNS: Blood pressure earlier this morning was 84/52 mmHg, pulse 76 and regular, temperature 97.7 degrees Fahrenheit, oxygen saturation 93% on room air. HEENT: Head is without trauma. Pupils are reactive. Sclerae nonicteric. Oropharynx is clear. NECK: Supple. Venous pressure is distended at 45 degrees. LUNGS: Shallow respirations, crackles at both bases. CARDIOVASCULAR: Showed distant heart tones. Faint sounding heartbeat. No gallops. Peripheral pulses are palpable and weak. ABDOMEN: Soft, nontender to palpation. Bowel sounds are hypoactive. EXTREMITIES: Showed no cyanosis. There is significant muscle wasting. NEUROLOGIC: Pleasantly confused. No focal deficits. ASSESSMENT: 1. An 84-year-old female who was in decline. I believe she is actively dying. 2. Acute on chronic respiratory failure. 3. Altered mentation. 4. Community-acquired pneumonia with opacities in the right upper and right lower lobe. 5. Pleural effusion due to heart failure. 6. Acute on chronic diastolic congestive heart failure, not well compensated. 7. Generalized debilitation. 8. Paroxysmal atrial fibrillation. 9. Sick sinus syndrome. 10. Chronic anticoagulation. 11. Gastroesophageal reflux disease. PLAN: 1. Continue antibiotics as ordered. 2. Tentative plans for discharge home with hospice tomorrow. 3. Recommendations per Cardiology. Please note their poor prognosis in addition. GALA SÁNCHEZ MD DR: SYLVESTER/shannen JOB#: [id number] / [id number]
[2020-03-12 15:50] VITALS: BP 105/65
[2020-03-12 19:14] VITALS: BP 93/59
[2020-03-12] MEDS: HYDROmorphone 2 MG TABLET PO PRN (19:54)
[2020-03-13] MEDS: HYDROmorphone 2 MG TABLET PO PRN ×2 (00:07→13:37)
--- NOTE | 2020-03-13 03:52 | NUR ---
Pt restless and c/o coccyx pain at beginning of shift despite bernadette tylenol admin. Pt is planning to DC home on hospice tomorrow. Pt's family reports pt has been unable to get comfortable today and is in severe pain with all cares. Dr. Butler notified of pt status and new orders received. Koenig catheter placed for end of life care. Pt tolerated procedure fair. PRN dilaudid 0.5mg PO given for pain. Pt able to rest intermittently throughout night and reports decreased pain, tolerating q2hr turns.
[2020-03-13] MEDS: ACETAMINOPHEN 325 MG TABLET PO SCH ×3 (05:34→11:43)
[2020-03-13 06:08] VITALS: BP 95/60
[2020-03-13] MEDS: AMIODARONE HCL 200 MG TABLET PO SCH (07:51)
[2020-03-13] MEDS: FUROSEMIDE 40 MG TABLET PO SCH (07:51)
[2020-03-13] MEDS: LACTOBACILLUS RHAMNOSUS GG 1 CAPSULE. PO SCH (07:51)
[2020-03-13] MEDS: METOPROLOL SUCC 24HR ER 50 MG TAB.ER.24H. PO SCH (07:52)
[2020-03-13] MEDS: DICYCLOMINE HCL 10 MG CAPSULE PO SCH (07:52)
[2020-03-13] MEDS: LISINOPRIL 5 MG TABLET. PO SCH (07:55)
[2020-03-13 07:56] VITALS: BP 101/58
[2020-03-13 10:58] VITALS: BP 97/61
--- NOTE | 2020-03-13 12:17 | DS ---
DATE OF DISCHARGE: 03/13/2020 ATTENDING PHYSICIAN: Dr. Ron. FINAL DISCHARGE DIAGNOSES: 1. Acute on chronic respiratory failure. 2. End-stage congestive heart failure. 3. Bilateral pleural effusions with thoracentesis for palliation. 4. Profound dementia. 5. Irritable bowel syndrome. 6. COVID-19 coronavirus ruled out. 7. Permanent pacemaker. 8. Generalized debilitation. 9. History of sick sinus syndrome. 10. Previous myocardial infarction. HISTORY AND PHYSICAL: This is an 84-year-old female with known ischemic cardiomyopathy and end-stage congestive heart failure, had been with hospice services. The family requested to come in for generalized weakness. She has very labile blood pressures due to diuresis and her euvolemic state. PHYSICAL EXAMINATION: Please see the dictated note. PERTINENT LABORATORY AND X-RAY STUDIES: Admission hemoglobin was 12.3 g/dL, white count 10,900. Chemistry panel showed stable potassium 4.1 mEq, sodium 135 mEq, creatinine was 1.1 mg/dL. Liver panel unremarkable. COVID-19 coronavirus swab was not detected. A Clostridium difficile toxin assay was negative. COURSE IN THE HOSPITAL: The patient was admitted. Cardiology services was consulted and their recommendations on the chart. She was very frail requiring total 24-hour care, IV hydration for the first two days were then stopped. Morphine and Dilaudid were ordered for pain control. She remains confused and very weak. On the 10th hospital day, the family is aware of her terminal prognosis. They wanted to take her home with continued hospice care at home. I wrote a script for liquid Dilaudid; if this is not available, we can go with Roxanol. The liquid Dilaudid dose to 0.5 mg or 10 drops every 6 hours p.r.n. pain. Other meds will be continued including her amiodarone 200 mg daily, Plavix 75 mg daily, Bentyl 10 mg b.i.d. and metoprolol 50 mg daily along with intermittent doses of Lasix depending on her volume status. Her prognosis is terminal. The patient was then discharged from our hospital in stable condition with explicit instructions and followup care for comfort measures with hospice at home. GALA SÁNCHEZ MD DR: SYLVESTER/shannen JOB#: [id number] / [id number]
--- NOTE | 2020-03-13 13:57 | NUR ---
PATIENT IS DISCHARGED HOME WITH HOSPICE. DISCHARGED INSTRUCTION AND PRESCRIBED MEDICATIONS DISCUSSED WITH DAUGHTER, UNDERSTANDING WAS VERBALIZED. PATIENT LEFT ROOM VIA GURNEY ACCOMPANIED BY EMS STAFF. PATIENT IS TAKEN HOME VIA EMS.
== END 2020-03-13 13:55 | disposition hospice, home (50) | DRG 177 ==
LOC: 1 SOUTH 16:00
PROVIDERS: ADMIT Internal Medicine; ATTEND Internal Medicine
PROC: 0W9B3ZZ Drainage of Left Pleural Cavity, Percutaneous Approach (ICD-10-PCS; principal; 2020-03-09)
DX: J15.6 Pneumonia due to other Gram-negative bacteria (principal); E43 Unspecified severe protein-calorie malnutrition; I50.43 Acute on chronic combined systolic (congestive) and diastolic (congestive) heart failure; J96.20 Acute and chronic respiratory failure, unspecified whether with hypoxia or hypercapnia; I13.0 Hypertensive heart and chronic kidney disease with heart failure and stage 1 through stage 4 chronic kidney disease, or unspecified chronic kidney disease; J98.11 Atelectasis; E78.5 Hyperlipidemia, unspecified; F03.90 Unspecified dementia, unspecified severity, without behavioral disturbance, psychotic disturbance, mood disturbance, and anxiety; I25.10 Atherosclerotic heart disease of native coronary artery without angina pectoris; I25.2 Old myocardial infarction; I25.5 Ischemic cardiomyopathy; I48.0 Paroxysmal atrial fibrillation; I49.5 Sick sinus syndrome; I50.84 End stage heart failure; J15.9 Unspecified bacterial pneumonia; K21.9 Gastro-esophageal reflux disease without esophagitis; K58.9 Irritable bowel syndrome, unspecified; M15.9 Polyosteoarthritis, unspecified; N18.9 Chronic kidney disease, unspecified; T50.2X5A Adverse effect of carbonic-anhydrase inhibitors, benzothiadiazides and other diuretics, initial encounter; Z20.828 Contact with and (suspected) exposure to other viral communicable diseases; Z51.5 Encounter for palliative care; Z74.01 Bed confinement status; Z79.01 Long term (current) use of anticoagulants; Z79.02 Long term (current) use of antithrombotics/antiplatelets; Z79.899 Other long term (current) drug therapy; Z82.49 Family history of ischemic heart disease and other diseases of the circulatory system; Z83.3 Family history of diabetes mellitus; Z95.0 Presence of cardiac pacemaker; Z98.61 Coronary angioplasty status; F41.9 Anxiety disorder, unspecified; Z68.20 Body mass index [BMI] 20.0-20.9, adult
CPT/HCPCS: 32555; 36415; 36600; 71045; 71250; 76942; 80048; 80053; 81001; 82140; 82803; 82947; 83605; 83880; 83986; 84157; 85007; 85025; 85027; 85610; 85730; 87015; 87071; 87075; 87077; 87086; 87186; 87493; 88112; 88305; 89050; J0696; J8540; 97110; 97530; 97535; U0003-CS